=== PATIENT | male | born 1965 | race Caucasian/White ===

== ENCOUNTER 2017-11-06 13:24 | Emergency (ER) | payer MEDICARE, OTHER, MEDICAID ==
[~2017-11-06] VITALS: Ht 188 cm; Wt 89.1 kg
[~2017-11-06 13:24] MED LIST: ALBU18HF2 IH; ALBU6.7H INH; ASPI-611 PO; BUDE10.22 INH; METH4TAB3 PO; TIOT18CA7 INH
[2017-11-06] MEDS ORDERED: midazolam 2 mg/2 ml injection ONE (13:34)
[2017-11-06] MEDS ORDERED: fentaNYL/PF 50MCG/1 ML 2ML syringe ONE (13:34)
[2017-11-06] MEDS ORDERED: iohexol 350MG/ML 100ml bottle IV ONE (13:34)
[2017-11-06] MEDS ORDERED: LIDOcaine 1% w/EPI 1:100,000 30ml vial (MDV) ONE (13:34)
[2017-11-06] MEDS ORDERED: heparin 10,000 units/1 ML INJ IV ONE (13:35)
[2017-11-06] MEDS ORDERED: nitroGLYCERIN 0.4mg SUBLingual tab SL PRN (13:35)
[2017-11-06] MEDS ORDERED: aspirin 81mg tab.chew PO ONE (13:35)
[2017-11-06] MEDS ORDERED: dexamethasone sod phosphate 10mg/ml inj IV STA (13:40)
[2017-11-06] MEDS ORDERED: ipratropium/albuterol 3ml nebule NEB ONE (13:40)
[2017-11-06 13:45] LABS: BASOPHILS # (AUTO) 0.1 X10'3 (0-0.2); BASOPHILS % (AUTO) 0.8 % (0-1); EOSINOPHILS # (AUTO) 0.2 X10'3 (0-0.9); HEMATOCRIT 42.5 % (42.0-52.0); HEMOGLOBIN 14.5 g/dl (14.0-17.9); LYMPHOCYTES # (AUTO) 2.3 X10'3 (1.1-4.8); LYMPHOCYTES % (AUTO) 29.3 % (21-51); MEAN CORPUSCULAR HEMOGLOBIN 33.1 PG (27.0-31.0); MEAN CORPUSCULAR HGB CONC 34.1 % (33.0-36.5); MONOCYTES # (AUTO) 0.9 X10'3 (0-0.9); NEUTROPHILS # (AUTO) 4.5 X10'3 (1.8-7.7); NEUTROPHILS % (AUTO) 56.9 % (42-75); PLATELET COUNT 525 X10'3 (140-440); RED BLOOD COUNT 4.38 X10'6 (4.70-6.10); RED CELL DISTRIBUTION WIDTH 14.9 % (11.5-14.5); WHITE BLOOD COUNT 7.8 X10'3 (4.5-11.0)
[2017-11-06 13:54] LABS: PARTIAL THROMBOPLASTIN TIME 27 SECONDS (22-32); PROTHROMBIN TIME 10.2 SECONDS (9.0-12.0)
[2017-11-06 13:59] LABS: ALANINE AMINOTRANSFERASE 28 U/L (12-78); ALBUMIN 3.8 G/DL (3.4-5.0); ALBUMIN/GLOBULIN RATIO 1.2 (1.1-1.5); ALKALINE PHOSPHATASE 67 IU/L (46-116); ANION GAP 9 (8-16); ASPARTATE AMINO TRANSFERASE 18 U/L (10-37); BILIRUBIN,TOTAL 0.4 MG/DL (0.1-1.0); BLOOD UREA NITROGEN 12 MG/DL (7-18); BUN/CREATININE RATIO 15.2 (5.4-32.0); CALCIUM 8.5 MG/DL (8.5-10.1); CHLORIDE 103 MMOL/L (99-107); CREATININE 0.79 MG/DL (0.60-1.10); GLUCOSE 101 MG/DL (70-104); POTASSIUM 4.4 MMOL/L (3.5-5.1); SODIUM 139 MMOL/L (135-145); TOTAL CARBON DIOXIDE 26.9 MMOL/L (24-32); eGFR > 90 ML/MIN
[2017-11-06] MEDS ORDERED: ALBU8HFA PO (15:14)
[2017-11-06] MEDS ORDERED: PRED5TAB PO (15:14)
[2017-11-06] MEDS ORDERED: DOXY100C43 PO (15:14)
[2017-11-06 15:43] VITALS: BP 146/76
== END 2017-11-06 15:43 | disposition home or self-care (01) ==
LOC: EDBD 13:24 → EDUNIT# 13:24 → ER 13:27
DX: J20.9 Acute bronchitis, unspecified (principal); J44.1 Chronic obstructive pulmonary disease with (acute) exacerbation; I25.10 Atherosclerotic heart disease of native coronary artery without angina pectoris; I25.2 Old myocardial infarction; Z79.82 Long term (current) use of aspirin; Z86.73 Personal history of transient ischemic attack (TIA), and cerebral infarction without residual deficits; Z60.2 Problems related to living alone; Z98.890 Other specified postprocedural states; Z79.899 Other long term (current) drug therapy
CPT/HCPCS: 36415; 71045; 80053; 84484; 85025; 85610; 85730; 93005; 94640; 94760; 96374; 99285; J1100; J1644; J3490; Q9967; J2250; J3010

== ENCOUNTER 2018-01-14 12:04 | Emergency (ER) | payer OTHER, MEDICAID ==
[~2018-01-14] VITALS: Ht 188 cm; Wt 89.1 kg
[~2018-01-14 12:04] MED LIST changes: +ALB0.5UD IH; +LEVO750T21 PO; +PRED20TA PO; +PRED5TAB PO
[2018-01-14] MEDS ORDERED: normal saline 1000ML IV soln IVB ONE (12:10)
[2018-01-14] MEDS ORDERED: ipratropium/albuterol 3ml nebule NEB ONE (12:10)
[2018-01-14] MEDS ORDERED: albuterol 2.5 MG/3 ML nebule NEB ONE (12:10)
[2018-01-14 12:32] LABS: BASOPHILS # (AUTO) 0.1 X10'3 (0-0.2); BASOPHILS % (AUTO) 0.5 % (0-1); EOSINOPHILS # (AUTO) 0.1 X10'3 (0-0.9); EOSINOPHILS % (AUTO) 1.3 % (0-6); HEMATOCRIT 41.9 % (42.0-52.0); HEMOGLOBIN 13.9 g/dl (14.0-17.9); LYMPHOCYTES # (AUTO) 3.8 X10'3 (1.1-4.8); LYMPHOCYTES % (AUTO) 37.5 % (21-51); MEAN CORPUSCULAR HEMOGLOBIN 32.3 PG (27.0-31.0); MEAN CORPUSCULAR HGB CONC 33.2 % (33.0-36.5); MEAN CORPUSCULAR VOLUME 97.4 FL (78-98); MEAN PLATELET VOLUME 6.9 FL (7.4-10.4); MONOCYTES # (AUTO) 0.8 X10'3 (0-0.9); MONOCYTES % (AUTO) 7.6 % (2-12); NEUTROPHILS # (AUTO) 5.2 X10'3 (1.8-7.7); NEUTROPHILS % (AUTO) 53.1 % (42-75); PLATELET COUNT 541 X10'3 (140-440); RED CELL DISTRIBUTION WIDTH 13.7 % (11.5-14.5)
[2018-01-14 12:41] LABS: PARTIAL THROMBOPLASTIN TIME 26 SECONDS (22-32); PROTHROMBIN TIME 10.4 SECONDS (9.0-12.0)
[2018-01-14 12:49] LABS: ALANINE AMINOTRANSFERASE 24 U/L (12-78); ALBUMIN 3.5 G/DL (3.4-5.0); ALBUMIN/GLOBULIN RATIO 1.3 (1.1-1.5); ALKALINE PHOSPHATASE 57 IU/L (46-116); ANION GAP 10 (8-16); ASPARTATE AMINO TRANSFERASE 30 U/L (10-37); BILIRUBIN,TOTAL 0.6 MG/DL (0.1-1.0); BLOOD UREA NITROGEN 11 MG/DL (7-18); BUN/CREATININE RATIO 15.3 (5.4-32.0); CALCIUM 8.7 MG/DL (8.5-10.1); CHLORIDE 101 MMOL/L (99-107); CREATININE 0.72 MG/DL (0.60-1.10); GLUCOSE 94 MG/DL (70-104); POTASSIUM 3.5 MMOL/L (3.5-5.1); SODIUM 137 MMOL/L (135-145); TOTAL CARBON DIOXIDE 26.4 MMOL/L (24-32); TOTAL PROTEIN 6.3 G/DL (6.4-8.2); eGFR > 90 ML/MIN
[2018-01-14] MEDS ORDERED: ALB0.5UD IH (13:09)
[2018-01-14] MEDS ORDERED: ALBU18HF2 INH (13:09)
[2018-01-14] MEDS ORDERED: TIOT18CA3 INH (13:11)
[2018-01-14] MEDS ORDERED: BUDE10.22 INH (13:11)
[2018-01-14 13:30] VITALS: BP 105/74
== END 2018-01-14 13:18 | disposition home or self-care (01) ==
LOC: EDUNIT# 12:04 → EDBD 12:05 → ER 12:05
DX: J44.1 Chronic obstructive pulmonary disease with (acute) exacerbation (principal); I25.10 Atherosclerotic heart disease of native coronary artery without angina pectoris; I25.2 Old myocardial infarction; G89.29 Other chronic pain; Z95.5 Presence of coronary angioplasty implant and graft; Z98.890 Other specified postprocedural states; Z86.73 Personal history of transient ischemic attack (TIA), and cerebral infarction without residual deficits; Z79.899 Other long term (current) drug therapy; Z79.82 Long term (current) use of aspirin
CPT/HCPCS: 36415; 71045; 80053; 83880; 84484; 85025; 85610; 85730; 93005; 94640; 94760; 99285; J7030

== ENCOUNTER 2018-01-25 19:23 | Emergency (ER) | payer OTHER, MEDICAID ==
[~2018-01-25] VITALS: Ht 188 cm; Wt 89.1 kg
[~2018-01-25 19:23] MED LIST changes: +ALBU18HF2 INH; -LEVO750T21 PO; -PRED20TA PO; +TIOT18CA3 INH
[2018-01-25 19:50] LABS: BASOPHILS # (AUTO) 0.1 X10'3 (0-0.2); BASOPHILS % (AUTO) 0.8 % (0-1); EOSINOPHILS # (AUTO) 0.1 X10'3 (0-0.9); EOSINOPHILS % (AUTO) 1.4 % (0-6); HEMATOCRIT 45.6 % (42.0-52.0); HEMOGLOBIN 15.5 g/dl (14.0-17.9); LYMPHOCYTES # (AUTO) 2.4 X10'3 (1.1-4.8); LYMPHOCYTES % (AUTO) 27.4 % (21-51); MEAN CORPUSCULAR HEMOGLOBIN 32.7 PG (27.0-31.0); MEAN CORPUSCULAR VOLUME 96.2 FL (78-98); MEAN PLATELET VOLUME 6.7 FL (7.4-10.4); MONOCYTES % (AUTO) 11.9 % (2-12); NEUTROPHILS # (AUTO) 5.1 X10'3 (1.8-7.7); NEUTROPHILS % (AUTO) 58.5 % (42-75); PLATELET COUNT 497 X10'3 (140-440); RED BLOOD COUNT 4.74 X10'6 (4.70-6.10); RED CELL DISTRIBUTION WIDTH 14.3 % (11.5-14.5); WHITE BLOOD COUNT 8.7 X10'3 (4.5-11.0)
[2018-01-25 20:00] LABS: PARTIAL THROMBOPLASTIN TIME 27 SECONDS (22-32); PROTHROMBIN TIME 10.4 SECONDS (9.0-12.0)
[2018-01-25 20:05] LABS: ALANINE AMINOTRANSFERASE 22 U/L (12-78); ALBUMIN 3.9 G/DL (3.4-5.0); ALBUMIN/GLOBULIN RATIO 1.2 (1.1-1.5); ALKALINE PHOSPHATASE 79 IU/L (46-116); ANION GAP 8 (8-16); ASPARTATE AMINO TRANSFERASE 21 U/L (10-37); BILIRUBIN,TOTAL 0.6 MG/DL (0.1-1.0); BLOOD UREA NITROGEN 8 MG/DL (7-18); BUN/CREATININE RATIO 9.4 (5.4-32.0); CALCIUM 9.1 MG/DL (8.5-10.1); CHLORIDE 98 MMOL/L (99-107); CREATININE 0.85 MG/DL (0.60-1.10); GLUCOSE 87 MG/DL (70-104); POTASSIUM 4.2 MMOL/L (3.5-5.1); SODIUM 134 MMOL/L (135-145); TOTAL CARBON DIOXIDE 27.9 MMOL/L (24-32); TOTAL PROTEIN 7.1 G/DL (6.4-8.2); eGFR > 90 ML/MIN
[2018-01-25 20:34] VITALS: BP 118/84
== END 2018-01-25 20:35 | disposition home or self-care (01) ==
LOC: ER 19:23
DX: R61 Generalized hyperhidrosis (principal); F17.210 Nicotine dependence, cigarettes, uncomplicated; I25.10 Atherosclerotic heart disease of native coronary artery without angina pectoris; I25.2 Old myocardial infarction; J44.9 Chronic obstructive pulmonary disease, unspecified; G89.29 Other chronic pain; Z86.73 Personal history of transient ischemic attack (TIA), and cerebral infarction without residual deficits; Z95.5 Presence of coronary angioplasty implant and graft; Z98.890 Other specified postprocedural states; Z79.82 Long term (current) use of aspirin; Z79.899 Other long term (current) drug therapy
CPT/HCPCS: 36415; 71045; 80053; 84484; 85025; 85610; 85730; 93005; 99285

== ENCOUNTER 2018-02-10 18:49 | Inpatient (IN) | payer MEDICARE, MEDICAID ==
[~2018-02-10] VITALS: Ht 172.7 cm; Wt 89.1 kg
[~2018-02-10 18:49] MED LIST changes: +ALBU8HFA PO; +ATR0.5NEB IH; +DOXY100C43 PO
[2018-02-10] MEDS ORDERED: doxycycline hyclate 100mg tablet.DR PO ONE (19:15)
[2018-02-10] MEDS ORDERED: triamcinolone acetonide 40mg/ml inj IM ONE (19:15)
[2018-02-10] MEDS ORDERED: ipratropium/albuterol 3ml nebule NEB ONE (19:15)
[2018-02-10] MEDS ORDERED: DOXYCYCLINE 100MG CAPSULE PO ONE (19:25)
[2018-02-10 19:43] LABS: BASOPHILS # (AUTO) 0.1 X10'3 (0-0.2); BASOPHILS % (AUTO) 0.9 % (0-1); EOSINOPHILS # (AUTO) 0.1 X10'3 (0-0.9); EOSINOPHILS % (AUTO) 1.2 % (0-6); HEMATOCRIT 45.1 % (42.0-52.0); HEMOGLOBIN 15.4 g/dl (14.0-17.9); LYMPHOCYTES % (AUTO) 21.1 % (21-51); MEAN CORPUSCULAR HGB CONC 34.2 % (33.0-36.5); MEAN CORPUSCULAR VOLUME 96.4 FL (78-98); MEAN PLATELET VOLUME 6.6 FL (7.4-10.4); MONOCYTES # (AUTO) 0.7 X10'3 (0-0.9); MONOCYTES % (AUTO) 7.6 % (2-12); NEUTROPHILS # (AUTO) 6.7 X10'3 (1.8-7.7); NEUTROPHILS % (AUTO) 69.2 % (42-75); PLATELET COUNT 577 X10'3 (140-440); RED BLOOD COUNT 4.68 X10'6 (4.70-6.10); RED CELL DISTRIBUTION WIDTH 14.5 % (11.5-14.5); WHITE BLOOD COUNT 9.7 X10'3 (4.5-11.0)
[2018-02-10 20:03] LABS: PARTIAL THROMBOPLASTIN TIME 26 SECONDS (22-32); PROTHROMBIN TIME 10.4 SECONDS (9.0-12.0)
[2018-02-10 20:18] LABS: ALANINE AMINOTRANSFERASE 25 U/L (12-78); ALBUMIN 4.1 G/DL (3.4-5.0); ALBUMIN/GLOBULIN RATIO 1.4 (1.1-1.5); ALKALINE PHOSPHATASE 66 IU/L (46-116); ANION GAP 8 (8-16); ASPARTATE AMINO TRANSFERASE 15 U/L (10-37); BILIRUBIN,TOTAL 0.7 MG/DL (0.1-1.0); BLOOD UREA NITROGEN 15 MG/DL (7-18); BUN/CREATININE RATIO 15.2 (5.4-32.0); CALCIUM 9.4 MG/DL (8.5-10.1); CHLORIDE 98 MMOL/L (99-107); CREATININE 0.99 MG/DL (0.60-1.10); GLUCOSE 97 MG/DL (70-104); SODIUM 135 MMOL/L (135-145); TOTAL CARBON DIOXIDE 29.3 MMOL/L (24-32); TOTAL PROTEIN 7.1 G/DL (6.4-8.2); eGFR 79 ML/MIN
[2018-02-10] MEDS ORDERED: diphenhydrAMINE 50 mg/ml inj IV PRN (20:50)
[2018-02-10] MEDS ORDERED: acetaminophen 325mg tablet PO PRN ×2 (20:50)
[2018-02-10] MEDS ORDERED: morphine 2 MG/ML inj. syringe IV PRN ×2 (20:50)
[2018-02-10] MEDS ORDERED: bisacodyl 10mg suppository rectal RC PRN (20:50)
[2018-02-10] MEDS ORDERED: metoclopramide 5 mg/ml inj IV PRN (20:50)
[2018-02-10] MEDS ORDERED: HYDROmorphone inj. 0.5 MG/0.5 ML DISP.SYRIN IV PRN ×2 (20:50)
[2018-02-10] MEDS ORDERED: diphenhydrAMINE 25mg capsule PO PRN (20:50)
[2018-02-10] MEDS ORDERED: albuterol 2.5 mg/0.5ml nebule NEB PRN (20:50)
[2018-02-10] MEDS ORDERED: acetaminophen 650mg rectal suppository RC PRN (20:50)
[2018-02-10] MEDS ORDERED: ondansetron/PF 4mg/2ml inj IV PRN (20:50)
[2018-02-10] MEDS ORDERED: HYDROcodone/acetaminophen 10/325mg tab PO PRN (20:50)
[2018-02-10] MEDS ORDERED: mag hydrox/Alum hydrox/simeth 30ml oral suspension PO PRN (20:50)
[2018-02-10] MEDS ORDERED: magnesium hydroxide 30ml (MOM) UD suspension PO PRN (20:50)
[2018-02-10] MEDS ORDERED: HYDROcodone/acetaminophen 5mg/325mg tablet PO PRN (20:50)
[2018-02-10] MEDS ORDERED: temazepam 15mg capsule PO PRN (21:00)
[2018-02-10] MEDS ORDERED: iohexol 350MG/ML 100ml bottle IV ONE (21:02)
[2018-02-10] MEDS: dextrose 5%-1/2 normal saline 1,000 ML IV SCH (21:24)
[2018-02-10 21:25] LABS: MAGNESIUM 2.4 MG/DL (1.5-2.4)
[2018-02-11] MEDS: ipratropium 0.5 MG/2.5ML nebule IH SCH ×2 (01:34→08:32)
[2018-02-11 05:32] VITALS: BP 125/79
[2018-02-11] MEDS ORDERED: famotidine 20mg tablet PO SCH (08:00)
[2018-02-11] MEDS ORDERED: methylPREDNISolone sod succ 125mg/2ml vial IV SCH (08:00)
[2018-02-11] MEDS ORDERED: heparin, porcine 5000 units/ml vial SQ SCH (08:00)
[2018-02-11] MEDS ORDERED: docusate sod 100mg capsule PO SCH (08:00)
[2018-02-11] MEDS ORDERED: aspirin 81mg tablet.DR PO SCH (08:00)
[2018-02-11] MEDS ORDERED: lactobacillus rhamnosus 10,000 MMU CELLS/CAPSULE PO SCH (08:00)
[2018-02-11] MEDS ORDERED: DOXYCYCLINE 100MG CAPSULE PO SCH (08:00)
[2018-02-11 08:13] LABS: BASOPHILS # (AUTO) 0.1 X10'3 (0-0.2); BASOPHILS % (AUTO) 0.7 % (0-1); EOSINOPHILS # (AUTO) 0.1 X10'3 (0-0.9); EOSINOPHILS % (AUTO) 1.2 % (0-6); HEMATOCRIT 45.3 % (42.0-52.0); HEMOGLOBIN 15.4 g/dl (14.0-17.9); LYMPHOCYTES # (AUTO) 1.9 X10'3 (1.1-4.8); MEAN CORPUSCULAR HEMOGLOBIN 32.8 PG (27.0-31.0); MEAN CORPUSCULAR VOLUME 96.4 FL (78-98); MEAN PLATELET VOLUME 6.7 FL (7.4-10.4); MONOCYTES # (AUTO) 0.8 X10'3 (0-0.9); MONOCYTES % (AUTO) 8.9 % (2-12); NEUTROPHILS % (AUTO) 68.2 % (42-75); PLATELET COUNT 607 X10'3 (140-440); RED BLOOD COUNT 4.69 X10'6 (4.70-6.10); RED CELL DISTRIBUTION WIDTH 14.3 % (11.5-14.5); WHITE BLOOD COUNT 8.8 X10'3 (4.5-11.0)
[2018-02-11] MEDS: dextrose 5%-1/2 normal saline 1,000 ML IV SCH (08:37)
[2018-02-11] MEDS: nicotine 21mg patch - 24 hr TD SCH (08:41)
[2018-02-11 08:43] LABS: URINE AMPHETAMINE SCREEN NEGATIVE (Neg); URINE BARBITUATE SCREEN NEGATIVE (Neg); URINE BENZODIAZEPINES SCREEN NEGATIVE (Neg); URINE CANNABINOID SCREEN NEGATIVE (Neg); URINE COCAINE SCREEN NEGATIVE (Neg); URINE METHADONE SCREEN NEGATIVE (Neg); URINE OPIATE SCREEN NEGATIVE (Neg); URINE PHENCYCLIDINE SCREEN NEGATIVE (Neg)
[2018-02-11 09:13] LABS: ALANINE AMINOTRANSFERASE 24 U/L (12-78); ALBUMIN/GLOBULIN RATIO 1.3 (1.1-1.5); ALKALINE PHOSPHATASE 66 IU/L (46-116); ANION GAP 7 (8-16); ASPARTATE AMINO TRANSFERASE 14 U/L (10-37); BILIRUBIN,TOTAL 0.6 MG/DL (0.1-1.0); BLOOD UREA NITROGEN 13 MG/DL (7-18); BUN/CREATININE RATIO 12.3 (5.4-32.0); CALCIUM 9.2 MG/DL (8.5-10.1); CHLORIDE 99 MMOL/L (99-107); CREATININE 1.06 MG/DL (0.60-1.10); GLUCOSE 111 MG/DL (70-104); POTASSIUM 3.8 MMOL/L (3.5-5.1); SODIUM 136 MMOL/L (135-145); TOTAL CARBON DIOXIDE 30.4 MMOL/L (24-32); eGFR 73 ML/MIN
[2018-02-11] MEDS ORDERED: ipratropium 0.5 MG/2.5ML nebule IH PRN (09:30)
[2018-02-11] MEDS ORDERED: ALBU8.5H8 INH (11:56)
[2018-02-11] MEDS ORDERED: LACT1CAP26 PO (11:56)
[2018-02-11] MEDS ORDERED: NICO-687 TD (11:56)
[2018-02-11] MEDS ORDERED: LEVO500T89 PO (11:56)
[2018-02-11] MEDS ORDERED: BUDE10.22 INH (11:56)
[2018-02-11] MEDS ORDERED: FAMO20TA8 PO (11:56)
[2018-02-11] MEDS ORDERED: PRED10TA23 PO (11:56)
[2018-02-11] MEDS ORDERED: NO HOME MEDS (23:16)
== END 2018-02-11 15:57 | disposition left against medical advice (07) | DRG 192 ==
LOC: ER 18:52 → ED HOLD 20:49 → CANBEDREQ 02-11 11:26
PROVIDERS: ADMIT Family Medicine; ATTEND Family Medicine
PROC: B32T1ZZ Computerized Tomography (CT Scan) of Left Pulmonary Artery using Low Osmolar Contrast (ICD-10-PCS; principal; 2018-02-10)
PROC: B3201ZZ Computerized Tomography (CT Scan) of Thoracic Aorta using Low Osmolar Contrast (ICD-10-PCS; 2018-02-10)
PROC: B32S1ZZ Computerized Tomography (CT Scan) of Right Pulmonary Artery using Low Osmolar Contrast (ICD-10-PCS; 2018-02-10)
DX: J44.1 Chronic obstructive pulmonary disease with (acute) exacerbation (principal); Z53.21 Procedure and treatment not carried out due to patient leaving prior to being seen by health care provider; F17.210 Nicotine dependence, cigarettes, uncomplicated; Z60.2 Problems related to living alone; I25.10 Atherosclerotic heart disease of native coronary artery without angina pectoris; G89.29 Other chronic pain; M54.9 Dorsalgia, unspecified; I25.2 Old myocardial infarction; Z79.899 Other long term (current) drug therapy; Z79.82 Long term (current) use of aspirin; Z91.010 Allergy to peanuts; Z86.73 Personal history of transient ischemic attack (TIA), and cerebral infarction without residual deficits
CPT/HCPCS: 36415; 71045; 71275; 80053; 80305; 83735; 83880; 84100; 85025; 85610; 85730; 94640; 94760; 96372; 99285; J1170; J1644; J2930; J3301; J7030; Q9967

== ENCOUNTER 2018-02-11 22:07 | Inpatient (IN) | payer MEDICARE, MEDICAID ==
[~2018-02-11] VITALS: Ht 188 cm; Wt 89.0 kg
[~2018-02-11 22:07] MED LIST changes: +ALBU8.5H8 INH; +FAMO20TA8 PO; +LACT1CAP26 PO; +LEVO500T89 PO; +NICO-687 TD; +PRED10TA23 PO; +temazepam 15mg capsule PO PRN
[2018-02-11] MEDS ORDERED: albuterol 2.5 MG/3 ML nebule CONTNEB PRN ×2 (22:10→23:10)
[2018-02-11] MEDS ORDERED: dexamethasone 4mg tablet PO ONE (22:10)
[2018-02-11] MEDS ORDERED: doxycycline hyclate 100mg tablet.DR PO ONE (23:15)
[2018-02-11] MEDS ORDERED: NO HOME MEDS (23:16)
[2018-02-11] MEDS ORDERED: acetaminophen 650mg rectal suppository RC PRN (23:25)
[2018-02-11] MEDS ORDERED: ondansetron/PF 4mg/2ml inj IV PRN (23:25)
[2018-02-11] MEDS ORDERED: HYDROmorphone 1 mg/ml syringe IV PRN ×2 (23:25)
[2018-02-11] MEDS ORDERED: diphenhydrAMINE 25mg capsule PO PRN (23:25)
[2018-02-11] MEDS ORDERED: mag hydrox/Alum hydrox/simeth 30ml oral suspension PO PRN (23:25)
[2018-02-11] MEDS ORDERED: HYDROcodone/acetaminophen 5mg/325mg tablet PO PRN (23:25)
[2018-02-11] MEDS ORDERED: magnesium hydroxide 30ml (MOM) UD suspension PO PRN (23:25)
[2018-02-11] MEDS ORDERED: metoclopramide 5 mg/ml inj IV PRN (23:25)
[2018-02-11] MEDS ORDERED: HYDROcodone/acetaminophen 10/325mg tab PO PRN (23:25)
[2018-02-11] MEDS ORDERED: morphine 2 MG/ML inj. syringe IV PRN ×2 (23:25)
[2018-02-11] MEDS ORDERED: bisacodyl 10mg suppository rectal RC PRN (23:25)
[2018-02-11] MEDS ORDERED: acetaminophen 325mg tablet PO PRN ×2 (23:25)
[2018-02-11] MEDS ORDERED: diphenhydrAMINE 50 mg/ml inj IV PRN (23:25)
[2018-02-12 00:14] LABS: BASOPHILS # (AUTO) 0.1 X10'3 (0-0.2); BASOPHILS % (AUTO) 0.9 % (0-1); EOSINOPHILS % (AUTO) 0 % (0-6); HEMATOCRIT 44.7 % (42.0-52.0); HEMOGLOBIN 15.1 g/dl (14.0-17.9); LYMPHOCYTES # (AUTO) 1.4 X10'3 (1.1-4.8); LYMPHOCYTES % (AUTO) 15.1 % (21-51); MEAN CORPUSCULAR HEMOGLOBIN 32.7 PG (27.0-31.0); MEAN CORPUSCULAR HGB CONC 33.8 % (33.0-36.5); MEAN CORPUSCULAR VOLUME 96.7 FL (78-98); MEAN PLATELET VOLUME 7.1 FL (7.4-10.4); MONOCYTES # (AUTO) 0.7 X10'3 (0-0.9); MONOCYTES % (AUTO) 7.2 % (2-12); NEUTROPHILS % (AUTO) 76.8 % (42-75); PLATELET COUNT 594 X10'3 (140-440); RED BLOOD COUNT 4.62 X10'6 (4.70-6.10); RED CELL DISTRIBUTION WIDTH 14.4 % (11.5-14.5); WHITE BLOOD COUNT 9.1 X10'3 (4.5-11.0)
[2018-02-12 01:43] LABS: ALBUMIN 3.9 G/DL (3.4-5.0); BILIRUBIN,TOTAL 0.5 MG/DL (0.1-1.0); BLOOD UREA NITROGEN 15 MG/DL (7-18); BUN/CREATININE RATIO 15.6 (5.4-32.0); CREATININE 0.96 MG/DL (0.60-1.10); eGFR 82 ML/MIN
[2018-02-12 01:58] LABS: ALANINE AMINOTRANSFERASE 18 U/L (12-78); ALBUMIN/GLOBULIN RATIO 1.4 (1.1-1.5); ALKALINE PHOSPHATASE 56 IU/L (46-116); ANION GAP 11 (8-16); ASPARTATE AMINO TRANSFERASE 18 U/L (10-37); CALCIUM 9.6 MG/DL (8.5-10.1); CHLORIDE 98 MMOL/L (99-107); GLUCOSE 121 MG/DL (70-104); POTASSIUM 3.6 MMOL/L (3.5-5.1); SODIUM 136 MMOL/L (135-145); TOTAL CARBON DIOXIDE 26.6 MMOL/L (24-32); TOTAL PROTEIN 6.7 G/DL (6.4-8.2)
[2018-02-12] MEDS: docusate sod 100mg capsule PO SCH ×2 (08:00→20:09)
[2018-02-12] MEDS: nicotine 21mg patch - 24 hr TD SCH (08:00)
[2018-02-12] MEDS ORDERED: methylPREDNISolone sod succ 125mg/2ml vial IV SCH (08:00)
[2018-02-12] MEDS ORDERED: CefTRIAXone/D5W-Rocephin 1gm 50 ML IV SCH (08:00)
[2018-02-12] MEDS: ipratropium/albuterol 3ml nebule NEB PRN ×3 (08:39→22:33)
[2018-02-12] MEDS: aspirin 81mg tab.chew PO SCH (09:31)
[2018-02-12] MEDS: pantoprazole 40mg Tablet.DR PO SCH (09:31)
[2018-02-12] MEDS: azithromycin 250mg tablet PO SCH (09:32)
[2018-02-12] MEDS: heparin, porcine 5000 units/ml vial SQ SCH ×2 (09:33→20:11)
[2018-02-12 11:19] VITALS: BP 114/78
[2018-02-12] MEDS: methylPREDNISolone sod succ 125mg/2ml vial IV SCH ×2 (17:05→23:46)
[2018-02-12 19:00] VITALS: BP 109/67
[2018-02-13] VITALS: BP 119/75
[2018-02-13] MEDS: ipratropium/albuterol 3ml nebule NEB PRN ×2 (05:33→11:17)
[2018-02-13 05:49] LABS: BASOPHILS % (AUTO) 0 % (0-1); EOSINOPHILS % (AUTO) 0 % (0-6); HEMATOCRIT 38.6 % (42.0-52.0); HEMOGLOBIN 13.2 g/dl (14.0-17.9); LYMPHOCYTES # (AUTO) 3.5 X10'3 (1.1-4.8); LYMPHOCYTES % (AUTO) 22.5 % (21-51); MEAN CORPUSCULAR HEMOGLOBIN 32.9 PG (27.0-31.0); MEAN CORPUSCULAR HGB CONC 34.2 % (33.0-36.5); MEAN CORPUSCULAR VOLUME 96.2 FL (78-98); MEAN PLATELET VOLUME 7.4 FL (7.4-10.4); MONOCYTES # (AUTO) 1.2 X10'3 (0-0.9); MONOCYTES % (AUTO) 7.7 % (2-12); NEUTROPHILS # (AUTO) 10.7 X10'3 (1.8-7.7); NEUTROPHILS % (AUTO) 69.8 % (42-75); PLATELET COUNT 499 X10'3 (140-440); RED BLOOD COUNT 4.02 X10'6 (4.70-6.10); RED CELL DISTRIBUTION WIDTH 14.7 % (11.5-14.5); WHITE BLOOD COUNT 15.4 X10'3 (4.5-11.0)
[2018-02-13 06:05] LABS: ALANINE AMINOTRANSFERASE 18 U/L (12-78); ALBUMIN 3.1 G/DL (3.4-5.0); ALBUMIN/GLOBULIN RATIO 1.2 (1.1-1.5); ALKALINE PHOSPHATASE 66 IU/L (46-116); ANION GAP 6 (8-16); ASPARTATE AMINO TRANSFERASE 16 U/L (10-37); BILIRUBIN,TOTAL 0.2 MG/DL (0.1-1.0); BLOOD UREA NITROGEN 15 MG/DL (7-18); BUN/CREATININE RATIO 16.1 (5.4-32.0); CALCIUM 8.6 MG/DL (8.5-10.1); CHLORIDE 100 MMOL/L (99-107); CREATININE 0.93 MG/DL (0.60-1.10); GLUCOSE 131 MG/DL (70-104); POTASSIUM 3.6 MMOL/L (3.5-5.1); SODIUM 134 MMOL/L (135-145); TOTAL CARBON DIOXIDE 27.6 MMOL/L (24-32); TOTAL PROTEIN 5.6 G/DL (6.4-8.2); eGFR 85 ML/MIN
[2018-02-13 07:00] VITALS: BP 94/47
[2018-02-13] MEDS: nicotine 21mg patch - 24 hr TD SCH (08:00)
[2018-02-13] MEDS ORDERED: CefTRIAXone/D5W-Rocephin 1gm 50 ML IV SCH (08:00)
[2018-02-13] MEDS: aspirin 81mg tab.chew PO SCH (08:39)
[2018-02-13] MEDS: docusate sod 100mg capsule PO SCH (08:39)
[2018-02-13] MEDS: azithromycin 250mg tablet PO SCH (08:43)
[2018-02-13] MEDS: pantoprazole 40mg Tablet.DR PO SCH (08:43)
[2018-02-13] MEDS: heparin, porcine 5000 units/ml vial SQ SCH (08:44)
[2018-02-13] MEDS: methylPREDNISolone sod succ 125mg/2ml vial IV SCH (08:45)
[2018-02-13] MEDS ORDERED: ALBU8.5H8 INH (09:36)
[2018-02-13] MEDS ORDERED: ALBU0.63 NEB (09:36)
[2018-02-13] MEDS ORDERED: TIOT18CA3 IH (09:36)
[2018-02-13] MEDS ORDERED: PRED10TA23 PO (09:39)
[2018-02-13] MEDS ORDERED: BUDE10.2 INH (09:39)
== END 2018-02-13 13:00 | disposition home or self-care (01) | DRG 918 ==
LOC: ER 22:08 → ED HOLD 23:24 → SUR 3N 02-12 08:22
PROVIDERS: ADMIT Family Medicine; ATTEND Internal Medicine
DX: T59.811A Toxic effect of smoke, accidental (unintentional), initial encounter (principal); J44.1 Chronic obstructive pulmonary disease with (acute) exacerbation; I25.10 Atherosclerotic heart disease of native coronary artery without angina pectoris; G89.29 Other chronic pain; M54.9 Dorsalgia, unspecified; J70.5 Respiratory conditions due to smoke inhalation; F17.210 Nicotine dependence, cigarettes, uncomplicated; Z60.2 Problems related to living alone; X08.8XXA Exposure to other specified smoke, fire and flames, initial encounter; I25.2 Old myocardial infarction; Z91.010 Allergy to peanuts; Z79.899 Other long term (current) drug therapy; Z86.73 Personal history of transient ischemic attack (TIA), and cerebral infarction without residual deficits; Z57.31 Occupational exposure to environmental tobacco smoke; Y92.89 Other specified places as the place of occurrence of the external cause; Y93.89 Activity, other specified; Y99.8 Other external cause status
CPT/HCPCS: 36415; 80053; 85025; 87070; 94640; 94667; 94760; 99291; J0696; J1644; J2405; J2930; J8540

== ENCOUNTER 2018-03-04 22:54 | Emergency (ER) | payer MEDICARE, MEDICAID ==
[~2018-03-04] VITALS: Ht 188 cm; Wt 89.1 kg
[~2018-03-04 22:54] MED LIST changes: -ALB0.5UD IH; +ALBU0.63 NEB; -ALBU18HF2 IH; -ALBU18HF2 INH; -ALBU6.7H INH; -ASPI-611 PO; -ATR0.5NEB IH; +BUDE10.2 INH; -BUDE10.22 INH; -DOXY100C43 PO; -FAMO20TA8 PO; +IBUP-1986 PO; -LACT1CAP26 PO; -LEVO500T89 PO; +LIDO700A32 TOP; -METH4TAB3 PO; -NICO-687 TD; +NO HOME MEDS; -PRED5TAB PO; +TIOT18CA3 IH; -TIOT18CA3 INH; -TIOT18CA7 INH; -temazepam 15mg capsule PO PRN
[2018-03-04] MEDS ORDERED: albuterol 2.5 MG/3 ML nebule NEB ONE (23:40)
[2018-03-04] MEDS ORDERED: predniSONE 20 mg tablet PO ONE (23:40)
[2018-03-05] MEDS ORDERED: TIOT18CA3 INH (01:36)
[2018-03-05] MEDS ORDERED: BUDE10.22 INH (01:36)
[2018-03-05] MEDS ORDERED: ALBU8HFA PO (01:36)
[2018-03-05 01:41] VITALS: BP 116/62
[2018-03-05] MEDS ORDERED: ALBU18HF2 INH (20:27)
== END 2018-03-05 01:43 | disposition home or self-care (01) ==
LOC: ER 22:55
DX: J44.1 Chronic obstructive pulmonary disease with (acute) exacerbation (principal); F10.129 Alcohol abuse with intoxication, unspecified; I25.10 Atherosclerotic heart disease of native coronary artery without angina pectoris; I25.2 Old myocardial infarction; G89.29 Other chronic pain; Z86.73 Personal history of transient ischemic attack (TIA), and cerebral infarction without residual deficits; Z98.61 Coronary angioplasty status; Z79.899 Other long term (current) drug therapy; Y90.9 Presence of alcohol in blood, level not specified; Z60.2 Problems related to living alone
CPT/HCPCS: 71045; 93005; 94640; 94760; 99284; J7512

== ENCOUNTER 2018-03-05 19:24 | Emergency (ER) | payer MEDICARE, MEDICAID ==
[~2018-03-05] VITALS: Ht 185.4 cm; Wt 89.0 kg
[~2018-03-05 19:24] MED LIST changes: +BUDE10.22 INH; -LIDO700A32 TOP; -PRED10TA23 PO; +TIOT18CA3 INH
[2018-03-05 20:16] VITALS: BP 118/73
[2018-03-05] MEDS ORDERED: ALBU18HF2 INH (20:27)
[2018-03-05] MEDS ORDERED: dexamethasone sod phosphate 10mg/ml inj IM STA (20:50)
== END 2018-03-05 20:50 | disposition home or self-care (01) ==
LOC: ER 19:24
DX: J44.1 Chronic obstructive pulmonary disease with (acute) exacerbation (principal); Z76.0 Encounter for issue of repeat prescription; I25.10 Atherosclerotic heart disease of native coronary artery without angina pectoris; I25.2 Old myocardial infarction; G89.29 Other chronic pain; Z86.73 Personal history of transient ischemic attack (TIA), and cerebral infarction without residual deficits; F17.210 Nicotine dependence, cigarettes, uncomplicated; Z98.61 Coronary angioplasty status; Z79.899 Other long term (current) drug therapy; Z60.2 Problems related to living alone
CPT/HCPCS: 71045; 93005; 99284

== ENCOUNTER 2018-03-06 22:53 | Emergency (ER) | payer MEDICARE, MEDICAID ==
[~2018-03-06] VITALS: Ht 188 cm; Wt 89.0 kg
[~2018-03-06 22:53] MED LIST changes: +ALBU18HF2 INH
[2018-03-07] MEDS ORDERED: BUDE10.2 INH (00:01)
[2018-03-07] MEDS ORDERED: TIOT4MIS5 INH (00:01)
[2018-03-07] MEDS ORDERED: ALBU8.5H8 INH (00:01)
[2018-03-07 00:10] VITALS: BP 126/87
== END 2018-03-07 00:11 | disposition home or self-care (01) ==
LOC: ER 22:53
DX: J44.1 Chronic obstructive pulmonary disease with (acute) exacerbation (principal); I25.10 Atherosclerotic heart disease of native coronary artery without angina pectoris; I25.2 Old myocardial infarction; G89.29 Other chronic pain; F17.200 Nicotine dependence, unspecified, uncomplicated; Z86.73 Personal history of transient ischemic attack (TIA), and cerebral infarction without residual deficits; Z95.5 Presence of coronary angioplasty implant and graft; Z98.890 Other specified postprocedural states; Z79.899 Other long term (current) drug therapy
CPT/HCPCS: 93005; 99284

== ENCOUNTER 2018-03-25 10:46 | Emergency (ER) | payer MEDICARE, MEDICAID ==
[~2018-03-25] VITALS: Ht 188 cm; Wt 76.6 kg
[~2018-03-25 10:46] MED LIST changes: +TIOT4MIS5 INH
[2018-03-25] MEDS ORDERED: LORazepam 2 mg/ml vial IV ONE (10:50)
[2018-03-25] MEDS ORDERED: ipratropium/albuterol 3ml nebule NEB ONE ×2 (10:55)
[2018-03-25] MEDS ORDERED: normal saline 1000ML IV soln IVB ONE (10:55)
[2018-03-25] MEDS ORDERED: levoFLOXACIN-Levaquin 750MG/D5 150 ML IV ONE (10:55)
[2018-03-25] MEDS ORDERED: methylPREDNISolone sod succ 125mg/2ml vial IV ONE (10:55)
[2018-03-25 11:41] LABS: ALANINE AMINOTRANSFERASE 81 U/L (12-78); ALBUMIN/GLOBULIN RATIO 1.1 (1.1-1.5); ALKALINE PHOSPHATASE 56 IU/L (46-116); ANION GAP 4 (8-16); ASPARTATE AMINO TRANSFERASE 42 U/L (10-37); BILIRUBIN,TOTAL 0.4 MG/DL (0.1-1.0); BLOOD UREA NITROGEN 4 MG/DL (7-18); BUN/CREATININE RATIO 6.8 (5.4-32.0); CALCIUM 7.8 MG/DL (8.5-10.1); CHLORIDE 102 MMOL/L (99-107); CREATININE 0.59 MG/DL (0.60-1.10); GLUCOSE 98 MG/DL (70-104); POTASSIUM 3.7 MMOL/L (3.5-5.1); SODIUM 136 MMOL/L (135-145); TOTAL CARBON DIOXIDE 30.1 MMOL/L (24-32); TOTAL PROTEIN 5.7 G/DL (6.4-8.2); eGFR > 90 ML/MIN
[2018-03-25 11:46] LABS: ISTAT ANION GAP 12 (8-12); ISTAT BUN < 3 mg/dL (6-19); ISTAT CL 99 mmol/L (99-107); ISTAT CREATININE 0.4 mg/dL (0.8-1.3); ISTAT GLUCOSE 109 mg/dL (70-104); ISTAT HGB 13.6 g/dl (14.0-18.0); ISTAT Hct 40 %PCV (42-52); ISTAT IONIZED CALCIUM 1.09 mmol/L (1.03-1.32); ISTAT K 3.7 mmol/L (3.5-5.1); ISTAT NA 136 mmol/L (135-145); ISTAT TOTAL CO2 25 mmol/L (24-32); ISTAT eGFR > 90 ML/MIN; POC BUN/CREATININE RATIO 7.5 (5.4-32.0)
[2018-03-25 11:48] LABS: MAGNESIUM 2.1 MG/DL (1.5-2.4)
[2018-03-25] MEDS: magnesium 1gm/100ml D5W IVPB 100 ML IV SCH ×2 (12:01→12:07)
[2018-03-25 12:26] LABS: BASOPHILS # (AUTO) 0.1 X10'3 (0-0.2); BASOPHILS % (AUTO) 0.7 % (0-1); EOSINOPHILS # (AUTO) 0.1 X10'3 (0-0.9); EOSINOPHILS % (AUTO) 0.9 % (0-6); HEMOGLOBIN 13.4 g/dl (14.0-17.9); LYMPHOCYTES # (AUTO) 1.8 X10'3 (1.1-4.8); LYMPHOCYTES % (AUTO) 23.4 % (21-51); MEAN CORPUSCULAR HGB CONC 33.4 % (33.0-36.5); MEAN PLATELET VOLUME 7.3 FL (7.4-10.4); MONOCYTES # (AUTO) 0.8 X10'3 (0-0.9); MONOCYTES % (AUTO) 10.9 % (2-12); NEUTROPHILS # (AUTO) 4.9 X10'3 (1.8-7.7); NEUTROPHILS % (AUTO) 64.1 % (42-75); PLATELET COUNT 509 X10'3 (140-440); RED BLOOD COUNT 4.04 X10'6 (4.70-6.10); RED CELL DISTRIBUTION WIDTH 15.9 % (11.5-14.5); WHITE BLOOD COUNT 7.6 X10'3 (4.5-11.0)
[2018-03-25] MEDS ORDERED: PRED20TA PO (13:37)
[2018-03-25] MEDS ORDERED: LEVO500T2 PO (13:37)
[2018-03-25] MEDS ORDERED: LORazepam 1 MG tablet PO ONE (13:45)
[2018-03-25 13:51] LABS: CLARITY,URINE CLEAR (Clear); COLOR,URINE YELLOW (Yellow); GLUCOSE, URINE NEGATIVE (Neg); KETONES,URINE NEGATIVE (Neg); LEUKOCYTE ESTERASE ,URINE NEGATIVE (Neg); NITRITES, URINE NEGATIVE (Neg); OCCULT BLOOD,URINE NEGATIVE (Neg); PROTEIN,URINE NEGATIVE (Neg); UROBILINOGEN,URINE 0.2 E.U/dL (0.2-1.0)
[2018-03-25 13:52] LABS: UA COLLECTION TYPE VOIDED
[2018-03-25 13:55] VITALS: BP 122/81
== END 2018-03-25 14:03 | disposition home or self-care (01) ==
LOC: ER 10:46
DX: J44.1 Chronic obstructive pulmonary disease with (acute) exacerbation (principal); I25.10 Atherosclerotic heart disease of native coronary artery without angina pectoris; I25.2 Old myocardial infarction; G89.29 Other chronic pain; F17.210 Nicotine dependence, cigarettes, uncomplicated; F10.20 Alcohol dependence, uncomplicated; Z98.61 Coronary angioplasty status; Z98.890 Other specified postprocedural states; Z79.899 Other long term (current) drug therapy; Y90.9 Presence of alcohol in blood, level not specified
CPT/HCPCS: 36415; 71045; 80047; 80053; 81003; 83735; 83880; 84484; 85025; 85610; 93005; 94640; 94760; 96365; 96366; 96368; 96375; 99285; J1956; J2060; J2930

== ENCOUNTER 2018-04-29 07:24 | Emergency (ER) | payer MEDICARE, MEDICAID ==
[~2018-04-29] VITALS: Ht 188 cm; Wt 87.0 kg
[~2018-04-29 07:24] MED LIST changes: -ALBU8HFA PO
[2018-04-29 07:28] VITALS: BP 125/48
[2018-04-29] MEDS ORDERED: ipratropium/albuterol 3ml nebule NEB ONE (07:35)
[2018-04-29] MEDS ORDERED: methylPREDNISolone sod succ 125mg/2ml vial IV ONE (07:35)
[2018-04-29 08:51] LABS: BASOPHILS # (AUTO) 0.1 X10'3 (0-0.2); BASOPHILS % (AUTO) 0.5 % (0-1); EOSINOPHILS # (AUTO) 0.1 X10'3 (0-0.9); HEMATOCRIT 46.8 % (42.0-52.0); HEMOGLOBIN 15.9 g/dl (14.0-17.9); LYMPHOCYTES # (AUTO) 1.8 X10'3 (1.1-4.8); LYMPHOCYTES % (AUTO) 18.2 % (21-51); MEAN CORPUSCULAR HEMOGLOBIN 33.3 PG (27.0-31.0); MEAN CORPUSCULAR HGB CONC 33.9 % (33.0-36.5); MEAN CORPUSCULAR VOLUME 98.3 FL (78-98); MONOCYTES # (AUTO) 0.8 X10'3 (0-0.9); MONOCYTES % (AUTO) 7.5 % (2-12); NEUTROPHILS # (AUTO) 7.3 X10'3 (1.8-7.7); NEUTROPHILS % (AUTO) 72.8 % (42-75); PLATELET COUNT 555 X10'3 (140-440); RED BLOOD COUNT 4.77 X10'6 (4.70-6.10); RED CELL DISTRIBUTION WIDTH 15.1 % (11.5-14.5); WHITE BLOOD COUNT 10.1 X10'3 (4.5-11.0)
[2018-04-29 09:07] LABS: ALANINE AMINOTRANSFERASE 21 U/L (12-78); ALBUMIN 4.1 G/DL (3.4-5.0); ALBUMIN/GLOBULIN RATIO 1.3 (1.1-1.5); ALKALINE PHOSPHATASE 60 IU/L (46-116); ANION GAP 13 (8-16); ASPARTATE AMINO TRANSFERASE 18 U/L (10-37); BILIRUBIN,TOTAL 0.5 MG/DL (0.1-1.0); BLOOD UREA NITROGEN 8 MG/DL (7-18); BUN/CREATININE RATIO 10.8 (5.4-32.0); CHLORIDE 98 MMOL/L (99-107); CREATININE 0.74 MG/DL (0.60-1.10); GLUCOSE 60 MG/DL (70-104); PARTIAL THROMBOPLASTIN TIME 28 SECONDS (22-32); POTASSIUM 3.9 MMOL/L (3.5-5.1); PROTHROMBIN TIME 9.9 SECONDS (9.0-12.0); SODIUM 134 MMOL/L (135-145); TOTAL CARBON DIOXIDE 23.1 MMOL/L (24-32); TOTAL PROTEIN 7.2 G/DL (6.4-8.2); eGFR > 90 ML/MIN
[2018-04-29] MEDS ORDERED: PRED20TA PO (09:18)
[2018-04-29] MEDS ORDERED: ALBU2.5V12 NEB (09:18)
== END 2018-04-29 09:29 | disposition home or self-care (01) ==
LOC: ER 07:24
DX: J44.1 Chronic obstructive pulmonary disease with (acute) exacerbation (principal); I25.10 Atherosclerotic heart disease of native coronary artery without angina pectoris; I25.2 Old myocardial infarction; G89.29 Other chronic pain; F10.20 Alcohol dependence, uncomplicated; Z86.73 Personal history of transient ischemic attack (TIA), and cerebral infarction without residual deficits; Z98.61 Coronary angioplasty status; Z98.890 Other specified postprocedural states; Z79.899 Other long term (current) drug therapy; Y90.9 Presence of alcohol in blood, level not specified
CPT/HCPCS: 36415; 71045; 80053; 83880; 84484; 85025; 85610; 85730; 93005; 94640; 94760; 96374; 99284; J2930

== ENCOUNTER 2018-05-12 13:58 | Emergency (ER) | payer MEDICARE, MEDICAID ==
[~2018-05-12] VITALS: Ht 188 cm; Wt 74.5 kg
[~2018-05-12 13:58] MED LIST changes: +ALBU2.5V12 NEB; +PRED20TA PO
[2018-05-12] MEDS ORDERED: ipratropium/albuterol 3ml nebule NEB ONE (14:10)
[2018-05-12] MEDS ORDERED: albuterol 2.5 MG/3 ML nebule NEB ONE (14:10)
[2018-05-12] MEDS ORDERED: normal saline 1000ML IV soln IVB ONE (14:10)
[2018-05-12] MEDS ORDERED: methylPREDNISolone sod succ 125mg/2ml vial IV ONE (14:10)
[2018-05-12 14:35] LABS: BASOPHILS # (AUTO) 0.1 X10'3 (0-0.2); BASOPHILS % (AUTO) 1.8 % (0-1); EOSINOPHILS # (AUTO) 0.1 X10'3 (0-0.9); EOSINOPHILS % (AUTO) 1.2 % (0-6); HEMATOCRIT 47.5 % (42.0-52.0); HEMOGLOBIN 15.7 g/dl (14.0-17.9); LYMPHOCYTES # (AUTO) 2.4 X10'3 (1.1-4.8); LYMPHOCYTES % (AUTO) 32.1 % (21-51); MEAN CORPUSCULAR VOLUME 99.9 FL (78-98); MEAN PLATELET VOLUME 6.4 FL (7.4-10.4); MONOCYTES # (AUTO) 0.8 X10'3 (0-0.9); MONOCYTES % (AUTO) 10.9 % (2-12); NEUTROPHILS # (AUTO) 4.1 X10'3 (1.8-7.7); PLATELET COUNT 594 X10'3 (140-440); RED BLOOD COUNT 4.75 X10'6 (4.70-6.10); RED CELL DISTRIBUTION WIDTH 14.3 % (11.5-14.5); WHITE BLOOD COUNT 7.5 X10'3 (4.5-11.0)
[2018-05-12 15:15] LABS: ALANINE AMINOTRANSFERASE 36 U/L (12-78); ALBUMIN 3.9 G/DL (3.4-5.0); ALBUMIN/GLOBULIN RATIO 1.3 (1.1-1.5); ALKALINE PHOSPHATASE 57 IU/L (46-116); ANION GAP 10 (8-16); ASPARTATE AMINO TRANSFERASE 20 U/L (10-37); BILIRUBIN,TOTAL 0.6 MG/DL (0.1-1.0); BLOOD UREA NITROGEN 6 MG/DL (7-18); BUN/CREATININE RATIO 7.1 (5.4-32.0); CALCIUM 8.9 MG/DL (8.5-10.1); CHLORIDE 98 MMOL/L (99-107); CREATININE 0.85 MG/DL (0.60-1.10); GLUCOSE 83 MG/DL (70-104); POTASSIUM 3.8 MMOL/L (3.5-5.1); SODIUM 137 MMOL/L (135-145); TOTAL CARBON DIOXIDE 28.9 MMOL/L (24-32); TOTAL PROTEIN 6.8 G/DL (6.4-8.2); eGFR > 90 ML/MIN
[2018-05-12] MEDS ORDERED: TIOT18CA3 PO (15:55)
[2018-05-12] MEDS ORDERED: ALBU8HFA PO (15:55)
[2018-05-12] MEDS ORDERED: BUDE10.22 INH (15:55)
[2018-05-12 16:03] VITALS: BP 130/79
== END 2018-05-12 16:11 | disposition home or self-care (01) ==
LOC: ER 13:58
DX: J44.1 Chronic obstructive pulmonary disease with (acute) exacerbation (principal); J80 Acute respiratory distress syndrome; I25.10 Atherosclerotic heart disease of native coronary artery without angina pectoris; I25.2 Old myocardial infarction; J44.9 Chronic obstructive pulmonary disease, unspecified; F17.210 Nicotine dependence, cigarettes, uncomplicated; Z91.010 Allergy to peanuts; Z79.899 Other long term (current) drug therapy; Z86.73 Personal history of transient ischemic attack (TIA), and cerebral infarction without residual deficits; Z98.890 Other specified postprocedural states; Z98.61 Coronary angioplasty status
CPT/HCPCS: 36415; 71045; 80053; 83880; 85025; 93005; 94640; 94760; 96374; 99284; J2930; J7030

== ENCOUNTER 2018-05-13 16:59 | Emergency (ER) | payer MEDICARE, MEDICAID ==
[~2018-05-13] VITALS: Ht 188 cm; Wt 77.0 kg
[~2018-05-13 16:59] MED LIST changes: +ALBU8HFA PO; +TIOT18CA3 PO
[2018-05-13] MEDS ORDERED: dexamethasone sod phosphate 10mg/ml inj IV STA (17:02)
[2018-05-13] MEDS ORDERED: albuterol 2.5 MG/3 ML nebule CONTNEB PRN (17:05)
[2018-05-13 17:27] LABS: BASOPHILS # (AUTO) 0.1 X10'3 (0-0.2); BASOPHILS % (AUTO) 1.4 % (0-1); EOSINOPHILS # (AUTO) 0.1 X10'3 (0-0.9); EOSINOPHILS % (AUTO) 0.8 % (0-6); HEMATOCRIT 45.7 % (42.0-52.0); HEMOGLOBIN 15.3 g/dl (14.0-17.9); LYMPHOCYTES # (AUTO) 2.7 X10'3 (1.1-4.8); MEAN CORPUSCULAR HEMOGLOBIN 33.1 PG (27.0-31.0); MEAN CORPUSCULAR HGB CONC 33.5 % (33.0-36.5); MEAN CORPUSCULAR VOLUME 98.8 FL (78-98); MEAN PLATELET VOLUME 6.6 FL (7.4-10.4); MONOCYTES # (AUTO) 0.9 X10'3 (0-0.9); MONOCYTES % (AUTO) 10.9 % (2-12); NEUTROPHILS # (AUTO) 4.6 X10'3 (1.8-7.7); NEUTROPHILS % (AUTO) 54.9 % (42-75); PLATELET COUNT 577 X10'3 (140-440); RED BLOOD COUNT 4.62 X10'6 (4.70-6.10); RED CELL DISTRIBUTION WIDTH 14.4 % (11.5-14.5); WHITE BLOOD COUNT 8.3 X10'3 (4.5-11.0)
[2018-05-13 17:31] LABS: ABG BASE EXCESS 3.5 mmol/L (-2.0-3.0); ABG HCO3 22.8 mmol/L (22.0-26.0); ABG OXYGEN SATURATION 99.1 % (95-98); ABG PH (T) 7.615 (7.350-7.450); ABG PO2 (T) 166.8 mmHg (83-108); FCOHb 1.7 % (0.5-1.5); FLOW 8 L/min; FMetHb 0.1 % (0.3-1.12); FO2Hb 97.3 % (94-100); RESPIRATORY RATE (OBSERVED) 24 b/min; TOTAL HEMOGLOBIN 15.3 G/dl (14.0-18.0)
[2018-05-13 17:39] LABS: ALANINE AMINOTRANSFERASE 28 U/L (12-78); ALBUMIN 3.7 G/DL (3.4-5.0); ALBUMIN/GLOBULIN RATIO 1.4 (1.1-1.5); ALKALINE PHOSPHATASE 58 IU/L (46-116); ANION GAP 9 (8-16); ASPARTATE AMINO TRANSFERASE 19 U/L (10-37); BILIRUBIN,TOTAL 0.6 MG/DL (0.1-1.0); BLOOD UREA NITROGEN 7 MG/DL (7-18); BUN/CREATININE RATIO 10.1 (5.4-32.0); CHLORIDE 97 MMOL/L (99-107); CREATININE 0.69 MG/DL (0.60-1.10); GLUCOSE 85 MG/DL (70-104); POTASSIUM 3.5 MMOL/L (3.5-5.1); SODIUM 133 MMOL/L (135-145); TOTAL CARBON DIOXIDE 26.8 MMOL/L (24-32); TOTAL PROTEIN 6.4 G/DL (6.4-8.2); eGFR > 90 ML/MIN
[2018-05-13 17:45] VITALS: BP 100/67
== END 2018-05-13 18:15 | disposition home or self-care (01) ==
LOC: ER 17:00
DX: J44.1 Chronic obstructive pulmonary disease with (acute) exacerbation (principal); J20.9 Acute bronchitis, unspecified; F17.210 Nicotine dependence, cigarettes, uncomplicated; I25.10 Atherosclerotic heart disease of native coronary artery without angina pectoris; I25.2 Old myocardial infarction; G89.29 Other chronic pain; Z95.5 Presence of coronary angioplasty implant and graft; Z98.890 Other specified postprocedural states; Z86.73 Personal history of transient ischemic attack (TIA), and cerebral infarction without residual deficits; Z79.899 Other long term (current) drug therapy
CPT/HCPCS: 36415; 36600; 80053; 82803; 83880; 84484; 85018; 85025; 93005; 94640; 94760; 96374; 99284; 99406; J1100

== ENCOUNTER 2018-05-20 02:34 | Emergency (ER) | payer MEDICARE, MEDICAID ==
[~2018-05-20] VITALS: Ht 188 cm; Wt 57.2 kg
[2018-05-20] MEDS ORDERED: ibuprofen tablet 400 MG TABLET PO ONE (03:00)
[2018-05-20] MEDS ORDERED: IBUP-1984 PO (03:15)
[2018-05-20 03:32] VITALS: BP 141/85
== END 2018-05-20 03:41 | disposition home or self-care (01) ==
LOC: ER 02:34
DX: R07.81 Pleurodynia (principal); R05 Cough; I25.2 Old myocardial infarction; I25.10 Atherosclerotic heart disease of native coronary artery without angina pectoris; J44.9 Chronic obstructive pulmonary disease, unspecified; G89.29 Other chronic pain; Z86.73 Personal history of transient ischemic attack (TIA), and cerebral infarction without residual deficits; F17.200 Nicotine dependence, unspecified, uncomplicated; Z98.890 Other specified postprocedural states; Z98.61 Coronary angioplasty status; Z79.899 Other long term (current) drug therapy
CPT/HCPCS: 71046; 99283

== ENCOUNTER 2018-06-02 07:10 | Emergency (ER) | payer MEDICARE, MEDICAID ==
[~2018-06-02] VITALS: Ht 188 cm; Wt 75.0 kg
[2018-06-02] MEDS ORDERED: methylPREDNISolone sod succ 125mg/2ml vial IV ONE (07:35)
[2018-06-02] MEDS ORDERED: albuterol 2.5 MG/3 ML nebule CONTNEB PRN (07:35)
[2018-06-02] MEDS ORDERED: levoFLOXACIN 750MG TABLET PO ONE (07:35)
[2018-06-02] MEDS ORDERED: normal saline 1000ML IV soln IVB ONE (07:35)
[2018-06-02] MEDS ORDERED: albuterol 2.5 mg/0.5ml nebule NEB ONE (07:40)
[2018-06-02] MEDS ORDERED: albuterol 2.5 MG/3 ML nebule NEB ONE (07:50)
[2018-06-02 08:03] LABS: BASOPHILS # (AUTO) 0.1 X10'3 (0-0.2); BASOPHILS % (AUTO) 1.5 % (0-1); EOSINOPHILS # (AUTO) 0.1 X10'3 (0-0.9); EOSINOPHILS % (AUTO) 1.6 % (0-6); HEMOGLOBIN 14.3 g/dl (14.0-17.9); LYMPHOCYTES # (AUTO) 1.4 X10'3 (1.1-4.8); LYMPHOCYTES % (AUTO) 36.5 % (21-51); MEAN CORPUSCULAR HGB CONC 32.5 % (33.0-36.5); MEAN CORPUSCULAR VOLUME 101.4 FL (78-98); MONOCYTES # (AUTO) 0.5 X10'3 (0-0.9); MONOCYTES % (AUTO) 13.2 % (2-12); NEUTROPHILS # (AUTO) 1.8 X10'3 (1.8-7.7); NEUTROPHILS % (AUTO) 47.2 % (42-75); PLATELET COUNT 666 X10'3 (140-440); RED BLOOD COUNT 4.34 X10'6 (4.70-6.10); WHITE BLOOD COUNT 3.9 X10'3 (4.5-11.0)
[2018-06-02 08:15] LABS: ALANINE AMINOTRANSFERASE 100 U/L (12-78); ALBUMIN 3.4 G/DL (3.4-5.0); ALBUMIN/GLOBULIN RATIO 1.1 (1.1-1.5); ALKALINE PHOSPHATASE 78 IU/L (46-116); ANION GAP 9 (8-16); ASPARTATE AMINO TRANSFERASE 38 U/L (10-37); BILIRUBIN,TOTAL 0.6 MG/DL (0.1-1.0); BLOOD UREA NITROGEN 9 MG/DL (7-18); BUN/CREATININE RATIO 11.8 (5.4-32.0); CALCIUM 9.1 MG/DL (8.5-10.1); CHLORIDE 102 MMOL/L (99-107); CREATININE 0.76 MG/DL (0.60-1.10); GLUCOSE 95 MG/DL (70-104); POTASSIUM 3.4 MMOL/L (3.5-5.1); SODIUM 141 MMOL/L (135-145); TOTAL CARBON DIOXIDE 29.6 MMOL/L (24-32); TOTAL PROTEIN 6.5 G/DL (6.4-8.2); eGFR > 90 ML/MIN
[2018-06-02 08:16] LABS: PARTIAL THROMBOPLASTIN TIME 26 SECONDS (22-32)
[2018-06-02] MEDS ORDERED: PRED20TA PO (09:09)
[2018-06-02] MEDS ORDERED: LEVO750T21 PO (09:09)
[2018-06-02] MEDS ORDERED: BUDE10.2 INH (09:20)
[2018-06-02] MEDS ORDERED: ALBU8.5H8 INH (09:20)
[2018-06-02 09:53] VITALS: BP 109/66
[2018-06-03] MEDS ORDERED: PRED10TA23 PO (04:53)
== END 2018-06-02 09:54 | disposition home or self-care (01) ==
LOC: ER 07:10
DX: J44.1 Chronic obstructive pulmonary disease with (acute) exacerbation (principal); I25.10 Atherosclerotic heart disease of native coronary artery without angina pectoris; I25.2 Old myocardial infarction; G89.29 Other chronic pain; Z86.73 Personal history of transient ischemic attack (TIA), and cerebral infarction without residual deficits; Z98.61 Coronary angioplasty status; Z79.899 Other long term (current) drug therapy; Z98.890 Other specified postprocedural states
CPT/HCPCS: 36415; 71045; 80053; 84484; 85025; 85610; 85730; 93005; 94644; 94760; 96374; 99285; J2930; J7030; 94640; J7611

== ENCOUNTER 2018-06-03 04:20 | Emergency (ER) | payer MEDICARE, MEDICAID ==
[~2018-06-03] VITALS: Ht 188 cm; Wt 73.0 kg
[~2018-06-03 04:20] MED LIST changes: +LEVO750T21 PO
[2018-06-03 04:28] VITALS: BP 146/86
[2018-06-03] MEDS ORDERED: ipratropium/albuterol 3ml nebule NEB ONE (04:30)
[2018-06-03] MEDS ORDERED: methylPREDNISolone sod succ 125mg/2ml vial IV ONE (04:30)
[2018-06-03] MEDS ORDERED: PRED10TA23 PO (04:53)
[2018-06-03] MEDS ORDERED: predniSONE 20 mg tablet PO ONE (04:55)
== END 2018-06-03 05:20 | disposition home or self-care (01) ==
LOC: ER 04:20
DX: J44.1 Chronic obstructive pulmonary disease with (acute) exacerbation (principal); I25.10 Atherosclerotic heart disease of native coronary artery without angina pectoris; I25.2 Old myocardial infarction; G89.29 Other chronic pain; Z86.73 Personal history of transient ischemic attack (TIA), and cerebral infarction without residual deficits; Z95.5 Presence of coronary angioplasty implant and graft; Z98.890 Other specified postprocedural states; Z79.899 Other long term (current) drug therapy
CPT/HCPCS: 71045; 94640; 94760; 99283; J7512

== ENCOUNTER 2018-06-03 23:51 | Emergency (ER) | payer MEDICARE, MEDICAID ==
[~2018-06-03] VITALS: Ht 188 cm; Wt 74.5 kg
[~2018-06-03 23:51] MED LIST changes: +PRED10TA23 PO
[2018-06-03 23:57] VITALS: BP 106/83
== END 2018-06-04 00:54 | disposition home or self-care (01) ==
LOC: ER 23:52
DX: J44.9 Chronic obstructive pulmonary disease, unspecified (principal); F17.200 Nicotine dependence, unspecified, uncomplicated; I25.10 Atherosclerotic heart disease of native coronary artery without angina pectoris; I25.2 Old myocardial infarction; G89.29 Other chronic pain; Z95.5 Presence of coronary angioplasty implant and graft; Z98.890 Other specified postprocedural states; Z86.73 Personal history of transient ischemic attack (TIA), and cerebral infarction without residual deficits; Z79.899 Other long term (current) drug therapy
CPT/HCPCS: 99283

== ENCOUNTER 2019-06-06 16:19 | Emergency (ER) | payer MEDICARE, MEDICAID ==
[~2019-06-06] VITALS: Ht 188 cm; Wt 70.0 kg
[~2019-06-06 16:19] MED LIST changes: -ALBU8HFA PO; -LEVO750T21 PO; -PRED10TA23 PO; -PRED20TA PO
[2019-06-06 16:43] VITALS: BP 115/67
[2019-06-06] MEDS ORDERED: HYDROcodone/acetaminophen 10/325mg tab PO ONE (17:15)
[2019-06-06] MEDS ORDERED: HYDR-3965 PO (17:21)
== END 2019-06-06 18:24 | disposition home or self-care (01) ==
LOC: ER 16:19
DX: K40.91 Unilateral inguinal hernia, without obstruction or gangrene, recurrent (principal); I25.10 Atherosclerotic heart disease of native coronary artery without angina pectoris; I25.2 Old myocardial infarction; J44.9 Chronic obstructive pulmonary disease, unspecified; G89.29 Other chronic pain; Z86.73 Personal history of transient ischemic attack (TIA), and cerebral infarction without residual deficits; Z95.5 Presence of coronary angioplasty implant and graft; Z98.890 Other specified postprocedural states; Z79.899 Other long term (current) drug therapy
CPT/HCPCS: 99283

== ENCOUNTER 2019-06-08 19:09 | Emergency (ER) | payer MEDICARE, MEDICAID ==
[~2019-06-08] VITALS: Ht 188 cm; Wt 75.0 kg
[~2019-06-08 19:09] MED LIST changes: +HYDR-3965 PO
[2019-06-08 20:20] LABS: CLARITY,URINE SLIGHTLY CLOUDY (Clear); COLOR,URINE YELLOW (Yellow); GLUCOSE, URINE NEGATIVE (Neg); KETONES,URINE NEGATIVE (Neg); LEUKOCYTE ESTERASE ,URINE TRACE (Neg); NITRITES, URINE NEGATIVE (Neg); OCCULT BLOOD,URINE NEGATIVE (Neg); PH,URINE 6.5 (4.8-8.0); PROTEIN,URINE NEGATIVE (Neg); UROBILINOGEN,URINE 0.2 E.U/dL (0.2-1.0)
[2019-06-08] MEDS ORDERED: traMADol 50MG tablet PO ONE (20:20)
[2019-06-08 20:21] LABS: UA COLLECTION TYPE CLN CATCH MIDSTREAM
[2019-06-08 20:28] LABS: BACTERIA,URINE 3+ /HPF (Neg); MUCUS STRANDS NONE SEEN /LPF (Neg); RBC,URINE 0-2 /HPF (0-2); SQUAMOUS EPITHELIAL CELL,UR NONE SEEN /LPF (FEW); WBC,URINE 0-4 /HPF (0-4)
[2019-06-08 20:29] VITALS: BP 129/79
--- NOTE | 2019-06-12 09:00 | NUR ---
PT. STATES THAT HE GETS HIS RX'S FILLED AT [facility] ON [address]. I WILL CALL IN RX FOR MACROBID 100MG PO BID X 7 DAYS FOR A #[id number]
--- NOTE | 2019-06-12 09:07 | NUR ---
CALLED AND LEFT A MESSAGE ON [facility] FOR THE BACTRIM RX.
== END 2019-06-08 20:46 | disposition home or self-care (01) ==
LOC: ER 19:10
DX: K40.90 Unilateral inguinal hernia, without obstruction or gangrene, not specified as recurrent (principal); I25.10 Atherosclerotic heart disease of native coronary artery without angina pectoris; I25.2 Old myocardial infarction; J44.9 Chronic obstructive pulmonary disease, unspecified; G89.29 Other chronic pain; F15.90 Other stimulant use, unspecified, uncomplicated; F17.200 Nicotine dependence, unspecified, uncomplicated; Z86.73 Personal history of transient ischemic attack (TIA), and cerebral infarction without residual deficits; Z59.0 Homelessness; Z95.5 Presence of coronary angioplasty implant and graft; Z98.890 Other specified postprocedural states; Z79.899 Other long term (current) drug therapy
CPT/HCPCS: 81001; 87077; 87088; 87186; 99284

== ENCOUNTER 2021-11-06 18:25 | Emergency (ER) | payer MEDICARE, MEDICAID ==
[~2021-11-06] VITALS: Ht 188 cm; Wt 75.0 kg
[~2021-11-06 18:25] MED LIST changes: +ALBU8.5H17 INH; -ALBU8.5H8 INH; -HYDR-3965 PO
[2021-11-06] MEDS ORDERED: albuterol 2.5 MG/3 ML nebule CONTNEB PRN (18:55)
[2021-11-06] MEDS ORDERED: methylPREDNISolone sod succ 125mg/2ml vial IV ONE (19:20)
[2021-11-06] MEDS ORDERED: PRED20TA PO (21:06)
--- NOTE | 2021-11-06 21:45 | NUR ---
PCT Izaiah assisted pt to restroom. Pt ambulated with 5 L NC and no assistance from room to restroom. Pt respirations increased while ambulating, but was not in distress.
[2021-11-06] MEDS ORDERED: albuterol 2.5 MG/3 ML nebule NEB ONE (22:15)
[2021-11-06 23:24] VITALS: BP 109/70
== END 2021-11-06 23:27 | disposition home or self-care (01) ==
LOC: ER 18:25
DX: J44.1 Chronic obstructive pulmonary disease with (acute) exacerbation (principal); F17.200 Nicotine dependence, unspecified, uncomplicated; I25.10 Atherosclerotic heart disease of native coronary artery without angina pectoris; I25.2 Old myocardial infarction; G89.29 Other chronic pain; F15.90 Other stimulant use, unspecified, uncomplicated; Z72.89 Other problems related to lifestyle; Z86.73 Personal history of transient ischemic attack (TIA), and cerebral infarction without residual deficits; Z95.5 Presence of coronary angioplasty implant and graft; Z59.00 Homelessness unspecified; Z79.899 Other long term (current) drug therapy
CPT/HCPCS: 94644; 99285; J2930; 94640; 94760; A7015

== ENCOUNTER 2022-03-06 22:34 | Emergency (ER) | payer MEDICARE, MEDICAID ==
[~2022-03-06] VITALS: Ht 188 cm; Wt 70.5 kg
[~2022-03-06 22:34] MED LIST changes: +ALB0.5UD IH; -ALBU0.63 NEB; -ALBU18HF2 INH; +ALBU1POW2 IH; -ALBU2.5V12 NEB; -ALBU8.5H17 INH; +ASPI-611 PO; +ATOR20TA66 PO; +ATR0.5NEB IH; -BUDE10.2 INH; -BUDE10.22 INH; +CEFD300C3 PO; +CLOP75TA34 PO; +FAMO20TA8 PO; +FLUT1BLS4; -IBUP-1986 PO; +IPRA3AMP31 NEB; +METO-395 PO; -NO HOME MEDS; +PRED10TA23 PO; -TIOT18CA3 IH; -TIOT18CA3 INH; -TIOT18CA3 PO; -TIOT4MIS5 INH
[2022-03-06 23:07] LABS: BASOPHILS # (AUTO) 0.1 X10'3 (0-0.2); EOSINOPHILS # (AUTO) 0.1 X10'3 (0-0.9); HEMOGLOBIN 14.1 g/dl (14.0-17.9); MEAN CORPUSCULAR VOLUME 98.8 FL (78-98); MONOCYTES # (AUTO) 1.8 X10'3 (0-0.9)
[2022-03-06 23:08] LABS: BASOPHILS % (AUTO) 0.4 % (0-1); LYMPHOCYTES # (AUTO) 1.9 X10'3 (1.1-4.8); LYMPHOCYTES % (AUTO) 14.1 % (21-51); MEAN CORPUSCULAR HEMOGLOBIN 33.2 PG (27.0-31.0); MEAN CORPUSCULAR HGB CONC 33.6 g/dL (33.0-36.5); MEAN PLATELET VOLUME 6.5 FL (7.4-10.4); MONOCYTES % (AUTO) 12.9 % (2-12); NEUTROPHILS # (AUTO) 9.8 X10'3 (1.8-7.7); NEUTROPHILS % (AUTO) 71.6 % (42-75); PLATELET COUNT 733 X10'3 (140-440); RED BLOOD COUNT 4.26 X10'6 (4.70-6.10); RED CELL DISTRIBUTION WIDTH 15.3 % (11.5-14.5); WHITE BLOOD COUNT 13.7 X10'3 (4.5-11.0)
[2022-03-06 23:19] LABS: ALANINE AMINOTRANSFERASE 25 U/L (12-78); ALBUMIN 3.6 G/DL (3.4-5.0); ALBUMIN/GLOBULIN RATIO 1.1 (1.1-1.5); ALKALINE PHOSPHATASE 66 IU/L (46-116); ANION GAP 3 (8-16); ASPARTATE AMINO TRANSFERASE 17 U/L (10-37); BILIRUBIN,TOTAL 0.4 MG/DL (0.1-1.0); BLOOD UREA NITROGEN 13 MG/DL (7-18); CHLORIDE 98 MMOL/L (99-107); GLUCOSE 97 MG/DL (70-104); POTASSIUM 4.3 MMOL/L (3.5-5.1); SODIUM 136 MMOL/L (135-145); TOTAL CARBON DIOXIDE 35.1 MMOL/L (24-32); TOTAL PROTEIN 6.9 G/DL (6.4-8.2); eGFR > 90 ML/MIN
[2022-03-06 23:25] LABS: PLATELET ESTIMATE INCREASED
[2022-03-06 23:46] LABS: GIANT PLATELET FEW
[2022-03-07] MEDS ORDERED: albuterol 2.5 MG/3 ML nebule NEB ONE (00:15)
--- NOTE | 2022-03-07 00:41 | NUR ---
Please do a breathing treatment for pt at your earliest convenience. Severe SOB. TY! Marian
[2022-03-07] MEDS ORDERED: albuterol 2.5 MG/3 ML nebule NEB STA (02:51)
[2022-03-07 03:27] VITALS: BP 118/69
== END 2022-03-07 04:49 | disposition home or self-care (01) ==
LOC: ER 22:35
DX: R07.89 Other chest pain (principal); R06.02 Shortness of breath; I25.10 Atherosclerotic heart disease of native coronary artery without angina pectoris; I25.2 Old myocardial infarction; J45.909 Unspecified asthma, uncomplicated; G89.29 Other chronic pain; F15.90 Other stimulant use, unspecified, uncomplicated; Z86.73 Personal history of transient ischemic attack (TIA), and cerebral infarction without residual deficits; Z98.890 Other specified postprocedural states; Z72.89 Other problems related to lifestyle; Z59.00 Homelessness unspecified; Z79.82 Long term (current) use of aspirin; Z79.899 Other long term (current) drug therapy
CPT/HCPCS: 36415; 71045; 80053; 83880; 84484; 85008; 85025; 93005; 94640; 94760; 99285

== ENCOUNTER 2022-03-21 10:38 | Emergency (ER) | payer MEDICARE, MEDICAID ==
[~2022-03-21] VITALS: Ht 188 cm; Wt 84.1 kg
[2022-03-21 11:25] LABS: BASOPHILS # (AUTO) 0.1 X10'3 (0-0.2); BASOPHILS % (AUTO) 0.9 % (0-1); EOSINOPHILS # (AUTO) 0.1 X10'3 (0-0.9); EOSINOPHILS % (AUTO) 1.9 % (0-6); HEMATOCRIT 41.3 % (42.0-52.0); HEMOGLOBIN 13.8 g/dl (14.0-17.9); LYMPHOCYTES # (AUTO) 1.5 X10'3 (1.1-4.8); LYMPHOCYTES % (AUTO) 19.7 % (21-51); MEAN CORPUSCULAR HGB CONC 33.5 g/dL (33.0-36.5); MEAN CORPUSCULAR VOLUME 98.4 FL (78-98); MEAN PLATELET VOLUME 6.6 FL (7.4-10.4); MONOCYTES # (AUTO) 0.9 X10'3 (0-0.9); MONOCYTES % (AUTO) 11.3 % (2-12); NEUTROPHILS # (AUTO) 5.1 X10'3 (1.8-7.7); NEUTROPHILS % (AUTO) 66.2 % (42-75); PLATELET COUNT 444 X10'3 (140-440); RED CELL DISTRIBUTION WIDTH 14.9 % (11.5-14.5); WHITE BLOOD COUNT 7.7 X10'3 (4.5-11.0)
[2022-03-21] MEDS ORDERED: albuterol 2.5 MG/3 ML nebule CONTNEB PRN (11:45)
[2022-03-21] MEDS ORDERED: triamcinolone acetonide 40mg/ml inj IM ONE (11:45)
[2022-03-21 11:46] LABS: ALANINE AMINOTRANSFERASE 25 U/L (12-78); ALBUMIN 3.6 G/DL (3.4-5.0); ALBUMIN/GLOBULIN RATIO 1.1 (1.1-1.5); ALKALINE PHOSPHATASE 73 IU/L (46-116); ANION GAP 5 (8-16); ASPARTATE AMINO TRANSFERASE 20 U/L (10-37); BILIRUBIN,TOTAL 0.6 MG/DL (0.1-1.0); BLOOD UREA NITROGEN 6 MG/DL (7-18); CALCIUM 9.1 MG/DL (8.5-10.1); CHLORIDE 100 MMOL/L (99-107); CREATININE 0.43 MG/DL (0.60-1.10); GLUCOSE 107 MG/DL (70-104); POTASSIUM 4.1 MMOL/L (3.5-5.1); SODIUM 138 MMOL/L (135-145); eGFR > 90 ML/MIN
[2022-03-21 14:18] VITALS: BP 130/83
== END 2022-03-21 15:30 | disposition home or self-care (01) ==
LOC: ER 10:38
DX: J44.9 Chronic obstructive pulmonary disease, unspecified (principal); R06.02 Shortness of breath; I25.10 Atherosclerotic heart disease of native coronary artery without angina pectoris; I25.2 Old myocardial infarction; G89.29 Other chronic pain; F15.90 Other stimulant use, unspecified, uncomplicated; Z86.73 Personal history of transient ischemic attack (TIA), and cerebral infarction without residual deficits; Z98.890 Other specified postprocedural states; Z72.89 Other problems related to lifestyle; Z59.00 Homelessness unspecified; Z88.8 Allergy status to other drugs, medicaments and biological substances; Z79.82 Long term (current) use of aspirin; Z79.2 Long term (current) use of antibiotics; Z79.899 Other long term (current) drug therapy
CPT/HCPCS: 36415; 71045; 80053; 83880; 84484; 85025; 93005; 94640; 96372; 99285; J3301; 94760; A4615

== ENCOUNTER 2022-03-21 18:51 | Emergency (ER) | payer MEDICARE, MEDICAID ==
[~2022-03-21] VITALS: Ht 188 cm; Wt 73.0 kg
--- NOTE | 2022-03-21 19:47 | NUR ---
> REC 57 YO/M PT FROM HOME FOR SOB VIA EMS 99% ON 5LNC , USES O2 AT HOME , ST ELEVATION ON 12LEKG, ED AWARE, DENIES CXPAIN, DUONEB GIVEN ENROUTE
[2022-03-21 19:48] LABS: BASOPHILS # (AUTO) 0.1 X10'3 (0-0.2); BASOPHILS % (AUTO) 1.2 % (0-1); EOSINOPHILS # (AUTO) 0.1 X10'3 (0-0.9); EOSINOPHILS % (AUTO) 1.5 % (0-6); HEMATOCRIT 41.4 % (42.0-52.0); HEMOGLOBIN 13.6 g/dl (14.0-17.9); LYMPHOCYTES # (AUTO) 1.4 X10'3 (1.1-4.8); MEAN CORPUSCULAR HEMOGLOBIN 32.6 PG (27.0-31.0); MEAN CORPUSCULAR HGB CONC 32.9 g/dL (33.0-36.5); MEAN CORPUSCULAR VOLUME 99.2 FL (78-98); MEAN PLATELET VOLUME 6.8 FL (7.4-10.4); MONOCYTES # (AUTO) 0.8 X10'3 (0-0.9); MONOCYTES % (AUTO) 10.7 % (2-12); NEUTROPHILS # (AUTO) 4.8 X10'3 (1.8-7.7); NEUTROPHILS % (AUTO) 67.6 % (42-75); PLATELET COUNT 453 X10'3 (140-440); RED BLOOD COUNT 4.17 X10'6 (4.70-6.10); RED CELL DISTRIBUTION WIDTH 14.9 % (11.5-14.5); WHITE BLOOD COUNT 7.1 X10'3 (4.5-11.0)
--- NOTE | 2022-03-21 19:50 | NUR ---
> REPORT RECEIVED FROM PRIMARY RN GOING FOR BREAK , PT HAS IV ACCESS
[2022-03-21 20:02] LABS: ALANINE AMINOTRANSFERASE 23 U/L (12-78); ALBUMIN 3.6 G/DL (3.4-5.0); ALKALINE PHOSPHATASE 70 IU/L (46-116); ANION GAP 6 (8-16); ASPARTATE AMINO TRANSFERASE 21 U/L (10-37); BILIRUBIN,TOTAL 0.6 MG/DL (0.1-1.0); BLOOD UREA NITROGEN 6 MG/DL (7-18); BUN/CREATININE RATIO 11.8 (5.4-32.0); CHLORIDE 99 MMOL/L (99-107); CREATININE 0.51 MG/DL (0.60-1.10); GLUCOSE 91 MG/DL (70-104); SODIUM 138 MMOL/L (135-145); TOTAL CARBON DIOXIDE 33.2 MMOL/L (24-32); TOTAL PROTEIN 7.1 G/DL (6.4-8.2); eGFR > 90 ML/MIN
[2022-03-21] MEDS ORDERED: methylPREDNISolone sod succ 125mg/2ml vial IV ONE (20:25)
[2022-03-21] MEDS ORDERED: CefTRIAXone 2gm/D5W 50ml BAG 50 ML IV ONE (20:30)
[2022-03-21] MEDS ORDERED: albuterol 2.5 MG/3 ML nebule NEB ONE ×2 (21:25→21:45)
[2022-03-21 22:55] VITALS: BP 104/80
== END 2022-03-21 22:57 | disposition home or self-care (01) ==
LOC: ER 18:52
DX: J44.9 Chronic obstructive pulmonary disease, unspecified (principal); I25.2 Old myocardial infarction; F15.90 Other stimulant use, unspecified, uncomplicated; I25.10 Atherosclerotic heart disease of native coronary artery without angina pectoris; Z86.73 Personal history of transient ischemic attack (TIA), and cerebral infarction without residual deficits; Z98.61 Coronary angioplasty status; Z59.00 Homelessness unspecified
CPT/HCPCS: 36415; 80053; 83880; 84484; 85025; 93005; 94640; 94760; 96365; 96375; 99284; J0696; J2930; 96374

== ENCOUNTER 2022-03-26 07:32 | Inpatient (IN) | payer MEDICARE, MEDICAID ==
[~2022-03-26] VITALS: Ht 188 cm; Wt 72.7 kg
[2022-03-26] MEDS ORDERED: dexamethasone sod phosphate 10mg/ml inj PO STA (08:58)
[2022-03-26] MEDS ORDERED: albuterol 2.5 MG/3 ML nebule NEB ONE (09:00)
[2022-03-26] MEDS ORDERED: albuterol 2.5 MG/3 ML nebule CONTNEB PRN ×2 (09:00→12:40)
[2022-03-26] MEDS ORDERED: albuterol 2.5 MG/3 ML nebule ONE (09:06)
[2022-03-26 09:36] LABS: ABG BASE EXCESS 3.2 mmol/L (-2.0-2.0); ABG HCO3 31.1 mmol/L (22.0-26.0); ABG OXYGEN SATURATION 97.6 % (94-97); ABG PCO2 (T) 61.2 mmHg (35.0-48.0); ABG PO2 (T) 108.3 mmHg (75.0-100.0); ALLEN'S TEST POSITIVE; FCOHb 3.3 % (0.0-3.9); FLOW 5 L/min; FMetHb 0.4 % (0.0-1.5); PATIENT TEMPERATURE 37.3; TOTAL HEMOGLOBIN 15.5 G/dl (14.0-17.9)
[2022-03-26 10:00] LABS: BASOPHILS % (AUTO) 0.7 % (0-1); EOSINOPHILS # (AUTO) 0.1 X10'3 (0-0.9); EOSINOPHILS % (AUTO) 1.3 % (0-6); HEMATOCRIT 44.6 % (42.0-52.0); HEMOGLOBIN 14.7 g/dl (14.0-17.9); LYMPHOCYTES # (AUTO) 1.2 X10'3 (1.1-4.8); LYMPHOCYTES % (AUTO) 17.8 % (21-51); MEAN CORPUSCULAR HEMOGLOBIN 32.5 PG (27.0-31.0); MEAN CORPUSCULAR VOLUME 98.5 FL (78-98); MEAN PLATELET VOLUME 6.5 FL (7.4-10.4); MONOCYTES % (AUTO) 15.2 % (2-12); NEUTROPHILS # (AUTO) 4.5 X10'3 (1.8-7.7); PLATELET COUNT 503 X10'3 (140-440); RED BLOOD COUNT 4.53 X10'6 (4.70-6.10); RED CELL DISTRIBUTION WIDTH 15.5 % (11.5-14.5); WHITE BLOOD COUNT 6.9 X10'3 (4.5-11.0)
[2022-03-26 10:14] LABS: ALANINE AMINOTRANSFERASE 29 U/L (12-78); ALBUMIN 3.9 G/DL (3.4-5.0); ALBUMIN/GLOBULIN RATIO 1.1 (1.1-1.5); ALKALINE PHOSPHATASE 79 IU/L (46-116); ANION GAP 8 (8-16); ASPARTATE AMINO TRANSFERASE 25 U/L (10-37); BILIRUBIN,TOTAL 0.1 MG/DL (0.1-1.0); BLOOD UREA NITROGEN 4 MG/DL (7-18); BUN/CREATININE RATIO 9.1 (5.4-32.0); CALCIUM 8.8 MG/DL (8.5-10.1); CHLORIDE 100 MMOL/L (99-107); CREATININE 0.44 MG/DL (0.60-1.10); GLUCOSE 99 MG/DL (70-104); POTASSIUM 4.4 MMOL/L (3.5-5.1); SODIUM 138 MMOL/L (135-145); TOTAL CARBON DIOXIDE 30.4 MMOL/L (24-32); TOTAL PROTEIN 7.6 G/DL (6.4-8.2); eGFR > 90 ML/MIN
--- NOTE | 2022-03-26 11:10 | NUR ---
Upon assessment this AM, pt with wheezing upon auscultation, SpO2 96% on 6L O2 via NC. Dr. Chinchilla at bedside, requested RT breathing treatment. RN paged RT. RT provided neb treatment. At 1100, pt again reporting SOB, RT paged and currently providing neb treatment.
--- NOTE | 2022-03-26 11:41 | NUR ---
PCO2 61.2 (elevated), processed at 0930. RN notified Dr. Chinchilla. aware. No new orders at this time.
--- NOTE | 2022-03-26 12:22 | NUR ---
Pt requesting another neb treatment. AYANA paged RT @ 1123.
--- NOTE | 2022-03-26 12:39 | NUR ---
Pt's L FA IV infiltrated with vibramycin infusing. RN stopped antibiotic infusion and removed IV. L forearm is swollen, tender, however it is pink, warm and skin integrity is not broken. RN will monitor and elevate. RN notified Dr. Magaña. Per MD RN to attempt another IV insertion and may apply warm compress to site.
[2022-03-26] MEDS ORDERED: ipratropium/albuterol 3ml nebule NEB PRN ×2 (12:40→12:55)
[2022-03-26] MEDS ORDERED: ipratropium 0.5 MG/2.5ML nebule IH ONE (12:40)
[2022-03-26 12:46] LABS: ANISOCYTOSIS 1+; PLATELET ESTIMATE INCREASED; TOTAL CELLS COUNTED 100; TOXIC GRANULATION 1+
[2022-03-26] MEDS ORDERED: magnesium hydroxide 30ml (MOM) UD suspension PO PRN (12:55)
[2022-03-26] MEDS ORDERED: methylPREDNISolone sod succ 125mg/2ml vial IV ONE (12:55)
[2022-03-26] MEDS ORDERED: potassium Cl 40MEQ/1/2NS 520ml 520 ML IV PRN (12:55)
[2022-03-26] MEDS ORDERED: PERFLUTREN PROTEIN-A MICROSPHR (Optison) 0.22 MG/ML 3ML VIAL IV PRN (12:55)
[2022-03-26] MEDS ORDERED: potassium Cl 20 mEq SR tablet PO PRN ×2 (12:55)
[2022-03-26] MEDS ORDERED: magnesium Cl slow-release 64mg tablet PO PRN (12:55)
[2022-03-26] MEDS ORDERED: HYDROcodone/acetaminophen 5mg/325mg tablet PO PRN (12:55)
[2022-03-26] MEDS ORDERED: bisacodyl 10mg suppository rectal RC PRN (12:55)
[2022-03-26] MEDS ORDERED: morphine 2 MG/ML inj. syringe IV PRN (12:55)
[2022-03-26] MEDS ORDERED: acetaminophen 325mg tablet PO PRN ×2 (12:55)
[2022-03-26] MEDS: normal saline 1000ml 1,000 ML IV SCH (12:55)
[2022-03-26] MEDS ORDERED: mag hydrox/Alum hydrox/simeth 30ml oral suspension PO PRN (12:55)
[2022-03-26] MEDS ORDERED: dextrose 50%-water 50ml dispensing syringe IV PRN (12:55)
[2022-03-26] MEDS ORDERED: diphenhydrAMINE 25mg capsule PO PRN (12:55)
[2022-03-26] MEDS ORDERED: magnesium 4gm in 100ml NS 100 ML IV PRN (12:55)
[2022-03-26] MEDS: folic acid 1mg/0.2ml inj IV SCH (13:10)
--- NOTE | 2022-03-26 13:39 | NUR ---
MD GUERRERO NOTIFIED OF PT COVID POSITIVE RESULT.
[2022-03-26] MEDS ORDERED: METO-395 PO (14:01)
[2022-03-26] MEDS ORDERED: ALBU2.5V12 NEB (14:01)
[2022-03-26] MEDS ORDERED: ATOR20TA66 PO (14:01)
[2022-03-26 14:15] LABS: HEMOGLOBIN A1C 5.6 % (4.5-6.2)
[2022-03-26] MEDS: ipratropium/albuterol 3ml nebule NEB SCH ×2 (15:01→19:30)
[2022-03-26] MEDS: CefTRIAXone/D5W-Rocephin 1gm 50 ML IV SCH (15:52)
[2022-03-26] MEDS: LORazepam 2 mg/ml vial IV PRN ×7 (15:53→23:26)
[2022-03-26] MEDS: azithromycin/NS 500mg/250ml 250 ML IV SCH (15:53)
[2022-03-26] MEDS ORDERED: REMDESIVIR INJ 200 MG in normal saline 100ml IV soln 100 ML IV ONE (16:35)
--- NOTE | 2022-03-26 16:45 | NUR ---
Found pt sitting on the commode. Very restless and shakey. Forceful, moist cough, 6L NC. While undressing pt pulled out his IV on the R.
[2022-03-26 16:54] LABS: C-REACTIVE PROTEIN 0.22 MG/DL (0.0-0.5)
[2022-03-26] MEDS: thiamine 100mg/ml 2ml inj. IV SCH ×2 (17:00→20:22)
--- NOTE | 2022-03-26 17:00 | NUR ---
While attempting to start another IV, the pt kept coughing in my direction. I asked respectfully, for him to cover his cough or at least turn his head away. He continued to cough in my direction.
[2022-03-26] MEDS: heparin, porcine 5000 units/ml vial SQ SCH ×2 (17:01→23:25)
--- NOTE | 2022-03-26 17:30 | NUR ---
Ict Account Manager, Ruben, at the bedside.
[2022-03-26] MEDS: haloperidol lactate 5mg/ml inj IM PRN ×2 (19:06→23:25)
--- NOTE | 2022-03-26 19:32 | NUR ---
Paged Dr Hines to notify of pt continued tachypnea of 40-52/min, everytime pt takes NC off he desaturates to the 70's. Pt expressed his wishes are to not be intubated
--- NOTE | 2022-03-26 19:39 | NUR ---
Dr Hines returned paged and is awaare of pt continued tachypnea 42-52/min and tachycardia, restlessness resolving with ativan for ETOH withdrawl. Dr Hines will place orders, RT at bedside providing Neb tx and obtaining ABG
[2022-03-26] MEDS: docusate sod 100mg capsule PO SCH (20:00)
[2022-03-26] MEDS ORDERED: heparin, porcine 5000 units/ml vial SQ SCH (20:00)
[2022-03-26] MEDS ORDERED: doxycycline inj 100 MG in normal saline 100ml IV soln 100 ML IV ONE (20:00)
[2022-03-26 20:07] LABS: ABG BASE EXCESS 4.3 mmol/L (-2.0-2.0); ABG HCO3 33.7 mmol/L (22.0-26.0); ABG OXYGEN SATURATION 97.8 % (94-97); ABG PCO2 (T) 74.3 mmHg (35.0-48.0); ABG PO2 (T) 121.1 mmHg (75.0-100.0); ALLEN'S TEST POSITIVE; FCOHb 0.9 % (0.0-3.9); FLOW 4 L/min; FMetHb 0.4 % (0.0-1.5); FO2Hb 96.5 % (94-97); PATIENT TEMPERATURE 37.2; TOTAL HEMOGLOBIN 14.6 G/dl (14.0-17.9)
[2022-03-26] MEDS: methylPREDNISolone sod succ 125mg/2ml vial IV SCH (20:22)
[2022-03-26] MEDS: K and/or MAG REPLACEMENT MC SCH (20:25)
[2022-03-26] MEDS: morphine 2 MG/ML inj. syringe IV PRN (21:03)
[2022-03-26] MEDS: ondansetron/PF 4mg/2ml inj IV PRN (21:04)
[2022-03-26 21:53] LABS: CLARITY,URINE CLEAR (Clear); COLOR,URINE YELLOW (Yellow); GLUCOSE, URINE NEGATIVE (Neg); KETONES,URINE NEGATIVE (Neg); LEUKOCYTE ESTERASE ,URINE NEGATIVE (Neg); NITRITES, URINE NEGATIVE (Neg); OCCULT BLOOD,URINE NEGATIVE (Neg); PROTEIN,URINE NEGATIVE (Neg); UROBILINOGEN,URINE 0.2 E.U/dL (0.2-1.0)
[2022-03-26 21:57] LABS: UA COLLECTION TYPE FOLEY CATH
[2022-03-26 22:04] LABS: D-DIMER 0.58 MG/L FEU (0-0.50)
[2022-03-27] MEDS: levalbuterol 0.63mg/3ml nebule IH SCH ×7 (00:04→22:50)
[2022-03-27] MEDS: LORazepam 2 mg/ml vial IV PRN ×9 (02:02→19:15)
[2022-03-27] MEDS: methylPREDNISolone sod succ 125mg/2ml vial IV SCH ×4 (02:02→19:15)
[2022-03-27] MEDS: morphine 2 MG/ML inj. syringe IV PRN ×2 (02:21→11:47)
[2022-03-27 03:08] LABS: BASOPHILS % (AUTO) 0.3 % (0-1); EOSINOPHILS % (AUTO) 0.1 % (0-6); HEMATOCRIT 40.6 % (42.0-52.0); HEMOGLOBIN 13.9 g/dl (14.0-17.9); LYMPHOCYTES # (AUTO) 0.4 X10'3 (1.1-4.8); LYMPHOCYTES % (AUTO) 9.7 % (21-51); MEAN CORPUSCULAR HEMOGLOBIN 33.5 PG (27.0-31.0); MEAN CORPUSCULAR HGB CONC 34.3 g/dL (33.0-36.5); MEAN CORPUSCULAR VOLUME 97.7 FL (78-98); MEAN PLATELET VOLUME 6.9 FL (7.4-10.4); MONOCYTES # (AUTO) 0.2 X10'3 (0-0.9); MONOCYTES % (AUTO) 3.3 % (2-12); NEUTROPHILS # (AUTO) 3.9 X10'3 (1.8-7.7); NEUTROPHILS % (AUTO) 86.6 % (42-75); PLATELET COUNT 476 X10'3 (140-440); RED BLOOD COUNT 4.16 X10'6 (4.70-6.10); RED CELL DISTRIBUTION WIDTH 15.1 % (11.5-14.5); WHITE BLOOD COUNT 4.5 X10'3 (4.5-11.0)
[2022-03-27 03:23] LABS: D-DIMER 0.47 MG/L FEU (0-0.50)
[2022-03-27 04:41] LABS: ABG BASE EXCESS 5.7 mmol/L (-2.0-2.0); ABG HCO3 32.2 mmol/L (22.0-26.0); ABG OXYGEN SATURATION 94.8 % (94-97); ABG PCO2 (T) 55.1 mmHg (35.0-48.0); ABG PO2 (T) 77.8 mmHg (75.0-100.0); ALLEN'S TEST POSITIVE; FCOHb 0.5 % (0.0-3.9); FMetHb 0.2 % (0.0-1.5); FO2Hb 94.1 % (94-97); PATIENT TEMPERATURE 37.2; RESPIRATORY RATE 12 b/min; TOTAL HEMOGLOBIN 14.1 G/dl (14.0-17.9)
--- NOTE | 2022-03-27 07:12 | NUR ---
700 Patient sitting up in bed, cyanotic, rr 45, states he needs a breathing treatment. BIpap off patient on bedside. Bipap replaced, with air leak >117, spo2 80%, RT taviad, shira placed on non rebreather 15L spo2 99%. 0712 RT at bedside to adjust bipap machine.
[2022-03-27] MEDS: levalbuterol 0.63mg/3ml nebule IH PRN (07:43)
[2022-03-27] MEDS: K and/or MAG REPLACEMENT MC SCH ×2 (08:00→20:00)
[2022-03-27] MEDS: docusate sod 100mg capsule PO SCH ×2 (08:00→19:15)
[2022-03-27] MEDS: heparin, porcine 5000 units/ml vial SQ SCH ×2 (08:00→16:26)
[2022-03-27] MEDS: CefTRIAXone/D5W-Rocephin 1gm 50 ML IV SCH (08:54)
[2022-03-27] MEDS: thiamine 100mg/ml 2ml inj. IV SCH ×3 (08:54→21:29)
[2022-03-27] MEDS: atenolol 50mg tablet PO SCH (08:55)
[2022-03-27] MEDS: normal saline 1000ml 1,000 ML IV SCH (08:55)
[2022-03-27] MEDS: azithromycin/NS 500mg/250ml 250 ML IV SCH (09:34)
[2022-03-27 09:43] LABS: ALANINE AMINOTRANSFERASE 27 U/L (12-78); ALBUMIN 3.3 G/DL (3.4-5.0); ALKALINE PHOSPHATASE 69 IU/L (46-116); ANION GAP 6 (8-16); ASPARTATE AMINO TRANSFERASE 21 U/L (10-37); BILIRUBIN,TOTAL 0.2 MG/DL (0.1-1.0); BLOOD UREA NITROGEN 14 MG/DL (7-18); BUN/CREATININE RATIO 27.5 (5.4-32.0); C-REACTIVE PROTEIN 0.28 MG/DL (0.0-0.5); CALCIUM 8.5 MG/DL (8.5-10.1); CHLORIDE 101 MMOL/L (99-107); CHOL/HDL RATIO 1.4 (0.00-4.99); CHOLESTEROL 200 MG/DL (0-200); CREATININE 0.51 MG/DL (0.60-1.10); GLUCOSE 132 MG/DL (70-104); HDL CHOLESTEROL 142 MG/DL (35-60); LACTATE DEHYDROGENASE 132 U/L (85-227); LDL CHOLESTEROL 46 MG/DL (50-100); MAGNESIUM 2.2 MG/DL (1.5-2.4); PHOSPHORUS 4.3 MG/DL (2.3-4.5); POTASSIUM 4.4 MMOL/L (3.5-5.1); SODIUM 141 MMOL/L (135-145); TOTAL PROTEIN 6.6 G/DL (6.4-8.2); TRIGLYCERIDES 32 MG/DL (20-135); eGFR > 90 ML/MIN
[2022-03-27] MEDS: folic acid 1mg/0.2ml inj IV SCH (09:55)
[2022-03-27] MEDS: REMDESIVIR INJ 100 MG in normal saline 100ml IV soln 100 ML IV SCH (09:55)
[2022-03-27] MEDS: haloperidol 5mg tablet PO PRN ×2 (10:04→16:48)
--- NOTE | 2022-03-27 15:59 | NUR ---
RT at bedside to administer breathing treatment (see EMAR), audible upper airway wheeze noted, RR 35, labored.
[2022-03-27 16:24] LABS: ABG BASE EXCESS 7.9 mmol/L (-2.0-2.0); ABG HCO3 38.2 mmol/L (22.0-26.0); ABG OXYGEN SATURATION 96.7 % (94-97); ABG PCO2 (T) 85.2 mmHg (35.0-48.0); ABG PO2 (T) 98.7 mmHg (75.0-100.0); ALLEN'S TEST POSITIVE; FCOHb 0.5 % (0.0-3.9); FLOW 5 L/min; FMetHb 0.4 % (0.0-1.5); FO2Hb 95.8 % (94-97); TOTAL HEMOGLOBIN 14.1 G/dl (14.0-17.9)
[2022-03-27] MEDS: haloperidol lactate 5mg/ml inj IM PRN (19:41)
[2022-03-28] MEDS: heparin, porcine 5000 units/ml vial SQ SCH ×3 (00:21→16:04)
[2022-03-28] MEDS: LORazepam 2 mg/ml vial IV PRN ×4 (02:56→12:35)
[2022-03-28] MEDS: haloperidol lactate 5mg/ml inj IM PRN ×2 (02:58→13:13)
[2022-03-28] MEDS: methylPREDNISolone sod succ 125mg/2ml vial IV SCH ×4 (03:08→20:48)
[2022-03-28] MEDS: levalbuterol 0.63mg/3ml nebule IH SCH ×6 (03:10→22:39)
[2022-03-28] MEDS: levalbuterol 0.63mg/3ml nebule IH PRN (04:29)
[2022-03-28] MEDS: normal saline 1000ml 1,000 ML IV SCH (04:55)
[2022-03-28 05:52] LABS: D-DIMER 0.99 MG/L FEU (0-0.50)
--- NOTE | 2022-03-28 06:08 | NUR ---
pts work of breathing visibly increasing . notified. RT to page
[2022-03-28 07:21] LABS: BASOPHILS % (AUTO) 0.1 % (0-1); EOSINOPHILS % (AUTO) 0 % (0-6); HEMATOCRIT 40.6 % (42.0-52.0); HEMOGLOBIN 13.3 g/dl (14.0-17.9); LYMPHOCYTES # (AUTO) 0.5 X10'3 (1.1-4.8); LYMPHOCYTES % (AUTO) 4.3 % (21-51); MEAN CORPUSCULAR HEMOGLOBIN 32.3 PG (27.0-31.0); MEAN CORPUSCULAR HGB CONC 32.7 g/dL (33.0-36.5); MEAN CORPUSCULAR VOLUME 98.8 FL (78-98); MEAN PLATELET VOLUME 6.9 FL (7.4-10.4); MONOCYTES % (AUTO) 9.3 % (2-12); NEUTROPHILS # (AUTO) 9.5 X10'3 (1.8-7.7); NEUTROPHILS % (AUTO) 86.3 % (42-75); PLATELET COUNT 506 X10'3 (140-440); RED BLOOD COUNT 4.11 X10'6 (4.70-6.10); RED CELL DISTRIBUTION WIDTH 15.1 % (11.5-14.5)
[2022-03-28 07:34] LABS: ABG BASE EXCESS 8.1 mmol/L (-2.0-2.0); ABG HCO3 35.7 mmol/L (22.0-26.0); ABG OXYGEN SATURATION 94.9 % (94-97); ABG PCO2 (T) 63.4 mmHg (35.0-48.0); ABG PO2 (T) 77.9 mmHg (75.0-100.0); ALLEN'S TEST Modified; FCOHb 0.2 % (0.0-3.9); FMetHb 0.3 % (0.0-1.5); FO2Hb 94.4 % (94-97); RESPIRATORY RATE 12 b/min; TOTAL HEMOGLOBIN 13.8 G/dl (14.0-17.9)
[2022-03-28 07:35] LABS: ALANINE AMINOTRANSFERASE 29 U/L (12-78); ALBUMIN 3.4 G/DL (3.4-5.0); ALKALINE PHOSPHATASE 64 IU/L (46-116); ANION GAP 7 (8-16); ASPARTATE AMINO TRANSFERASE 24 U/L (10-37); BILIRUBIN,TOTAL 0.3 MG/DL (0.1-1.0); BLOOD UREA NITROGEN 17 MG/DL (7-18); BUN/CREATININE RATIO 27.9 (5.4-32.0); C-REACTIVE PROTEIN 0.19 MG/DL (0.0-0.5); CALCIUM 8.5 MG/DL (8.5-10.1); CHLORIDE 102 MMOL/L (99-107); CREATININE 0.61 MG/DL (0.60-1.10); GLUCOSE 115 MG/DL (70-104); LACTATE DEHYDROGENASE 301 U/L (85-227); MAGNESIUM 2.4 MG/DL (1.5-2.4); PHOSPHORUS 3.8 MG/DL (2.3-4.5); POTASSIUM 4.3 MMOL/L (3.5-5.1); SODIUM 142 MMOL/L (135-145); TOTAL CARBON DIOXIDE 32.7 MMOL/L (24-32); TOTAL PROTEIN 6.7 G/DL (6.4-8.2); eGFR > 90 ML/MIN
[2022-03-28] MEDS: thiamine 100mg/ml 2ml inj. IV SCH ×3 (09:09→22:14)
[2022-03-28] MEDS: docusate sod 100mg capsule PO SCH ×2 (09:11→20:00)
[2022-03-28] MEDS: atenolol 50mg tablet PO SCH (09:11)
[2022-03-28] MEDS: azithromycin/NS 500mg/250ml 250 ML IV SCH (09:12)
[2022-03-28] MEDS: K and/or MAG REPLACEMENT MC SCH ×2 (09:12→20:00)
[2022-03-28] MEDS: CefTRIAXone/D5W-Rocephin 1gm 50 ML IV SCH (09:13)
[2022-03-28] MEDS: folic acid 1mg/0.2ml inj IV SCH (10:13)
[2022-03-28] MEDS: REMDESIVIR INJ 100 MG in normal saline 100ml IV soln 100 ML IV SCH (11:00)
[2022-03-28] MEDS: morphine 2 MG/ML inj. syringe IV PRN ×2 (12:36→23:47)
[2022-03-28] MEDS ORDERED: LORazepam 1 MG tablet PO PRN (12:55)
[2022-03-28] MEDS ORDERED: famotidine 20mg tablet PO PRN (18:15)
[2022-03-28] MEDS: clopidogrel 75mg tablet PO SCH (18:58)
[2022-03-28] MEDS: haloperidol 5mg tablet PO PRN (18:59)
[2022-03-28] MEDS: metoprolol succinate 25mg (24-HOUR) SR. Tablet PO SCH (18:59)
[2022-03-28] MEDS: enoxaparin 30mg/0.3ml syringe SUBCUT SCH (20:48)
[2022-03-28 21:00] VITALS: BP 140/91
--- NOTE | 2022-03-28 22:42 | NUR ---
: Pt SIDDHARTHA CHANG RM 3008 WHO WAS ADMITTED FOR RESPIRATORY FAILURE WITH COVID HAS O2 sat of 88 and labored respiration between the 40s and 50s.No RT notification. pato u [id number] .New order for RT eval and treat by MD Reddy.
[2022-03-29] MEDS: LORazepam 2 mg/ml vial IV PRN ×2 (01:41→05:47)
[2022-03-29 02:00] VITALS: BP 136/90
[2022-03-29] MEDS: levalbuterol 0.63mg/3ml nebule IH SCH ×6 (02:35→23:14)
[2022-03-29] MEDS: haloperidol lactate 5mg/ml inj IM PRN ×3 (03:43→09:33)
[2022-03-29] MEDS: methylPREDNISolone sod succ 125mg/2ml vial IV SCH ×4 (03:49→21:52)
--- NOTE | 2022-03-29 04:41 | NUR ---
pt is weak,restless and in severe respiratory distress.unable to complete admission assessment during the shift.
[2022-03-29 06:00] VITALS: BP 139/93
--- NOTE | 2022-03-29 06:53 | NUR ---
Problems reprioritized. Patient report given, questions answered & plan of care reviewed with STEVE PIÑA.
[2022-03-29] MEDS: metoprolol succinate 25mg (24-HOUR) SR. Tablet PO SCH (07:27)
[2022-03-29] MEDS: folic acid 1mg tablet PO SCH (07:28)
[2022-03-29] MEDS: docusate sod 100mg capsule PO SCH ×2 (07:29→20:00)
[2022-03-29] MEDS: aspirin 81mg, enteric-coated 1 TAB TABLET.DR PO SCH (07:29)
[2022-03-29] MEDS: clopidogrel 75mg tablet PO SCH (07:29)
[2022-03-29] MEDS: atorvastatin 20mg tablet PO SCH (07:29)
[2022-03-29] MEDS: thiamine 100mg/ml 2ml inj. IV SCH (07:30)
[2022-03-29] MEDS: CefTRIAXone/D5W-Rocephin 1gm 50 ML IV SCH (07:31)
[2022-03-29 07:50] LABS: BASOPHILS # (AUTO) 0.1 X10'3 (0-0.2); BASOPHILS % (AUTO) 0.6 % (0-1); EOSINOPHILS % (AUTO) 0 % (0-6); HEMATOCRIT 40.2 % (42.0-52.0); HEMOGLOBIN 13.8 g/dl (14.0-17.9); LYMPHOCYTES # (AUTO) 0.3 X10'3 (1.1-4.8); LYMPHOCYTES % (AUTO) 3.6 % (21-51); MEAN CORPUSCULAR HEMOGLOBIN 33.6 PG (27.0-31.0); MEAN CORPUSCULAR HGB CONC 34.2 g/dL (33.0-36.5); MEAN CORPUSCULAR VOLUME 98.1 FL (78-98); MEAN PLATELET VOLUME 7.1 FL (7.4-10.4); MONOCYTES # (AUTO) 0.6 X10'3 (0-0.9); MONOCYTES % (AUTO) 6.5 % (2-12); NEUTROPHILS # (AUTO) 8.4 X10'3 (1.8-7.7); NEUTROPHILS % (AUTO) 89.3 % (42-75); PLATELET COUNT 519 X10'3 (140-440); RED CELL DISTRIBUTION WIDTH 15.1 % (11.5-14.5); WHITE BLOOD COUNT 9.4 X10'3 (4.5-11.0)
[2022-03-29 07:52] LABS: ALANINE AMINOTRANSFERASE 32 U/L (12-78); ALBUMIN 3.5 G/DL (3.4-5.0); ALBUMIN/GLOBULIN RATIO 1.1 (1.1-1.5); ALKALINE PHOSPHATASE 65 IU/L (46-116); ANION GAP 10 (8-16); ASPARTATE AMINO TRANSFERASE 30 U/L (10-37); BILIRUBIN,TOTAL 0.3 MG/DL (0.1-1.0); BLOOD UREA NITROGEN 20 MG/DL (7-18); BUN/CREATININE RATIO 40.8 (5.4-32.0); C-REACTIVE PROTEIN 0.43 MG/DL (0.0-0.5); CALCIUM 8.5 MG/DL (8.5-10.1); CHLORIDE 101 MMOL/L (99-107); CREATININE 0.49 MG/DL (0.60-1.10); GLUCOSE 113 MG/DL (70-104); LACTATE DEHYDROGENASE 224 U/L (85-227); MAGNESIUM 2.5 MG/DL (1.5-2.4); PHOSPHORUS 3.6 MG/DL (2.3-4.5); POTASSIUM 4.2 MMOL/L (3.5-5.1); SODIUM 144 MMOL/L (135-145); TOTAL PROTEIN 6.6 G/DL (6.4-8.2); eGFR > 90 ML/MIN
[2022-03-29] MEDS: enoxaparin 30mg/0.3ml syringe SUBCUT SCH (08:00)
[2022-03-29] MEDS: K and/or MAG REPLACEMENT MC SCH ×2 (08:00→20:00)
[2022-03-29 08:23] LABS: D-DIMER 0.56 MG/L FEU (0-0.50)
[2022-03-29] MEDS: REMDESIVIR INJ 100 MG in normal saline 100ml IV soln 100 ML IV SCH (11:52)
[2022-03-29 15:58] VITALS: BP 152/87
[2022-03-29 18:00] VITALS: BP 155/101
[2022-03-29] MEDS ORDERED: morphine 2 MG/ML inj. syringe IV PRN (18:23)
--- NOTE | 2022-03-29 18:50 | NUR ---
Dr. Magaña at bedside and updated on Pt status. No changes requested to increase frequency of morphine. Dr. Magaña Ok'd to increase frequency of morphine for respiratory distress. Will continue to monitor.
[2022-03-29] MEDS: morphine 2 MG/ML inj. syringe IV PRN ×2 (19:42→22:21)
[2022-03-29] MEDS ORDERED: enoxaparin 40mg/0.4ml syringe SUBCUT SCH (21:32)
[2022-03-29] MEDS: enoxaparin 40mg/0.4ml syringe SUBCUT SCH (21:57)
[2022-03-29 22:00] VITALS: BP 151/98
[2022-03-30 02:00] VITALS: BP 140/101
[2022-03-30] MEDS: methylPREDNISolone sod succ 125mg/2ml vial IV SCH ×4 (02:05→20:16)
[2022-03-30] MEDS: morphine 2 MG/ML inj. syringe IV PRN ×3 (03:36→20:15)
[2022-03-30] MEDS: levalbuterol 0.63mg/3ml nebule IH SCH ×6 (03:45→23:12)
--- NOTE | 2022-03-30 06:43 | NUR ---
Problems reprioritized. Patient report given, questions answered & plan of care reviewed with STEVE PIÑA.
[2022-03-30 07:00] VITALS: BP 173/107
[2022-03-30 07:35] LABS: BASOPHILS % (AUTO) 0.1 % (0-1); EOSINOPHILS % (AUTO) 0 % (0-6); HEMATOCRIT 43.4 % (42.0-52.0); HEMOGLOBIN 14.7 g/dl (14.0-17.9); LYMPHOCYTES # (AUTO) 0.5 X10'3 (1.1-4.8); LYMPHOCYTES % (AUTO) 5.3 % (21-51); MEAN CORPUSCULAR HEMOGLOBIN 33.4 PG (27.0-31.0); MEAN CORPUSCULAR HGB CONC 33.8 g/dL (33.0-36.5); MEAN CORPUSCULAR VOLUME 98.7 FL (78-98); MEAN PLATELET VOLUME 6.9 FL (7.4-10.4); MONOCYTES # (AUTO) 0.6 X10'3 (0-0.9); MONOCYTES % (AUTO) 6.9 % (2-12); NEUTROPHILS # (AUTO) 7.9 X10'3 (1.8-7.7); NEUTROPHILS % (AUTO) 87.7 % (42-75); PLATELET COUNT 569 X10'3 (140-440); RED BLOOD COUNT 4.39 X10'6 (4.70-6.10); RED CELL DISTRIBUTION WIDTH 14.9 % (11.5-14.5); WHITE BLOOD COUNT 9.1 X10'3 (4.5-11.0)
[2022-03-30 07:49] LABS: ALANINE AMINOTRANSFERASE 32 U/L (12-78); ALBUMIN 3.7 G/DL (3.4-5.0); ALBUMIN/GLOBULIN RATIO 1.1 (1.1-1.5); ALKALINE PHOSPHATASE 66 IU/L (46-116); ANION GAP 8 (8-16); ASPARTATE AMINO TRANSFERASE 39 U/L (10-37); BILIRUBIN,TOTAL 0.4 MG/DL (0.1-1.0); BLOOD UREA NITROGEN 20 MG/DL (7-18); BUN/CREATININE RATIO 34.5 (5.4-32.0); C-REACTIVE PROTEIN 0.31 MG/DL (0.0-0.5); CALCIUM 8.7 MG/DL (8.5-10.1); CHLORIDE 101 MMOL/L (99-107); CREATININE 0.58 MG/DL (0.60-1.10); GLUCOSE 121 MG/DL (70-104); LACTATE DEHYDROGENASE 215 U/L (85-227); MAGNESIUM 2.5 MG/DL (1.5-2.4); PHOSPHORUS 3.7 MG/DL (2.3-4.5); POTASSIUM 4.4 MMOL/L (3.5-5.1); SODIUM 146 MMOL/L (135-145); eGFR > 90 ML/MIN
[2022-03-30] MEDS: K and/or MAG REPLACEMENT MC SCH ×2 (08:00→20:00)
[2022-03-30 08:38] LABS: D-DIMER 0.56 MG/L FEU (0-0.50)
--- NOTE | 2022-03-30 08:51 | NUR ---
Initial: pt admitted w/ COPD exacerbation and Covid PNA per EMR, requiring BiPAP. Currently on Heart Healthy diet w/ 0% intake of first 3 meals, documented as A&O x 1 and confused. Discussed w/ RN who feels that the pt can consume liquids better, Will recommend Ensure Enlive TID, though if PO of meals does not improve pt may benefit from supplemental TF. LBM 03/28. Will continue to monitor. Recs: 1. Liberalize to Regular diet 2. Ensure Enlive TID; pending MD verification 3. If unable to tolerated PO, NGTF if within POC 4. Bowel care per rx 5. Routine thiamine, folic acid for EtOH hx 6. Scaled wts Addendum: 03/30/22 at [address] Amended: Links added.
[2022-03-30] MEDS: REMDESIVIR INJ 100 MG in normal saline 100ml IV soln 100 ML IV SCH (09:35)
[2022-03-30] MEDS: CefTRIAXone/D5W-Rocephin 1gm 50 ML IV SCH (09:35)
[2022-03-30] MEDS: docusate sod 100mg capsule PO SCH ×2 (09:36→20:23)
[2022-03-30] MEDS: atorvastatin 20mg tablet PO SCH (09:37)
[2022-03-30] MEDS: folic acid 1mg tablet PO SCH (09:37)
[2022-03-30] MEDS: thiamine 100mg tablet PO SCH (09:37)
[2022-03-30] MEDS: aspirin 81mg, enteric-coated 1 TAB TABLET.DR PO SCH (09:37)
[2022-03-30] MEDS: clopidogrel 75mg tablet PO SCH (09:37)
[2022-03-30] MEDS: enoxaparin 40mg/0.4ml syringe SUBCUT SCH ×2 (09:41→20:16)
--- NOTE | 2022-03-30 09:42 | NUR ---
Sent pharmacy message about missing metoprolol.
[2022-03-30 11:00] VITALS: BP 156/87
[2022-03-30] MEDS ORDERED: LORazepam 2 mg/ml vial IV PRN (12:55)
[2022-03-30] MEDS ORDERED: LORazepam 1 MG tablet PO PRN (12:55)
[2022-03-30 14:00] VITALS: BP 158/72
[2022-03-30] MEDS: metoprolol succinate 25mg (24-HOUR) SR. Tablet PO SCH (14:28)
--- NOTE | 2022-03-30 14:32 | NUR ---
Notified respiratory RS Patient states he needs his bi pap turned down so he can lay down.
[2022-03-30 15:38] LABS: ABG BASE EXCESS 10.1 mmol/L (-2.0-2.0); ABG HCO3 37.9 mmol/L (22.0-26.0); ABG OXYGEN SATURATION 96.5 % (94-97); ABG PCO2 (T) 63.3 mmHg (35.0-48.0); ABG PO2 (T) 86.9 mmHg (75.0-100.0); ALLEN'S TEST POSITIVE; FCOHb 0.1 % (0.0-3.9); FMetHb 0.3 % (0.0-1.5); FO2Hb 96.1 % (94-97); RESPIRATORY RATE 18 b/min; TOTAL HEMOGLOBIN 15.7 G/dl (14.0-17.9)
[2022-03-30 18:00] VITALS: BP 139/100
--- NOTE | 2022-03-30 19:13 | NUR ---
I reviewed and agree with documentation completed by Nuha Gtz LVN.
[2022-03-30 22:00] VITALS: BP 174/103
--- NOTE | 2022-03-31 | NUR ---
Patient in room PCU 3008. I have received report from obi and had the opportunity to ask questions and assume patient care.
[2022-03-31] MEDS: morphine 2 MG/ML inj. syringe IV PRN ×6 (00:06→23:46)
[2022-03-31] MEDS: methylPREDNISolone sod succ 125mg/2ml vial IV SCH ×4 (01:49→20:49)
[2022-03-31] MEDS: LORazepam 2 mg/ml vial IV PRN ×4 (01:49→20:48)
[2022-03-31 02:00] VITALS: BP 160/108
[2022-03-31] MEDS: levalbuterol 0.63mg/3ml nebule IH SCH ×6 (04:11→23:34)
[2022-03-31 06:00] VITALS: BP 167/110
[2022-03-31 06:31] LABS: D-DIMER 0.32 MG/L FEU (0-0.50)
[2022-03-31 06:32] LABS: BASOPHILS % (AUTO) 0.2 % (0-1); EOSINOPHILS % (AUTO) 0 % (0-6); HEMATOCRIT 41.3 % (42.0-52.0); HEMOGLOBIN 14.3 g/dl (14.0-17.9); LYMPHOCYTES # (AUTO) 0.6 X10'3 (1.1-4.8); LYMPHOCYTES % (AUTO) 6.2 % (21-51); MEAN CORPUSCULAR HEMOGLOBIN 33.9 PG (27.0-31.0); MEAN CORPUSCULAR HGB CONC 34.6 g/dL (33.0-36.5); MEAN CORPUSCULAR VOLUME 97.9 FL (78-98); MEAN PLATELET VOLUME 6.7 FL (7.4-10.4); MONOCYTES # (AUTO) 0.7 X10'3 (0-0.9); MONOCYTES % (AUTO) 6.9 % (2-12); NEUTROPHILS # (AUTO) 8.3 X10'3 (1.8-7.7); NEUTROPHILS % (AUTO) 86.7 % (42-75); PLATELET COUNT 546 X10'3 (140-440); RED BLOOD COUNT 4.22 X10'6 (4.70-6.10); RED CELL DISTRIBUTION WIDTH 15.2 % (11.5-14.5); WHITE BLOOD COUNT 9.5 X10'3 (4.5-11.0)
--- NOTE | 2022-03-31 06:43 | NUR ---
Problems reprioritized. Patient report given, questions answered & plan of care reviewed with
[2022-03-31 07:08] LABS: ALANINE AMINOTRANSFERASE 33 U/L (12-78); ALBUMIN 3.3 G/DL (3.4-5.0); ALBUMIN/GLOBULIN RATIO 1.1 (1.1-1.5); ALKALINE PHOSPHATASE 59 IU/L (46-116); ANION GAP 4 (8-16); ASPARTATE AMINO TRANSFERASE 42 U/L (10-37); BILIRUBIN,TOTAL 0.4 MG/DL (0.1-1.0); BLOOD UREA NITROGEN 20 MG/DL (7-18); BUN/CREATININE RATIO 47.6 (5.4-32.0); C-REACTIVE PROTEIN 0.19 MG/DL (0.0-0.5); CALCIUM 8.6 MG/DL (8.5-10.1); CHLORIDE 99 MMOL/L (99-107); CREATININE 0.42 MG/DL (0.60-1.10); GLUCOSE 137 MG/DL (70-104); LACTATE DEHYDROGENASE 220 U/L (85-227); MAGNESIUM 2.4 MG/DL (1.5-2.4); PHOSPHORUS 3.9 MG/DL (2.3-4.5); POTASSIUM 4.1 MMOL/L (3.5-5.1); SODIUM 140 MMOL/L (135-145); TOTAL CARBON DIOXIDE 36.9 MMOL/L (24-32); TOTAL PROTEIN 6.4 G/DL (6.4-8.2); eGFR > 90 ML/MIN
[2022-03-31 07:56] LABS: TOTAL CELLS COUNTED 100
[2022-03-31 07:58] LABS: PLATELET ESTIMATE INCREASED
[2022-03-31] MEDS: K and/or MAG REPLACEMENT MC SCH ×2 (08:00→20:00)
[2022-03-31] MEDS: CefTRIAXone/D5W-Rocephin 1gm 50 ML IV SCH (08:09)
[2022-03-31] MEDS: aspirin 81mg, enteric-coated 1 TAB TABLET.DR PO SCH (09:20)
[2022-03-31] MEDS: atorvastatin 20mg tablet PO SCH (09:20)
[2022-03-31] MEDS: thiamine 100mg tablet PO SCH (09:21)
[2022-03-31] MEDS: clopidogrel 75mg tablet PO SCH (09:21)
[2022-03-31] MEDS: docusate sod 100mg capsule PO SCH ×2 (09:21→21:03)
[2022-03-31] MEDS: folic acid 1mg tablet PO SCH (09:21)
[2022-03-31] MEDS: metoprolol succinate 25mg (24-HOUR) SR. Tablet PO SCH (09:21)
[2022-03-31] MEDS: enoxaparin 40mg/0.4ml syringe SUBCUT SCH ×2 (09:22→21:04)
[2022-03-31 15:00] VITALS: BP 147/103
--- NOTE | 2022-03-31 17:36 | NUR ---
WEEKEND CAREGIVER documentation: I have reviewed and agree with all interventions, assessments performed and documented by Marian Youngblood LVN.
[2022-03-31 18:00] VITALS: BP 155/98
--- NOTE | 2022-03-31 18:05 | NUR ---
Patient in room PCU 3008. I have received report from Asa PIÑA and had the opportunity to ask questions and assume patient care.
[2022-04-01] MEDS: methylPREDNISolone sod succ 125mg/2ml vial IV SCH ×4 (01:58→19:23)
[2022-04-01] MEDS: LORazepam 2 mg/ml vial IV PRN ×3 (01:59→19:24)
[2022-04-01] MEDS: levalbuterol 0.63mg/3ml nebule IH SCH ×6 (03:50→23:21)
--- NOTE | 2022-04-01 04:09 | NUR ---
Agree with Marija MEJIA assessment except where I added my assesment.
--- NOTE | 2022-04-01 06:30 | NUR ---
Problems reprioritized. Patient report given, questions answered & plan of care reviewed with
[2022-04-01] MEDS: morphine 2 MG/ML inj. syringe IV PRN ×2 (07:34→19:24)
[2022-04-01] MEDS: CefTRIAXone/D5W-Rocephin 1gm 50 ML IV SCH (07:34)
[2022-04-01] MEDS: K and/or MAG REPLACEMENT MC SCH ×2 (08:00→20:00)
[2022-04-01] MEDS: docusate sod 100mg capsule PO SCH ×2 (08:49→19:23)
[2022-04-01] MEDS: thiamine 100mg tablet PO SCH (08:49)
[2022-04-01] MEDS: aspirin 81mg, enteric-coated 1 TAB TABLET.DR PO SCH (08:49)
[2022-04-01] MEDS: clopidogrel 75mg tablet PO SCH (08:50)
[2022-04-01] MEDS: folic acid 1mg tablet PO SCH (08:50)
[2022-04-01] MEDS: metoprolol succinate 25mg (24-HOUR) SR. Tablet PO SCH (08:50)
[2022-04-01] MEDS: atorvastatin 20mg tablet PO SCH (08:50)
[2022-04-01] MEDS: enoxaparin 40mg/0.4ml syringe SUBCUT SCH ×2 (08:50→19:23)
[2022-04-01 09:37] VITALS: BP 144/96
[2022-04-01 12:12] VITALS: BP 136/92
[2022-04-01 14:36] VITALS: BP 142/93
--- NOTE | 2022-04-01 16:06 | NUR ---
NUCLEAR PHYSICS TEACHER documentation: I have reviewed and agree with all interventions, assessments performed and documented by Arlette Land LVN.
--- NOTE | 2022-04-01 18:15 | NUR ---
Patient in room PCU 3008. I have received report from Asa PIÑA and had the opportunity to ask questions and assume patient care.
[2022-04-01 19:00] VITALS: BP 127/91
--- NOTE | 2022-04-01 20:00 | NUR ---
Patient used his call light to notify staff that he fell onto the floor. When we arrived he was on his knees on the floor with his oxygen on and the f/c was intact. He verbalized that he tried to get from the bed to the chair on his own and wasn't strong enough to do this. He had a sitter previously but the sitter was weaned off at end of day shift. He will now have the sitter back in the room due to the fall. No sign of injury noted at this time. He was assisted back to bed with assist of 2 staff members and he was able to stand on his feet and get to the chair.
[2022-04-01 20:10] VITALS: BP 125/57
--- NOTE | 2022-04-01 20:42 | NUR ---
Notified Dr. Guzman of patient falling onto the floor, no obvious signs of injury noted. Sitter will be back in the room. Vitals are stable. Will notify nursing pbx supervisor.
--- NOTE | 2022-04-01 23:00 | NUR ---
Agree with INTERN ARCHITECT physical assessment except where I documented my findings.
[2022-04-02] MEDS: methylPREDNISolone sod succ 125mg/2ml vial IV SCH ×3 (02:00→14:20)
[2022-04-02] MEDS: levalbuterol 0.63mg/3ml nebule IH SCH ×6 (03:06→22:20)
--- NOTE | 2022-04-02 05:22 | NUR ---
occurence report [id number]
[2022-04-02 06:00] VITALS: BP 121/87
--- NOTE | 2022-04-02 06:48 | NUR ---
Problems reprioritized. Patient report given, questions answered & plan of care reviewed with La PIÑA.
--- NOTE | 2022-04-02 06:56 | NUR ---
Patient in room PCU 3008. I have received report from Marija and had the opportunity to ask questions and assume patient care.
[2022-04-02] MEDS: K and/or MAG REPLACEMENT MC SCH ×2 (07:37→20:00)
[2022-04-02] MEDS: metoprolol succinate 25mg (24-HOUR) SR. Tablet PO SCH (09:17)
[2022-04-02] MEDS: folic acid 1mg tablet PO SCH (09:17)
[2022-04-02] MEDS: CefTRIAXone/D5W-Rocephin 1gm 50 ML IV SCH (09:17)
[2022-04-02] MEDS: aspirin 81mg, enteric-coated 1 TAB TABLET.DR PO SCH (09:17)
[2022-04-02] MEDS: thiamine 100mg tablet PO SCH (09:17)
[2022-04-02] MEDS: atorvastatin 20mg tablet PO SCH (09:18)
[2022-04-02] MEDS: docusate sod 100mg capsule PO SCH ×2 (09:18→19:29)
[2022-04-02] MEDS: clopidogrel 75mg tablet PO SCH (09:18)
[2022-04-02] MEDS: enoxaparin 40mg/0.4ml syringe SUBCUT SCH ×2 (09:19→19:31)
--- NOTE | 2022-04-02 10:30 | NUR ---
F/u 04/02: Pt PO improving initially 0% most meals now consistently 50% avg past 1.5 days still not meeting estimated needs. Noted down to 3L NC at this time per EMR. Ensure Enlive TID pending physician verification in EMR; NEAL paged MD regarding ONS verification to assist meeting nutrient needs. Remains on thiamine, folic acid for etoh hx. LBM 03/31 receiving routine colace per EMR. Will continue to monitor. Recs: 1. Liberalize to Regular diet given PO trends 2. Ensure Enlive TID; pending MD verification 3. routine bowel care 4. Routine thiamine, folic acid for EtOH hx 5. Scaled wt this admit; subsequent weekly wts Addendum: 04/02/22 at [address] Amended: Links added.
[2022-04-02 11:00] VITALS: BP 119/78
[2022-04-02 15:00] VITALS: BP 158/86
[2022-04-02 18:00] VITALS: BP 134/88
--- NOTE | 2022-04-02 18:50 | NUR ---
CHARLENE CARL [phone] requesting breathing TX. Thank you -Page to RT
--- NOTE | 2022-04-02 19:16 | NUR ---
Patient in room U 3008. I have received report from Teri PIÑA and had the opportunity to ask questions and assume patient care. Pt is sitting up on side of bed eating dinner. Pt requeting breathing Tx and Pain meds. Please see interventions. Pt on 3L NC. No s/s of distress. BLL, call light withni reach, frequently used items in reach, frequent rounding, info analyst socks on, will continue to monitor.
[2022-04-02] MEDS: HYDROcodone/acetaminophen 10/325mg tab PO PRN (19:30)
[2022-04-02 22:00] VITALS: BP 117/71
--- NOTE | 2022-04-02 22:06 | NUR ---
Didier CARL [phone] asking for breathing Tx. Thank you -Page to RT
[2022-04-02] MEDS: morphine 2 MG/ML inj. syringe IV PRN (23:03)
[2022-04-03 02:00] VITALS: BP 121/74
--- NOTE | 2022-04-03 02:26 | NUR ---
Aishwarya Hu [phone] asking for a breathing TX. Please and thank you. -Page to RT
[2022-04-03] MEDS: HYDROcodone/acetaminophen 10/325mg tab PO PRN ×4 (02:33→16:32)
[2022-04-03] MEDS: levalbuterol 0.63mg/3ml nebule IH SCH ×6 (02:56→22:50)
[2022-04-03 06:00] VITALS: BP 119/84
--- NOTE | 2022-04-03 06:15 | NUR ---
Problems reprioritized. Patient report given, questions answered & plan of care reviewed with Megan PIÑA.
[2022-04-03 06:38] LABS: BASOPHILS # (AUTO) 0.1 X10'3 (0-0.2); BASOPHILS % (AUTO) 0.6 % (0-1); EOSINOPHILS % (AUTO) 0 % (0-6); LYMPHOCYTES # (AUTO) 0.9 X10'3 (1.1-4.8); LYMPHOCYTES % (AUTO) 5.6 % (21-51); MEAN CORPUSCULAR HEMOGLOBIN 33.3 PG (27.0-31.0); MEAN CORPUSCULAR HGB CONC 34.1 g/dL (33.0-36.5); MEAN CORPUSCULAR VOLUME 97.8 FL (78-98); MONOCYTES # (AUTO) 1.7 X10'3 (0-0.9); MONOCYTES % (AUTO) 10.6 % (2-12); NEUTROPHILS # (AUTO) 13.1 X10'3 (1.8-7.7); NEUTROPHILS % (AUTO) 83.2 % (42-75); PLATELET COUNT 497 X10'3 (140-440); RED CELL DISTRIBUTION WIDTH 14.8 % (11.5-14.5); WHITE BLOOD COUNT 15.8 X10'3 (4.5-11.0)
[2022-04-03 06:49] LABS: D-DIMER 0.42 MG/L FEU (0-0.50)
[2022-04-03 07:24] LABS: ALANINE AMINOTRANSFERASE 32 U/L (12-78); ALKALINE PHOSPHATASE 55 IU/L (46-116); ANION GAP 3 (8-16); ASPARTATE AMINO TRANSFERASE 20 U/L (10-37); BILIRUBIN,TOTAL 0.4 MG/DL (0.1-1.0); BLOOD UREA NITROGEN 29 MG/DL (7-18); CALCIUM 8.3 MG/DL (8.5-10.1); CHLORIDE 95 MMOL/L (99-107); CREATININE 0.46 MG/DL (0.60-1.10); GLUCOSE 154 MG/DL (70-104); LACTATE DEHYDROGENASE 253 U/L (85-227); MAGNESIUM 2.7 MG/DL (1.5-2.4); PHOSPHORUS 3.8 MG/DL (2.3-4.5); POTASSIUM 4.8 MMOL/L (3.5-5.1); SODIUM 138 MMOL/L (135-145); TOTAL CARBON DIOXIDE 39.8 MMOL/L (24-32); TOTAL PROTEIN 5.9 G/DL (6.4-8.2); eGFR > 90 ML/MIN
[2022-04-03] MEDS: atorvastatin 20mg tablet PO SCH (07:34)
[2022-04-03] MEDS: folic acid 1mg tablet PO SCH (07:34)
[2022-04-03] MEDS: docusate sod 100mg capsule PO SCH ×2 (07:34→21:36)
[2022-04-03] MEDS: aspirin 81mg, enteric-coated 1 TAB TABLET.DR PO SCH (07:35)
[2022-04-03] MEDS: metoprolol succinate 25mg (24-HOUR) SR. Tablet PO SCH (07:35)
[2022-04-03] MEDS: clopidogrel 75mg tablet PO SCH (07:35)
[2022-04-03] MEDS: thiamine 100mg tablet PO SCH (07:35)
[2022-04-03] MEDS: enoxaparin 40mg/0.4ml syringe SUBCUT SCH ×2 (07:36→21:37)
[2022-04-03] MEDS: methylPREDNISolone sod succ 125mg/2ml vial IV SCH ×3 (07:36→16:32)
[2022-04-03] MEDS: CefTRIAXone/D5W-Rocephin 1gm 50 ML IV SCH (07:37)
[2022-04-03] MEDS: K and/or MAG REPLACEMENT MC SCH ×2 (07:37→20:00)
[2022-04-03 07:47] LABS: C-REACTIVE PROTEIN < 0.05 MG/DL (0.0-0.5)
[2022-04-03 11:50] VITALS: BP 112/82
[2022-04-03 15:00] VITALS: BP 130/84
[2022-04-03 18:00] VITALS: BP 127/77
[2022-04-03] MEDS: ondansetron/PF 4mg/2ml inj IV PRN (18:06)
--- NOTE | 2022-04-03 18:41 | NUR ---
Problems reprioritized. Patient report given, questions answered & plan of care reviewed with Barbara PIÑA.
[2022-04-03 22:00] VITALS: BP 101/74
[2022-04-04] MEDS: levalbuterol 0.63mg/3ml nebule IH PRN (01:28)
[2022-04-04 02:00] VITALS: BP 110/72
[2022-04-04] MEDS: levalbuterol 0.63mg/3ml nebule IH SCH ×6 (04:31→22:29)
[2022-04-04 06:00] VITALS: BP 135/89
[2022-04-04 06:12] LABS: BASOPHILS % (AUTO) 0.3 % (0-1); EOSINOPHILS % (AUTO) 0.1 % (0-6); HEMATOCRIT 38.6 % (42.0-52.0); HEMOGLOBIN 12.9 g/dl (14.0-17.9); LYMPHOCYTES % (AUTO) 6.5 % (21-51); MEAN CORPUSCULAR HEMOGLOBIN 32.6 PG (27.0-31.0); MEAN CORPUSCULAR HGB CONC 33.4 g/dL (33.0-36.5); MEAN CORPUSCULAR VOLUME 97.7 FL (78-98); MEAN PLATELET VOLUME 6.9 FL (7.4-10.4); MONOCYTES # (AUTO) 1.4 X10'3 (0-0.9); MONOCYTES % (AUTO) 8.7 % (2-12); NEUTROPHILS # (AUTO) 13.5 X10'3 (1.8-7.7); NEUTROPHILS % (AUTO) 84.4 % (42-75); PLATELET COUNT 525 X10'3 (140-440); RED BLOOD COUNT 3.95 X10'6 (4.70-6.10); RED CELL DISTRIBUTION WIDTH 14.7 % (11.5-14.5)
[2022-04-04 06:20] LABS: D-DIMER 0.32 MG/L FEU (0-0.50)
[2022-04-04 06:36] LABS: ALANINE AMINOTRANSFERASE 30 U/L (12-78); ALBUMIN 2.9 G/DL (3.4-5.0); ALKALINE PHOSPHATASE 50 IU/L (46-116); ANION GAP -1 (8-16); ASPARTATE AMINO TRANSFERASE 20 U/L (10-37); BILIRUBIN,TOTAL 0.4 MG/DL (0.1-1.0); BLOOD UREA NITROGEN 28 MG/DL (7-18); BUN/CREATININE RATIO 62.2 (5.4-32.0); CALCIUM 8.5 MG/DL (8.5-10.1); CHLORIDE 97 MMOL/L (99-107); CREATININE 0.45 MG/DL (0.60-1.10); GLUCOSE 137 MG/DL (70-104); LACTATE DEHYDROGENASE 222 U/L (85-227); MAGNESIUM 2.6 MG/DL (1.5-2.4); PHOSPHORUS 4.1 MG/DL (2.3-4.5); SODIUM 139 MMOL/L (135-145); TOTAL PROTEIN 5.7 G/DL (6.4-8.2); eGFR > 90 ML/MIN
[2022-04-04 06:39] LABS: TOTAL CARBON DIOXIDE 42.9 MMOL/L (24-32)
--- NOTE | 2022-04-04 06:50 | NUR ---
Problems reprioritized. Patient report given, questions answered & plan of care reviewed with GLADIS PIÑA.
--- NOTE | 2022-04-04 06:54 | NUR ---
Patient in room PCU 3008. I have received report from Trinity PIÑA and had the opportunity to ask questions and assume patient care.
[2022-04-04 07:10] LABS: C-REACTIVE PROTEIN < 0.05 MG/DL (0.0-0.5)
--- NOTE | 2022-04-04 07:12 | NUR ---
PAGER ID: [phone] MESSAGE: [phone] Simart CO2 42.9 on 5 L O2 100% when sample was taken. Thank you Nuha MEJIA.
[2022-04-04 07:23] LABS: PLATELET ESTIMATE INCREASED; TOTAL CELLS COUNTED 100
[2022-04-04] MEDS: K and/or MAG REPLACEMENT MC SCH ×2 (08:00→19:21)
[2022-04-04] MEDS: atorvastatin 20mg tablet PO SCH (08:37)
[2022-04-04] MEDS: folic acid 1mg tablet PO SCH (08:37)
[2022-04-04] MEDS: HYDROcodone/acetaminophen 10/325mg tab PO PRN (08:37)
[2022-04-04] MEDS: clopidogrel 75mg tablet PO SCH (08:37)
[2022-04-04] MEDS: docusate sod 100mg capsule PO SCH (08:38)
[2022-04-04] MEDS: thiamine 100mg tablet PO SCH (08:38)
[2022-04-04] MEDS: aspirin 81mg, enteric-coated 1 TAB TABLET.DR PO SCH (08:39)
[2022-04-04] MEDS: metoprolol succinate 25mg (24-HOUR) SR. Tablet PO SCH (08:39)
[2022-04-04] MEDS: enoxaparin 40mg/0.4ml syringe SUBCUT SCH ×3 (08:40→21:41)
[2022-04-04] MEDS: CefTRIAXone/D5W-Rocephin 1gm 50 ML IV SCH (08:42)
[2022-04-04] MEDS: methylPREDNISolone sod succ 125mg/2ml vial IV SCH ×5 (08:43→21:40)
--- NOTE | 2022-04-04 08:54 | NUR ---
Notified 1168 Simart complaint of chest pain 01/12 VS WNL. Patient given [place] 10. Will order EKG.
[2022-04-04 11:54] VITALS: BP 130/84
[2022-04-04 14:37] VITALS: BP 83/57
[2022-04-04 18:00] VITALS: BP 103/81
--- NOTE | 2022-04-04 18:16 | NUR ---
Problems reprioritized. Patient report given Gustavo RN, questions answered & plan of care reviewed with .
--- NOTE | 2022-04-04 21:43 | NUR ---
Pt refused Noxaparin 40 mg SQ x 3.
[2022-04-04 22:00] VITALS: BP 101/77
--- NOTE | 2022-04-05 00:56 | NUR ---
Pt no IV can be accessed, charge nurse try a couple times it is unsuccessful to get it, will notified
[2022-04-05] MEDS: levalbuterol 0.63mg/3ml nebule IH PRN (01:51)
[2022-04-05 02:00] VITALS: BP 97/73
[2022-04-05] MEDS: levalbuterol 0.63mg/3ml nebule IH SCH ×5 (03:00→22:37)
[2022-04-05] MEDS: LORazepam 1 MG tablet PO PRN (04:55)
--- NOTE | 2022-04-05 05:46 | NUR ---
Pt Turns call light on multiple times, wants to do breathing treatments and coffee, even this nurse told him it is not due time for breathing treatments per RT statements, ptient still turns office correspondent lights and repeated again and again, brought coffee to him multiple times, call MD got PRN Ativan PO order related IV Ativan is unable to give to him, patient no IV can be accessed, 0455 AM PRN Ativen 1 mg PO, SaO2 is 99 % on 2 LPM O2 at this moment.
[2022-04-05 06:00] VITALS: BP 150/91
[2022-04-05 07:00] LABS: D-DIMER 0.78 MG/L FEU (0-0.50)
[2022-04-05 07:01] LABS: BASOPHILS # (AUTO) 0.1 X10'3 (0-0.2); BASOPHILS % (AUTO) 0.3 % (0-1); EOSINOPHILS # (AUTO) 0.1 X10'3 (0-0.9); MONOCYTES # (AUTO) 3.2 X10'3 (0-0.9); MONOCYTES % (AUTO) 16.1 % (2-12); RED CELL DISTRIBUTION WIDTH 14.8 % (11.5-14.5)
[2022-04-05 07:03] LABS: EOSINOPHILS % (AUTO) 0.3 % (0-6); HEMOGLOBIN 12.2 g/dl (14.0-17.9); LYMPHOCYTES # (AUTO) 4.9 X10'3 (1.1-4.8); LYMPHOCYTES % (AUTO) 24.4 % (21-51); MEAN CORPUSCULAR HEMOGLOBIN 33.4 PG (27.0-31.0); MEAN CORPUSCULAR HGB CONC 33.9 g/dL (33.0-36.5); MEAN CORPUSCULAR VOLUME 98.6 FL (78-98); MEAN PLATELET VOLUME 7.6 FL (7.4-10.4); NEUTROPHILS # (AUTO) 11.8 X10'3 (1.8-7.7); NEUTROPHILS % (AUTO) 58.9 % (42-75); PLATELET COUNT 620 X10'3 (140-440); RED BLOOD COUNT 3.65 X10'6 (4.70-6.10)
[2022-04-05 07:28] LABS: ALANINE AMINOTRANSFERASE 32 U/L (12-78); ALBUMIN 3.1 G/DL (3.4-5.0); ALKALINE PHOSPHATASE 48 IU/L (46-116); ANION GAP 4 (8-16); BILIRUBIN,TOTAL 0.6 MG/DL (0.1-1.0); BLOOD UREA NITROGEN 30 MG/DL (7-18); BUN/CREATININE RATIO 65.2 (5.4-32.0); CALCIUM 8.6 MG/DL (8.5-10.1); CHLORIDE 97 MMOL/L (99-107); CREATININE 0.46 MG/DL (0.60-1.10); GLUCOSE 120 MG/DL (70-104); MAGNESIUM 2.5 MG/DL (1.5-2.4); SODIUM 140 MMOL/L (135-145); TOTAL CARBON DIOXIDE 39.3 MMOL/L (24-32); TOTAL PROTEIN 6.2 G/DL (6.4-8.2); eGFR > 90 ML/MIN
[2022-04-05 07:32] LABS: ASPARTATE AMINO TRANSFERASE 32 U/L (10-37); LACTATE DEHYDROGENASE 322 U/L (85-227); PHOSPHORUS 4.4 MG/DL (2.3-4.5); POTASSIUM 5.6 MMOL/L (3.5-5.1)
[2022-04-05] MEDS: K and/or MAG REPLACEMENT MC SCH ×2 (07:49→20:00)
[2022-04-05] MEDS: enoxaparin 40mg/0.4ml syringe SUBCUT SCH ×3 (08:00→21:29)
[2022-04-05] MEDS: methylPREDNISolone sod succ 125mg/2ml vial IV SCH (08:01)
[2022-04-05] MEDS: thiamine 100mg tablet PO SCH (08:01)
[2022-04-05] MEDS: HYDROcodone/acetaminophen 10/325mg tab PO PRN (08:01)
[2022-04-05] MEDS: metoprolol succinate 25mg (24-HOUR) SR. Tablet PO SCH (08:01)
[2022-04-05] MEDS: aspirin 81mg, enteric-coated 1 TAB TABLET.DR PO SCH (08:01)
[2022-04-05] MEDS: folic acid 1mg tablet PO SCH (08:01)
[2022-04-05] MEDS: clopidogrel 75mg tablet PO SCH (08:01)
[2022-04-05] MEDS: atorvastatin 20mg tablet PO SCH (08:02)
--- NOTE | 2022-04-05 08:59 | NUR ---
PAGER ID: [phone] MESSAGE: [phone] Sandeepconnie, K+ is 5.6 Thank you. Megan PIÑA
--- NOTE | 2022-04-05 10:06 | NUR ---
Donny MILES notified about K+ of 5.6. aware putting in orders and planning to discharge
[2022-04-05] MEDS ORDERED: sodium polystyrene sulfonate 15gm/60ml oral suspension PO ONE (10:44)
[2022-04-05 11:32] LABS: PLATELET ESTIMATE INCREASED; TOTAL CELLS COUNTED 100
[2022-04-05 11:51] VITALS: BP 97/63
[2022-04-05] MEDS: methylPREDNISolone sod succ/PF 40mg inj. IV SCH (12:40)
--- NOTE | 2022-04-05 12:51 | NUR ---
Pt. care given. Offered shower or bed bath. Pt. refused at this time. Room picked up, bed changed.
[2022-04-05 15:24] VITALS: BP 119/74
--- NOTE | 2022-04-05 15:26 | NUR ---
O2 Sat at rest on room air:_82__% If below 89%: Recovery O2 Sat at rest on _3__LPM:_94__%:___% via nasal cannula (mask/nasal cannula, etc..) No further documentation is necessary. If O2 Sat did not drop below 89% on room air,ambulate patient on room air. O2 Sat while ambulating on room air:___% Recovery O2 Sat while ambulating on ___LPM:___% No further documentation is necessary. If patient does not drop below 89% while ambulating, he/she does not qualify for home O2.
[2022-04-05 16:17] LABS: ABG BASE EXCESS 15.6 mmol/L (-2.0-2.0); ABG HCO3 43.5 mmol/L (22.0-26.0); ABG OXYGEN SATURATION 97.2 % (94-97); ABG PCO2 (T) 73.7 mmHg (35.0-48.0); ABG PO2 (T) 100.3 mmHg (75.0-100.0); ALLEN'S TEST POSITIVE; FCOHb 0.3 % (0.0-3.9); FLOW 3 L/min; FMetHb 0.3 % (0.0-1.5); FO2Hb 96.6 % (94-97); TOTAL HEMOGLOBIN 11.2 G/dl (14.0-17.9)
--- NOTE | 2022-04-05 16:55 | NUR ---
RT notified RN of CO2 of 73.7. RT also notified Donny MILES. Donny MILES spoke with RN to wean pt. to 2 L O2. Plans for discharge are to be discussed with case management who RN attempted to call and no answer. Will read notes from CM. Pt. is homeless at the moment.
--- NOTE | 2022-04-05 17:16 | NUR ---
PAGER ID: [phone] MESSAGE: [phone] Aishwarya clinical social worker/CM working to find someone to help maintain pt. housing at [facility] pt. is ok to d/c there. Per note Thank you, Megan PIÑA
[2022-04-05 18:00] VITALS: BP 95/49
--- NOTE | 2022-04-05 18:30 | NUR ---
Problems reprioritized. Patient report given, questions answered & plan of care reviewed with Barbara PIÑA.
[2022-04-05] MEDS ORDERED: CefTRIAXone 2gm/D5W 50ml BAG 50 ML IV ONE (19:25)
[2022-04-05 22:00] VITALS: BP 103/67
--- NOTE | 2022-04-05 22:24 | NUR ---
pt refused his 20.00 40mg Lovenox syringe .He said it makes him nauseous. Addendum: 04/05/22 at 2248 by Barbara Ba RN MD [place] notified via page.no new order at this time.
[2022-04-06 02:00] VITALS: BP 144/69
[2022-04-06] MEDS: levalbuterol 0.63mg/3ml nebule IH SCH ×6 (02:08→22:59)
[2022-04-06] MEDS: HYDROcodone/acetaminophen 10/325mg tab PO PRN ×2 (05:35→10:38)
[2022-04-06 06:00] VITALS: BP 101/69
--- NOTE | 2022-04-06 06:48 | NUR ---
Problems reprioritized. Patient report given, questions answered & plan of care reviewed with KATHRYN PIÑA.
[2022-04-06 07:03] LABS: BASOPHILS # (AUTO) 0.1 X10'3 (0-0.2); BASOPHILS % (AUTO) 0.3 % (0-1); EOSINOPHILS # (AUTO) 0.1 X10'3 (0-0.9); EOSINOPHILS % (AUTO) 0.4 % (0-6); HEMATOCRIT 29.7 % (42.0-52.0); LYMPHOCYTES # (AUTO) 3.9 X10'3 (1.1-4.8); LYMPHOCYTES % (AUTO) 17.7 % (21-51); MEAN CORPUSCULAR HEMOGLOBIN 33.1 PG (27.0-31.0); MEAN CORPUSCULAR HGB CONC 33.8 g/dL (33.0-36.5); MEAN CORPUSCULAR VOLUME 97.9 FL (78-98); MEAN PLATELET VOLUME 7.6 FL (7.4-10.4); MONOCYTES # (AUTO) 2.9 X10'3 (0-0.9); MONOCYTES % (AUTO) 13.5 % (2-12); NEUTROPHILS # (AUTO) 14.9 X10'3 (1.8-7.7); NEUTROPHILS % (AUTO) 68.1 % (42-75); PLATELET COUNT 525 X10'3 (140-440); RED BLOOD COUNT 3.03 X10'6 (4.70-6.10); RED CELL DISTRIBUTION WIDTH 14.8 % (11.5-14.5); WHITE BLOOD COUNT 21.9 X10'3 (4.5-11.0)
[2022-04-06 07:09] LABS: D-DIMER 0.28 MG/L FEU (0-0.50)
[2022-04-06 07:25] LABS: ALANINE AMINOTRANSFERASE 38 U/L (12-78); ALBUMIN 2.7 G/DL (3.4-5.0); ALBUMIN/GLOBULIN RATIO 1.1 (1.1-1.5); ALKALINE PHOSPHATASE 44 IU/L (46-116); ANION GAP -1 (8-16); ASPARTATE AMINO TRANSFERASE 28 U/L (10-37); BILIRUBIN,TOTAL 0.3 MG/DL (0.1-1.0); BLOOD UREA NITROGEN 23 MG/DL (7-18); BUN/CREATININE RATIO 36.5 (5.4-32.0); CALCIUM 8.7 MG/DL (8.5-10.1); CHLORIDE 98 MMOL/L (99-107); CREATININE 0.63 MG/DL (0.60-1.10); GLUCOSE 130 MG/DL (70-104); LACTATE DEHYDROGENASE 208 U/L (85-227); MAGNESIUM 2.4 MG/DL (1.5-2.4); PHOSPHORUS 4.5 MG/DL (2.3-4.5); POTASSIUM 3.8 MMOL/L (3.5-5.1); SODIUM 140 MMOL/L (135-145); TOTAL PROTEIN 5.2 G/DL (6.4-8.2); eGFR > 90 ML/MIN
[2022-04-06 07:38] LABS: TOTAL CARBON DIOXIDE 42.9 MMOL/L (24-32)
--- NOTE | 2022-04-06 07:41 | NUR ---
messaged re: critical lab value: RM 3008: COPD + COVID pt had critical lab this am. CO2 42.9. Thanks
[2022-04-06] MEDS: K and/or MAG REPLACEMENT MC SCH ×2 (08:00→20:00)
--- NOTE | 2022-04-06 08:23 | NUR ---
Reassessment: Pt continues on Heart Healthy diet w/ avg intake 50% of meals partially meeting needs. ONS remains unverified in EMR though pt can still benefit from them. Pt at high risk for developing malnutrition given prolonged poor PO. LBM 04/04. No change to recommendations at this time, will continue to monitor. Recs: 1. Liberalize to Regular diet given PO trends 2. Ensure Enlive TID; pending MD verification 3. routine bowel care 4. Routine thiamine, folic acid for EtOH hx 5. Scaled wt this admit; subsequent weekly wts Addendum: 04/06/22 at [address] Amended: Links added.
--- NOTE | 2022-04-06 08:28 | NUR ---
Messaged regarding phone call from lab RM 3004: Lab called re CRP. Cannot run in house. Send out, results appx 3 days out. Per lab Caio. Thanks, Christine
[2022-04-06] MEDS ORDERED: FOLI1TAB27 PO (10:34)
[2022-04-06] MEDS ORDERED: thiamine tablet PO (10:34)
[2022-04-06] MEDS: thiamine 100mg tablet PO SCH (10:36)
[2022-04-06] MEDS: folic acid 1mg tablet PO SCH (10:36)
[2022-04-06] MEDS: methylPREDNISolone sod succ/PF 40mg inj. IV SCH (10:36)
[2022-04-06] MEDS: enoxaparin 40mg/0.4ml syringe SUBCUT SCH ×3 (10:36→22:05)
[2022-04-06] MEDS: metoprolol succinate 25mg (24-HOUR) SR. Tablet PO SCH (10:36)
[2022-04-06] MEDS: atorvastatin 20mg tablet PO SCH (10:36)
[2022-04-06] MEDS: aspirin 81mg, enteric-coated 1 TAB TABLET.DR PO SCH (10:36)
[2022-04-06] MEDS ORDERED: LEVO-65 PO ×2 (10:36)
[2022-04-06] MEDS: clopidogrel 75mg tablet PO SCH (10:38)
[2022-04-06 11:28] VITALS: BP 95/76
[2022-04-06 12:12] LABS: TOTAL CELLS COUNTED 100
[2022-04-06 12:13] LABS: PLATELET ESTIMATE INCREASED
[2022-04-06 18:00] VITALS: BP 112/82
--- NOTE | 2022-04-06 18:00 | NUR ---
Patient in room PCU 3008. I have received report from Rocio PIÑA and had the opportunity to ask questions and assume patient care.
--- NOTE | 2022-04-06 20:00 | NUR ---
PT REFUSED LOVENOX STATING HE FEELS NAUSEATED AND CANNOT EAT FOOD.
--- NOTE | 2022-04-06 21:00 | NUR ---
PT PULLED OUT THE IV AND DOES NOT WANT TO BE RESTARTED.
[2022-04-06 22:00] VITALS: BP 97/73
[2022-04-06] MEDS: haloperidol 5mg tablet PO PRN (22:04)
[2022-04-06] MEDS: morphine 2 MG/ML inj. syringe IV PRN ×2 (22:05→22:17)
[2022-04-07] MEDS: levalbuterol 0.63mg/3ml nebule IH SCH ×6 (03:18→23:41)
--- NOTE | 2022-04-07 06:39 | NUR ---
Patient in room PCU 3008. I have received report from Christine PIÑA and had the opportunity to ask questions and assume patient care.will follow care of Pt with Roni MEJIA Addendum: 04/07/22 at 0640 by Roseanna Jerry RN Amended: Links added.
--- NOTE | 2022-04-07 06:43 | NUR ---
Problems reprioritized. Patient report given, questions answered & plan of care reviewed with Roseanna PIÑA.
--- NOTE | 2022-04-07 06:47 | NUR ---
Problems reprioritized. Patient report given, questions answered & plan of care reviewed with Christine PIÑA. Pt lying in bed. No distress noted. COVID precautions observed. Bedside report with KATHI castañeda. Addendum: 04/07/22 at 0649 by Roni Carroll LVN Amended: Links added.
[2022-04-07 06:55] LABS: BASOPHILS # (AUTO) 0.1 X10'3 (0-0.2); BASOPHILS % (AUTO) 0.5 % (0-1); EOSINOPHILS # (AUTO) 0.1 X10'3 (0-0.9); EOSINOPHILS % (AUTO) 0.5 % (0-6); HEMATOCRIT 26.5 % (42.0-52.0); LYMPHOCYTES # (AUTO) 3.6 X10'3 (1.1-4.8); MEAN CORPUSCULAR HEMOGLOBIN 33.4 PG (27.0-31.0); MEAN CORPUSCULAR HGB CONC 33.9 g/dL (33.0-36.5); MEAN CORPUSCULAR VOLUME 98.5 FL (78-98); MEAN PLATELET VOLUME 7.3 FL (7.4-10.4); MONOCYTES # (AUTO) 1.9 X10'3 (0-0.9); MONOCYTES % (AUTO) 11.6 % (2-12); NEUTROPHILS # (AUTO) 10.8 X10'3 (1.8-7.7); NEUTROPHILS % (AUTO) 65.4 % (42-75); PLATELET COUNT 410 X10'3 (140-440); RED BLOOD COUNT 2.69 X10'6 (4.70-6.10); WHITE BLOOD COUNT 16.5 X10'3 (4.5-11.0)
[2022-04-07 07:00] VITALS: BP 90/52
[2022-04-07 07:09] LABS: ALANINE AMINOTRANSFERASE 36 U/L (12-78); ALBUMIN 2.8 G/DL (3.4-5.0); ALBUMIN/GLOBULIN RATIO 1.2 (1.1-1.5); ALKALINE PHOSPHATASE 45 IU/L (46-116); ANION GAP -2 (8-16); ASPARTATE AMINO TRANSFERASE 24 U/L (10-37); BILIRUBIN,TOTAL 0.3 MG/DL (0.1-1.0); BLOOD UREA NITROGEN 24 MG/DL (7-18); BUN/CREATININE RATIO 40.7 (5.4-32.0); C-REACTIVE PROTEIN 0.09 MG/DL (0.0-0.5); CALCIUM 8.8 MG/DL (8.5-10.1); CHLORIDE 99 MMOL/L (99-107); CREATININE 0.59 MG/DL (0.60-1.10); GLUCOSE 123 MG/DL (70-104); LACTATE DEHYDROGENASE 208 U/L (85-227); MAGNESIUM 2.4 MG/DL (1.5-2.4); PHOSPHORUS 5.2 MG/DL (2.3-4.5); SODIUM 139 MMOL/L (135-145); TOTAL PROTEIN 5.2 G/DL (6.4-8.2); eGFR > 90 ML/MIN
[2022-04-07 07:17] LABS: TOTAL CARBON DIOXIDE 42.4 MMOL/L (24-32)
--- NOTE | 2022-04-07 07:46 | NUR ---
3008-Simart pt CO2 42.4. PT O2 SAT was 100% @ 4LPM, I turned down to 2LPM Sat was 99%. Pt removed PIV, refused a new IV Start. PT has solumedrol scheduled 8am, unable to adminster. Roni MEJIA.
[2022-04-07] MEDS: enoxaparin 40mg/0.4ml syringe SUBCUT SCH ×2 (08:00→20:00)
[2022-04-07] MEDS: K and/or MAG REPLACEMENT MC SCH ×2 (08:00→19:56)
[2022-04-07] MEDS: methylPREDNISolone sod succ/PF 40mg inj. IV SCH (08:00)
[2022-04-07] MEDS: metoprolol succinate 25mg (24-HOUR) SR. Tablet PO SCH (08:00)
[2022-04-07] MEDS: folic acid 1mg tablet PO SCH (08:01)
[2022-04-07] MEDS: aspirin 81mg, enteric-coated 1 TAB TABLET.DR PO SCH (08:01)
[2022-04-07] MEDS: atorvastatin 20mg tablet PO SCH (08:01)
[2022-04-07] MEDS: clopidogrel 75mg tablet PO SCH (08:01)
[2022-04-07] MEDS: thiamine 100mg tablet PO SCH (08:02)
[2022-04-07 09:30] LABS: PLATELET ESTIMATE NORMAL; TOTAL CELLS COUNTED 100
[2022-04-07 09:31] LABS: TOXIC VACUOLATION 1+
[2022-04-07 11:49] VITALS: BP 94/63
[2022-04-07 16:00] VITALS: BP 108/58
--- NOTE | 2022-04-07 17:54 | NUR ---
I have reviewed and agree with all interventions, assessments performed and documented by SUSIE MEJIA. Addendum: 04/07/22 at 1755 by Roseanna Jerry RN Amended: Links added.
--- NOTE | 2022-04-07 18:00 | NUR ---
Patient in room PCU 3008. I have received report from Roseanna PIÑA and had the opportunity to ask questions and assume patient care.
--- NOTE | 2022-04-07 18:16 | NUR ---
Problems reprioritized. Patient report given, questions answered & plan of care reviewed with Christine MORGAN Pt bedside report. Addendum: 04/07/22 at 1819 by Roni Carroll LVN Amended: Links added.
[2022-04-07] MEDS: naltrexone 50mg tablet PO SCH (20:32)
[2022-04-07] MEDS: LORazepam 1 MG tablet PO PRN (20:32)
[2022-04-07] MEDS: HYDROcodone/acetaminophen 10/325mg tab PO PRN (20:32)
--- NOTE | 2022-04-07 21:00 | NUR ---
PT REFUSED TO TAKE LOVENOX. HE KEEPS INCREASING O2 LEVELS BY HIMSELF; I EXPLAINED TO THE PT NOT TO INCREASE AND SHOULD STAY ON 2L BUT HE GOT UPSET AND SAID THAT HE DOES THAT AT HOME ALL THE TIME AND HIS FAMILY PHYSICIAN TOLD HIM TO INCREASE WHENEVER HE WANTS. I EXPLAINED THE RISKS OF TOO MUCH O2 FOR A PERSON WITH COPD.
[2022-04-08] MEDS: levalbuterol 0.63mg/3ml nebule IH SCH ×5 (02:01→19:30)
--- NOTE | 2022-04-08 06:20 | NUR ---
Patient in room PCU 3008. I have received report from Christine PIÑA and had the opportunity to ask questions and assume patient care. Will follow care of pT Roni MEJIA. Addendum: 04/08/22 at 0622 by Roseanna Jerry RN Amended: Links added.
--- NOTE | 2022-04-08 06:22 | NUR ---
Problems reprioritized. Patient report given, questions answered & plan of care reviewed with Roseanna PIÑA.
--- NOTE | 2022-04-08 06:24 | NUR ---
Patient in room U 3008. I have received report from Christine PIÑA and had the opportunity to ask questions and assume patient care. Bed side report given Addendum: 04/08/22 at 0625 by Roni Carroll LVN Amended: Links added.
[2022-04-08] MEDS: K and/or MAG REPLACEMENT MC SCH ×2 (08:00→19:32)
[2022-04-08] MEDS: enoxaparin 40mg/0.4ml syringe SUBCUT SCH ×2 (08:00→20:00)
[2022-04-08] MEDS: metoprolol succinate 25mg (24-HOUR) SR. Tablet PO SCH (08:00)
[2022-04-08] MEDS: methylPREDNISolone sod succ/PF 40mg inj. IV SCH (08:00)
[2022-04-08] MEDS: folic acid 1mg tablet PO SCH (08:06)
[2022-04-08] MEDS: atorvastatin 20mg tablet PO SCH (08:06)
[2022-04-08] MEDS: clopidogrel 75mg tablet PO SCH (08:06)
[2022-04-08] MEDS: aspirin 81mg, enteric-coated 1 TAB TABLET.DR PO SCH (08:06)
[2022-04-08] MEDS: thiamine 100mg tablet PO SCH (08:07)
--- NOTE | 2022-04-08 08:46 | NUR ---
Nurse found oxygen concentration @ 4LPM. PT educated on oxygen order for 2 LPM. He verbalized understanding. Pt needs reinforcement.
[2022-04-08 09:33] LABS: BASOPHILS # (AUTO) 0.1 X10'3 (0-0.2); BASOPHILS % (AUTO) 0.3 % (0-1); EOSINOPHILS # (AUTO) 0.1 X10'3 (0-0.9); EOSINOPHILS % (AUTO) 0.5 % (0-6); HEMATOCRIT 24.8 % (42.0-52.0); HEMOGLOBIN 8.3 g/dl (14.0-17.9); LYMPHOCYTES % (AUTO) 18.5 % (21-51); MEAN CORPUSCULAR HEMOGLOBIN 32.6 PG (27.0-31.0); MEAN CORPUSCULAR HGB CONC 33.5 g/dL (33.0-36.5); MEAN CORPUSCULAR VOLUME 97.4 FL (78-98); MEAN PLATELET VOLUME 7.2 FL (7.4-10.4); MONOCYTES # (AUTO) 2.3 X10'3 (0-0.9); MONOCYTES % (AUTO) 14.1 % (2-12); NEUTROPHILS # (AUTO) 10.8 X10'3 (1.8-7.7); NEUTROPHILS % (AUTO) 66.6 % (42-75); PLATELET COUNT 586 X10'3 (140-440); RED BLOOD COUNT 2.55 X10'6 (4.70-6.10); WHITE BLOOD COUNT 16.3 X10'3 (4.5-11.0)
--- NOTE | 2022-04-08 09:41 | NUR ---
Pt was experiencing SOB with exertion on 2LPM via nasal cannula. Pt was ambulating from bed to bathroom. Crepe Box Tender provided SOB training. Pt verbalized understanding but refused to perform breathing techniques for SOB. Crepe Box Tender provided training on increase in oxygen demand with physical activity. He verbalized understanding. Pt right side lying with oxygen @ 2LPM via nasal cannula. call light within reach.
[2022-04-08 09:42] LABS: ALBUMIN 2.8 G/DL (3.4-5.0); ANION GAP -2 (8-16); BLOOD UREA NITROGEN 17 MG/DL (7-18); BUN/CREATININE RATIO 37.8 (5.4-32.0); CALCIUM 8.5 MG/DL (8.5-10.1); CHLORIDE 100 MMOL/L (99-107); CREATININE 0.45 MG/DL (0.60-1.10); GLUCOSE 100 MG/DL (70-104); SODIUM 140 MMOL/L (135-145); eGFR > 90 ML/MIN
[2022-04-08 09:47] LABS: TOTAL CARBON DIOXIDE 41.7 MMOL/L (24-32)
[2022-04-08] MEDS: naltrexone 50mg tablet PO SCH (10:17)
[2022-04-08 10:58] LABS: ANISOCYTOSIS 1+; PLATELET ESTIMATE INCREASED; TOTAL CELLS COUNTED 100
[2022-04-08 11:00] LABS: POLYCHROMASIA 1+
[2022-04-08 12:01] VITALS: BP 90/57
[2022-04-08 15:50] VITALS: BP 90/49
[2022-04-08 18:00] VITALS: BP 128/74
--- NOTE | 2022-04-08 18:00 | NUR ---
Patient in room PCU 3008. I have received report from Roseanna PIÑA and had the opportunity to ask questions and assume patient care.
--- NOTE | 2022-04-08 18:13 | NUR ---
Problems reprioritized. Patient report given, questions answered & plan of care reviewed with Christine PIÑA. I have reviewed and agree with all interventions, assessments performed and documented by Roni PIÑA. Addendum: 04/08/22 at 1815 by Roseanna Jerry RN Amended: Links added.
[2022-04-08] MEDS: haloperidol 5mg tablet PO PRN (21:25)
[2022-04-08] MEDS: LORazepam 1 MG tablet PO PRN (21:25)
[2022-04-08] MEDS: HYDROcodone/acetaminophen 10/325mg tab PO PRN (21:25)
[2022-04-08 22:00] VITALS: BP 117/78
[2022-04-09 02:00] VITALS: BP 121/75
[2022-04-09] MEDS: levalbuterol 0.63mg/3ml nebule IH SCH ×3 (02:36→14:26)
[2022-04-09] MEDS: HYDROcodone/acetaminophen 10/325mg tab PO PRN (05:19)
[2022-04-09] MEDS: haloperidol 5mg tablet PO PRN (05:19)
--- NOTE | 2022-04-09 06:34 | NUR ---
Patient in room PCU 3008. I have received report from Christine PIÑA and had the opportunity to ask questions and assume patient care. Will follow care of Pt with Roni PIÑA. Addendum: 04/09/22 at 0635 by Roseanna Jerry RN Amended: Links added.
--- NOTE | 2022-04-09 06:36 | NUR ---
Patient in room PCU 3008. I have received report from Christine PIÑA and had the opportunity to ask questions and assume patient care. Pt awake, breathing even and unlabored on O2 @ 2LPM via nasal cannula. Bed side report given. Chief Information Security Officer drawing labs. Call light within reach. bed in the lowest position. Addendum: 04/09/22 at 0639 by Roni Carroll LVN Amended: Links added.
[2022-04-09 06:50] LABS: BASOPHILS % (AUTO) 0.3 % (0-1); EOSINOPHILS # (AUTO) 0.1 X10'3 (0-0.9); EOSINOPHILS % (AUTO) 0.8 % (0-6); HEMATOCRIT 22.1 % (42.0-52.0); HEMOGLOBIN 7.5 g/dl (14.0-17.9); LYMPHOCYTES # (AUTO) 3.4 X10'3 (1.1-4.8); LYMPHOCYTES % (AUTO) 23.5 % (21-51); MEAN CORPUSCULAR HEMOGLOBIN 33.4 PG (27.0-31.0); MEAN CORPUSCULAR HGB CONC 33.8 g/dL (33.0-36.5); MEAN CORPUSCULAR VOLUME 98.9 FL (78-98); MONOCYTES # (AUTO) 1.8 X10'3 (0-0.9); MONOCYTES % (AUTO) 12.6 % (2-12); NEUTROPHILS # (AUTO) 9.2 X10'3 (1.8-7.7); NEUTROPHILS % (AUTO) 62.8 % (42-75); PLATELET COUNT 556 X10'3 (140-440); RED BLOOD COUNT 2.24 X10'6 (4.70-6.10); RED CELL DISTRIBUTION WIDTH 14.6 % (11.5-14.5); WHITE BLOOD COUNT 14.6 X10'3 (4.5-11.0)
--- NOTE | 2022-04-09 07:19 | NUR ---
Problems reprioritized. Patient report given, questions answered & plan of care reviewed with Roseanna PIÑA.
[2022-04-09 07:26] LABS: ALANINE AMINOTRANSFERASE 36 U/L (12-78); ALBUMIN 2.4 G/DL (3.4-5.0); ALKALINE PHOSPHATASE 43 IU/L (46-116); ANION GAP -1 (8-16); ASPARTATE AMINO TRANSFERASE 27 U/L (10-37); BILIRUBIN,TOTAL 0.2 MG/DL (0.1-1.0); BLOOD UREA NITROGEN 14 MG/DL (7-18); BUN/CREATININE RATIO 24.6 (5.4-32.0); CHLORIDE 101 MMOL/L (99-107); CREATININE 0.57 MG/DL (0.60-1.10); GLUCOSE 173 MG/DL (70-104); MAGNESIUM 2.3 MG/DL (1.5-2.4); PHOSPHORUS 3.7 MG/DL (2.3-4.5); POTASSIUM 3.8 MMOL/L (3.5-5.1); SODIUM 137 MMOL/L (135-145); TOTAL PROTEIN 4.8 G/DL (6.4-8.2); eGFR > 90 ML/MIN
[2022-04-09] MEDS: folic acid 1mg tablet PO SCH (07:29)
[2022-04-09] MEDS: clopidogrel 75mg tablet PO SCH (07:29)
[2022-04-09] MEDS: aspirin 81mg, enteric-coated 1 TAB TABLET.DR PO SCH (07:30)
[2022-04-09] MEDS: thiamine 100mg tablet PO SCH (07:30)
[2022-04-09] MEDS: naltrexone 50mg tablet PO SCH (07:30)
[2022-04-09] MEDS: atorvastatin 20mg tablet PO SCH (07:30)
[2022-04-09 07:35] LABS: PLATELET ESTIMATE INCREASED; POLYCHROMASIA FEW
[2022-04-09] MEDS: metoprolol succinate 25mg (24-HOUR) SR. Tablet PO SCH (07:41)
[2022-04-09] MEDS: enoxaparin 40mg/0.4ml syringe SUBCUT SCH (07:41)
[2022-04-09] MEDS: methylPREDNISolone sod succ/PF 40mg inj. IV SCH (07:42)
[2022-04-09] MEDS: K and/or MAG REPLACEMENT MC SCH (08:00)
[2022-04-09 08:02] VITALS: BP 103/49
--- NOTE | 2022-04-09 09:53 | NUR ---
F/u 04/09: Pt PO much improved mostly ~100% heart healthy meals meeting minimum estimated needs on 2L NC per EMR. Ensure Enlive ONS cancelled in EMR and no longer necessary. Pt continues on routine thiamine and folic acid for etoh hx. LBM 04/08. No further nutrition interventions at this time. Will continue to follow. Recs: 1. continue heart healthy diet 2. routine bowel care 3. Routine thiamine, folic acid for EtOH hx 4. Scaled wt this admit; subsequent weekly wts Addendum: 04/09/22 at [address] Amended: Links added.
--- NOTE | 2022-04-09 10:14 | NUR ---
Dr. Magaña notified. message: [phone] Simart- Pt H &H trending downward today's H&H .1. Roni Au Transaction number: [id number] Addendum: 04/09/22 at [address] LVN Dr. Magaña ordered a STAT H/H. Dr. Magaña reviewed results. Patient will be discharged.
[2022-04-09 11:23] VITALS: BP 104/86
[2022-04-09 11:51] LABS: HEMATOCRIT 23.8 % (42.0-52.0); MEAN CORPUSCULAR HEMOGLOBIN 33.1 PG (27.0-31.0); MEAN CORPUSCULAR HGB CONC 33.8 g/dL (33.0-36.5); MEAN CORPUSCULAR VOLUME 97.8 FL (78-98); MEAN PLATELET VOLUME 6.7 FL (7.4-10.4); PLATELET COUNT 585 X10'3 (140-440); RED BLOOD COUNT 2.43 X10'6 (4.70-6.10); RED CELL DISTRIBUTION WIDTH 15.3 % (11.5-14.5); WHITE BLOOD COUNT 13.8 X10'3 (4.5-11.0)
[2022-04-09] MEDS ORDERED: FOLI1TAB27 PO (15:37)
[2022-04-09] MEDS ORDERED: thiamine tablet PO (15:37)
[2022-04-09] MEDS ORDERED: FAMO20TA8 PO (15:37)
[2022-04-09] MEDS ORDERED: ALBU2.5V12 NEB (15:37)
[2022-04-09] MEDS ORDERED: IPRA3AMP31 NEB (15:37)
[2022-04-09] MEDS ORDERED: CLOP75TA34 PO (15:37)
[2022-04-09] MEDS ORDERED: ASPI-611 PO (15:37)
[2022-04-09] MEDS ORDERED: ATOR20TA66 PO (15:37)
[2022-04-09] MEDS ORDERED: FLUT1BLS4 INH (15:37)
[2022-04-09] MEDS ORDERED: METO-395 PO (15:37)
--- NOTE | 2022-04-09 17:24 | NUR ---
I have reviewed and agree with all interventions, assessments performed and documented by Roni MEJIA. Addendum: 04/09/22 at 1725 by Roseanna Jerry RN Amended: Links added.
--- NOTE | 2022-04-09 17:39 | NUR ---
All written and verbal orders given. All questions answered. Reviewed Stroke core measure. Pt left with his belongings. Pt left with DME from [facility] - Oxygen concentrator, nebulizer, E-tank x 5, oxygen regulator for e tank, supplied oxygen tubing. Patient left with .
--- NOTE | 2022-04-09 17:51 | NUR ---
all written and verbal discharge orders given. All questions answered. Pt left hospital via wheelchair with O2 equipment [facility] [employer] [facility] by [facility] Addendum: 04/09/22 at 1752 by Roni Carroll LVN Amended: Links added.
== END 2022-04-09 16:10 | disposition home or self-care (01) | DRG 177 ==
LOC: ER 07:32 → ED HOLD 13:05 → PCU 3S 03-28 21:00
PROVIDERS: ADMIT Family Medicine; ATTEND Family Medicine
PROC: XW033E5 Introduction of Remdesivir Anti-infective into Peripheral Vein, Percutaneous Approach, New Technology Group 5 (ICD-10-PCS; principal; 2022-03-26)
PROC: 5A09357 Assistance with Respiratory Ventilation, Less than 24 Consecutive Hours, Continuous Positive Airway Pressure (ICD-10-PCS; 2022-03-27)
PROC: 5A09457 Assistance with Respiratory Ventilation, 24-96 Consecutive Hours, Continuous Positive Airway Pressure (ICD-10-PCS; 2022-03-28)
PROC: 5A0935A Assistance with Respiratory Ventilation, Less than 24 Consecutive Hours, High Flow/Velocity Cannula (ICD-10-PCS; 2022-04-01)
PROC: 5A09357 Assistance with Respiratory Ventilation, Less than 24 Consecutive Hours, Continuous Positive Airway Pressure (ICD-10-PCS; 2022-04-02)
DX: U07.1 COVID-19 (principal); J12.82 Pneumonia due to coronavirus disease 2019; J96.00 Acute respiratory failure, unspecified whether with hypoxia or hypercapnia; E87.29 Other acidosis; J44.0 Chronic obstructive pulmonary disease with (acute) lower respiratory infection; J44.1 Chronic obstructive pulmonary disease with (acute) exacerbation; Z66 Do not resuscitate; K21.9 Gastro-esophageal reflux disease without esophagitis; E78.5 Hyperlipidemia, unspecified; E87.5 Hyperkalemia; F10.20 Alcohol dependence, uncomplicated; F15.90 Other stimulant use, unspecified, uncomplicated; G89.29 Other chronic pain; M54.9 Dorsalgia, unspecified; J20.9 Acute bronchitis, unspecified; F17.210 Nicotine dependence, cigarettes, uncomplicated; I10 Essential (primary) hypertension; I25.10 Atherosclerotic heart disease of native coronary artery without angina pectoris; I25.2 Old myocardial infarction; Z78.9 Other specified health status; Z79.02 Long term (current) use of antithrombotics/antiplatelets; Z79.82 Long term (current) use of aspirin; Z79.899 Other long term (current) drug therapy; Z86.73 Personal history of transient ischemic attack (TIA), and cerebral infarction without residual deficits; Z91.199 Patient's noncompliance with other medical treatment and regimen due to unspecified reason; Z59.00 Homelessness unspecified; Z91.010 Allergy to peanuts; Z71.6 Tobacco abuse counseling; T38.0X5A Adverse effect of glucocorticoids and synthetic analogues, initial encounter; Y92.230 Patient room in hospital as the place of occurrence of the external cause; D72.829 Elevated white blood cell count, unspecified
CPT/HCPCS: 36415; 36600; 71045; 72070; 72100; 80048; 80053; 80061; 81003; 82803; 82948; 83036; 83605; 83615; 83735; 83880; 84100; 84145; 84484; 85007; 85008; 85018; 85025; 85027; 85379; 86140; 87040; 87081; 87811; 93005; 93308; 94640; 94660; 94760; 96365; 96366; 97110; 97161; 97530; 99285; A4615; A4620; A4624; A4628; A5200; A7015; C1758; G0378; J0456; J0696; J1100; J1630; J1644; J1650; J2060; J2270; J2405; J2920; J2930; J3411; J3490; J7030; J7040; J7614

== ENCOUNTER 2022-06-02 00:39 | Emergency (ER) | payer MEDICARE, MEDICAID ==
[~2022-06-02] VITALS: Ht 188 cm; Wt 65.9 kg
[~2022-06-02 00:39] MED LIST changes: -ALB0.5UD IH; +ALBU18HF2 INH; -ALBU1POW2 IH; +ASPI-1475 PO; -ASPI-611 PO; -ATR0.5NEB IH; -CEFD300C3 PO; +CHLO25CA10 PO; +CLOP75TA33 PO; -CLOP75TA34 PO; -FAMO20TA8 PO; -FLUT1BLS4; +FLUT1BLS4 PO; +FOLI1TAB27 PO; +IPRA3AMP31 IH; -IPRA3AMP31 NEB; +PANT40SU2 PO; +PANT40TA54 PO; +THIA100T66 PO
[2022-06-02] MEDS: predniSONE 20 mg tablet PO ONE (01:20)
[2022-06-02] MEDS: albuterol 2.5 MG/3 ML nebule NEB ONE (01:21)
[2022-06-02 02:05] LABS: BASOPHILS # (AUTO) 0.1 X10'3 (0-0.2); BASOPHILS % (AUTO) 1.3 % (0-1); EOSINOPHILS # (AUTO) 0.3 X10'3 (0-0.9); EOSINOPHILS % (AUTO) 4.2 % (0-6); HEMATOCRIT 31.7 % (42.0-52.0); HEMOGLOBIN 9.7 g/dl (14.0-17.9); LYMPHOCYTES # (AUTO) 2.1 X10'3 (1.1-4.8); MEAN CORPUSCULAR HEMOGLOBIN 25.2 PG (27.0-31.0); MEAN CORPUSCULAR HGB CONC 30.5 g/dL (33.0-36.5); MEAN CORPUSCULAR VOLUME 82.6 FL (78-98); MEAN PLATELET VOLUME 6.8 FL (7.4-10.4); MONOCYTES # (AUTO) 1.3 X10'3 (0-0.9); MONOCYTES % (AUTO) 18.6 % (2-12); NEUTROPHILS # (AUTO) 3.2 X10'3 (1.8-7.7); NEUTROPHILS % (AUTO) 45.9 % (42-75); PLATELET COUNT 500 X10'3 (140-440); RED BLOOD COUNT 3.84 X10'6 (4.70-6.10); RED CELL DISTRIBUTION WIDTH 21.5 % (11.5-14.5); WHITE BLOOD COUNT 6.9 X10'3 (4.5-11.0)
[2022-06-02 02:20] LABS: ALANINE AMINOTRANSFERASE 20 U/L (12-78); ALBUMIN 3.4 G/DL (3.4-5.0); ALBUMIN/GLOBULIN RATIO 1.1 (1.1-1.5); ALKALINE PHOSPHATASE 55 IU/L (46-116); ANION GAP 2 (8-16); ASPARTATE AMINO TRANSFERASE 20 U/L (10-37); BILIRUBIN,TOTAL 0.2 MG/DL (0.1-1.0); BLOOD UREA NITROGEN 11 MG/DL (7-18); BUN/CREATININE RATIO 20.8 (5.4-32.0); CALCIUM 8.1 MG/DL (8.5-10.1); CHLORIDE 105 MMOL/L (99-107); CREATININE 0.53 MG/DL (0.60-1.10); GLUCOSE 107 MG/DL (70-104); SODIUM 139 MMOL/L (135-145); TOTAL CARBON DIOXIDE 31.7 MMOL/L (24-32); TOTAL PROTEIN 6.4 G/DL (6.4-8.2); eGFR > 90 ML/MIN
[2022-06-02] MEDS ORDERED: PRED20TA PO (02:36)
[2022-06-02] MEDS ORDERED: ALB0.5UD IH (02:36)
[2022-06-02 02:47] VITALS: BP 109/74
[2022-06-02 02:52] LABS: ANISOCYTOSIS 3+; HYPOCHROMASIA 1+; PLATELET ESTIMATE INCREASED; TOTAL CELLS COUNTED 100
[2022-06-02 02:53] LABS: BURR CELLS FEW; ELLIPTOCYTES FEW; STOMATOCYTES 1+
[2022-06-02 02:54] LABS: POLYCHROMASIA FEW
[2022-06-02] MEDS ORDERED: IPRA3AMP9 IH (02:57)
== END 2022-06-02 03:13 | disposition home or self-care (01) ==
LOC: ER 00:39
DX: J44.1 Chronic obstructive pulmonary disease with (acute) exacerbation (principal); R06.02 Shortness of breath; G89.29 Other chronic pain; M54.50 Low back pain, unspecified; F17.200 Nicotine dependence, unspecified, uncomplicated; F15.20 Other stimulant dependence, uncomplicated; Z59.00 Homelessness unspecified
CPT/HCPCS: 36415; 71045; 80053; 85007; 85025; 93005; 94640; 99285; J7512; 94760; A4615

== ENCOUNTER 2022-06-02 10:25 | Emergency (ER) | payer MEDICARE, MEDICAID ==
[~2022-06-02] VITALS: Ht 188 cm; Wt 65.0 kg
[~2022-06-02 10:25] MED LIST changes: +ALB0.5UD IH; +IPRA3AMP9 IH; +PRED20TA PO
[2022-06-02] MEDS: dexamethasone sod phosphate 10mg/ml inj IM STA (10:42)
[2022-06-02] MEDS: ipratropium/albuterol 3ml nebule NEB ONE (10:59)
[2022-06-02 11:59] VITALS: BP 116/71
== END 2022-06-02 12:19 | disposition home or self-care (01) ==
LOC: ER 10:25
DX: J44.1 Chronic obstructive pulmonary disease with (acute) exacerbation (principal); R06.02 Shortness of breath; I25.10 Atherosclerotic heart disease of native coronary artery without angina pectoris; I25.2 Old myocardial infarction; G89.29 Other chronic pain; F17.210 Nicotine dependence, cigarettes, uncomplicated; F15.90 Other stimulant use, unspecified, uncomplicated; Z87.01 Personal history of pneumonia (recurrent); Z86.73 Personal history of transient ischemic attack (TIA), and cerebral infarction without residual deficits; Z98.890 Other specified postprocedural states; Z72.89 Other problems related to lifestyle; Z59.00 Homelessness unspecified; Z88.8 Allergy status to other drugs, medicaments and biological substances; Z79.82 Long term (current) use of aspirin; Z79.899 Other long term (current) drug therapy
CPT/HCPCS: 94640; 96372; 99283; J1100; 94760

== ENCOUNTER 2022-06-06 13:37 | Emergency (ER) | payer MEDICARE, MEDICAID ==
[~2022-06-06] VITALS: Ht 185.4 cm; Wt 65.0 kg
[~2022-06-06 13:37] MED LIST changes: -ALB0.5UD IH; -IPRA3AMP31 IH; -PRED10TA23 PO
[2022-06-06] MEDS ORDERED: ipratropium/albuterol 3ml nebule NEB ONE (14:35)
[2022-06-06] MEDS ORDERED: albuterol 2.5 MG/3 ML nebule NEB ONE (15:30)
[2022-06-06] MEDS ORDERED: PRED10TA23 PO (15:32)
[2022-06-06 16:13] VITALS: BP 145/86
== END 2022-06-06 16:18 | disposition home or self-care (01) ==
LOC: ER 13:38
DX: J44.1 Chronic obstructive pulmonary disease with (acute) exacerbation (principal); I11.9 Hypertensive heart disease without heart failure; G89.29 Other chronic pain; M54.9 Dorsalgia, unspecified; F15.10 Other stimulant abuse, uncomplicated; Z79.899 Other long term (current) drug therapy; Z79.82 Long term (current) use of aspirin; Z79.1 Long term (current) use of non-steroidal anti-inflammatories (NSAID)
CPT/HCPCS: 94640; 94760; 99284

== ENCOUNTER 2022-06-19 22:36 | Emergency (ER) | payer MEDICARE, MEDICAID ==
[~2022-06-19] VITALS: Ht 188 cm; Wt 74.0 kg
[~2022-06-19 22:36] MED LIST changes: +PRED10TA23 PO; -PRED20TA PO
[2022-06-19] MEDS ORDERED: morphine 2 MG/ML inj. syringe IV ONE (23:05)
[2022-06-19 23:07] LABS: BASOPHILS # (AUTO) 0.2 X10'3 (0-0.2); EOSINOPHILS # (AUTO) 0.2 X10'3 (0-0.9); HEMOGLOBIN 10.9 g/dl (14.0-17.9); MEAN CORPUSCULAR HEMOGLOBIN 24.6 PG (27.0-31.0); MEAN PLATELET VOLUME 6.9 FL (7.4-10.4)
[2022-06-19 23:09] LABS: BASOPHILS % (AUTO) 2.5 % (0-1); EOSINOPHILS % (AUTO) 1.8 % (0-6); HEMATOCRIT 34.6 % (42.0-52.0); LYMPHOCYTES # (AUTO) 2.4 X10'3 (1.1-4.8); LYMPHOCYTES % (AUTO) 26.7 % (21-51); MEAN CORPUSCULAR HGB CONC 31.5 g/dL (33.0-36.5); MEAN CORPUSCULAR VOLUME 78.3 FL (78-98); MONOCYTES # (AUTO) 1.1 X10'3 (0-0.9); MONOCYTES % (AUTO) 12.3 % (2-12); NEUTROPHILS # (AUTO) 5.1 X10'3 (1.8-7.7); NEUTROPHILS % (AUTO) 56.7 % (42-75); PLATELET COUNT 784 X10'3 (140-440); RED BLOOD COUNT 4.43 X10'6 (4.70-6.10); RED CELL DISTRIBUTION WIDTH 22.1 % (11.5-14.5); WHITE BLOOD COUNT 9.1 X10'3 (4.5-11.0)
[2022-06-19 23:12] LABS: D-DIMER 0.38 MG/L FEU (0-0.50)
[2022-06-19] MEDS: normal saline 1000ml 1,000 ML IV SCH (23:15)
[2022-06-19 23:22] LABS: ALANINE AMINOTRANSFERASE 20 U/L (12-78); ALBUMIN/GLOBULIN RATIO 1.1 (1.1-1.5); ALKALINE PHOSPHATASE 70 IU/L (46-116); ANION GAP 7 (8-16); ASPARTATE AMINO TRANSFERASE 21 U/L (10-37); BILIRUBIN,TOTAL 0.4 MG/DL (0.1-1.0); BLOOD UREA NITROGEN 9 MG/DL (7-18); BUN/CREATININE RATIO 14.1 (5.4-32.0); CALCIUM 8.4 MG/DL (8.5-10.1); CHLORIDE 98 MMOL/L (99-107); CREATININE 0.64 MG/DL (0.60-1.10); GLUCOSE 95 MG/DL (70-104); POTASSIUM 4.5 MMOL/L (3.5-5.1); SODIUM 136 MMOL/L (135-145); TOTAL CARBON DIOXIDE 30.8 MMOL/L (24-32); TOTAL PROTEIN 7.5 G/DL (6.4-8.2); eGFR > 90 ML/MIN
[2022-06-19 23:23] LABS: ANISOCYTOSIS 3+; ELLIPTOCYTES FEW; HYPOCHROMASIA 1+; MICROCYTOSIS 1+; PLATELET ESTIMATE INCREASED
[2022-06-19 23:43] LABS: ABG BASE EXCESS -0.4 mmol/L (-2.0-2.0); ABG HCO3 23.9 mmol/L (22.0-26.0); ABG OXYGEN SATURATION 98.2 % (94-97); ABG PCO2 (T) 38.3 mmHg (35.0-48.0); ABG PO2 (T) 122.9 mmHg (75.0-100.0); ALLEN'S TEST POSITIVE; FCOHb 0.4 % (0.0-3.9); FLOW 4 L/min; FMetHb 0.4 % (0.0-1.5); FO2Hb 97.4 % (94-97); PATIENT TEMPERATURE 37.3; TOTAL HEMOGLOBIN 11.4 G/dl (14.0-17.9)
--- NOTE | 2022-06-20 00:18 | NUR ---
Provider notified of minimal improvement in pain, 8.5/10 to 7/. VS updated.
[2022-06-20] MEDS ORDERED: albuterol 2.5 MG/3 ML nebule NEB ONE ×2 (00:55→08:40)
--- NOTE | 2022-06-20 01:49 | NUR ---
Provider notified of ongoing 10 chest pain. 2nd troponin difficult to obtain, pending at this time.
[2022-06-20] MEDS ORDERED: morphine 2 MG/ML inj. syringe IV ONE (02:40)
[2022-06-20] MEDS ORDERED: mag hydrox/Alum hydrox/simeth 30ml oral suspension PO ONE (02:40)
[2022-06-20] MEDS ORDERED: LIDOcaine Viscous 15ml cup MM ONE (02:40)
[2022-06-20] MEDS ORDERED: normal saline 1000ml 1,000 ML IV ONE (04:10)
[2022-06-20] MEDS ORDERED: acetaminophen 325mg tablet PO ONE (04:10)
[2022-06-20] MEDS ORDERED: iohexol 300mg/ml 100ml inj. ONE (04:11)
[2022-06-20] MEDS ORDERED: ipratropium/albuterol 3ml nebule NEB STA (04:38)
[2022-06-20] MEDS: normal saline 1000ml 1,000 ML IV SCH (06:47)
--- NOTE | 2022-06-20 07:05 | NUR ---
ASSUMED CARE OF PT. PT SLEEPING ON GURNEY. PT AWAKENS TO VERBAL STIMULI. PT STATES IS STILL HAVING CHEST PAIN 12/12 BUT APPEARS COMFORTABLE. ATTEMPTING TO ARRANGE TRANSPORT BACK TO [facility] DUE TO PT BEING ON HOME OXYGEN AND OXYGEN TANK WASN'T BROUGHT FROM HOME.
[2022-06-20 11:08] VITALS: BP 109/66
== END 2022-06-20 11:10 | disposition home or self-care (01) ==
LOC: ER 22:36
DX: R07.9 Chest pain, unspecified (principal); R42 Dizziness and giddiness; I11.9 Hypertensive heart disease without heart failure; J44.9 Chronic obstructive pulmonary disease, unspecified; G89.29 Other chronic pain; M54.9 Dorsalgia, unspecified; F15.10 Other stimulant abuse, uncomplicated; Z79.899 Other long term (current) drug therapy; Z79.82 Long term (current) use of aspirin
CPT/HCPCS: 93005; 94640; 96361; 96374; 96376; 99285; J2270; J3490; J7030; Q9967; 36415; 36600; 71045; 71260; 74177; 80053; 82803; 83880; 84484; 85008; 85018; 85025; 85379; 94760

== ENCOUNTER 2022-06-21 03:55 | Inpatient (IN) | payer MEDICARE, MEDICAID ==
[~2022-06-21] VITALS: Ht 188 cm; Wt 72.7 kg
[2022-06-21] MEDS ORDERED: ipratropium/albuterol 3ml nebule NEB STA ×3 (03:58)
[2022-06-21] MEDS ORDERED: morphine 2 MG/ML inj. syringe IV ONE (04:00)
[2022-06-21 04:17] LABS: ABG BASE EXCESS 3.1 mmol/L (-2.0-2.0); ABG OXYGEN SATURATION 98.3 % (94-97); ABG PCO2 (T) 64.5 mmHg (35.0-48.0); ABG PO2 (T) 127.4 mmHg (75.0-100.0); ALLEN'S TEST POSITIVE; FCOHb 0.4 % (0.0-3.9); FLOW 3 L/min; FMetHb 0.3 % (0.0-1.5); FO2Hb 97.6 % (94-97); TOTAL HEMOGLOBIN 11.5 G/dl (14.0-17.9)
--- NOTE | 2022-06-21 04:24 | NUR ---
THIS NURSE APPROVES THE ASSESSMENT COMPLETED BY LEOLA MEJIA
--- NOTE | 2022-06-21 04:30 | NUR ---
notified Dr Crouch of t-wave elevation, ordered 2nd EKG. Pt continues to c/o mid sternal sharp with SOB 8/10, non-radiating. Constant tremors from ETOH, pt reports drinking 15 tall beer cans over a week when he gets paid on the and 15th of every month. Reports last alcoholic drink 5 days ago.
--- NOTE | 2022-06-21 04:35 | NUR ---
Dr zaira Hernandez Neb x3 for 1 SVN tx given in cont nebulizer via mask
[2022-06-21 04:51] LABS: BASOPHILS # (AUTO) 0.1 X10'3 (0-0.2); EOSINOPHILS # (AUTO) 0.1 X10'3 (0-0.9); HEMOGLOBIN 10.1 g/dl (14.0-17.9); LYMPHOCYTES # (AUTO) 1.8 X10'3 (1.1-4.8); WHITE BLOOD COUNT 7.5 X10'3 (4.5-11.0)
[2022-06-21 04:53] LABS: BASOPHILS % (AUTO) 1.3 % (0-1); EOSINOPHILS % (AUTO) 1.4 % (0-6); HEMATOCRIT 32.2 % (42.0-52.0); LYMPHOCYTES % (AUTO) 23.9 % (21-51); MEAN CORPUSCULAR HEMOGLOBIN 24.7 PG (27.0-31.0); MEAN CORPUSCULAR HGB CONC 31.4 g/dL (33.0-36.5); MEAN CORPUSCULAR VOLUME 78.7 FL (78-98); MEAN PLATELET VOLUME 6.7 FL (7.4-10.4); MONOCYTES % (AUTO) 13.8 % (2-12); NEUTROPHILS # (AUTO) 4.5 X10'3 (1.8-7.7); NEUTROPHILS % (AUTO) 59.6 % (42-75); PLATELET COUNT 691 X10'3 (140-440); RED CELL DISTRIBUTION WIDTH 22.5 % (11.5-14.5)
[2022-06-21] MEDS ORDERED: methylPREDNISolone sod succ 125mg/2ml vial IV ONE (05:05)
[2022-06-21 05:11] LABS: ALANINE AMINOTRANSFERASE 22 U/L (12-78); ALBUMIN 3.6 G/DL (3.4-5.0); ALBUMIN/GLOBULIN RATIO 1.1 (1.1-1.5); ALKALINE PHOSPHATASE 62 IU/L (46-116); ANION GAP 4 (8-16); ASPARTATE AMINO TRANSFERASE 19 U/L (10-37); BILIRUBIN,TOTAL 0.3 MG/DL (0.1-1.0); BLOOD UREA NITROGEN 10 MG/DL (7-18); BUN/CREATININE RATIO 18.2 (5.4-32.0); CALCIUM 8.6 MG/DL (8.5-10.1); CHLORIDE 99 MMOL/L (99-107); CREATININE 0.55 MG/DL (0.60-1.10); GLUCOSE 102 MG/DL (70-104); POTASSIUM 4.5 MMOL/L (3.5-5.1); SODIUM 136 MMOL/L (135-145); TOTAL CARBON DIOXIDE 32.8 MMOL/L (24-32); TOTAL PROTEIN 6.8 G/DL (6.4-8.2); eGFR > 90 ML/MIN
--- NOTE | 2022-06-21 05:21 | NUR ---
Patient Refused Bipap that the ER Matty Ordered. Notified RN of refusal.
--- NOTE | 2022-06-21 05:38 | NUR ---
DR GUZMAN AT BEDSIDE EVALUATING PT FOR IN-PATIENT ADMISSION. PT REFUSING BIPAP, DR GUZMAN AWARE.CONTINUES TO C/O INTERMITTENT STERNAL CP 12/12 SHARP IN NATURE.
[2022-06-21] MEDS ORDERED: mag hydrox/Alum hydrox/simeth 30ml oral suspension PO PRN (05:40)
[2022-06-21] MEDS ORDERED: PERFLUTREN PROTEIN-A MICROSPHR (Optison) 0.22 MG/ML 3ML VIAL IV ONE (05:40)
[2022-06-21] MEDS ORDERED: ondansetron/PF 4mg/2ml inj IV PRN (05:40)
[2022-06-21] MEDS ORDERED: magnesium 4gm in 100ml NS 100 ML IV PRN (05:40)
[2022-06-21] MEDS ORDERED: magnesium Cl slow-release 64mg tablet PO PRN (05:40)
[2022-06-21] MEDS ORDERED: morphine 2 MG/ML inj. syringe IV PRN (05:40)
[2022-06-21] MEDS ORDERED: acetaminophen 325mg tablet PO PRN (05:40)
[2022-06-21] MEDS ORDERED: potassium Cl 40MEQ/1/2NS 520ml 520 ML IV PRN (05:40)
[2022-06-21] MEDS ORDERED: potassium Cl 20 mEq SR tablet PO PRN ×2 (05:40)
[2022-06-21] MEDS ORDERED: magnesium hydroxide 30ml (MOM) UD suspension PO PRN (05:40)
[2022-06-21] MEDS ORDERED: albuterol 2.5 MG/3 ML nebule NEB PRN (05:45)
[2022-06-21 06:50] LABS: ANISOCYTOSIS 3+; MICROCYTOSIS 1+; PLATELET ESTIMATE INCREASED
[2022-06-21 06:51] LABS: ELLIPTOCYTES FEW; HYPOCHROMASIA 1+; TARGET CELLS FEW
[2022-06-21] MEDS ORDERED: methylPREDNISolone sod succ 125mg/2ml vial IV SCH ×2 (08:00→08:45)
[2022-06-21] MEDS: K and/or MAG REPLACEMENT MC SCH ×2 (08:00→18:56)
[2022-06-21] MEDS ORDERED: ipratropium/albuterol 3ml nebule NEB PRN (08:45)
[2022-06-21] MEDS: heparin, porcine 5000 units/ml vial SQ SCH ×2 (08:49→20:00)
[2022-06-21] MEDS: docusate sod 100mg capsule PO SCH ×2 (08:49→20:00)
[2022-06-21] MEDS: morphine 2 MG/ML inj. syringe IV PRN ×2 (09:35→15:01)
[2022-06-21 09:52] LABS: MAGNESIUM 2.2 MG/DL (1.5-2.4)
[2022-06-21 10:07] LABS: ETHANOL < 0.010 GM/DL (0.0-0.010)
[2022-06-21] MEDS: azithromycin 250mg tablet PO SCH (10:13)
[2022-06-21] MEDS: CefTRIAXone/D5W-Rocephin 1gm 50 ML IV SCH (10:14)
[2022-06-21] MEDS: ipratropium/albuterol 3ml nebule NEB SCH ×4 (12:43→23:51)
[2022-06-21] MEDS: methylPREDNISolone sod succ 125mg/2ml vial IV SCH ×2 (16:32→21:19)
[2022-06-21 19:07] LABS: CLARITY,URINE CLEAR (Clear); COLOR,URINE YELLOW (Yellow); GLUCOSE, URINE 100 mg/dl (Neg); KETONES,URINE TRACE mg/dl (Neg); LEUKOCYTE ESTERASE ,URINE NEGATIVE (Neg); NITRITES, URINE NEGATIVE (Neg); OCCULT BLOOD,URINE NEGATIVE (Neg); PROTEIN,URINE NEGATIVE (Neg); UROBILINOGEN,URINE 0.2 E.U/dL (0.2-1.0)
[2022-06-21 19:11] LABS: UA COLLECTION TYPE CLN CATCH MIDSTREAM
--- NOTE | 2022-06-21 19:30 | NUR ---
100% of dinner consumed.
[2022-06-21 19:35] LABS: URINE AMPHETAMINE SCREEN NEGATIVE (Neg); URINE BARBITUATE SCREEN NEGATIVE (Neg); URINE BENZODIAZEPINES SCREEN NEGATIVE (Neg); URINE CANNABINOID SCREEN NEGATIVE (Neg); URINE COCAINE SCREEN NEGATIVE (Neg); URINE METHADONE SCREEN NEGATIVE (Neg); URINE OPIATE SCREEN POSITIVE (Neg); URINE PHENCYCLIDINE SCREEN NEGATIVE (Neg)
--- NOTE | 2022-06-21 22:06 | NUR ---
Patient provided crackers and juice per request.
--- NOTE | 2022-06-21 23:00 | NUR ---
Patient in room JEAN PAUL 355. I have received report from AYANA Garcia and had the opportunity to ask questions and assume patient care.
--- NOTE | 2022-06-21 23:50 | NUR ---
pt arrived to floor via gurney. oriented to room and call light. pt settled in.
[2022-06-22 00:10] VITALS: BP 107/63
[2022-06-22] MEDS: ipratropium/albuterol 3ml nebule NEB SCH ×6 (02:56→23:09)
[2022-06-22] MEDS: methylPREDNISolone sod succ 125mg/2ml vial IV SCH ×4 (04:46→21:38)
[2022-06-22 06:00] VITALS: BP 102/55
--- NOTE | 2022-06-22 06:32 | NUR ---
Problems reprioritized. Patient report given, questions answered & plan of care reviewed with ROBERTO Fonseca.
[2022-06-22 07:25] LABS: MONOCYTES # (AUTO) 0.5 X10'3 (0-0.9); WHITE BLOOD COUNT 9.8 X10'3 (4.5-11.0)
[2022-06-22 07:27] LABS: BASOPHILS % (AUTO) 0.2 % (0-1); EOSINOPHILS % (AUTO) 0 % (0-6); LYMPHOCYTES # (AUTO) 0.8 X10'3 (1.1-4.8); LYMPHOCYTES % (AUTO) 7.7 % (21-51); MEAN PLATELET VOLUME 6.9 FL (7.4-10.4); MONOCYTES % (AUTO) 5.2 % (2-12); NEUTROPHILS # (AUTO) 8.5 X10'3 (1.8-7.7); NEUTROPHILS % (AUTO) 86.9 % (42-75); PLATELET COUNT 643 X10'3 (140-440); RED BLOOD COUNT 3.59 X10'6 (4.70-6.10)
[2022-06-22 07:46] LABS: ANION GAP 3 (8-16); BLOOD UREA NITROGEN 17 MG/DL (7-18); BUN/CREATININE RATIO 26.6 (5.4-32.0); CALCIUM 8.5 MG/DL (8.5-10.1); CHLORIDE 100 MMOL/L (99-107); CREATININE 0.64 MG/DL (0.60-1.10); GLUCOSE 143 MG/DL (70-104); PHOSPHORUS 3.4 MG/DL (2.3-4.5); POTASSIUM 4.5 MMOL/L (3.5-5.1); SODIUM 134 MMOL/L (135-145); TOTAL CARBON DIOXIDE 31.2 MMOL/L (24-32); eGFR > 90 ML/MIN
[2022-06-22 07:47] LABS: ALBUMIN 3.3 G/DL (3.4-5.0); ALBUMIN/GLOBULIN RATIO 1.1 (1.1-1.5); ALKALINE PHOSPHATASE 54 IU/L (46-116); ASPARTATE AMINO TRANSFERASE 20 U/L (10-37); BILIRUBIN,TOTAL 0.2 MG/DL (0.1-1.0); MAGNESIUM 2.3 MG/DL (1.5-2.4); TOTAL PROTEIN 6.3 G/DL (6.4-8.2)
[2022-06-22 07:58] LABS: ALANINE AMINOTRANSFERASE 21 U/L (12-78)
[2022-06-22] MEDS: heparin, porcine 5000 units/ml vial SQ SCH ×3 (08:00→20:40)
[2022-06-22] MEDS: docusate sod 100mg capsule PO SCH ×2 (08:00→20:39)
[2022-06-22] MEDS: azithromycin 250mg tablet PO SCH (08:00)
[2022-06-22] MEDS: K and/or MAG REPLACEMENT MC SCH ×2 (08:00→20:00)
[2022-06-22] MEDS: CefTRIAXone/D5W-Rocephin 1gm 50 ML IV SCH (09:16)
[2022-06-22 10:00] VITALS: BP 112/73
[2022-06-22] MEDS ORDERED: PRED10TA PO (10:52)
[2022-06-22] MEDS ORDERED: IPRA3AMP31 NEB (12:22)
[2022-06-22] MEDS: morphine 2 MG/ML inj. syringe IV PRN (14:26)
--- NOTE | 2022-06-22 15:44 | NUR ---
Reviewed Marian MEJIA's physical assessment charting. I agree with documentation as is
--- NOTE | 2022-06-22 16:00 | NUR ---
I have reviewed and agree with all interventions, assessments performed and documented by Marian Domingo LVN.
[2022-06-22 18:00] VITALS: BP 134/74
--- NOTE | 2022-06-22 19:03 | NUR ---
Patient in room JEAN PAUL 355. I have received report from ROBERTO Fonseca and had the opportunity to ask questions and assume patient care.
[2022-06-22 22:00] VITALS: BP 118/74
[2022-06-23] MEDS: ipratropium/albuterol 3ml nebule NEB SCH ×4 (02:25→15:25)
[2022-06-23] MEDS: methylPREDNISolone sod succ 125mg/2ml vial IV SCH ×3 (04:34→16:00)
[2022-06-23 06:20] LABS: BASOPHILS # (AUTO) 0.1 X10'3 (0-0.2); BASOPHILS % (AUTO) 0.4 % (0-1); EOSINOPHILS % (AUTO) 0 % (0-6); HEMOGLOBIN 8.9 g/dl (14.0-17.9); MEAN PLATELET VOLUME 7.2 FL (7.4-10.4); RED CELL DISTRIBUTION WIDTH 23.3 % (11.5-14.5)
[2022-06-23 06:22] LABS: HEMATOCRIT 28.7 % (42.0-52.0); LYMPHOCYTES % (AUTO) 7.3 % (21-51); MEAN CORPUSCULAR HEMOGLOBIN 24.3 PG (27.0-31.0); MEAN CORPUSCULAR HGB CONC 30.8 g/dL (33.0-36.5); MEAN CORPUSCULAR VOLUME 78.7 FL (78-98); MONOCYTES # (AUTO) 0.9 X10'3 (0-0.9); MONOCYTES % (AUTO) 6.4 % (2-12); NEUTROPHILS # (AUTO) 12.2 X10'3 (1.8-7.7); NEUTROPHILS % (AUTO) 85.9 % (42-75); PLATELET COUNT 619 X10'3 (140-440); RED BLOOD COUNT 3.65 X10'6 (4.70-6.10); WHITE BLOOD COUNT 14.2 X10'3 (4.5-11.0)
[2022-06-23 06:36] LABS: ALANINE AMINOTRANSFERASE 16 U/L (12-78); ALBUMIN 3.3 G/DL (3.4-5.0); ALBUMIN/GLOBULIN RATIO 1.1 (1.1-1.5); ALKALINE PHOSPHATASE 52 IU/L (46-116); ANION GAP 4 (8-16); ASPARTATE AMINO TRANSFERASE 16 U/L (10-37); BILIRUBIN,TOTAL 0.2 MG/DL (0.1-1.0); BLOOD UREA NITROGEN 16 MG/DL (7-18); BUN/CREATININE RATIO 23.2 (5.4-32.0); CALCIUM 8.4 MG/DL (8.5-10.1); CHLORIDE 101 MMOL/L (99-107); CREATININE 0.69 MG/DL (0.60-1.10); GLUCOSE 130 MG/DL (70-104); MAGNESIUM 2.6 MG/DL (1.5-2.4); PHOSPHORUS 3.9 MG/DL (2.3-4.5); POTASSIUM 4.1 MMOL/L (3.5-5.1); SODIUM 135 MMOL/L (135-145); TOTAL CARBON DIOXIDE 29.6 MMOL/L (24-32); TOTAL PROTEIN 6.3 G/DL (6.4-8.2); eGFR > 90 ML/MIN
--- NOTE | 2022-06-23 06:44 | NUR ---
Problems reprioritized. Patient report given, questions answered & plan of care reviewed with AYANA Bautista.
--- NOTE | 2022-06-23 06:51 | NUR ---
Patient in room JEAN PAUL 355. I have received report from AYANA Jaeger and had the opportunity to ask questions and assume patient care.
[2022-06-23 07:06] VITALS: BP 138/84
[2022-06-23] MEDS: azithromycin 250mg tablet PO SCH (07:26)
[2022-06-23] MEDS: CefTRIAXone/D5W-Rocephin 1gm 50 ML IV SCH (07:27)
[2022-06-23 07:38] LABS: PLATELET ESTIMATE INCREASED
[2022-06-23 07:39] LABS: LARGE PLATELETS FEW
[2022-06-23 07:40] LABS: ANISOCYTOSIS 3+; MICROCYTOSIS 1+
[2022-06-23] MEDS ORDERED: VILANTER PO SCH (08:00)
[2022-06-23] MEDS ORDERED: metoprolol succinate 25mg (24-HOUR) SR. Tablet PO SCH (08:00)
[2022-06-23] MEDS ORDERED: thiamine 100mg tablet PO SCH (08:00)
[2022-06-23] MEDS: K and/or MAG REPLACEMENT MC SCH (08:00)
[2022-06-23] MEDS ORDERED: pantoprazole 40mg Tablet.DR PO SCH (08:00)
[2022-06-23] MEDS ORDERED: FLUTICASONE PO SCH (08:00)
[2022-06-23] MEDS ORDERED: UMECLIDIN PO SCH (08:00)
[2022-06-23] MEDS: heparin, porcine 5000 units/ml vial SQ SCH (08:00)
[2022-06-23] MEDS ORDERED: aspirin 81mg, enteric-coated 1 TAB TABLET.DR PO SCH (08:00)
[2022-06-23] MEDS: docusate sod 100mg capsule PO SCH (08:00)
[2022-06-23] MEDS ORDERED: clopidogrel 75mg tablet PO SCH (08:00)
[2022-06-23 12:14] VITALS: BP 130/68
[2022-06-23] MEDS ORDERED: PRED10TA23 PO (13:57)
[2022-06-23] MEDS ORDERED: LACT1CAP26 PO (13:57)
[2022-06-23] MEDS ORDERED: CEFD300C3 PO (13:57)
--- NOTE | 2022-06-23 15:14 | NUR ---
Patient reported this morning that he has no desire to stop drinking alcohol and smoking when educated the importance to stop drinking and smoking. Patient states he's "heard it from everybody and nope, I'm not stopping. I'm going to get my check when I get out of here and start drinking again," as patient smiling. Patient then reported that he was told he was being discharged today and he reported that his "payee closes at 3 so there's no point if I go after then." Patient aware that due to him not having a portable o2 tank he would need to wait for O2 tank prior to dc as he had stated he is on continuous home o2. Addendum: 06/23/22 at 1524 by Lily Latham RN Patient repeatedly looking at clock as he is conveying his chest pain.
[2022-06-23 15:20] VITALS: BP 137/78
[2022-06-23] MEDS ORDERED: nitroGLYCERIN 0.4mg SUBLingual tab SL ONE (15:35)
[2022-06-23] MEDS ORDERED: morphine 2 MG/ML inj. syringe IV PRN (15:35)
[2022-06-23] MEDS: nitroGLYCERIN 0.4mg SUBLingual tab SL PRN ×2 (15:38→15:43)
[2022-06-23] MEDS ORDERED: iohexol 350MG/ML 100ml bottle IV ONE (15:41)
[2022-06-23] MEDS ORDERED: heparin 1,000 UNITS/NS 500ml 0 ML ONE (15:41)
[2022-06-23] MEDS ORDERED: LIDOcaine 1% 30ml preserv. free vial ONE (15:41)
[2022-06-23] MEDS ORDERED: heparin 1,000unit/ml 10ml vial 0 ML ONE (15:41)
--- NOTE | 2022-06-23 16:06 | NUR ---
EKG was completed which stated Acute HI. EKG was taken to ER MD to verify which ER MD verified positive STEMI. Dr Magaña was also notified. STEMI alert was called. STEMI team was at bedside. Toshia, dairy husbandman QUALITY CONTROL LEAD was at bedside. VSS. Nitro dur given to patient x2 times which he stated made no difference and continue to c/o chest pain 7/10 and no change. Toshia QUALITY CONTROL LEAD notified and on phone with Dr. Green. Toshia stated "not cardiac related" no more doses of nitro. Toshia QUALITY CONTROL LEAD was on phone with Dr. Green then stated to give patient morphine for chest pain as ordered. Went in to administer morphine patient seen smiling and watching tv as this RN entered room. Patient states chest pain better at 6/10 now. Morphine given as ordered. VSS. Will continue to monitor. No increase of SOB seen.
--- NOTE | 2022-06-23 16:41 | NUR ---
Dr. Green in to see patient and stated "not cardiac and does not need another troponin." Dr. Magaña notified and stated patient dc'd and needed to dc him now.
--- NOTE | 2022-06-23 17:23 | NUR ---
Patient portable O2 tank not working properly. 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
--- NOTE | 2022-06-23 17:30 | NUR ---
Dr. Magaña notified patient portable O2 tank not working properly and KEVYN Nguyen contacting [employer] company.
--- NOTE | 2022-06-23 17:44 | NUR ---
Per [employer] will be here to switch out portable o2 tank.
--- NOTE | 2022-06-23 18:09 | NUR ---
Problems reprioritized. Patient report given, questions answered & plan of care reviewed with AYANA Jaeger.
--- NOTE | 2022-06-23 18:42 | NUR ---
Resource RN Gio discussed with patient discharge instructions and new prescriptions. IV dc'd. Patient portable o2 was exchanged by o2 company and working properly. Patient dc'd with all personal belongings via cab.
== END 2022-06-23 18:30 | disposition home or self-care (01) | DRG 189 ==
LOC: ER 03:56 → ED HOLD 05:40 → SUR 3N 23:54
PROVIDERS: ADMIT Internal Medicine; ATTEND Internal Medicine
DX: J96.22 Acute and chronic respiratory failure with hypercapnia (principal); J44.1 Chronic obstructive pulmonary disease with (acute) exacerbation; E87.20 Acidosis, unspecified; J44.0 Chronic obstructive pulmonary disease with (acute) lower respiratory infection; J20.9 Acute bronchitis, unspecified; E78.5 Hyperlipidemia, unspecified; F10.20 Alcohol dependence, uncomplicated; F17.210 Nicotine dependence, cigarettes, uncomplicated; G89.4 Chronic pain syndrome; I10 Essential (primary) hypertension; I25.10 Atherosclerotic heart disease of native coronary artery without angina pectoris; F15.10 Other stimulant abuse, uncomplicated; Z66 Do not resuscitate; Z86.16 Personal history of COVID-19; Z86.73 Personal history of transient ischemic attack (TIA), and cerebral infarction without residual deficits; I25.2 Old myocardial infarction; Z87.01 Personal history of pneumonia (recurrent); Z91.199 Patient's noncompliance with other medical treatment and regimen due to unspecified reason; Z95.5 Presence of coronary angioplasty implant and graft; Z59.00 Homelessness unspecified
CPT/HCPCS: 36415; 36600; 71045; 71260; 74177; 80053; 80305; 80320; 81003; 82803; 83605; 83735; 83880; 84100; 84145; 84443; 84484; 85008; 85018; 85025; 85379; 87040; 87081; 87502; 87503; 87635; 93005; 93308; 94640; 94760; 99285; A6258; G0378; J0696; J1644; J2270; J2405; J2930; J3490; Q9967

== ENCOUNTER 2022-07-20 00:05 | Emergency (ER) | payer MEDICARE, MEDICAID ==
[~2022-07-20] VITALS: Ht 188 cm; Wt 75.0 kg
[~2022-07-20 00:05] MED LIST changes: +ATOR-2 PO; -ATOR20TA66 PO; +AZIT-83 PO; -CHLO25CA10 PO; +IPRA3AMP31 NEB; -IPRA3AMP9 IH; -PANT40SU2 PO; -PRED10TA23 PO; +PRED20TA PO; -THIA100T66 PO; +thiamine tablet PO
[2022-07-20 00:39] LABS: BASOPHILS # (AUTO) 0.1 X10'3 (0-0.2); BASOPHILS % (AUTO) 0.6 % (0-1); EOSINOPHILS # (AUTO) 0.2 X10'3 (0-0.9); EOSINOPHILS % (AUTO) 1.6 % (0-6); HEMATOCRIT 36.5 % (42.0-52.0); HEMOGLOBIN 11.6 g/dl (14.0-17.9); LYMPHOCYTES # (AUTO) 2.4 X10'3 (1.1-4.8); LYMPHOCYTES % (AUTO) 19.5 % (21-51); MEAN CORPUSCULAR HEMOGLOBIN 25.9 PG (27.0-31.0); MEAN CORPUSCULAR HGB CONC 31.8 g/dL (33.0-36.5); MEAN CORPUSCULAR VOLUME 81.5 FL (78-98); MEAN PLATELET VOLUME 6.7 FL (7.4-10.4); MONOCYTES # (AUTO) 1.9 X10'3 (0-0.9); MONOCYTES % (AUTO) 15.5 % (2-12); NEUTROPHILS # (AUTO) 7.9 X10'3 (1.8-7.7); NEUTROPHILS % (AUTO) 62.8 % (42-75); PLATELET COUNT 559 X10'3 (140-440); RED BLOOD COUNT 4.47 X10'6 (4.70-6.10); RED CELL DISTRIBUTION WIDTH 29.1 % (11.5-14.5); WHITE BLOOD COUNT 12.5 X10'3 (4.5-11.0)
[2022-07-20] MEDS ORDERED: albuterol 2.5 MG/3 ML nebule NEB ONE ×2 (00:55→01:45)
[2022-07-20 00:59] LABS: ALANINE AMINOTRANSFERASE 32 U/L (12-78); ALBUMIN 3.1 G/DL (3.4-5.0); ALBUMIN/GLOBULIN RATIO 0.9 (1.1-1.5); ALKALINE PHOSPHATASE 65 IU/L (46-116); ANION GAP 7 (8-16); ASPARTATE AMINO TRANSFERASE 17 U/L (10-37); BILIRUBIN,TOTAL 0.2 MG/DL (0.1-1.0); BLOOD UREA NITROGEN 24 MG/DL (7-18); BUN/CREATININE RATIO 40.7 (5.4-32.0); CALCIUM 8.6 MG/DL (8.5-10.1); CHLORIDE 104 MMOL/L (99-107); CREATININE 0.59 MG/DL (0.60-1.10); GLUCOSE 119 MG/DL (70-104); POTASSIUM 4.6 MMOL/L (3.5-5.1); SODIUM 139 MMOL/L (135-145); TOTAL CARBON DIOXIDE 28.4 MMOL/L (24-32); TOTAL PROTEIN 6.6 G/DL (6.4-8.2); eGFR > 90 ML/MIN
[2022-07-20 01:21] LABS: ANISOCYTOSIS 3+; PLATELET ESTIMATE INCREASED; TOTAL CELLS COUNTED 100
[2022-07-20 01:22] LABS: MICROCYTOSIS 1+
[2022-07-20 01:23] LABS: POLYCHROMASIA 1+
[2022-07-20 01:24] LABS: BURR CELLS FEW; ELLIPTOCYTES FEW
[2022-07-20] MEDS ORDERED: aspirin 325mg tablet, delayed-release (Ecotrin) PO ONE (01:45)
[2022-07-20] MEDS ORDERED: dexamethasone 4mg tablet PO ONE (01:45)
[2022-07-20] MEDS ORDERED: azithromycin 250mg tablet PO ONE (01:45)
[2022-07-20] MEDS ORDERED: DEC4T PO (01:52)
[2022-07-20] MEDS ORDERED: AZIT250T2 PO (01:52)
[2022-07-20 02:37] VITALS: BP 117/78
== END 2022-07-20 02:44 | disposition home or self-care (01) ==
LOC: ER 00:06
DX: J44.1 Chronic obstructive pulmonary disease with (acute) exacerbation (principal); R06.2 Wheezing; R07.89 Other chest pain; G89.29 Other chronic pain; M54.50 Low back pain, unspecified
CPT/HCPCS: 36415; 71045; 80053; 83880; 84484; 85007; 85025; 93005; 94640; 94760; 99285

== ENCOUNTER 2022-08-04 03:08 | Emergency (ER) | payer MEDICARE, MEDICAID ==
[~2022-08-04] VITALS: Ht 188 cm; Wt 72.7 kg
[~2022-08-04 03:08] MED LIST changes: +normal saline 1000ML IV soln ONE
[2022-08-04] MEDS ORDERED: ipratropium/albuterol 3ml nebule NEB ONE (03:25)
[2022-08-04] MEDS ORDERED: methylPREDNISolone sod succ 125mg/2ml vial IV ONE (03:25)
[2022-08-04 03:34] LABS: BASOPHILS # (AUTO) 0.2 X10'3 (0-0.2); EOSINOPHILS # (AUTO) 0.1 X10'3 (0-0.9); HEMOGLOBIN 13.2 g/dl (14.0-17.9); LYMPHOCYTES # (AUTO) 2.8 X10'3 (1.1-4.8); MEAN CORPUSCULAR HGB CONC 31.9 g/dL (33.0-36.5); MEAN PLATELET VOLUME 6.5 FL (7.4-10.4); NEUTROPHILS # (AUTO) 2.9 X10'3 (1.8-7.7)
[2022-08-04 03:35] LABS: BASOPHILS % (AUTO) 2.3 % (0-1); EOSINOPHILS % (AUTO) 1.3 % (0-6); HEMATOCRIT 41.4 % (42.0-52.0); LYMPHOCYTES % (AUTO) 41.1 % (21-51); MEAN CORPUSCULAR HEMOGLOBIN 26.4 PG (27.0-31.0); MEAN CORPUSCULAR VOLUME 82.7 FL (78-98); MONOCYTES # (AUTO) 0.9 X10'3 (0-0.9); MONOCYTES % (AUTO) 12.9 % (2-12); NEUTROPHILS % (AUTO) 42.4 % (42-75); PLATELET COUNT 552 X10'3 (140-440); RED BLOOD COUNT 5.01 X10'6 (4.70-6.10); RED CELL DISTRIBUTION WIDTH 28.7 % (11.5-14.5); WHITE BLOOD COUNT 6.8 X10'3 (4.5-11.0)
[2022-08-04] MEDS: albuterol 2.5 MG/3 ML nebule CONTNEB PRN ×2 (03:42→07:09)
[2022-08-04 03:46] LABS: ALANINE AMINOTRANSFERASE 30 U/L (12-78); ALBUMIN 3.4 G/DL (3.4-5.0); ALBUMIN/GLOBULIN RATIO 0.9 (1.1-1.5); ALKALINE PHOSPHATASE 66 IU/L (46-116); ANION GAP 4 (8-16); BILIRUBIN,TOTAL 0.2 MG/DL (0.1-1.0); BLOOD UREA NITROGEN 7 MG/DL (7-18); BUN/CREATININE RATIO 15.2 (5.4-32.0); CALCIUM 8.8 MG/DL (8.5-10.1); CHLORIDE 103 MMOL/L (99-107); CREATININE 0.46 MG/DL (0.60-1.10); GLUCOSE 97 MG/DL (70-104); SODIUM 141 MMOL/L (135-145); TOTAL CARBON DIOXIDE 33.8 MMOL/L (24-32); eGFR > 90 ML/MIN
[2022-08-04 03:54] LABS: ETHANOL 0.052 GM/DL (0.0-0.010); MAGNESIUM 2.3 MG/DL (1.5-2.4)
[2022-08-04 03:57] LABS: ASPARTATE AMINO TRANSFERASE 28 U/L (10-37); POTASSIUM 4.5 MMOL/L (3.5-5.1)
[2022-08-04 04:26] LABS: TOTAL CELLS COUNTED 100
[2022-08-04 04:27] LABS: PLATELET ESTIMATE INCREASED
[2022-08-04 04:28] LABS: ELLIPTOCYTES FEW; HYPOCHROMASIA 1+
[2022-08-04] MEDS ORDERED: PRED20TA PO (05:31)
--- NOTE | 2022-08-04 06:22 | NUR ---
Received report from ROBERTO Rucker
[2022-08-04 08:20] VITALS: BP 125/83
== END 2022-08-04 08:25 | disposition home or self-care (01) ==
LOC: ER 03:08
DX: J44.1 Chronic obstructive pulmonary disease with (acute) exacerbation (principal); I11.9 Hypertensive heart disease without heart failure; Z79.899 Other long term (current) drug therapy; Z79.1 Long term (current) use of non-steroidal anti-inflammatories (NSAID)
CPT/HCPCS: 36415; 71045; 80053; 80320; 83735; 83880; 84484; 85007; 85025; 85610; 94640; 94644; 94760; 99285; A7015; J2930; J7030

== ENCOUNTER 2022-08-05 00:31 | Emergency (ER) | payer MEDICARE, MEDICAID ==
[~2022-08-05] VITALS: Ht 188 cm; Wt 85.0 kg
[~2022-08-05 00:31] MED LIST changes: -AZIT-83 PO; -normal saline 1000ML IV soln ONE
[2022-08-05] MEDS ORDERED: ipratropium/albuterol 3ml nebule NEB ONE ×2 (00:55→04:30)
[2022-08-05] MEDS ORDERED: methylPREDNISolone sod succ 125mg/2ml vial IV ONE (00:55)
[2022-08-05 01:44] LABS: BASOPHILS # (AUTO) 0.1 X10'3 (0-0.2); MEAN PLATELET VOLUME 6.4 FL (7.4-10.4)
[2022-08-05 01:46] LABS: BASOPHILS % (AUTO) 0.8 % (0-1); EOSINOPHILS % (AUTO) 0.5 % (0-6); HEMATOCRIT 38.1 % (42.0-52.0); LYMPHOCYTES # (AUTO) 1.6 X10'3 (1.1-4.8); LYMPHOCYTES % (AUTO) 24.4 % (21-51); MEAN CORPUSCULAR HEMOGLOBIN 26.5 PG (27.0-31.0); MEAN CORPUSCULAR HGB CONC 31.5 g/dL (33.0-36.5); MEAN CORPUSCULAR VOLUME 84.1 FL (78-98); MONOCYTES # (AUTO) 0.9 X10'3 (0-0.9); MONOCYTES % (AUTO) 14.5 % (2-12); NEUTROPHILS # (AUTO) 3.9 X10'3 (1.8-7.7); NEUTROPHILS % (AUTO) 59.8 % (42-75); PLATELET COUNT 528 X10'3 (140-440); RED BLOOD COUNT 4.53 X10'6 (4.70-6.10); RED CELL DISTRIBUTION WIDTH 28.9 % (11.5-14.5); WHITE BLOOD COUNT 6.4 X10'3 (4.5-11.0)
[2022-08-05 01:58] LABS: ALANINE AMINOTRANSFERASE 25 U/L (12-78); ALBUMIN 3.5 G/DL (3.4-5.0); ALKALINE PHOSPHATASE 66 IU/L (46-116); ANION GAP 5 (8-16); ASPARTATE AMINO TRANSFERASE 33 U/L (10-37); BILIRUBIN,TOTAL 0.3 MG/DL (0.1-1.0); BLOOD UREA NITROGEN 7 MG/DL (7-18); BUN/CREATININE RATIO 21.2 (5.4-32.0); CALCIUM 8.8 MG/DL (8.5-10.1); CHLORIDE 100 MMOL/L (99-107); CREATININE 0.33 MG/DL (0.60-1.10); GLUCOSE 108 MG/DL (70-104); SODIUM 137 MMOL/L (135-145); TOTAL CARBON DIOXIDE 32.4 MMOL/L (24-32); eGFR > 90 ML/MIN
[2022-08-05 03:23] LABS: ANISOCYTOSIS 3+; HYPOCHROMASIA 1+; PLATELET ESTIMATE INCREASED
[2022-08-05 03:24] LABS: BURR CELLS FEW; ELLIPTOCYTES FEW
[2022-08-05 04:58] VITALS: BP 113/74
== END 2022-08-05 05:09 | disposition home or self-care (01) ==
LOC: ER 00:32
DX: J44.1 Chronic obstructive pulmonary disease with (acute) exacerbation (principal); I11.9 Hypertensive heart disease without heart failure; G89.29 Other chronic pain; M54.9 Dorsalgia, unspecified; Z79.899 Other long term (current) drug therapy; Z79.1 Long term (current) use of non-steroidal anti-inflammatories (NSAID); Z79.82 Long term (current) use of aspirin
CPT/HCPCS: 36415; 71045; 80053; 83880; 84484; 85008; 85025; 93005; 94640; 96374; 99285; J2930

== ENCOUNTER 2022-08-05 16:38 | Inpatient (IN) | payer MEDICARE, MEDICAID ==
[~2022-08-05] VITALS: Ht 188 cm; Wt 81.8 kg
[~2022-08-05 16:38] MED LIST changes: +AZIT-83 PO
[2022-08-05] MEDS ORDERED: dexamethasone sod phosphate 10mg/ml inj IM STA (18:08)
[2022-08-05] MEDS ORDERED: ipratropium 0.5 MG/2.5ML nebule IH ONE (18:10)
[2022-08-05] MEDS ORDERED: albuterol 2.5 MG/3 ML nebule CONTNEB PRN (18:10)
[2022-08-05] MEDS ORDERED: potassium Cl 20 mEq SR tablet PO PRN ×2 (19:25)
[2022-08-05] MEDS ORDERED: acetaminophen 325mg tablet PO PRN (19:25)
[2022-08-05] MEDS ORDERED: potassium Cl 40MEQ/1/2NS 520ml 520 ML IV PRN (19:25)
[2022-08-05] MEDS ORDERED: magnesium 4gm in 100ml NS 100 ML IV PRN (19:25)
[2022-08-05] MEDS ORDERED: magnesium Cl slow-release 64mg tablet PO PRN (19:25)
[2022-08-05] MEDS ORDERED: ondansetron/PF 4mg/2ml inj IV PRN (19:25)
[2022-08-05] MEDS ORDERED: methylPREDNISolone sod succ 125mg/2ml vial IV SCH (20:00)
[2022-08-05] MEDS: K and/or MAG REPLACEMENT MC SCH (20:08)
--- NOTE | 2022-08-05 20:23 | NUR ---
Patient reports sudden onset midsternal CP described as sharp in nature. EKG completed and signed by ED provider. Admitting provider paged for additional orders/consideration of new development.
--- NOTE | 2022-08-05 20:25 | NUR ---
Discussed with pharmacy new solumedrol due at this time, d/t previous admin of decadron creative writer was advised to hold this dose solumedrol.
[2022-08-05] MEDS: morphine 4 MG/ML inj SYRINge IV PRN ×2 (20:59→23:07)
--- NOTE | 2022-08-05 21:43 | NUR ---
Patient asleep at this time, I woke the patient, he reports his pain is "fine".
--- NOTE | 2022-08-05 21:51 | NUR ---
Report called to [facility] on PCU who kindly accepts report at this time, patient cleared for transport to receiving unit.
[2022-08-05 22:00] VITALS: BP 114/75
[2022-08-05] MEDS: ipratropium/albuterol 3ml nebule NEB SCH (22:35)
--- NOTE | 2022-08-05 22:55 | NUR ---
skin assessment limited. Patient refused to remove pants, socks or shoes.
[2022-08-06] MEDS ORDERED: guaiFENesin/codeine phos 10ml UD oral syrup PO PRN (01:45)
[2022-08-06 02:00] VITALS: BP 134/78
[2022-08-06] MEDS: ipratropium/albuterol 3ml nebule NEB SCH ×6 (03:02→23:19)
[2022-08-06 06:00] VITALS: BP 142/82
[2022-08-06 06:59] LABS: ALBUMIN 3.2 G/DL (3.4-5.0); ANION GAP 3 (8-16); BLOOD UREA NITROGEN 17 MG/DL (7-18); BUN/CREATININE RATIO 33.3 (5.4-32.0); CALCIUM 9.4 MG/DL (8.5-10.1); CHLORIDE 101 MMOL/L (99-107); CREATININE 0.51 MG/DL (0.60-1.10); GLUCOSE 130 MG/DL (70-104); MAGNESIUM 2.4 MG/DL (1.5-2.4); POTASSIUM 4.3 MMOL/L (3.5-5.1); SODIUM 140 MMOL/L (135-145); TOTAL CARBON DIOXIDE 36.3 MMOL/L (24-32); eGFR > 90 ML/MIN
[2022-08-06] MEDS: K and/or MAG REPLACEMENT MC SCH ×2 (08:00→18:38)
[2022-08-06 08:02] LABS: BASOPHILS % (AUTO) 0.3 % (0-1); EOSINOPHILS % (AUTO) 0 % (0-6); HEMATOCRIT 33.9 % (42.0-52.0); HEMOGLOBIN 10.9 g/dl (14.0-17.9); LYMPHOCYTES % (AUTO) 13.5 % (21-51); MEAN CORPUSCULAR HEMOGLOBIN 26.4 PG (27.0-31.0); MEAN CORPUSCULAR HGB CONC 32.2 g/dL (33.0-36.5); MEAN PLATELET VOLUME 6.5 FL (7.4-10.4); MONOCYTES # (AUTO) 1.2 X10'3 (0-0.9); MONOCYTES % (AUTO) 16.1 % (2-12); NEUTROPHILS # (AUTO) 5.2 X10'3 (1.8-7.7); NEUTROPHILS % (AUTO) 70.1 % (42-75); PLATELET COUNT 540 X10'3 (140-440); RED BLOOD COUNT 4.13 X10'6 (4.70-6.10); RED CELL DISTRIBUTION WIDTH 29.2 % (11.5-14.5); WHITE BLOOD COUNT 7.4 X10'3 (4.5-11.0)
[2022-08-06] MEDS: cefepime 1GM/NS ADD-VANTAGE 100 ML IV SCH ×2 (09:28→15:40)
[2022-08-06] MEDS: methylPREDNISolone sod succ/PF 40mg inj. IV SCH ×2 (09:28→20:10)
[2022-08-06] MEDS ORDERED: nitroGLYCERIN 0.4mg SUBLingual tab SL ONE (09:42)
[2022-08-06] MEDS ORDERED: LORazepam 1 MG tablet PO PRN (10:05)
[2022-08-06] MEDS ORDERED: LORazepam 2 mg/ml vial IV PRN (10:05)
[2022-08-06] MEDS ORDERED: pantoprazole 40mg Tablet.DR PO ONE (10:05)
--- NOTE | 2022-08-06 10:57 | NUR ---
Patient complained of chest pain 02/12. EKG was done per protocol and Dr. Hines was notified. The provider came and assessed the patient. She looked at the EKG and compared it with the previous EKG and noted no acute changes in the EKG. The provider did not feel it was necessary to call a STEMI alert.
[2022-08-06 11:00] VITALS: BP 114/78
[2022-08-06] MEDS: morphine 4 MG/ML inj SYRINge IV PRN (14:56)
[2022-08-06 15:00] VITALS: BP 133/70
[2022-08-06 18:00] VITALS: BP 144/87
--- NOTE | 2022-08-06 18:08 | NUR ---
Problems reprioritized. Patient report given, questions answered & plan of care reviewed with AYANA Gunter.
[2022-08-06] MEDS ORDERED: ipratropium/albuterol 3ml nebule NEB PRN (18:15)
[2022-08-06] MEDS ORDERED: albuterol 2.5 MG/3 ML nebule NEB PRN (20:00)
[2022-08-06] MEDS: pantoprazole 40mg Tablet.DR PO SCH (20:00)
[2022-08-06] MEDS ORDERED: famotidine 20mg tablet PO SCH (21:00)
[2022-08-07 02:00] VITALS: BP 104/57
[2022-08-07] MEDS: ipratropium/albuterol 3ml nebule NEB SCH ×4 (03:16→13:57)
[2022-08-07 06:00] VITALS: BP 108/57
--- NOTE | 2022-08-07 06:46 | NUR ---
Patient in room PCU 3014. I have received report from AYANA Gunter and had the opportunity to ask questions and assume patient care.
[2022-08-07 07:07] LABS: BASOPHILS # (AUTO) 0.1 X10'3 (0-0.2); BASOPHILS % (AUTO) 0.7 % (0-1); EOSINOPHILS % (AUTO) 0.1 % (0-6); HEMOGLOBIN 10.9 g/dl (14.0-17.9); LYMPHOCYTES % (AUTO) 9.3 % (21-51); MEAN CORPUSCULAR HEMOGLOBIN 25.9 PG (27.0-31.0); MEAN CORPUSCULAR HGB CONC 31.1 g/dL (33.0-36.5); MEAN CORPUSCULAR VOLUME 83.1 FL (78-98); MONOCYTES # (AUTO) 1.5 X10'3 (0-0.9); MONOCYTES % (AUTO) 13.7 % (2-12); NEUTROPHILS # (AUTO) 8.1 X10'3 (1.8-7.7); NEUTROPHILS % (AUTO) 76.2 % (42-75); PLATELET COUNT 555 X10'3 (140-440); RED BLOOD COUNT 4.21 X10'6 (4.70-6.10); RED CELL DISTRIBUTION WIDTH 29.5 % (11.5-14.5); WHITE BLOOD COUNT 10.6 X10'3 (4.5-11.0)
[2022-08-07 07:20] LABS: ANION GAP 2 (8-16); BLOOD UREA NITROGEN 16 MG/DL (7-18); CALCIUM 8.7 MG/DL (8.5-10.1); CHLORIDE 101 MMOL/L (99-107); GLUCOSE 137 MG/DL (70-104); LIPASE 99 U/L (73-393); MAGNESIUM 2.2 MG/DL (1.5-2.4); POTASSIUM 4.1 MMOL/L (3.5-5.1); SODIUM 138 MMOL/L (135-145); eGFR > 90 ML/MIN
[2022-08-07] MEDS: methylPREDNISolone sod succ/PF 40mg inj. IV SCH (07:33)
[2022-08-07] MEDS: cefepime 1GM/NS ADD-VANTAGE 100 ML IV SCH ×2 (07:35)
[2022-08-07 07:59] LABS: PLATELET ESTIMATE INCREASED
[2022-08-07 08:00] LABS: ANISOCYTOSIS 3+; ELLIPTOCYTES FEW; HYPOCHROMASIA 1+; SCHISTOCYTES FEW; TARGET CELLS FEW
[2022-08-07] MEDS ORDERED: nicotine 14mg patch - 24hr TD SCH (08:00)
[2022-08-07] MEDS ORDERED: clopidogrel 75mg tablet PO SCH (08:00)
[2022-08-07] MEDS: K and/or MAG REPLACEMENT MC SCH (08:00)
[2022-08-07] MEDS ORDERED: metoprolol succinate 25mg (24-HOUR) SR. Tablet PO SCH (08:00)
[2022-08-07] MEDS ORDERED: aspirin 81mg, enteric-coated 1 TAB TABLET.DR PO SCH (08:00)
[2022-08-07] MEDS ORDERED: Fluticasone/Umeclidin/Vilanter (Trelegy Ellipta 100-62.5-25) PO SCH (08:00)
[2022-08-07] MEDS ORDERED: atorvastatin 20mg tablet PO SCH (08:00)
[2022-08-07] MEDS ORDERED: multivitamins, therapeutics tablet PO SCH (08:00)
[2022-08-07] MEDS: pantoprazole 40mg Tablet.DR PO SCH (08:06)
[2022-08-07] MEDS ORDERED: ALBU18HF2 INH (10:50)
[2022-08-07] MEDS ORDERED: IPRA3AMP31 NEB (10:50)
[2022-08-07] MEDS ORDERED: ASPI-1475 PO (10:50)
[2022-08-07] MEDS ORDERED: PRED10TA23 PO (10:50)
[2022-08-07] MEDS ORDERED: FLUT1BLS4 PO (10:50)
[2022-08-07] MEDS ORDERED: PANT40TA54 PO (10:50)
[2022-08-07] MEDS ORDERED: METO-395 PO (10:50)
[2022-08-07] MEDS ORDERED: ATOR-2 PO (10:50)
[2022-08-07] MEDS ORDERED: CLOP75TA33 PO (10:50)
[2022-08-07] MEDS ORDERED: LEVO750T68 PO (10:50)
--- NOTE | 2022-08-07 15:04 | NUR ---
Patient discharge home. Discharge information was provided and review with patient, whom verbalize understanding. Peripheral IV was removed from left wrist. Patient stated he did not have transport home, cab was called for patient with approval from nursing cardroom supervisor. Staff assisted patient to cab with call belongings.
[2022-08-11] MEDS ORDERED: folic acid 1mg tablet PO SCH (08:00)
[2022-08-11] MEDS ORDERED: thiamine 100mg tablet PO SCH (08:00)
== END 2022-08-07 14:22 | disposition home or self-care (01) | DRG 191 ==
LOC: ER 16:38 → ED HOLD 19:28 → PCU 3S 22:00
PROVIDERS: ADMIT Internal Medicine; ATTEND Internal Medicine
DX: J44.1 Chronic obstructive pulmonary disease with (acute) exacerbation (principal); J96.11 Chronic respiratory failure with hypoxia; L03.114 Cellulitis of left upper limb; L03.113 Cellulitis of right upper limb; E78.5 Hyperlipidemia, unspecified; F17.210 Nicotine dependence, cigarettes, uncomplicated; I10 Essential (primary) hypertension; G89.29 Other chronic pain; M54.9 Dorsalgia, unspecified; F10.90 Alcohol use, unspecified, uncomplicated; R25.1 Tremor, unspecified; I25.10 Atherosclerotic heart disease of native coronary artery without angina pectoris; I25.2 Old myocardial infarction; Z59.00 Homelessness unspecified; Z79.899 Other long term (current) drug therapy; Z80.3 Family history of malignant neoplasm of breast; Z86.73 Personal history of transient ischemic attack (TIA), and cerebral infarction without residual deficits; Z91.14 Patient's other noncompliance with medication regimen; Z91.018 Allergy to other foods; Z71.6 Tobacco abuse counseling; Z71.41 Alcohol abuse counseling and surveillance of alcoholic
CPT/HCPCS: 36415; 71045; 80048; 80053; 80320; 83690; 83735; 83880; 84484; 85007; 85008; 85025; 85610; 87081; 93005; 94640; 94644; 94760; 96372; 96374; 99285; A4615; A7015; G0378; J0692; J1100; J2270; J2920; J2930; J7030

== ENCOUNTER 2022-08-16 15:20 | Emergency (ER) | payer MEDICARE, MEDICAID ==
[~2022-08-16] VITALS: Ht 188 cm; Wt 75.0 kg
[~2022-08-16 15:20] MED LIST changes: -AZIT-83 PO; +PRED10TA23 PO; -PRED20TA PO; -thiamine tablet PO
[2022-08-16] MEDS ORDERED: LIDOCAINE 2%/EPI 1:100,000 inj. Multi-dose 20 ML VIAL IJ ONE (15:35)
[2022-08-16 16:29] LABS: BASOPHILS % (AUTO) 0.2 % (0-1); EOSINOPHILS % (AUTO) 0.4 % (0-6); HEMATOCRIT 43.7 % (42.0-52.0); HEMOGLOBIN 13.9 g/dl (14.0-17.9); LYMPHOCYTES # (AUTO) 2.1 X10'3 (1.1-4.8); LYMPHOCYTES % (AUTO) 24.3 % (21-51); MEAN CORPUSCULAR HEMOGLOBIN 27.1 PG (27.0-31.0); MEAN CORPUSCULAR HGB CONC 31.8 g/dL (33.0-36.5); MEAN CORPUSCULAR VOLUME 85.1 FL (78-98); MEAN PLATELET VOLUME 6.6 FL (7.4-10.4); MONOCYTES # (AUTO) 0.8 X10'3 (0-0.9); MONOCYTES % (AUTO) 9.5 % (2-12); NEUTROPHILS # (AUTO) 5.7 X10'3 (1.8-7.7); NEUTROPHILS % (AUTO) 65.6 % (42-75); PLATELET COUNT 567 X10'3 (140-440); RED BLOOD COUNT 5.13 X10'6 (4.70-6.10); RED CELL DISTRIBUTION WIDTH 29.1 % (11.5-14.5); WHITE BLOOD COUNT 8.7 X10'3 (4.5-11.0)
[2022-08-16 16:55] LABS: ALANINE AMINOTRANSFERASE 29 U/L (12-78); ALBUMIN 3.5 G/DL (3.4-5.0); ALKALINE PHOSPHATASE 98 IU/L (46-116); ANION GAP 4 (8-16); ASPARTATE AMINO TRANSFERASE 19 U/L (10-37); BILIRUBIN,TOTAL 0.2 MG/DL (0.1-1.0); BLOOD UREA NITROGEN 9 MG/DL (7-18); BUN/CREATININE RATIO 23.1 (5.4-32.0); CALCIUM 8.9 MG/DL (8.5-10.1); CHLORIDE 100 MMOL/L (99-107); CREATININE 0.39 MG/DL (0.60-1.10); ETHANOL 0.175 GM/DL (0.0-0.010); GLUCOSE 92 MG/DL (70-104); POTASSIUM 4.8 MMOL/L (3.5-5.1); SODIUM 141 MMOL/L (135-145); TOTAL CARBON DIOXIDE 37.4 MMOL/L (24-32); TOTAL PROTEIN 7.1 G/DL (6.4-8.2); eGFR > 90 ML/MIN
[2022-08-16 17:03] LABS: ANISOCYTOSIS 3+; ELLIPTOCYTES FEW; HYPOCHROMASIA 1+; PLATELET ESTIMATE INCREASED; SCHISTOCYTES FEW
[2022-08-16] MEDS ORDERED: albuterol 2.5 MG/3 ML nebule CONTNEB PRN (17:15)
[2022-08-16] MEDS ORDERED: methylPREDNISolone sod succ 125mg/2ml vial IV ONE (17:15)
[2022-08-16] MEDS ORDERED: albuterol 2.5 MG/3 ML nebule ONE (17:18)
[2022-08-16] MEDS ORDERED: normal saline 1000ML IV soln IVB ONE (17:20)
[2022-08-16 18:49] VITALS: BP 100/71
== END 2022-08-16 19:54 | disposition home or self-care (01) ==
LOC: ER 15:21
DX: S01.81XA Laceration without foreign body of other part of head, initial encounter (principal); F10.929 Alcohol use, unspecified with intoxication, unspecified; J45.901 Unspecified asthma with (acute) exacerbation; I11.0 Hypertensive heart disease with heart failure; Z79.899 Other long term (current) drug therapy; Z79.1 Long term (current) use of non-steroidal anti-inflammatories (NSAID); W19.XXXA Unspecified fall, initial encounter; Y93.89 Activity, other specified; Y92.89 Other specified places as the place of occurrence of the external cause; Y99.8 Other external cause status
CPT/HCPCS: 12001; 36415; 70450; 70486; 71045; 72125; 80053; 80320; 85008; 85025; 94640; 96374; 96375; 99285; J2930; J7030; A6449; A7015

== ENCOUNTER 2022-08-17 10:09 | Emergency (ER) | payer MEDICARE, MEDICAID ==
[~2022-08-17] VITALS: Ht 188 cm; Wt 77.3 kg
[2022-08-17 10:25] VITALS: BP 155/105
[2022-08-17] MEDS ORDERED: ipratropium/albuterol 3ml nebule NEB ONE (10:25)
--- NOTE | 2022-08-17 10:34 | NUR ---
RN PAGED RT TO GIVE RESP TX.
--- NOTE | 2022-08-17 10:45 | NUR ---
RT AT BEDSIDE.
[2022-08-18] MEDS ORDERED: PRED10TA23 PO (04:28)
[2022-08-18] MEDS ORDERED: DOXY100T2 PO (04:28)
[2022-08-18] MEDS ORDERED: ALBU6.7H14 INH (04:28)
[2022-08-18] MEDS ORDERED: IPRA3AMP31 IH (22:57)
== END 2022-08-17 11:31 | disposition home or self-care (01) ==
LOC: ER 10:10
DX: R07.89 Other chest pain (principal); J44.9 Chronic obstructive pulmonary disease, unspecified; F10.129 Alcohol abuse with intoxication, unspecified; G89.29 Other chronic pain; M54.50 Low back pain, unspecified; Y90.9 Presence of alcohol in blood, level not specified
CPT/HCPCS: 71045; 94640; 94760; 99283

== ENCOUNTER 2022-08-17 19:12 | Emergency (ER) | payer MEDICARE, MEDICAID ==
[~2022-08-17] VITALS: Ht 188 cm; Wt 75.0 kg
[2022-08-18] MEDS ORDERED: ipratropium/albuterol 3ml nebule NEB STA (01:25)
[2022-08-18] MEDS ORDERED: methylPREDNISolone sod succ 125mg/2ml vial IV STA (01:27)
[2022-08-18 02:24] LABS: ABG BASE EXCESS 4.2 mmol/L (-2.0-2.0); ABG HCO3 30.1 mmol/L (22.0-26.0); ABG OXYGEN SATURATION 96.3 % (94-97); ABG PCO2 (T) 49.9 mmHg (35.0-48.0); ABG PO2 (T) 85.5 mmHg (75.0-100.0); ALLEN'S TEST POSITIVE; FCOHb 0.9 % (0.0-3.9); FLOW 4 L/min; FMetHb 0.3 % (0.0-1.5); FO2Hb 95.1 % (94-97); PATIENT TEMPERATURE 36.8; TOTAL HEMOGLOBIN 13.9 G/dl (14.0-17.9)
[2022-08-18] MEDS ORDERED: PRED10TA23 PO (04:28)
[2022-08-18] MEDS ORDERED: ALBU6.7H14 INH (04:28)
[2022-08-18] MEDS ORDERED: DOXY100T2 PO (04:28)
[2022-08-18 04:36] VITALS: BP 153/92
[2022-08-18] MEDS ORDERED: IPRA3AMP31 IH (22:57)
== END 2022-08-18 05:03 | disposition home or self-care (01) ==
LOC: ER 19:14
DX: J44.1 Chronic obstructive pulmonary disease with (acute) exacerbation (principal); I11.9 Hypertensive heart disease without heart failure; G89.29 Other chronic pain; M54.9 Dorsalgia, unspecified
CPT/HCPCS: 36600; 71045; 82803; 85018; 94640; 96374; 99283; J2930; 94760

== ENCOUNTER 2022-08-18 21:43 | Emergency (ER) | payer MEDICARE, MEDICAID ==
[~2022-08-18] VITALS: Ht 188 cm; Wt 75.0 kg
[~2022-08-18 21:43] MED LIST changes: +ALBU6.7H14 INH; +DOXY100T2 PO
[2022-08-18 22:44] VITALS: BP 138/100
[2022-08-18] MEDS ORDERED: IPRA3AMP31 IH (22:57)
[2022-08-18] MEDS ORDERED: ipratropium/albuterol 3ml nebule NEB ONE (23:00)
[2022-08-18] MEDS ORDERED: predniSONE 20 mg tablet PO ONE (23:00)
[2022-08-18] MEDS ORDERED: DOXYCYCLINE 100MG CAPSULE PO STA (23:41)
--- NOTE | 2022-08-18 23:57 | NUR ---
Here very often, sometimes more than once per day. He states he is SOB and needs a neb tx. He doesn't get his meds filled, drinks alcohol all day long and calls EMS.
[2022-08-19] MEDS ORDERED: doxycycline inj 100 MG in normal saline 100ml IV soln 100 ML IV SCH (23:01)
== END 2022-08-19 00:06 | disposition home or self-care (01) ==
LOC: ER 21:44
DX: J44.9 Chronic obstructive pulmonary disease, unspecified (principal); G89.29 Other chronic pain; M54.50 Low back pain, unspecified; F17.200 Nicotine dependence, unspecified, uncomplicated; Z91.018 Allergy to other foods
CPT/HCPCS: 94640; 99283; J7512; 94760

== ENCOUNTER 2022-09-17 20:23 | Emergency (ER) | payer MEDICARE, MEDICAID ==
[~2022-09-17] VITALS: Ht 188 cm; Wt 75.0 kg
[~2022-09-17 20:23] MED LIST changes: +ALBU17AE26 IH; -ALBU18HF2 INH; -ALBU6.7H14 INH; +ASPI-1071 PO; -ASPI-1475 PO; -CLOP75TA33 PO; +CLOP75TA34 PO; -DOXY100T2 PO; +FERR325T7 PO; +FLUT1BLS4 INH; -FLUT1BLS4 PO; +FURO20TA4 PO
[2022-09-17] MEDS ORDERED: ipratropium/albuterol 3ml nebule NEB ONE (20:30)
[2022-09-17] MEDS ORDERED: dexamethasone sod phosphate 10mg/ml inj PO STA (20:32)
[2022-09-17 20:51] LABS: BASOPHILS % (AUTO) 0.4 % (0-1); EOSINOPHILS # (AUTO) 0.1 X10'3 (0-0.9); EOSINOPHILS % (AUTO) 1.1 % (0-6); HEMATOCRIT 40.1 % (42.0-52.0); HEMOGLOBIN 12.9 g/dl (14.0-17.9); LYMPHOCYTES # (AUTO) 1.9 X10'3 (1.1-4.8); MEAN CORPUSCULAR HEMOGLOBIN 29.3 PG (27.0-31.0); MEAN CORPUSCULAR HGB CONC 32.1 g/dL (33.0-36.5); MEAN CORPUSCULAR VOLUME 91.3 FL (78-98); MEAN PLATELET VOLUME 6.6 FL (7.4-10.4); MONOCYTES # (AUTO) 0.7 X10'3 (0-0.9); MONOCYTES % (AUTO) 10.5 % (2-12); NEUTROPHILS # (AUTO) 4.3 X10'3 (1.8-7.7); PLATELET COUNT 495 X10'3 (140-440); RED BLOOD COUNT 4.39 X10'6 (4.70-6.10); RED CELL DISTRIBUTION WIDTH 25.7 % (11.5-14.5)
[2022-09-17 21:09] LABS: ALANINE AMINOTRANSFERASE 25 U/L (12-78); ALBUMIN 3.5 G/DL (3.4-5.0); ALBUMIN/GLOBULIN RATIO 1.1 (1.1-1.5); ALKALINE PHOSPHATASE 110 IU/L (46-116); ANION GAP 7 (8-16); ASPARTATE AMINO TRANSFERASE 20 U/L (10-37); BILIRUBIN,TOTAL 0.2 MG/DL (0.1-1.0); BLOOD UREA NITROGEN 6 MG/DL (7-18); BUN/CREATININE RATIO 11.5 (10.0-20.0); CALCIUM 8.6 MG/DL (8.5-10.1); CHLORIDE 98 MMOL/L (99-107); CREATININE 0.52 MG/DL (0.60-1.10); GLUCOSE 89 MG/DL (70-104); POTASSIUM 4.9 MMOL/L (3.5-5.1); SODIUM 137 MMOL/L (135-145); TOTAL CARBON DIOXIDE 31.8 MMOL/L (24-32); TOTAL PROTEIN 6.7 G/DL (6.4-8.2); eGFR > 90 ML/MIN
[2022-09-17 22:09] LABS: ANISOCYTOSIS 3+; ELLIPTOCYTES FEW; HYPOCHROMASIA 1+; PLATELET ESTIMATE INCREASED
[2022-09-17] MEDS ORDERED: DOXYCYCLINE 100MG CAPSULE PO STA (23:02)
[2022-09-17] MEDS ORDERED: DOXY-1 PO (23:11)
[2022-09-17] MEDS ORDERED: ALBU8HFA PO (23:11)
[2022-09-18 00:24] VITALS: BP 125/76
== END 2022-09-17 21:05 | disposition home or self-care (01) ==
LOC: ER 20:24
DX: J18.9 Pneumonia, unspecified organism (principal); Z20.822 Contact with and (suspected) exposure to COVID-19; I11.9 Hypertensive heart disease without heart failure; J44.9 Chronic obstructive pulmonary disease, unspecified; G89.29 Other chronic pain; M54.9 Dorsalgia, unspecified; Z88.8 Allergy status to other drugs, medicaments and biological substances; Z79.899 Other long term (current) drug therapy; Z79.1 Long term (current) use of non-steroidal anti-inflammatories (NSAID); Z79.2 Long term (current) use of antibiotics
CPT/HCPCS: 36415; 71046; 80053; 80320; 83880; 84484; 85008; 85025; 87811; 93005; 94640; 99285; J1100; 94760

== ENCOUNTER 2022-09-28 00:41 | Emergency (ER) | payer MEDICARE, MEDICAID ==
[~2022-09-28] VITALS: Ht 188 cm; Wt 75.0 kg
[~2022-09-28 00:41] MED LIST changes: +ALBU8HFA PO
[2022-09-28 00:47] VITALS: BP 101/80
[2022-09-28 01:17] LABS: ALANINE AMINOTRANSFERASE 25 U/L (12-78); ALBUMIN 3.3 G/DL (3.4-5.0); ALKALINE PHOSPHATASE 97 IU/L (46-116); ANION GAP 4 (8-16); ASPARTATE AMINO TRANSFERASE 17 U/L (10-37); BILIRUBIN,TOTAL 0.2 MG/DL (0.1-1.0); BLOOD UREA NITROGEN 13 MG/DL (7-18); BUN/CREATININE RATIO 21.3 (10.0-20.0); CALCIUM 8.6 MG/DL (8.5-10.1); CHLORIDE 100 MMOL/L (99-107); CREATININE 0.61 MG/DL (0.60-1.10); GLUCOSE 126 MG/DL (70-104); POTASSIUM 3.8 MMOL/L (3.5-5.1); SODIUM 140 MMOL/L (135-145); TOTAL CARBON DIOXIDE 35.6 MMOL/L (24-32); TOTAL PROTEIN 6.6 G/DL (6.4-8.2); eGFR > 90 ML/MIN
[2022-09-28 01:25] LABS: MAGNESIUM 2.2 MG/DL (1.5-2.4)
[2022-09-28 01:27] LABS: BASOPHILS # (AUTO) 0.1 X10'3 (0-0.2); BASOPHILS % (AUTO) 1.1 % (0-1); EOSINOPHILS # (AUTO) 0.1 X10'3 (0-0.9); EOSINOPHILS % (AUTO) 0.7 % (0-6); HEMOGLOBIN 13.2 g/dl (14.0-17.9); LYMPHOCYTES # (AUTO) 2.2 X10'3 (1.1-4.8); LYMPHOCYTES % (AUTO) 23.2 % (21-51); MEAN CORPUSCULAR HGB CONC 33.8 g/dL (33.0-36.5); MEAN CORPUSCULAR VOLUME 91.7 FL (78-98); MEAN PLATELET VOLUME 7.1 FL (7.4-10.4); MONOCYTES # (AUTO) 1.8 X10'3 (0-0.9); MONOCYTES % (AUTO) 19.6 % (2-12); NEUTROPHILS # (AUTO) 5.2 X10'3 (1.8-7.7); NEUTROPHILS % (AUTO) 55.4 % (42-75); PLATELET COUNT 561 X10'3 (140-440); RED BLOOD COUNT 4.25 X10'6 (4.70-6.10); RED CELL DISTRIBUTION WIDTH 22.6 % (11.5-14.5); WHITE BLOOD COUNT 9.4 X10'3 (4.5-11.0)
[2022-09-28 02:16] LABS: ANISOCYTOSIS 3+; PLATELET ESTIMATE INCREASED; TOTAL CELLS COUNTED 100
[2022-09-28] MEDS ORDERED: ALBU18HF2 PO (02:16)
[2022-09-28 02:18] LABS: ELLIPTOCYTES FEW
[2022-09-28] MEDS ORDERED: FURO-150 PO (02:23)
[2022-09-28] MEDS ORDERED: PRED10TA23 PO (02:26)
[2022-10-01] MEDS ORDERED: LEVO-65 PO (09:17)
[2022-10-01] MEDS ORDERED: PRED20TA PO (09:17)
== END 2022-09-28 03:42 | disposition home or self-care (01) ==
LOC: ER 00:42
DX: R07.89 Other chest pain (principal); I25.10 Atherosclerotic heart disease of native coronary artery without angina pectoris; I25.2 Old myocardial infarction; J44.9 Chronic obstructive pulmonary disease, unspecified; G89.29 Other chronic pain; F17.200 Nicotine dependence, unspecified, uncomplicated; Z72.89 Other problems related to lifestyle; Z79.82 Long term (current) use of aspirin; Z79.899 Other long term (current) drug therapy
CPT/HCPCS: 36415; 71045; 80053; 83605; 83735; 83880; 84145; 84484; 85007; 85025; 87040; 93005; 99285

== ENCOUNTER 2022-10-08 23:13 | Emergency (ER) | payer MEDICARE, MEDICAID ==
[~2022-10-08] VITALS: Ht 188 cm; Wt 79.5 kg
[~2022-10-08 23:13] MED LIST changes: -ALBU17AE26 IH; +ALBU18HF2 PO; -ALBU8HFA PO; +FURO-150 PO; -FURO20TA4 PO; +LEVO-65 PO; -PRED10TA23 PO
[2022-10-08] MEDS ORDERED: methylPREDNISolone sod succ 125mg/2ml vial IV ONE (23:40)
[2022-10-08] MEDS ORDERED: ipratropium/albuterol 3ml nebule NEB ONE (23:40)
[2022-10-08 23:57] LABS: BASOPHILS # (AUTO) 0.1 X10'3 (0-0.2); EOSINOPHILS # (AUTO) 0.1 X10'3 (0-0.9); HEMOGLOBIN 14.4 g/dl (14.0-17.9); MEAN PLATELET VOLUME 6.7 FL (7.4-10.4)
[2022-10-08 23:58] LABS: BASOPHILS % (AUTO) 1.2 % (0-1); EOSINOPHILS % (AUTO) 1.4 % (0-6); HEMATOCRIT 43.4 % (42.0-52.0); LYMPHOCYTES # (AUTO) 2.2 X10'3 (1.1-4.8); MEAN CORPUSCULAR HEMOGLOBIN 30.6 PG (27.0-31.0); MEAN CORPUSCULAR HGB CONC 33.1 g/dL (33.0-36.5); MEAN CORPUSCULAR VOLUME 92.4 FL (78-98); MONOCYTES # (AUTO) 1.2 X10'3 (0-0.9); MONOCYTES % (AUTO) 15.7 % (2-12); NEUTROPHILS # (AUTO) 4.2 X10'3 (1.8-7.7); NEUTROPHILS % (AUTO) 53.7 % (42-75); PLATELET COUNT 639 X10'3 (140-440); RED BLOOD COUNT 4.69 X10'6 (4.70-6.10); RED CELL DISTRIBUTION WIDTH 19.5 % (11.5-14.5); WHITE BLOOD COUNT 7.8 X10'3 (4.5-11.0)
[2022-10-09 00:07] LABS: ALANINE AMINOTRANSFERASE 25 U/L (12-78); ALBUMIN 3.8 G/DL (3.4-5.0); ALBUMIN/GLOBULIN RATIO 1.1 (1.1-1.5); ALKALINE PHOSPHATASE 112 IU/L (46-116); ANION GAP 0 (8-16); ASPARTATE AMINO TRANSFERASE 19 U/L (10-37); BILIRUBIN,TOTAL 0.4 MG/DL (0.1-1.0); BLOOD UREA NITROGEN 6 MG/DL (7-18); BUN/CREATININE RATIO 13.6 (10.0-20.0); CHLORIDE 100 MMOL/L (99-107); CREATININE 0.44 MG/DL (0.60-1.10); GLUCOSE 89 MG/DL (70-104); POTASSIUM 4.1 MMOL/L (3.5-5.1); SODIUM 135 MMOL/L (135-145); TOTAL CARBON DIOXIDE 35.2 MMOL/L (24-32); TOTAL PROTEIN 7.2 G/DL (6.4-8.2); eGFR > 90 ML/MIN
[2022-10-09 02:12] LABS: ABG BASE EXCESS 4.4 mmol/L (-2.0-2.0); ABG OXYGEN SATURATION 92.4 % (94-97); ABG PCO2 (T) 48.3 mmHg (35.0-48.0); ABG PO2 (T) 65.1 mmHg (75.0-100.0); ALLEN'S TEST POSITIVE; FCOHb 2.8 % (0.0-3.9); FLOW 2 L/min; FMetHb 0.3 % (0.0-1.5); FO2Hb 89.5 % (94-97); TOTAL HEMOGLOBIN 14.5 G/dl (14.0-17.9)
[2022-10-09 02:21] VITALS: BP 109/75
[2022-10-09] MEDS ORDERED: ipratropium/albuterol 3ml nebule NEB ONE (03:00)
[2022-10-09 03:01] LABS: TOTAL CELLS COUNTED 100
[2022-10-09 03:02] LABS: ANISOCYTOSIS 2+; PLATELET ESTIMATE INCREASED
[2022-10-09 03:04] LABS: POIKILOCYTOSIS FEW
[2022-10-09] MEDS ORDERED: aspirin 325mg tablet PO ONE (03:30)
== END 2022-10-09 05:11 | disposition home or self-care (01) ==
LOC: ER 23:14
DX: R07.9 Chest pain, unspecified (principal); J44.9 Chronic obstructive pulmonary disease, unspecified; Z79.899 Other long term (current) drug therapy
CPT/HCPCS: 36415; 36600; 71046; 80053; 82803; 83605; 83880; 84484; 85007; 85018; 85025; 87040; 93005; 94640; 96374; 99285; J2930; 94760

== ENCOUNTER 2022-10-09 20:09 | Emergency (ER) | payer MEDICARE, MEDICAID ==
[~2022-10-09] VITALS: Ht 188 cm; Wt 77.3 kg
[2022-10-09] MEDS ORDERED: methylPREDNISolone sod succ 125mg/2ml vial IV ONE (20:25)
[2022-10-09] MEDS ORDERED: ketorolac trometh. 30mg/ml inj. IV ONE (20:25)
[2022-10-09] MEDS ORDERED: LORazepam 2 mg/ml vial IV ONE (20:25)
[2022-10-09 20:37] LABS: LYMPHOCYTES # (AUTO) 0.6 X10'3 (1.1-4.8); MEAN CORPUSCULAR HEMOGLOBIN 30.4 PG (27.0-31.0); MONOCYTES # (AUTO) 0.3 X10'3 (0-0.9); MONOCYTES % (AUTO) 3.7 % (2-12); NEUTROPHILS # (AUTO) 7.2 X10'3 (1.8-7.7); NEUTROPHILS % (AUTO) 87.7 % (42-75); WHITE BLOOD COUNT 8.2 X10'3 (4.5-11.0)
[2022-10-09 20:39] LABS: BASOPHILS % (AUTO) 0.6 % (0-1); EOSINOPHILS % (AUTO) 0.2 % (0-6); HEMATOCRIT 41.7 % (42.0-52.0); HEMOGLOBIN 13.7 g/dl (14.0-17.9); LYMPHOCYTES % (AUTO) 7.8 % (21-51); MEAN CORPUSCULAR HGB CONC 32.9 g/dL (33.0-36.5); MEAN CORPUSCULAR VOLUME 92.6 FL (78-98); PLATELET COUNT 646 X10'3 (140-440); RED BLOOD COUNT 4.51 X10'6 (4.70-6.10); RED CELL DISTRIBUTION WIDTH 19.5 % (11.5-14.5)
[2022-10-09 20:49] LABS: ALANINE AMINOTRANSFERASE 24 U/L (12-78); ALBUMIN 3.5 G/DL (3.4-5.0); ALKALINE PHOSPHATASE 98 IU/L (46-116); ANION GAP 6 (8-16); ASPARTATE AMINO TRANSFERASE 17 U/L (10-37); BILIRUBIN,TOTAL 0.4 MG/DL (0.1-1.0); BLOOD UREA NITROGEN 17 MG/DL (7-18); BUN/CREATININE RATIO 19.8 (10.0-20.0); CALCIUM 8.9 MG/DL (8.5-10.1); CHLORIDE 97 MMOL/L (99-107); CREATININE 0.86 MG/DL (0.60-1.10); GLUCOSE 104 MG/DL (70-104); POTASSIUM 4.8 MMOL/L (3.5-5.1); SODIUM 135 MMOL/L (135-145); TOTAL CARBON DIOXIDE 32.3 MMOL/L (24-32); TOTAL PROTEIN 7.1 G/DL (6.4-8.2); eGFR > 90 ML/MIN
[2022-10-09 22:23] LABS: ANISOCYTOSIS 2+; PLATELET ESTIMATE INCREASED; TOTAL CELLS COUNTED 100
[2022-10-09 22:24] LABS: ACANTHOCYTES FEW; BURR CELLS FEW; ELLIPTOCYTES FEW; SMUDGE CELLS FEW; TOXIC GRANULATION 1+; TOXIC VACUOLATION FEW
[2022-10-09] MEDS ORDERED: ipratropium/albuterol 3ml nebule NEB STA (22:35)
[2022-10-10 00:50] VITALS: BP 121/86
== END 2022-10-10 00:52 | disposition home or self-care (01) ==
LOC: ER 20:10
DX: J45.901 Unspecified asthma with (acute) exacerbation (principal); R07.9 Chest pain, unspecified; F17.200 Nicotine dependence, unspecified, uncomplicated; Z79.899 Other long term (current) drug therapy; Z79.1 Long term (current) use of non-steroidal anti-inflammatories (NSAID); Z79.2 Long term (current) use of antibiotics
CPT/HCPCS: 36415; 71045; 80053; 83880; 84484; 85007; 85025; 93005; 94640; 96374; 96375; 99285; J1885; J2060; J2930; 94760

== ENCOUNTER 2022-10-26 20:51 | Emergency (ER) | payer MEDICARE, MEDICAID ==
[~2022-10-26] VITALS: Ht 188 cm; Wt 74.5 kg
[~2022-10-26 20:51] MED LIST changes: -ATOR-2 PO; +BENZ-111 PO; +CEFD300C3 PO; -FURO-150 PO; +LACT1CAP55 PO; -LEVO-65 PO; +PRED10TA23 PO; +THIA50TA10 PO
[2022-10-26 21:34] LABS: BASOPHILS # (AUTO) 0.1 X10'3 (0-0.2); EOSINOPHILS % (AUTO) 1.3 % (0-6); MEAN PLATELET VOLUME 6.5 FL (7.4-10.4); MONOCYTES # (AUTO) 1.7 X10'3 (0-0.9); WHITE BLOOD COUNT 11.6 X10'3 (4.5-11.0)
[2022-10-26 21:36] LABS: BASOPHILS % (AUTO) 0.6 % (0-1); EOSINOPHILS # (AUTO) 0.2 X10'3 (0-0.9); HEMATOCRIT 37.8 % (42.0-52.0); HEMOGLOBIN 12.7 g/dl (14.0-17.9); MEAN CORPUSCULAR HEMOGLOBIN 31.7 PG (27.0-31.0); MEAN CORPUSCULAR HGB CONC 33.5 g/dL (33.0-36.5); MEAN CORPUSCULAR VOLUME 94.8 FL (78-98); MONOCYTES % (AUTO) 14.6 % (2-12); NEUTROPHILS # (AUTO) 6.7 X10'3 (1.8-7.7); NEUTROPHILS % (AUTO) 57.5 % (42-75); PLATELET COUNT 653 X10'3 (140-440); RED BLOOD COUNT 3.99 X10'6 (4.70-6.10); RED CELL DISTRIBUTION WIDTH 17.3 % (11.5-14.5)
[2022-10-26 21:46] LABS: ALANINE AMINOTRANSFERASE 43 U/L (12-78); ALBUMIN 3.6 G/DL (3.4-5.0); ALBUMIN/GLOBULIN RATIO 1.1 (1.1-1.5); ALKALINE PHOSPHATASE 102 IU/L (46-116); ANION GAP 6 (8-16); ASPARTATE AMINO TRANSFERASE 17 U/L (10-37); BILIRUBIN,TOTAL 0.2 MG/DL (0.1-1.0); BLOOD UREA NITROGEN 17 MG/DL (7-18); BUN/CREATININE RATIO 23.9 (10.0-20.0); CALCIUM 8.7 MG/DL (8.5-10.1); CHLORIDE 98 MMOL/L (99-107); CREATININE 0.71 MG/DL (0.60-1.10); GLUCOSE 106 MG/DL (70-104); POTASSIUM 3.6 MMOL/L (3.5-5.1); SODIUM 133 MMOL/L (135-145); TOTAL CARBON DIOXIDE 28.8 MMOL/L (24-32); TOTAL PROTEIN 6.9 G/DL (6.4-8.2); eGFR > 90 ML/MIN
[2022-10-26 22:33] LABS: TOTAL CELLS COUNTED 100
[2022-10-26 22:37] LABS: ANISOCYTOSIS 1+; PLATELET ESTIMATE INCREASED
[2022-10-26 22:39] LABS: ELLIPTOCYTES FEW; POIKILOCYTOSIS FEW; SMUDGE CELLS FEW
--- NOTE | 2022-10-27 00:14 | NUR ---
pt requested a cab a bit ago and one was called and there is an extended wait of over an hour. He is loud and boustrous in the lobby so security was notified to give him a talk to.
--- NOTE | 2022-10-27 02:13 | NUR ---
PATIENT ARRIVED TO ROOM
[2022-10-27] MEDS ORDERED: ipratropium/albuterol 3ml nebule NEB ONE (03:00)
[2022-10-27] MEDS ORDERED: azithromycin/NS 500mg/250ml 250 ML IV ONE (03:00)
[2022-10-27] MEDS ORDERED: normal saline 500ml IV soln 500 ML IV ONE (03:00)
[2022-10-27] MEDS ORDERED: albuterol 2.5 MG/3 ML nebule NEB ONE (05:10)
[2022-10-27 06:00] VITALS: BP 112/79
== END 2022-10-27 06:01 | disposition home or self-care (01) ==
LOC: ER 20:51
DX: J44.1 Chronic obstructive pulmonary disease with (acute) exacerbation (principal); I51.9 Heart disease, unspecified; J45.909 Unspecified asthma, uncomplicated; G89.29 Other chronic pain; M54.9 Dorsalgia, unspecified; Z91.040 Latex allergy status
CPT/HCPCS: 36415; 71045; 80053; 83605; 83880; 84484; 85007; 85025; 87040; 93005; 94640; 96365; 99285; J0456; J7030; J7040; 94760

== ENCOUNTER 2022-10-29 02:29 | Emergency (ER) | payer MEDICARE, MEDICAID ==
[~2022-10-29] VITALS: Ht 188 cm; Wt 120.5 kg
[2022-10-29] MEDS ORDERED: ipratropium/albuterol 3ml nebule NEB ONE (03:40)
--- NOTE | 2022-10-29 03:49 | NUR ---
pt is very beligerant right now. He wants his c collar off. Visited with him about why that is not a good idea and pt said he don't care. He is moving around in the bed despite being told to please dont that it is for his own good just in case, until that report comes back.
--- NOTE | 2022-10-29 03:53 | NUR ---
Dr Mcdowell's stated C Collar can be removed, C spine clear. So done, pt very happy.
[2022-10-29 04:15] LABS: BASOPHILS # (AUTO) 0.1 X10'3 (0-0.2); BASOPHILS % (AUTO) 0.5 % (0-1); EOSINOPHILS # (AUTO) 0.1 X10'3 (0-0.9); HEMOGLOBIN 12.2 g/dl (14.0-17.9); MEAN PLATELET VOLUME 6.4 FL (7.4-10.4); WHITE BLOOD COUNT 10.4 X10'3 (4.5-11.0)
[2022-10-29 04:17] LABS: HEMATOCRIT 37.4 % (42.0-52.0); LYMPHOCYTES % (AUTO) 38.2 % (21-51); MEAN CORPUSCULAR HEMOGLOBIN 31.4 PG (27.0-31.0); MEAN CORPUSCULAR HGB CONC 32.7 g/dL (33.0-36.5); MEAN CORPUSCULAR VOLUME 96.1 FL (78-98); MONOCYTES # (AUTO) 1.4 X10'3 (0-0.9); MONOCYTES % (AUTO) 13.1 % (2-12); NEUTROPHILS # (AUTO) 4.9 X10'3 (1.8-7.7); NEUTROPHILS % (AUTO) 47.2 % (42-75); PLATELET COUNT 628 X10'3 (140-440); RED CELL DISTRIBUTION WIDTH 16.9 % (11.5-14.5)
[2022-10-29 04:27] LABS: ALANINE AMINOTRANSFERASE 34 U/L (12-78); ALBUMIN 3.3 G/DL (3.4-5.0); ALBUMIN/GLOBULIN RATIO 1.2 (1.1-1.5); ALKALINE PHOSPHATASE 78 IU/L (46-116); ANION GAP 5 (8-16); ASPARTATE AMINO TRANSFERASE 16 U/L (10-37); BILIRUBIN,TOTAL 0.1 MG/DL (0.1-1.0); BLOOD UREA NITROGEN 9 MG/DL (7-18); BUN/CREATININE RATIO 23.7 (10.0-20.0); CHLORIDE 101 MMOL/L (99-107); CREATININE 0.38 MG/DL (0.60-1.10); ETHANOL 0.209 GM/DL (0.0-0.010); GLUCOSE 88 MG/DL (70-104); LIPASE 124 U/L (73-393); POTASSIUM 3.5 MMOL/L (3.5-5.1); SODIUM 137 MMOL/L (135-145); TOTAL CARBON DIOXIDE 31.4 MMOL/L (24-32); eGFR > 90 ML/MIN
[2022-10-29 04:46] LABS: ANISOCYTOSIS 1+; PLATELET ESTIMATE INCREASED; TOTAL CELLS COUNTED 100
[2022-10-29 04:49] LABS: ACANTHOCYTES FEW; ELLIPTOCYTES FEW; SMUDGE CELLS FEW
[2022-10-29] MEDS ORDERED: albuterol 2.5 MG/3 ML nebule NEB ONE (06:05)
[2022-10-29 08:12] VITALS: BP 104/59
== END 2022-10-29 08:15 | disposition home or self-care (01) ==
LOC: ER 02:30
DX: F10.120 Alcohol abuse with intoxication, uncomplicated (principal); R06.02 Shortness of breath; M54.2 Cervicalgia; G89.29 Other chronic pain; Z79.82 Long term (current) use of aspirin; Z79.899 Other long term (current) drug therapy; Z79.2 Long term (current) use of antibiotics; I25.10 Atherosclerotic heart disease of native coronary artery without angina pectoris; I25.2 Old myocardial infarction; J44.9 Chronic obstructive pulmonary disease, unspecified; Z72.89 Other problems related to lifestyle; W19.XXXA Unspecified fall, initial encounter; Y93.89 Activity, other specified; Y92.89 Other specified places as the place of occurrence of the external cause; Y99.8 Other external cause status; Y90.7 Blood alcohol level of 200-239 mg/100 ml
CPT/HCPCS: 36415; 70450; 71250; 72125; 80053; 80320; 83690; 84484; 85007; 85025; 85610; 93005; 94640; 94760; 99285

== ENCOUNTER 2022-10-30 19:12 | Emergency (ER) | payer MEDICARE, MEDICAID ==
[~2022-10-30] VITALS: Ht 188 cm; Wt 75.0 kg
[2022-10-30 19:51] LABS: BASOPHILS # (AUTO) 0.1 X10'3 (0-0.2); BASOPHILS % (AUTO) 0.9 % (0-1); EOSINOPHILS # (AUTO) 0.1 X10'3 (0-0.9); MEAN CORPUSCULAR VOLUME 96.1 FL (78-98); WHITE BLOOD COUNT 11.2 X10'3 (4.5-11.0)
[2022-10-30 19:53] LABS: EOSINOPHILS % (AUTO) 0.9 % (0-6); HEMOGLOBIN 12.2 g/dl (14.0-17.9); LYMPHOCYTES # (AUTO) 3.6 X10'3 (1.1-4.8); LYMPHOCYTES % (AUTO) 31.9 % (21-51); MEAN CORPUSCULAR HEMOGLOBIN 31.7 PG (27.0-31.0); MEAN CORPUSCULAR HGB CONC 32.9 g/dL (33.0-36.5); MEAN PLATELET VOLUME 6.8 FL (7.4-10.4); MONOCYTES # (AUTO) 1.8 X10'3 (0-0.9); MONOCYTES % (AUTO) 15.8 % (2-12); NEUTROPHILS # (AUTO) 5.6 X10'3 (1.8-7.7); NEUTROPHILS % (AUTO) 50.5 % (42-75); PLATELET COUNT 519 X10'3 (140-440); RED BLOOD COUNT 3.85 X10'6 (4.70-6.10); RED CELL DISTRIBUTION WIDTH 17.1 % (11.5-14.5)
[2022-10-30 19:55] LABS: ALANINE AMINOTRANSFERASE 29 U/L (12-78); ALBUMIN 3.4 G/DL (3.4-5.0); ALBUMIN/GLOBULIN RATIO 1.3 (1.1-1.5); ALKALINE PHOSPHATASE 80 IU/L (46-116); ANION GAP 2 (8-16); ASPARTATE AMINO TRANSFERASE 16 U/L (10-37); BILIRUBIN,TOTAL 0.2 MG/DL (0.1-1.0); BLOOD UREA NITROGEN 5 MG/DL (7-18); BUN/CREATININE RATIO 12.2 (10.0-20.0); CALCIUM 8.5 MG/DL (8.5-10.1); CHLORIDE 98 MMOL/L (99-107); CREATININE 0.41 MG/DL (0.60-1.10); GLUCOSE 97 MG/DL (70-104); POTASSIUM 4.3 MMOL/L (3.5-5.1); SODIUM 134 MMOL/L (135-145); TOTAL CARBON DIOXIDE 33.8 MMOL/L (24-32); TOTAL PROTEIN 6.1 G/DL (6.4-8.2); eGFR > 90 ML/MIN
[2022-10-30 21:17] LABS: TOTAL CELLS COUNTED 100
[2022-10-30 21:18] LABS: ANISOCYTOSIS 1+; PLATELET ESTIMATE INCREASED; SMUDGE CELLS FEW
[2022-10-30 21:19] LABS: ELLIPTOCYTES FEW
[2022-10-30 21:21] LABS: LARGE PLATELETS FEW; SCHISTOCYTES FEW
[2022-10-31] MEDS ORDERED: ipratropium/albuterol 3ml nebule NEB ONE (03:00)
--- NOTE | 2022-10-31 03:38 | NUR ---
RT at bedside for a breathing treatment
[2022-10-31 03:53] VITALS: BP 114/71
== END 2022-10-31 03:56 | disposition home or self-care (01) ==
LOC: ER 19:13
DX: R07.89 Other chest pain (principal); J44.9 Chronic obstructive pulmonary disease, unspecified; F17.200 Nicotine dependence, unspecified, uncomplicated
CPT/HCPCS: 36415; 71045; 80053; 83880; 84484; 85007; 85025; 93005; 94640; 94760; 99285

== ENCOUNTER 2022-12-02 20:42 | Emergency (ER) | payer MEDICARE, MEDICAID ==
[~2022-12-02] VITALS: Ht 188 cm; Wt 73.6 kg
[~2022-12-02 20:42] MED LIST changes: -CEFD300C3 PO; -PRED10TA23 PO
[2022-12-02 20:46] VITALS: BP 125/85
[2022-12-02 21:16] LABS: ALANINE AMINOTRANSFERASE 21 U/L (12-78); ALBUMIN 3.6 G/DL (3.4-5.0); ALKALINE PHOSPHATASE 67 IU/L (46-116); ANION GAP 10 (8-16); ASPARTATE AMINO TRANSFERASE 23 U/L (10-37); BILIRUBIN,TOTAL 0.2 MG/DL (0.1-1.0); BLOOD UREA NITROGEN 10 MG/DL (7-18); BUN/CREATININE RATIO 14.9 (10.0-20.0); CALCIUM 8.9 MG/DL (8.5-10.1); CHLORIDE 99 MMOL/L (99-107); CREATININE 0.67 MG/DL (0.60-1.10); GLUCOSE 102 MG/DL (70-104); POTASSIUM 3.9 MMOL/L (3.5-5.1); SODIUM 139 MMOL/L (135-145); TOTAL CARBON DIOXIDE 29.9 MMOL/L (24-32); TOTAL PROTEIN 7.2 G/DL (6.4-8.2); eGFR > 90 ML/MIN
[2022-12-02 21:32] LABS: BASOPHILS # (AUTO) 0.1 X10'3 (0-0.2); BASOPHILS % (AUTO) 0.9 % (0-1); EOSINOPHILS % (AUTO) 0.5 % (0-6); HEMATOCRIT 36.8 % (42.0-52.0); HEMOGLOBIN 12.2 g/dl (14.0-17.9); LYMPHOCYTES # (AUTO) 3.1 X10'3 (1.1-4.8); LYMPHOCYTES % (AUTO) 33.1 % (21-51); MEAN CORPUSCULAR HEMOGLOBIN 31.5 PG (27.0-31.0); MEAN CORPUSCULAR HGB CONC 33.1 g/dL (33.0-36.5); MEAN CORPUSCULAR VOLUME 95.1 FL (78-98); MEAN PLATELET VOLUME 6.8 FL (7.4-10.4); MONOCYTES # (AUTO) 1.1 X10'3 (0-0.9); NEUTROPHILS % (AUTO) 53.5 % (42-75); PLATELET COUNT 562 X10'3 (140-440); RED BLOOD COUNT 3.87 X10'6 (4.70-6.10); RED CELL DISTRIBUTION WIDTH 15.8 % (11.5-14.5); WHITE BLOOD COUNT 9.4 X10'3 (4.5-11.0)
[2022-12-02] MEDS ORDERED: albuterol 2.5 MG/3 ML nebule NEB ONE (21:45)
[2022-12-02] MEDS ORDERED: ipratropium/albuterol 3ml nebule NEB ONE (21:45)
[2022-12-02] MEDS ORDERED: methylPREDNISolone sod succ 125mg/2ml vial IV ONE (21:45)
[2022-12-02] MEDS ORDERED: predniSONE 20 mg tablet PO ONE (22:10)
[2022-12-02] MEDS ORDERED: AZIT250T PO (22:18)
[2022-12-02] MEDS ORDERED: ALBU2.5V7 INH (22:18)
[2022-12-02] MEDS ORDERED: PRED20TA PO (22:18)
== END 2022-12-02 22:50 | disposition left against medical advice (07) ==
LOC: ER 20:43
DX: J44.1 Chronic obstructive pulmonary disease with (acute) exacerbation (principal); I25.10 Atherosclerotic heart disease of native coronary artery without angina pectoris; I25.2 Old myocardial infarction; J45.909 Unspecified asthma, uncomplicated; G89.29 Other chronic pain; Z86.73 Personal history of transient ischemic attack (TIA), and cerebral infarction without residual deficits; Z85.3 Personal history of malignant neoplasm of breast; Z72.89 Other problems related to lifestyle; Z79.82 Long term (current) use of aspirin; Z79.899 Other long term (current) drug therapy
CPT/HCPCS: 36415; 71045; 80053; 83880; 84484; 85025; 93005; 94640; 99285; J7512; 94760

== ENCOUNTER 2022-12-31 12:51 | Observation (INO) | payer MEDICARE, MEDICAID ==
[~2022-12-31] VITALS: Ht 188 cm; Wt 77.3 kg
[~2022-12-31 12:51] MED LIST changes: +ALBU2.5V7 INH
[2022-12-31] MEDS ORDERED: methylPREDNISolone sod succ 125mg/2ml vial IV ONE (13:00)
[2022-12-31] MEDS ORDERED: albuterol 2.5 MG/3 ML nebule CONTNEB PRN (13:00)
--- NOTE | 2022-12-31 13:01 | NUR ---
PT ARRIVED BY EMS WEARING [employer] TX BLOWING AT 8 L.
--- NOTE | 2022-12-31 13:14 | NUR ---
RN NOTIFIED RT THAT PT WILL NEED CONT NEB TX. RT WILL RETURN AND ADMIN.
[2022-12-31 13:22] VITALS: PULSE 88; RESP 20; O2SAT 98
[2022-12-31 13:28] LABS: BASOPHILS # (AUTO) 0.1 X10'3 (0-0.2); BASOPHILS % (AUTO) 1.3 % (0-1); EOSINOPHILS # (AUTO) 0.1 X10'3 (0-0.9); EOSINOPHILS % (AUTO) 1.2 % (0-6); HEMATOCRIT 41.4 % (42.0-52.0); HEMOGLOBIN 13.6 g/dl (14.0-17.9); LYMPHOCYTES # (AUTO) 1.9 X10'3 (1.1-4.8); LYMPHOCYTES % (AUTO) 31.5 % (21-51); MEAN CORPUSCULAR HEMOGLOBIN 30.9 PG (27.0-31.0); MEAN CORPUSCULAR HGB CONC 32.8 g/dL (33.0-36.5); MEAN CORPUSCULAR VOLUME 94.2 FL (78-98); MEAN PLATELET VOLUME 6.7 FL (7.4-10.4); MONOCYTES # (AUTO) 0.5 X10'3 (0-0.9); MONOCYTES % (AUTO) 7.7 % (2-12); NEUTROPHILS # (AUTO) 3.5 X10'3 (1.8-7.7); NEUTROPHILS % (AUTO) 58.3 % (42-75); PLATELET COUNT 541 X10'3 (140-440); RED CELL DISTRIBUTION WIDTH 16.7 % (11.5-14.5)
--- NOTE | 2022-12-31 13:42 | NUR ---
ANA PIÑA OBTAINING IV BY US AT THIS TIME.
[2022-12-31 13:43] LABS: ALANINE AMINOTRANSFERASE 28 U/L (12-78); ALBUMIN 3.9 G/DL (3.4-5.0); ALBUMIN/GLOBULIN RATIO 1.1 (1.1-1.5); ALKALINE PHOSPHATASE 81 IU/L (46-116); ANION GAP 11 (8-16); ASPARTATE AMINO TRANSFERASE 27 U/L (10-37); BILIRUBIN,TOTAL 0.3 MG/DL (0.1-1.0); BLOOD UREA NITROGEN 4 MG/DL (7-18); BUN/CREATININE RATIO 9.1 (10.0-20.0); CHLORIDE 103 MMOL/L (99-107); CREATININE 0.44 MG/DL (0.60-1.10); GLUCOSE 78 MG/DL (70-104); POTASSIUM 4.3 MMOL/L (3.5-5.1); SODIUM 143 MMOL/L (135-145); TOTAL CARBON DIOXIDE 29.4 MMOL/L (24-32); TOTAL PROTEIN 7.3 G/DL (6.4-8.2); eGFR > 90 ML/MIN
[2022-12-31] MEDS ORDERED: magnesium 2GM in 50ml NS 50 ML IV PRN (14:00)
[2022-12-31] MEDS ORDERED: acetaminophen 650mg rectal suppository RC PRN (14:00)
[2022-12-31] MEDS ORDERED: ondansetron 4mg rapidly disintigrating tab PO PRN (14:00)
[2022-12-31] MEDS ORDERED: ondansetron/PF 4mg/2ml inj IV PRN (14:00)
[2022-12-31] MEDS ORDERED: methylPREDNISolone sod succ/PF 40mg inj. IV SCH (14:00)
[2022-12-31] MEDS ORDERED: magnesium 4gm in 100ml NS 100 ML IV PRN (14:00)
[2022-12-31] MEDS ORDERED: acetaminophen 325mg tablet PO PRN ×2 (14:00)
[2022-12-31] MEDS ORDERED: potassium Cl 20 mEq SR tablet PO PRN ×2 (14:00)
[2022-12-31] MEDS ORDERED: magnesium Cl slow-release 64mg tablet PO PRN (14:00)
[2022-12-31] MEDS ORDERED: magnesium hydroxide 30ml (MOM) UD suspension PO PRN (14:00)
[2022-12-31] MEDS ORDERED: potassium Cl 40MEQ/1/2NS 520ml 520 ML IV PRN (14:00)
[2022-12-31] MEDS ORDERED: mag hydrox/Alum hydrox/simeth 30ml oral suspension PO PRN (14:00)
[2022-12-31] MEDS ORDERED: HYDROcodone/acetaminophen 5mg/325mg tablet PO PRN (14:00)
[2022-12-31] MEDS ORDERED: bisacodyl 10mg suppository rectal RC PRN (14:00)
[2022-12-31 14:23] LABS: MAGNESIUM 2.2 MG/DL (1.5-2.4)
[2022-12-31] MEDS: normal saline 1000ml 1,000 ML IV SCH ×2 (14:23→23:42)
[2022-12-31 14:24] VITALS: PULSE 94; RESP 16; O2SAT 95
[2022-12-31] MEDS ORDERED: ipratropium/albuterol 3ml nebule NEB SCH (15:00)
[2022-12-31] MEDS ORDERED: PRED10TA PO (16:26)
[2022-12-31] MEDS ORDERED: ATOR-2 PO (16:27)
[2022-12-31] MEDS ORDERED: HYDR25TA5 PO (16:28)
[2022-12-31] MEDS ORDERED: THIA50TA10 PO (16:29)
[2022-12-31] MEDS ORDERED: haloperidol 5mg tablet PO PRN (17:15)
[2022-12-31] MEDS ORDERED: LORazepam 1 MG tablet PO PRN (17:15)
[2022-12-31] MEDS ORDERED: LORazepam 2 mg/ml vial IV PRN (17:15)
[2022-12-31] MEDS ORDERED: haloperidol lactate 5mg/ml inj IM PRN (17:15)
[2022-12-31] MEDS ORDERED: thiamine 100mg/ml 2ml inj. IV ONE (17:15)
[2022-12-31] MEDS ORDERED: nicotine 14mg patch - 24hr TD ONE (17:15)
--- NOTE | 2022-12-31 17:30 | NUR ---
RN PAGED RT FOR RT TX AND THEY ARE HELPING A PT IN THE ICU AND WILL PROVIDE TX ASHA.
[2022-12-31] MEDS: methylPREDNISolone sod succ/PF 40mg inj. IV SCH ×2 (18:03→23:42)
[2022-12-31] MEDS: folic acid 1mg tablet PO SCH (18:03)
--- NOTE | 2022-12-31 18:48 | NUR ---
assumed care from em mendosa
[2022-12-31] MEDS: budesonide 0.5mg/2ml UD nebule IH SCH (19:49)
[2022-12-31] MEDS: ipratropium/albuterol 3ml nebule NEB SCH ×2 (19:49→23:00)
[2022-12-31 19:50] VITALS: PULSE 103; RESP 16; O2SAT 98
[2022-12-31 19:56] VITALS: PULSE 106; RESP 16
[2022-12-31] MEDS: K and/or MAG REPLACEMENT MC SCH (20:00)
[2022-12-31] MEDS: docusate sod 100mg capsule PO SCH (20:00)
[2023-01-01] VITALS (14 sets, daily range): BP systolic 124; BP diastolic 70; PULSE 76–109; RESP 16–22; TEMP 98; O2SAT 95–99
--- NOTE | 2023-01-01 00:30 | NUR ---
pt requesting ativan for shakiness and anxiety. pt requesting IV over PO due to dyspnea.
[2023-01-01] MEDS: ipratropium/albuterol 3ml nebule NEB PRN ×2 (00:33→04:40)
[2023-01-01 02:49] LABS: BASOPHILS % (AUTO) 0.3 % (0-1); EOSINOPHILS % (AUTO) 0 % (0-6); HEMATOCRIT 36.8 % (42.0-52.0); HEMOGLOBIN 12.1 g/dl (14.0-17.9); LYMPHOCYTES # (AUTO) 0.4 X10'3 (1.1-4.8); LYMPHOCYTES % (AUTO) 9.5 % (21-51); MEAN CORPUSCULAR HEMOGLOBIN 30.8 PG (27.0-31.0); MEAN CORPUSCULAR HGB CONC 32.9 g/dL (33.0-36.5); MEAN CORPUSCULAR VOLUME 93.5 FL (78-98); MEAN PLATELET VOLUME 6.8 FL (7.4-10.4); MONOCYTES # (AUTO) 0.1 X10'3 (0-0.9); MONOCYTES % (AUTO) 2.3 % (2-12); NEUTROPHILS % (AUTO) 87.9 % (42-75); PLATELET COUNT 470 X10'3 (140-440); RED BLOOD COUNT 3.93 X10'6 (4.70-6.10); RED CELL DISTRIBUTION WIDTH 16.3 % (11.5-14.5); WHITE BLOOD COUNT 4.6 X10'3 (4.5-11.0)
[2023-01-01 02:55] LABS: ALANINE AMINOTRANSFERASE 26 U/L (12-78); ALBUMIN 3.5 G/DL (3.4-5.0); ALBUMIN/GLOBULIN RATIO 1.1 (1.1-1.5); ALKALINE PHOSPHATASE 74 IU/L (46-116); ANION GAP 7 (8-16); ASPARTATE AMINO TRANSFERASE 21 U/L (10-37); BILIRUBIN,TOTAL 0.3 MG/DL (0.1-1.0); BLOOD UREA NITROGEN 14 MG/DL (7-18); BUN/CREATININE RATIO 25.9 (10.0-20.0); CHLORIDE 103 MMOL/L (99-107); CREATININE 0.54 MG/DL (0.60-1.10); GLUCOSE 183 MG/DL (70-104); MAGNESIUM 2.3 MG/DL (1.5-2.4); POTASSIUM 4.7 MMOL/L (3.5-5.1); SODIUM 140 MMOL/L (135-145); TOTAL CARBON DIOXIDE 30.4 MMOL/L (24-32); TOTAL PROTEIN 6.7 G/DL (6.4-8.2); eGFR > 90 ML/MIN
[2023-01-01] MEDS: methylPREDNISolone sod succ/PF 40mg inj. IV SCH ×2 (04:29→11:46)
--- NOTE | 2023-01-01 04:38 | NUR ---
pt up to bsc with tech
--- NOTE | 2023-01-01 04:38 | NUR ---
pt requesting prn rt tx. rt paged.
[2023-01-01] MEDS: ipratropium/albuterol 3ml nebule NEB SCH ×4 (06:51→17:38)
[2023-01-01] MEDS: budesonide 0.5mg/2ml UD nebule IH SCH (06:55)
--- NOTE | 2023-01-01 07:05 | NUR ---
Received report from AYANA Rosales from ED. Patients has no acute distress, stable for baseline. On 3 L o2, NS running @ 100. No replacements, VS WNL. Patient to be transferred to room 4010 B.
[2023-01-01] MEDS ORDERED: nicotine 14mg patch - 24hr TD SCH (08:00)
[2023-01-01] MEDS ORDERED: clopidogrel 75mg tablet PO SCH (08:00)
[2023-01-01] MEDS ORDERED: atorvastatin 20mg tablet PO SCH (08:00)
[2023-01-01] MEDS: K and/or MAG REPLACEMENT MC SCH (08:00)
[2023-01-01] MEDS ORDERED: metoprolol tartrate 12.5mg (1/2 tablet) PO SCH (08:00)
[2023-01-01] MEDS ORDERED: thiamine 100mg tablet PO SCH (08:00)
[2023-01-01] MEDS ORDERED: multivitamins, therapeutics tablet PO SCH (08:00)
[2023-01-01] MEDS: normal saline 1000ml 1,000 ML IV SCH (08:39)
[2023-01-01] MEDS: docusate sod 100mg capsule PO SCH (08:39)
[2023-01-01] MEDS: folic acid 1mg tablet PO SCH (08:39)
[2023-01-01] MEDS ORDERED: FLUT1BLS4 INH (14:46)
[2023-01-01] MEDS ORDERED: MULT-25 PO (14:46)
[2023-01-01] MEDS ORDERED: PRED20TA PO (14:46)
[2023-01-01] MEDS ORDERED: IPRA3AMP31 NEB (14:46)
[2023-01-01] MEDS ORDERED: ALBU18HF2 PO (14:46)
--- NOTE | 2023-01-01 17:50 | NUR ---
Patient discharged w/ no acute distress. Stable for baseline, O2 tank with patients for transportation. Alert and oriented, had belongings that where with him upon admission. Medications at the pharmacy and pt has help to receive them, IV d/c'd from the Rt forearm, Cannula intact. Discharge instructions went over and reinforced w/ the pt. Transfered to his residence via cab.
== END 2023-01-01 18:01 | disposition home or self-care (01) ==
LOC: ER 12:52 → ED HOLD 14:03 → INTOOBSV 14:03 → EDBEDREQ 01-01 05:57 → ORTHO 4S 01-01 07:44
PROVIDERS: ADMIT Family Medicine; ATTEND Family Medicine
DX: J44.1 Chronic obstructive pulmonary disease with (acute) exacerbation (principal); J96.01 Acute respiratory failure with hypoxia; I25.10 Atherosclerotic heart disease of native coronary artery without angina pectoris; I10 Essential (primary) hypertension; K21.9 Gastro-esophageal reflux disease without esophagitis; F32.A Depression, unspecified; I25.2 Old myocardial infarction; F10.939 Alcohol use, unspecified with withdrawal, unspecified; F17.210 Nicotine dependence, cigarettes, uncomplicated; Z79.899 Other long term (current) drug therapy; Z86.73 Personal history of transient ischemic attack (TIA), and cerebral infarction without residual deficits; Z95.5 Presence of coronary angioplasty implant and graft; Z99.81 Dependence on supplemental oxygen
CPT/HCPCS: 36415; 71045; 80053; 83735; 83880; 84484; 85025; 87081; 93005; 94640; 94760; 96361; 96374; 96375; 96376; 99285; A6258; G0378; J2060; J2920; J2930; J3411; J7030; A7015

== ENCOUNTER 2023-01-02 14:27 | Emergency (ER) | payer MEDICARE, MEDICAID ==
[~2023-01-02] VITALS: Ht 188 cm; Wt 77.3 kg
[~2023-01-02 14:27] MED LIST changes: -ALBU2.5V7 INH; -ASPI-1071 PO; +ATOR-2 PO; -BENZ-111 PO; -FERR325T7 PO; +HYDR25TA5 PO; -LACT1CAP55 PO; +MULT-25 PO; -PANT40TA54 PO; +PRED20TA PO
[2023-01-02 14:44] VITALS: TEMP 97.9
--- NOTE | 2023-01-02 15:26 | NUR ---
EKG done showed "inferior infarct". Dr. Chaidez seen the EKG
[2023-01-02] MEDS ORDERED: methylPREDNISolone sod succ 125mg/2ml vial IV ONE (15:45)
[2023-01-02] MEDS ORDERED: ipratropium/albuterol 3ml nebule NEB ONE (15:45)
[2023-01-02] MEDS ORDERED: albuterol 2.5 MG/3 ML nebule NEB ONE ×2 (15:45→18:00)
[2023-01-02 15:54] VITALS: PULSE 93; RESP 16; O2SAT 96
[2023-01-02 15:59] LABS: BASOPHILS % (AUTO) 0.3 % (0-1); EOSINOPHILS % (AUTO) 0.1 % (0-6); HEMATOCRIT 35.8 % (42.0-52.0); HEMOGLOBIN 11.8 g/dl (14.0-17.9); LYMPHOCYTES # (AUTO) 1.1 X10'3 (1.1-4.8); LYMPHOCYTES % (AUTO) 13.1 % (21-51); MEAN CORPUSCULAR HEMOGLOBIN 30.9 PG (27.0-31.0); MEAN CORPUSCULAR HGB CONC 32.8 g/dL (33.0-36.5); MEAN CORPUSCULAR VOLUME 94.1 FL (78-98); MEAN PLATELET VOLUME 6.9 FL (7.4-10.4); MONOCYTES # (AUTO) 0.6 X10'3 (0-0.9); MONOCYTES % (AUTO) 7.3 % (2-12); NEUTROPHILS # (AUTO) 6.6 X10'3 (1.8-7.7); NEUTROPHILS % (AUTO) 79.2 % (42-75); PLATELET COUNT 471 X10'3 (140-440); RED BLOOD COUNT 3.81 X10'6 (4.70-6.10); RED CELL DISTRIBUTION WIDTH 16.5 % (11.5-14.5); WHITE BLOOD COUNT 8.3 X10'3 (4.5-11.0)
[2023-01-02 16:09] LABS: ALANINE AMINOTRANSFERASE 57 U/L (12-78); ALBUMIN 3.6 G/DL (3.4-5.0); ALBUMIN/GLOBULIN RATIO 1.3 (1.1-1.5); ALKALINE PHOSPHATASE 69 IU/L (46-116); ANION GAP 6 (8-16); ASPARTATE AMINO TRANSFERASE 48 U/L (10-37); BILIRUBIN,TOTAL 0.2 MG/DL (0.1-1.0); BLOOD UREA NITROGEN 8 MG/DL (7-18); CALCIUM 8.6 MG/DL (8.5-10.1); CHLORIDE 102 MMOL/L (99-107); CREATININE 0.57 MG/DL (0.60-1.10); GLUCOSE 111 MG/DL (70-104); POTASSIUM 4.2 MMOL/L (3.5-5.1); SODIUM 141 MMOL/L (135-145); TOTAL CARBON DIOXIDE 32.7 MMOL/L (24-32); TOTAL PROTEIN 6.4 G/DL (6.4-8.2); eGFR > 90 ML/MIN
[2023-01-02 16:21] VITALS: PULSE 89; RESP 22
--- NOTE | 2023-01-02 18:05 | NUR ---
SPOKE TO [employer] IN [employer] SERVICES ADMINISTRATOR, SHE SAID SHE WAS COMING AROUND [phone], ITS NOW 1805 AND I HAVE PAGED SEVERAL TIMES AND THERE IS NO RESPONSE AND SHE HASN'T SHOWED.
--- NOTE | 2023-01-02 18:11 | NUR ---
Paged RT to request breathing treatment for this patient. Per Dr. Chaidez, patient will be discharge after the breathing treatment
[2023-01-02 18:26] VITALS: PULSE 81; RESP 24; O2SAT 96
[2023-01-02 18:33] VITALS: PULSE 87; RESP 22
[2023-01-02] MEDS ORDERED: albuterol 60 PUFF/8GM Inhaler (90mcg/1 puff) IH ONE (18:58)
[2023-01-02 19:46] VITALS: BP 108/57; PULSE 82; RESP 16; O2SAT 96
== END 2023-01-02 20:22 | disposition home or self-care (01) ==
LOC: ER 14:28
DX: J44.1 Chronic obstructive pulmonary disease with (acute) exacerbation (principal); I10 Essential (primary) hypertension; J45.909 Unspecified asthma, uncomplicated; J44.9 Chronic obstructive pulmonary disease, unspecified; K21.9 Gastro-esophageal reflux disease without esophagitis; Z91.018 Allergy to other foods; Z79.899 Other long term (current) drug therapy
CPT/HCPCS: 36415; 71045; 80053; 83880; 84484; 85025; 93005; 94640; 96374; 99285; J2930; 94760

== ENCOUNTER 2023-04-29 02:52 | Emergency (ER) | payer MEDICARE, MEDICAID ==
[~2023-04-29] VITALS: Ht 188 cm; Wt 77.3 kg
[~2023-04-29 02:52] MED LIST changes: +ASPI-1265 PO; +FERR325T7 PO; -IPRA3AMP31 NEB; +IPRA3AMP9 NEB; +MULT-1085 PO; -MULT-25 PO; +NICO-687 TD; +PANT40TA54 PO; -PRED20TA PO
[2023-04-29 02:54] VITALS: TEMP 98.2
--- NOTE | 2023-04-29 02:54 | NUR ---
PER DR ADORNO DO NOT PLACE ACS PROTOCOL AT THIS TIME HE WILL REVIEW AND PLACE HIS OWN ORDERS NEEDED
[2023-04-29] MEDS ORDERED: aspirin 81mg tab.chew PO ONE (03:00)
--- NOTE | 2023-04-29 03:22 | NUR ---
PILLOW PROVIDED FOR PATIENT, DENIES FURTHER NEEDS AT THIS TIME. RESPIRATIONS EVEN AND UNLABORED, NO ACUTE DISTRESS NOTED. CALL LIGHT WITHIN REACH.
[2023-04-29 03:43] LABS: BASOPHILS # (AUTO) 0.1 X10'3 (0-0.2); BASOPHILS % (AUTO) 1.2 % (0-1); EOSINOPHILS # (AUTO) 0.1 X10'3 (0-0.9); EOSINOPHILS % (AUTO) 1.9 % (0-6); HEMATOCRIT 37.7 % (42.0-52.0); HEMOGLOBIN 12.4 g/dl (14.0-17.9); LYMPHOCYTES # (AUTO) 2.4 X10'3 (1.1-4.8); LYMPHOCYTES % (AUTO) 32.7 % (21-51); MEAN CORPUSCULAR HEMOGLOBIN 32.6 PG (27.0-31.0); MEAN CORPUSCULAR HGB CONC 32.9 g/dL (33.0-36.5); MEAN CORPUSCULAR VOLUME 98.8 FL (78-98); MONOCYTES # (AUTO) 0.9 X10'3 (0-0.9); MONOCYTES % (AUTO) 12.7 % (2-12); NEUTROPHILS # (AUTO) 3.7 X10'3 (1.8-7.7); NEUTROPHILS % (AUTO) 51.5 % (42-75); PLATELET COUNT 486 X10'3 (140-440); RED BLOOD COUNT 3.82 X10'6 (4.70-6.10); RED CELL DISTRIBUTION WIDTH 15.8 % (11.5-14.5); WHITE BLOOD COUNT 7.3 X10'3 (4.5-11.0)
[2023-04-29] MEDS ORDERED: albuterol 2.5 MG/3 ML nebule NEB ONE (03:55)
[2023-04-29 04:19] LABS: ALANINE AMINOTRANSFERASE 30 U/L (12-78); ALBUMIN 3.2 G/DL (3.4-5.0); ALBUMIN/GLOBULIN RATIO 1.1 (1.1-1.5); ALKALINE PHOSPHATASE 83 IU/L (46-116); ANION GAP 5 (8-16); ASPARTATE AMINO TRANSFERASE 21 U/L (10-37); BILIRUBIN,TOTAL 0.2 MG/DL (0.1-1.0); BLOOD UREA NITROGEN 10 MG/DL (7-18); BUN/CREATININE RATIO 20.4 (10.0-20.0); CALCIUM 8.5 MG/DL (8.5-10.1); CHLORIDE 102 MMOL/L (99-107); CREATININE 0.49 MG/DL (0.60-1.10); GLUCOSE 90 MG/DL (70-104); SODIUM 138 MMOL/L (135-145); TOTAL CARBON DIOXIDE 31.5 MMOL/L (24-32); TOTAL PROTEIN 6.2 G/DL (6.4-8.2); eCRCL 177 ML/MIN; eGFR > 90 ML/MIN
--- NOTE | 2023-04-29 04:20 | NUR ---
RT notified of breathing treatment.
--- NOTE | 2023-04-29 04:23 | NUR ---
Patient on oxygen for comfort. SPO2 stable on room air.
[2023-04-29 04:26] VITALS: PULSE 87; RESP 22
[2023-04-29 04:28] LABS: ETHANOL 37 MG/DL (<10); PRO BRAIN NATRIURETIC PEPTIDE 59 PG/ML (0-125)
[2023-04-29 04:33] VITALS: PULSE 87; RESP 20; O2SAT 98
[2023-04-29 04:34] LABS: INR < 0.9 INR
[2023-04-29 04:36] LABS: PROTHROMBIN TIME 9.8 SECONDS (9.0-12.0)
--- NOTE | 2023-04-29 04:52 | NUR ---
Patient resting in bed with eyes closed, respirations even and unlabored, no acute distress noted at this time, call light within reach.
--- NOTE | 2023-04-29 05:08 | NUR ---
Second Troponin drawn and sent to lab.
--- NOTE | 2023-04-29 05:09 | NUR ---
Patient angry that "You only have me on 2 LPM, I need to be on 4 LPM. This is ridiculous. The doctor needs to keep me in the hospital for 2 or 3 days because my chest is still hurting." Informed patient we are still doing tests and that is yet to be determined. Patient rolled over and went to sleep. Call light within reach, no distress noted at this time.
[2023-04-29 05:44] VITALS: BP 126/76; PULSE 75; RESP 19; O2SAT 98
== END 2023-04-29 06:04 | disposition home or self-care (01) ==
LOC: ER 02:53
DX: R07.9 Chest pain, unspecified (principal); I11.0 Hypertensive heart disease with heart failure; G89.29 Other chronic pain; M54.9 Dorsalgia, unspecified; F32.A Depression, unspecified
CPT/HCPCS: 36415; 71045; 80053; 80320; 83735; 83880; 84484; 85025; 85610; 93005; 94640; 94760; 99285

== ENCOUNTER 2023-05-12 13:57 | Emergency (ER) | payer MEDICARE, MEDICAID ==
[~2023-05-12] VITALS: Ht 188 cm; Wt 77.3 kg
[2023-05-12] MEDS ORDERED: albuterol 2.5 MG/3 ML nebule NEB ONE (14:10)
[2023-05-12 14:17] VITALS: BP 107/82; O2SAT 94
[2023-05-12 14:36] LABS: BASOPHILS # (AUTO) 0.1 X10'3 (0-0.2); BASOPHILS % (AUTO) 1.3 % (0-1); EOSINOPHILS # (AUTO) 0.2 X10'3 (0-0.9); EOSINOPHILS % (AUTO) 3.8 % (0-6); HEMATOCRIT 40.6 % (42.0-52.0); HEMOGLOBIN 13.5 g/dl (14.0-17.9); LYMPHOCYTES # (AUTO) 1.6 X10'3 (1.1-4.8); LYMPHOCYTES % (AUTO) 24.2 % (21-51); MEAN CORPUSCULAR HGB CONC 33.4 g/dL (33.0-36.5); MEAN CORPUSCULAR VOLUME 98.9 FL (78-98); MONOCYTES % (AUTO) 14.6 % (2-12); NEUTROPHILS # (AUTO) 3.7 X10'3 (1.8-7.7); NEUTROPHILS % (AUTO) 56.1 % (42-75); PLATELET COUNT 471 X10'3 (140-440); RED CELL DISTRIBUTION WIDTH 15.6 % (11.5-14.5); WHITE BLOOD COUNT 6.5 X10'3 (4.5-11.0)
[2023-05-12 14:46] LABS: ALANINE AMINOTRANSFERASE 28 U/L (12-78); ALBUMIN 3.8 G/DL (3.4-5.0); ALBUMIN/GLOBULIN RATIO 1.1 (1.1-1.5); ALKALINE PHOSPHATASE 106 IU/L (46-116); ANION GAP 5 (8-16); ASPARTATE AMINO TRANSFERASE 27 U/L (10-37); BILIRUBIN,TOTAL 0.3 MG/DL (0.1-1.0); BLOOD UREA NITROGEN 16 MG/DL (7-18); BUN/CREATININE RATIO 29.1 (10.0-20.0); CHLORIDE 101 MMOL/L (99-107); CREATININE 0.55 MG/DL (0.60-1.10); GLUCOSE 105 MG/DL (70-104); POTASSIUM 4.2 MMOL/L (3.5-5.1); SODIUM 141 MMOL/L (135-145); TOTAL CARBON DIOXIDE 34.9 MMOL/L (24-32); TOTAL PROTEIN 7.2 G/DL (6.4-8.2); eCRCL 158 ML/MIN; eGFR > 90 ML/MIN
[2023-05-12 14:55] LABS: PRO BRAIN NATRIURETIC PEPTIDE 116 PG/ML (0-125)
[2023-05-12] MEDS ORDERED: methylPREDNISolone sod succ 125mg/2ml vial IV ONE (15:00)
[2023-05-12 15:22] VITALS: PULSE 72; PULSE 79; RESP 15
[2023-05-12] MEDS ORDERED: IPRA3AMP31 NEB (15:56)
[2023-05-12] MEDS ORDERED: PRED50TA PO ×2 (15:56)
== END 2023-05-12 18:03 | disposition home or self-care (01) ==
LOC: ER 13:58
DX: J44.1 Chronic obstructive pulmonary disease with (acute) exacerbation (principal); Z20.822 Contact with and (suspected) exposure to COVID-19; I25.10 Atherosclerotic heart disease of native coronary artery without angina pectoris; I10 Essential (primary) hypertension; I25.2 Old myocardial infarction; J44.9 Chronic obstructive pulmonary disease, unspecified; G89.29 Other chronic pain; Z86.73 Personal history of transient ischemic attack (TIA), and cerebral infarction without residual deficits; Z72.89 Other problems related to lifestyle; Z79.899 Other long term (current) drug therapy; Z79.82 Long term (current) use of aspirin
CPT/HCPCS: 36415; 71045; 80053; 83880; 84484; 85025; 87502; 87503; 87811; 94640; 94760; 96374; 99285; J2930

== ENCOUNTER 2023-05-13 02:25 | Emergency (ER) | payer MEDICARE, MEDICAID ==
[~2023-05-13] VITALS: Ht 188 cm; Wt 77.3 kg
[~2023-05-13 02:25] MED LIST changes: +IPRA3AMP31 NEB; +PRED50TA PO
[2023-05-13] MEDS ORDERED: ipratropium/albuterol 3ml nebule NEB ONE (02:40)
[2023-05-13 02:46] VITALS: PULSE 81; RESP 20; O2SAT 98
[2023-05-13 02:52] VITALS: PULSE 81; RESP 16; O2SAT 98
[2023-05-13] MEDS ORDERED: triamcinolone acetonide 40mg/ml inj IM ONE (04:25)
[2023-05-13 05:37] VITALS: BP 103/69
[2023-05-13] MEDS ORDERED: albuterol 2.5 MG/3 ML nebule CONTNEB PRN (05:45)
[2023-05-13 05:58] VITALS: PULSE 69; RESP 20; O2SAT 99
[2023-05-13 07:03] VITALS: PULSE 90; O2SAT 99
== END 2023-05-13 07:51 | disposition home or self-care (01) ==
LOC: ER 02:26
DX: J44.1 Chronic obstructive pulmonary disease with (acute) exacerbation (principal); I25.10 Atherosclerotic heart disease of native coronary artery without angina pectoris; I10 Essential (primary) hypertension; I25.2 Old myocardial infarction; G89.29 Other chronic pain; Z86.73 Personal history of transient ischemic attack (TIA), and cerebral infarction without residual deficits; Z98.890 Other specified postprocedural states; Z79.82 Long term (current) use of aspirin; Z79.899 Other long term (current) drug therapy
CPT/HCPCS: 94640; 94644; 94760; 96372; 99285; A7015; J3301

== ENCOUNTER 2023-05-14 10:18 | Inpatient (IN) | payer MEDICARE, MEDICAID ==
[2023-05-14] VITALS (10 sets, daily range): BP systolic 124; BP diastolic 82; PULSE 73–86; RESP 16–26; TEMP 98.9; O2SAT 95–99
[~2023-05-14] VITALS: Ht 188 cm; Wt 77.5 kg
[2023-05-14] MEDS ORDERED: azithromycin/NS 500mg/250ml 250 ML IV ONE (10:30)
[2023-05-14] MEDS ORDERED: ipratropium 0.5 MG/2.5ML nebule IH ONE (10:30)
[2023-05-14] MEDS ORDERED: CefTRIAXone 2gm/D5W 50ml BAG 50 ML IV ONE ×2 (10:30→12:45)
[2023-05-14] MEDS ORDERED: normal saline 1000ML IV soln IVB ONE (10:30)
[2023-05-14] MEDS ORDERED: methylPREDNISolone sod succ 125mg/2ml vial IV ONE (10:30)
[2023-05-14] MEDS ORDERED: albuterol 2.5 MG/3 ML nebule CONTNEB ONE (10:35)
[2023-05-14 11:01] LABS: BASOPHILS % (AUTO) 0.6 % (0-1); EOSINOPHILS # (AUTO) 0.1 X10'3 (0-0.9); EOSINOPHILS % (AUTO) 1.9 % (0-6); HEMATOCRIT 40.9 % (42.0-52.0); HEMOGLOBIN 13.6 g/dl (14.0-17.9); LYMPHOCYTES # (AUTO) 1.6 X10'3 (1.1-4.8); LYMPHOCYTES % (AUTO) 20.9 % (21-51); MEAN CORPUSCULAR HEMOGLOBIN 32.9 PG (27.0-31.0); MEAN CORPUSCULAR HGB CONC 33.2 g/dL (33.0-36.5); MEAN CORPUSCULAR VOLUME 99.2 FL (78-98); MONOCYTES # (AUTO) 0.8 X10'3 (0-0.9); MONOCYTES % (AUTO) 10.2 % (2-12); NEUTROPHILS # (AUTO) 5.2 X10'3 (1.8-7.7); NEUTROPHILS % (AUTO) 66.4 % (42-75); PLATELET COUNT 518 X10'3 (140-440); RED BLOOD COUNT 4.12 X10'6 (4.70-6.10); RED CELL DISTRIBUTION WIDTH 15.2 % (11.5-14.5); WHITE BLOOD COUNT 7.9 X10'3 (4.5-11.0)
[2023-05-14 11:12] LABS: APTT 28 SECONDS (22-32); D-DIMER 0.23 MG/L FEU (0-0.50); PROTHROMBIN TIME 10.6 SECONDS (9.0-12.0)
[2023-05-14 11:16] LABS: ALANINE AMINOTRANSFERASE 26 U/L (12-78); ALBUMIN/GLOBULIN RATIO 1.1 (1.1-1.5); ALKALINE PHOSPHATASE 83 IU/L (46-116); ANION GAP 5 (8-16); ASPARTATE AMINO TRANSFERASE 24 U/L (10-37); BILIRUBIN,TOTAL 0.4 MG/DL (0.1-1.0); BLOOD UREA NITROGEN 13 MG/DL (7-18); CALCIUM 8.9 MG/DL (8.5-10.1); CHLORIDE 101 MMOL/L (99-107); GLUCOSE 106 MG/DL (70-104); POTASSIUM 3.8 MMOL/L (3.5-5.1); SODIUM 139 MMOL/L (135-145); TOTAL CARBON DIOXIDE 33.1 MMOL/L (24-32); TOTAL PROTEIN 7.5 G/DL (6.4-8.2); eCRCL 165 ML/MIN; eGFR > 90 ML/MIN
[2023-05-14 11:25] LABS: PRO BRAIN NATRIURETIC PEPTIDE 80 PG/ML (0-125)
[2023-05-14] MEDS ORDERED: HYDROcodone/acetaminophen 5mg/325mg tablet PO PRN (12:40)
[2023-05-14] MEDS ORDERED: magnesium Cl slow-release 64mg tablet PO PRN (12:40)
[2023-05-14] MEDS ORDERED: magnesium 2GM in 50ml NS 50 ML IV PRN (12:40)
[2023-05-14] MEDS ORDERED: magnesium 4gm in 100ml NS 100 ML IV PRN (12:40)
[2023-05-14] MEDS ORDERED: morphine 2 MG/ML inj. syringe IV PRN (12:40)
[2023-05-14] MEDS ORDERED: acetaminophen 325mg tablet PO PRN ×2 (12:40)
[2023-05-14] MEDS ORDERED: ondansetron/PF 4mg/2ml inj IV PRN (12:40)
[2023-05-14] MEDS ORDERED: potassium Cl 40MEQ/1/2NS 520ml 520 ML IV PRN (12:40)
[2023-05-14] MEDS ORDERED: potassium Cl 20 mEq SR tablet PO PRN ×2 (12:40)
[2023-05-14] MEDS: ipratropium/albuterol 3ml nebule NEB SCH ×3 (15:29→22:35)
[2023-05-14 15:51] LABS: ABG BASE EXCESS 3.2 mmol/L (-2.0-2.0); ABG HCO3 28.2 mmol/L (22.0-26.0); ABG OXYGEN SATURATION 97.2 % (94-97); ABG PCO2 (T) 44.4 mmHg (35.0-48.0); ALLEN'S TEST POSITIVE; FCOHb 0.2 % (0.0-3.9); FHHb 2.8 % (0.0-5.0); FLOW 4 L/min; FMetHb 0.4 % (0.0-1.5); FO2Hb 96.6 % (94-97); MODE NASAL CANNULA; PATIENT TEMPERATURE 36.8; TOTAL HEMOGLOBIN 13.1 G/dl (14.0-17.9)
[2023-05-14] MEDS: enoxaparin 40mg/0.4ml syringe SQ SCH (20:17)
[2023-05-14] MEDS: methylPREDNISolone sod succ 125mg/2ml vial IV SCH (20:18)
[2023-05-14] MEDS ORDERED: temazepam 15mg capsule PO PRN (21:00)
[2023-05-15] VITALS (18 sets, daily range): BP systolic 109–133; BP diastolic 55–89; PULSE 60–89; RESP 16–20; TEMP 97.2–98.2; O2SAT 96–100
[2023-05-15] MEDS: ipratropium/albuterol 3ml nebule NEB SCH ×6 (03:07→22:53)
[2023-05-15 06:34] LABS: BASOPHILS % (AUTO) 0.5 % (0-1); EOSINOPHILS # (AUTO) 0.1 X10'3 (0-0.9); EOSINOPHILS % (AUTO) 1.1 % (0-6); HEMATOCRIT 34.3 % (42.0-52.0); HEMOGLOBIN 11.7 g/dl (14.0-17.9); LYMPHOCYTES # (AUTO) 2.1 X10'3 (1.1-4.8); LYMPHOCYTES % (AUTO) 23.7 % (21-51); MEAN CORPUSCULAR HEMOGLOBIN 33.6 PG (27.0-31.0); MEAN CORPUSCULAR VOLUME 98.7 FL (78-98); MEAN PLATELET VOLUME 7.2 FL (7.4-10.4); MONOCYTES # (AUTO) 1.1 X10'3 (0-0.9); MONOCYTES % (AUTO) 13.1 % (2-12); NEUTROPHILS # (AUTO) 5.4 X10'3 (1.8-7.7); NEUTROPHILS % (AUTO) 61.6 % (42-75); PLATELET COUNT 446 X10'3 (140-440); RED BLOOD COUNT 3.47 X10'6 (4.70-6.10); RED CELL DISTRIBUTION WIDTH 15.2 % (11.5-14.5); WHITE BLOOD COUNT 8.8 X10'3 (4.5-11.0)
[2023-05-15 07:15] LABS: ALANINE AMINOTRANSFERASE 24 U/L (12-78); ALBUMIN 3.2 G/DL (3.4-5.0); ALBUMIN/GLOBULIN RATIO 1.1 (1.1-1.5); ALKALINE PHOSPHATASE 66 IU/L (46-116); ANION GAP 7 (8-16); ASPARTATE AMINO TRANSFERASE 19 U/L (10-37); BILIRUBIN,TOTAL 0.3 MG/DL (0.1-1.0); BLOOD UREA NITROGEN 20 MG/DL (7-18); BUN/CREATININE RATIO 35.7 (10.0-20.0); CALCIUM 8.8 MG/DL (8.5-10.1); CHLORIDE 101 MMOL/L (99-107); CREATININE 0.56 MG/DL (0.60-1.10); GLUCOSE 93 MG/DL (70-104); SODIUM 137 MMOL/L (135-145); TOTAL CARBON DIOXIDE 28.8 MMOL/L (24-32); TOTAL PROTEIN 6.1 G/DL (6.4-8.2); eCRCL 156 ML/MIN; eGFR > 90 ML/MIN
[2023-05-15] MEDS: methylPREDNISolone sod succ 125mg/2ml vial IV SCH ×2 (07:58→19:30)
[2023-05-15] MEDS: CefTRIAXone 2gm/D5W 50ml BAG 50 ML IV SCH (07:59)
[2023-05-15] MEDS: ferrous sulfate 325mg tablet PO SCH (19:30)
[2023-05-15] MEDS: enoxaparin 40mg/0.4ml syringe SQ SCH (19:30)
[2023-05-16] VITALS (8 sets, daily range): BP systolic 117–123; BP diastolic 52–75; PULSE 63–78; RESP 18–20; TEMP 97.2; O2SAT 97–99
[2023-05-16] MEDS: ipratropium/albuterol 3ml nebule NEB SCH ×3 (03:02→11:14)
[2023-05-16 06:19] LABS: BASOPHILS % (AUTO) 0.4 % (0-1); EOSINOPHILS % (AUTO) 0.1 % (0-6); HEMATOCRIT 36.1 % (42.0-52.0); HEMOGLOBIN 12.3 g/dl (14.0-17.9); LYMPHOCYTES # (AUTO) 1.5 X10'3 (1.1-4.8); LYMPHOCYTES % (AUTO) 17.6 % (21-51); MEAN CORPUSCULAR HEMOGLOBIN 33.3 PG (27.0-31.0); MEAN CORPUSCULAR VOLUME 97.9 FL (78-98); MEAN PLATELET VOLUME 7.2 FL (7.4-10.4); NEUTROPHILS # (AUTO) 6.2 X10'3 (1.8-7.7); NEUTROPHILS % (AUTO) 70.9 % (42-75); PLATELET COUNT 471 X10'3 (140-440); RED BLOOD COUNT 3.69 X10'6 (4.70-6.10); RED CELL DISTRIBUTION WIDTH 14.9 % (11.5-14.5); WHITE BLOOD COUNT 8.7 X10'3 (4.5-11.0)
[2023-05-16 06:34] LABS: ALANINE AMINOTRANSFERASE 24 U/L (12-78); ALBUMIN 3.3 G/DL (3.4-5.0); ALBUMIN/GLOBULIN RATIO 1.1 (1.1-1.5); ALKALINE PHOSPHATASE 65 IU/L (46-116); ANION GAP 5 (8-16); ASPARTATE AMINO TRANSFERASE 14 U/L (10-37); BILIRUBIN,TOTAL 0.2 MG/DL (0.1-1.0); BLOOD UREA NITROGEN 16 MG/DL (7-18); BUN/CREATININE RATIO 33.3 (10.0-20.0); CALCIUM 8.8 MG/DL (8.5-10.1); CHLORIDE 99 MMOL/L (99-107); CREATININE 0.48 MG/DL (0.60-1.10); GLUCOSE 108 MG/DL (70-104); POTASSIUM 4.2 MMOL/L (3.5-5.1); SODIUM 135 MMOL/L (135-145); TOTAL CARBON DIOXIDE 31.2 MMOL/L (24-32); TOTAL PROTEIN 6.3 G/DL (6.4-8.2); eCRCL 182 ML/MIN; eGFR > 90 ML/MIN
[2023-05-16] MEDS ORDERED: pantoprazole 40mg Tablet.DR PO SCH (07:30)
[2023-05-16] MEDS: CefTRIAXone 2gm/D5W 50ml BAG 50 ML IV SCH (08:00)
[2023-05-16] MEDS ORDERED: metoprolol succinate 25mg (24-HOUR) SR. Tablet PO SCH (08:00)
[2023-05-16] MEDS ORDERED: folic acid 1mg tablet PO SCH (08:00)
[2023-05-16] MEDS ORDERED: aspirin 81mg tab.chew PO SCH (08:00)
[2023-05-16] MEDS ORDERED: thiamine 100mg tablet PO SCH (08:00)
[2023-05-16] MEDS ORDERED: clopidogrel 75mg tablet PO SCH (08:00)
[2023-05-16] MEDS ORDERED: atorvastatin 20mg tablet PO SCH (08:00)
[2023-05-16] MEDS: methylPREDNISolone sod succ 125mg/2ml vial IV SCH (08:00)
[2023-05-16] MEDS: ferrous sulfate 325mg tablet PO SCH (08:50)
[2023-05-16] MEDS ORDERED: LEVO-65 PO (11:13)
== END 2023-05-16 14:18 | disposition home or self-care (01) | DRG 191 ==
LOC: ER 10:19 → ED HOLD 12:44 → PCU 3S 21:57
PROVIDERS: ADMIT Internal Medicine; ATTEND Internal Medicine
DX: J44.1 Chronic obstructive pulmonary disease with (acute) exacerbation (principal); J96.11 Chronic respiratory failure with hypoxia; F17.210 Nicotine dependence, cigarettes, uncomplicated; I10 Essential (primary) hypertension; Z20.822 Contact with and (suspected) exposure to COVID-19; I25.10 Atherosclerotic heart disease of native coronary artery without angina pectoris; I25.2 Old myocardial infarction; Z80.3 Family history of malignant neoplasm of breast; Z79.899 Other long term (current) drug therapy
CPT/HCPCS: 36415; 36600; 71045; 80053; 82803; 83605; 83880; 84484; 85018; 85025; 85379; 85610; 85730; 87040; 87081; 87502; 87503; 87811; 94640; 94644; 94760; 96372; 96374; 97161; 97530; 99285; A7015; G0378; J0456; J0696; J1650; J2930; J3301; J7030; J7040; J7512

== ENCOUNTER 2023-06-12 07:46 | Inpatient (IN) | payer MEDICARE, MEDICAID ==
[~2023-06-12] VITALS: Ht 188 cm; Wt 81.0 kg
[2023-06-12] VITALS (12 sets, daily range): BP systolic 134–145; BP diastolic 73–97; PULSE 83–112; RESP 14–24; TEMP 97.9–98.7; O2SAT 94–99
[~2023-06-12 07:46] MED LIST changes: -HYDR25TA5 PO; -IPRA3AMP9 NEB; -MULT-1085 PO; -NICO-687 TD; -PRED50TA PO
[2023-06-12] MEDS ORDERED: methylPREDNISolone sod succ 125mg/2ml vial IV ONE (10:20)
[2023-06-12] MEDS ORDERED: albuterol 2.5 MG/3 ML nebule CONTNEB PRN (10:20)
[2023-06-12 11:08] LABS: BASOPHILS # (AUTO) 0.1 X10'3 (0-0.2); BASOPHILS % (AUTO) 1.1 % (0-1); EOSINOPHILS # (AUTO) 0.1 X10'3 (0-0.9); EOSINOPHILS % (AUTO) 2.2 % (0-6); HEMATOCRIT 41.6 % (42.0-52.0); LYMPHOCYTES # (AUTO) 1.5 X10'3 (1.1-4.8); LYMPHOCYTES % (AUTO) 26.8 % (21-51); MEAN CORPUSCULAR HEMOGLOBIN 32.8 PG (27.0-31.0); MEAN CORPUSCULAR HGB CONC 33.7 g/dL (33.0-36.5); MEAN CORPUSCULAR VOLUME 97.3 FL (78-98); MEAN PLATELET VOLUME 6.7 FL (7.4-10.4); MONOCYTES # (AUTO) 0.4 X10'3 (0-0.9); MONOCYTES % (AUTO) 6.5 % (2-12); NEUTROPHILS # (AUTO) 3.6 X10'3 (1.8-7.7); NEUTROPHILS % (AUTO) 63.4 % (42-75); PLATELET COUNT 499 X10'3 (140-440); RED BLOOD COUNT 4.27 X10'6 (4.70-6.10); RED CELL DISTRIBUTION WIDTH 15.4 % (11.5-14.5); WHITE BLOOD COUNT 5.7 X10'3 (4.5-11.0)
[2023-06-12 11:19] LABS: ALANINE AMINOTRANSFERASE 24 U/L (12-78); ALBUMIN 3.8 G/DL (3.4-5.0); ALBUMIN/GLOBULIN RATIO 1.1 (1.1-1.5); ALKALINE PHOSPHATASE 69 IU/L (46-116); ANION GAP 9 (8-16); ASPARTATE AMINO TRANSFERASE 29 U/L (10-37); BILIRUBIN,TOTAL 0.2 MG/DL (0.1-1.0); BLOOD UREA NITROGEN 10 MG/DL (7-18); CALCIUM 8.8 MG/DL (8.5-10.1); CHLORIDE 101 MMOL/L (99-107); GLUCOSE 75 MG/DL (70-104); POTASSIUM 3.6 MMOL/L (3.5-5.1); SODIUM 141 MMOL/L (135-145); TOTAL CARBON DIOXIDE 30.6 MMOL/L (24-32); TOTAL PROTEIN 7.3 G/DL (6.4-8.2); eCRCL 228 ML/MIN; eGFR > 90 ML/MIN
[2023-06-12] MEDS ORDERED: albuterol 2.5 MG/3 ML nebule NEB ONE (13:05)
[2023-06-12] MEDS ORDERED: magnesium 4gm in 100ml NS 100 ML IV PRN (13:15)
[2023-06-12] MEDS ORDERED: magnesium 2GM in 50ml NS 50 ML IV PRN (13:15)
[2023-06-12] MEDS ORDERED: mag hydrox/Alum hydrox/simeth 30ml oral suspension PO PRN (13:15)
[2023-06-12] MEDS ORDERED: ondansetron/PF 4mg/2ml inj IV PRN (13:15)
[2023-06-12] MEDS ORDERED: potassium Cl 20 mEq SR tablet PO PRN (13:15)
[2023-06-12] MEDS ORDERED: magnesium hydroxide 30ml (MOM) UD suspension PO PRN (13:15)
[2023-06-12] MEDS ORDERED: acetaminophen 325mg tablet PO PRN ×2 (13:15)
[2023-06-12] MEDS ORDERED: potassium Cl 40MEQ/1/2NS 520ml 520 ML IV PRN (13:15)
[2023-06-12] MEDS ORDERED: LORazepam 2 mg/ml vial IV PRN (15:10)
[2023-06-12] MEDS ORDERED: haloperidol lactate 5mg/ml inj IM PRN (15:10)
[2023-06-12] MEDS ORDERED: haloperidol 5mg tablet PO PRN (15:10)
[2023-06-12] MEDS: ipratropium/albuterol 3ml nebule NEB PRN ×3 (15:50→23:51)
[2023-06-12] MEDS: K and/or MAG REPLACEMENT MC SCH (20:00)
[2023-06-12] MEDS: docusate sod 100mg capsule PO SCH ×2 (20:00→20:03)
[2023-06-12] MEDS: enoxaparin 40mg/0.4ml syringe SQ SCH (20:00)
[2023-06-12] MEDS: DOXYCYCLINE 100MG CAPSULE PO SCH (20:03)
[2023-06-12] MEDS: thiamine 100mg tablet PO SCH (20:03)
[2023-06-12] MEDS: methylPREDNISolone sod succ/PF 40mg inj. IV SCH (23:11)
[2023-06-13] VITALS (17 sets, daily range): BP systolic 110–124; BP diastolic 75–80; PULSE 60–98; RESP 16–22; TEMP 98–99.1; O2SAT 97–100
[2023-06-13 06:54] LABS: BASOPHILS % (AUTO) 0.3 % (0-1); EOSINOPHILS % (AUTO) 0.1 % (0-6); HEMATOCRIT 34.7 % (42.0-52.0); HEMOGLOBIN 11.8 g/dl (14.0-17.9); LYMPHOCYTES # (AUTO) 0.8 X10'3 (1.1-4.8); LYMPHOCYTES % (AUTO) 11.8 % (21-51); MEAN CORPUSCULAR HEMOGLOBIN 32.9 PG (27.0-31.0); MEAN CORPUSCULAR HGB CONC 33.9 g/dL (33.0-36.5); MEAN CORPUSCULAR VOLUME 97.1 FL (78-98); MEAN PLATELET VOLUME 6.7 FL (7.4-10.4); MONOCYTES # (AUTO) 0.3 X10'3 (0-0.9); MONOCYTES % (AUTO) 5.1 % (2-12); NEUTROPHILS # (AUTO) 5.4 X10'3 (1.8-7.7); NEUTROPHILS % (AUTO) 82.7 % (42-75); PLATELET COUNT 451 X10'3 (140-440); RED BLOOD COUNT 3.57 X10'6 (4.70-6.10); RED CELL DISTRIBUTION WIDTH 14.7 % (11.5-14.5); WHITE BLOOD COUNT 6.6 X10'3 (4.5-11.0)
[2023-06-13 07:03] LABS: INR 0.9 INR; PROTHROMBIN TIME 10.2 SECONDS (9.0-12.0)
[2023-06-13 07:07] LABS: ALANINE AMINOTRANSFERASE 16 U/L (12-78); ALBUMIN 2.9 G/DL (3.4-5.0); ALKALINE PHOSPHATASE 52 IU/L (46-116); ANION GAP 4 (8-16); ASPARTATE AMINO TRANSFERASE 25 U/L (10-37); BILIRUBIN,TOTAL 0.3 MG/DL (0.1-1.0); BLOOD UREA NITROGEN 18 MG/DL (7-18); BUN/CREATININE RATIO 30.5 (10.0-20.0); CALCIUM 8.6 MG/DL (8.5-10.1); CHLORIDE 100 MMOL/L (99-107); CREATININE 0.59 MG/DL (0.60-1.10); GLUCOSE 238 MG/DL (70-104); LIPASE 41 U/L (16-77); PHOSPHORUS 3.6 MG/DL (2.3-4.5); POTASSIUM 3.5 MMOL/L (3.5-5.1); SODIUM 137 MMOL/L (135-145); TOTAL CARBON DIOXIDE 33.2 MMOL/L (24-32); TOTAL PROTEIN 5.9 G/DL (6.4-8.2); eCRCL 154 ML/MIN; eGFR > 90 ML/MIN
[2023-06-13] MEDS: ipratropium/albuterol 3ml nebule NEB PRN ×3 (07:20→23:25)
[2023-06-13] MEDS: docusate sod 100mg capsule PO SCH ×2 (08:00→20:00)
[2023-06-13] MEDS: K and/or MAG REPLACEMENT MC SCH ×2 (08:00→20:00)
[2023-06-13] MEDS: multivitamins, therapeutics tablet PO SCH (08:53)
[2023-06-13] MEDS: thiamine 100mg tablet PO SCH ×2 (08:53→20:40)
[2023-06-13] MEDS: DOXYCYCLINE 100MG CAPSULE PO SCH ×2 (08:53→20:40)
[2023-06-13] MEDS: methylPREDNISolone sod succ/PF 40mg inj. IV SCH ×3 (09:59→20:41)
[2023-06-13] MEDS: albuterol 2.5 MG/3 ML nebule NEB PRN ×2 (11:18→18:09)
[2023-06-13] MEDS: enoxaparin 40mg/0.4ml syringe SQ SCH (20:00)
[2023-06-14] VITALS (15 sets, daily range): BP systolic 101–113; BP diastolic 52–75; PULSE 61–97; RESP 17–22; TEMP 97.1–98.7; O2SAT 97–100
[2023-06-14] MEDS: ipratropium/albuterol 3ml nebule NEB PRN ×2 (04:15→10:19)
[2023-06-14 07:17] LABS: BASOPHILS % (AUTO) 0.2 % (0-1); EOSINOPHILS % (AUTO) 0.5 % (0-6); HEMATOCRIT 32.7 % (42.0-52.0); LYMPHOCYTES # (AUTO) 1.8 X10'3 (1.1-4.8); LYMPHOCYTES % (AUTO) 21.6 % (21-51); MEAN CORPUSCULAR HEMOGLOBIN 33.1 PG (27.0-31.0); MEAN CORPUSCULAR HGB CONC 33.7 g/dL (33.0-36.5); MEAN CORPUSCULAR VOLUME 98.2 FL (78-98); MEAN PLATELET VOLUME 6.9 FL (7.4-10.4); MONOCYTES % (AUTO) 11.6 % (2-12); NEUTROPHILS # (AUTO) 5.6 X10'3 (1.8-7.7); NEUTROPHILS % (AUTO) 66.1 % (42-75); PLATELET COUNT 439 X10'3 (140-440); RED BLOOD COUNT 3.33 X10'6 (4.70-6.10); WHITE BLOOD COUNT 8.5 X10'3 (4.5-11.0)
[2023-06-14 07:22] LABS: INR 0.9 INR; PROTHROMBIN TIME 10.2 SECONDS (9.0-12.0)
[2023-06-14 07:28] LABS: ALANINE AMINOTRANSFERASE 17 U/L (12-78); ALBUMIN 2.8 G/DL (3.4-5.0); ALKALINE PHOSPHATASE 46 IU/L (46-116); ANION GAP 2 (8-16); ASPARTATE AMINO TRANSFERASE 22 U/L (10-37); BILIRUBIN,TOTAL 0.3 MG/DL (0.1-1.0); BLOOD UREA NITROGEN 16 MG/DL (7-18); CALCIUM 8.6 MG/DL (8.5-10.1); CHLORIDE 100 MMOL/L (99-107); GLUCOSE 107 MG/DL (70-104); LIPASE 56 U/L (16-77); MAGNESIUM 1.8 MG/DL (1.5-2.4); PHOSPHORUS 3.8 MG/DL (2.3-4.5); POTASSIUM 3.3 MMOL/L (3.5-5.1); SODIUM 138 MMOL/L (135-145); TOTAL CARBON DIOXIDE 36.3 MMOL/L (24-32); TOTAL PROTEIN 5.6 G/DL (6.4-8.2); eCRCL 182 ML/MIN; eGFR > 90 ML/MIN
[2023-06-14] MEDS: docusate sod 100mg capsule PO SCH ×2 (08:00→19:53)
[2023-06-14] MEDS: methylPREDNISolone sod succ/PF 40mg inj. IV SCH ×3 (08:22→20:03)
[2023-06-14] MEDS: DOXYCYCLINE 100MG CAPSULE PO SCH ×2 (08:53→20:02)
[2023-06-14] MEDS: multivitamins, therapeutics tablet PO SCH (08:54)
[2023-06-14] MEDS: thiamine 100mg tablet PO SCH ×2 (08:54→20:02)
[2023-06-14] MEDS: potassium Cl 20 mEq SR tablet PO PRN ×3 (08:54→20:03)
[2023-06-14] MEDS ORDERED: LORazepam 1 MG tablet PO PRN (15:10)
[2023-06-14] MEDS ORDERED: LORazepam 2 mg/ml vial IV PRN (15:10)
[2023-06-14] MEDS: albuterol 2.5 MG/3 ML nebule NEB SCH ×3 (15:15→23:42)
[2023-06-14] MEDS: enoxaparin 40mg/0.4ml syringe SQ SCH (19:53)
[2023-06-14] MEDS: K and/or MAG REPLACEMENT MC SCH (19:54)
[2023-06-15] VITALS (9 sets, daily range): BP systolic 93–103; BP diastolic 60; PULSE 63–84; RESP 15–20; TEMP 97.9–98.9; O2SAT 99–100
[2023-06-15] MEDS: albuterol 2.5 MG/3 ML nebule NEB SCH ×3 (04:07→11:31)
[2023-06-15 06:17] LABS: HEMOGLOBIN 11.5 g/dl (14.0-17.9); MEAN PLATELET VOLUME 6.9 FL (7.4-10.4)
[2023-06-15 06:20] LABS: BASOPHILS % (AUTO) 0.2 % (0-1); EOSINOPHILS % (AUTO) 0.3 % (0-6); HEMATOCRIT 34.2 % (42.0-52.0); LYMPHOCYTES # (AUTO) 1.8 X10'3 (1.1-4.8); LYMPHOCYTES % (AUTO) 20.2 % (21-51); MEAN CORPUSCULAR HEMOGLOBIN 32.4 PG (27.0-31.0); MEAN CORPUSCULAR HGB CONC 33.6 g/dL (33.0-36.5); MEAN CORPUSCULAR VOLUME 96.5 FL (78-98); MONOCYTES % (AUTO) 11.5 % (2-12); NEUTROPHILS # (AUTO) 6.2 X10'3 (1.8-7.7); NEUTROPHILS % (AUTO) 67.8 % (42-75); PLATELET COUNT 496 X10'3 (140-440); RED BLOOD COUNT 3.55 X10'6 (4.70-6.10); RED CELL DISTRIBUTION WIDTH 15.1 % (11.5-14.5); WHITE BLOOD COUNT 9.1 X10'3 (4.5-11.0)
[2023-06-15 06:25] LABS: PROTHROMBIN TIME 9.9 SECONDS (9.0-12.0)
[2023-06-15 06:43] LABS: INR 0.9 INR
[2023-06-15 06:50] LABS: ALANINE AMINOTRANSFERASE 19 U/L (12-78); ALBUMIN 2.9 G/DL (3.4-5.0); ALKALINE PHOSPHATASE 49 IU/L (46-116); ANION GAP 2 (8-16); ASPARTATE AMINO TRANSFERASE 23 U/L (10-37); BILIRUBIN,TOTAL 0.3 MG/DL (0.1-1.0); BLOOD UREA NITROGEN 15 MG/DL (7-18); BUN/CREATININE RATIO 31.3 (10.0-20.0); CALCIUM 8.9 MG/DL (8.5-10.1); CHLORIDE 99 MMOL/L (99-107); CREATININE 0.48 MG/DL (0.60-1.10); GLUCOSE 106 MG/DL (70-104); LIPASE 55 U/L (16-77); MAGNESIUM 1.9 MG/DL (1.5-2.4); PHOSPHORUS 4.5 MG/DL (2.3-4.5); SODIUM 135 MMOL/L (135-145); TOTAL CARBON DIOXIDE 34.2 MMOL/L (24-32); TOTAL PROTEIN 5.8 G/DL (6.4-8.2); eCRCL 190 ML/MIN; eGFR > 90 ML/MIN
[2023-06-15] MEDS: K and/or MAG REPLACEMENT MC SCH (08:00)
[2023-06-15] MEDS: docusate sod 100mg capsule PO SCH (08:00)
[2023-06-15] MEDS: methylPREDNISolone sod succ/PF 40mg inj. IV SCH (08:32)
[2023-06-15] MEDS: DOXYCYCLINE 100MG CAPSULE PO SCH (08:58)
[2023-06-15] MEDS: multivitamins, therapeutics tablet PO SCH (08:58)
[2023-06-15] MEDS: thiamine 100mg tablet PO SCH (08:59)
[2023-06-15] MEDS ORDERED: NICO-731 TOP (12:01)
[2023-06-16] MEDS ORDERED: LORazepam 1 MG tablet PO PRN (15:10)
[2023-06-16] MEDS ORDERED: LORazepam 2 mg/ml vial IV PRN (15:10)
[2023-06-17] MEDS ORDERED: folic acid 1mg tablet PO SCH (08:00)
== END 2023-06-15 12:35 | disposition home or self-care (01) | DRG 191 ==
LOC: ER 07:48 → ED HOLD 13:23 → ORTHO 4S 19:10
PROVIDERS: ADMIT Family Medicine; ATTEND Family Medicine
DX: J44.1 Chronic obstructive pulmonary disease with (acute) exacerbation (principal); F10.239 Alcohol dependence with withdrawal, unspecified; J96.10 Chronic respiratory failure, unspecified whether with hypoxia or hypercapnia; I10 Essential (primary) hypertension; F17.210 Nicotine dependence, cigarettes, uncomplicated; I25.10 Atherosclerotic heart disease of native coronary artery without angina pectoris; F32.A Depression, unspecified; Z20.822 Contact with and (suspected) exposure to COVID-19; G89.29 Other chronic pain; K21.9 Gastro-esophageal reflux disease without esophagitis; M54.9 Dorsalgia, unspecified; Z86.73 Personal history of transient ischemic attack (TIA), and cerebral infarction without residual deficits; I25.2 Old myocardial infarction; Z79.82 Long term (current) use of aspirin; Z79.899 Other long term (current) drug therapy; Z91.018 Allergy to other foods
CPT/HCPCS: 36415; 71045; 80053; 83690; 83735; 84100; 84484; 85025; 85610; 87081; 87502; 87503; 87811; 93005; 94640; 94760; 97110; 97116; 97161; 97530; 99285; A7015; G0378; J2060; J2920; J2930

== ENCOUNTER 2023-06-17 17:29 | Emergency (ER) | payer MEDICARE, MEDICAID ==
[2023-06-17] VITALS (7 sets, daily range): BP systolic 125; BP diastolic 91; PULSE 91–110; RESP 16–22; O2SAT 95–100
[~2023-06-17] VITALS: Ht 188 cm; Wt 83.0 kg
[~2023-06-17 17:29] MED LIST changes: +NICO-731 TOP
[2023-06-17 18:42] LABS: BASOPHILS # (AUTO) 0.1 X10'3 (0-0.2); BASOPHILS % (AUTO) 0.7 % (0-1); EOSINOPHILS # (AUTO) 0.2 X10'3 (0-0.9); EOSINOPHILS % (AUTO) 2.4 % (0-6); HEMATOCRIT 43.1 % (42.0-52.0); HEMOGLOBIN 14.5 g/dl (14.0-17.9); LYMPHOCYTES # (AUTO) 2.8 X10'3 (1.1-4.8); LYMPHOCYTES % (AUTO) 31.5 % (21-51); MEAN CORPUSCULAR HGB CONC 33.5 g/dL (33.0-36.5); MEAN CORPUSCULAR VOLUME 98.5 FL (78-98); MEAN PLATELET VOLUME 6.5 FL (7.4-10.4); MONOCYTES # (AUTO) 0.8 X10'3 (0-0.9); MONOCYTES % (AUTO) 9.4 % (2-12); PLATELET COUNT 596 X10'3 (140-440); RED BLOOD COUNT 4.38 X10'6 (4.70-6.10); WHITE BLOOD COUNT 8.9 X10'3 (4.5-11.0)
[2023-06-17] MEDS ORDERED: CefTRIAXone 2gm/D5W 50ml BAG 50 ML IV ONE (18:45)
[2023-06-17] MEDS ORDERED: methylPREDNISolone sod succ 125mg/2ml vial IV ONE (18:45)
[2023-06-17] MEDS ORDERED: azithromycin/NS 500mg/250ml 250 ML IV ONE (18:45)
[2023-06-17] MEDS ORDERED: normal saline 1000ML IV soln IVB ONE (18:45)
[2023-06-17] MEDS ORDERED: albuterol 2.5 MG/3 ML nebule CONTNEB PRN (18:45)
[2023-06-17 18:51] LABS: ALANINE AMINOTRANSFERASE 31 U/L (12-78); ALBUMIN 3.6 G/DL (3.4-5.0); ALKALINE PHOSPHATASE 89 IU/L (46-116); ANION GAP 8 (8-16); ASPARTATE AMINO TRANSFERASE 30 U/L (10-37); BILIRUBIN,TOTAL 0.1 MG/DL (0.1-1.0); BLOOD UREA NITROGEN 14 MG/DL (7-18); BUN/CREATININE RATIO 30.4 (10.0-20.0); CALCIUM 9.3 MG/DL (8.5-10.1); CHLORIDE 98 MMOL/L (99-107); CREATININE 0.46 MG/DL (0.60-1.10); GLUCOSE 91 MG/DL (70-104); POTASSIUM 4.1 MMOL/L (3.5-5.1); SODIUM 138 MMOL/L (135-145); TOTAL CARBON DIOXIDE 32.2 MMOL/L (24-32); TOTAL PROTEIN 7.3 G/DL (6.4-8.2); eCRCL 201 ML/MIN; eGFR > 90 ML/MIN
[2023-06-17 18:59] LABS: PRO BRAIN NATRIURETIC PEPTIDE 77 PG/ML (0-125)
[2023-06-17 19:34] LABS: D-DIMER 0.24 MG/L FEU (0-0.50)
[2023-06-17] MEDS ORDERED: ipratropium 0.5 MG/2.5ML nebule IH ONE (21:00)
[2023-06-17] MEDS ORDERED: azithromycin 250mg tablet PO ONE (21:40)
[2023-06-17 21:46] LABS: ELLIPTOCYTES FEW; PLATELET ESTIMATE INCREASED; TOTAL CELLS COUNTED 100
[2023-06-17 21:47] LABS: BURR CELLS FEW
[2023-06-17] MEDS ORDERED: ALBU8HFA PO (22:22)
[2023-06-17] MEDS ORDERED: PRED50TA PO (22:22)
[2023-06-17] MEDS ORDERED: AMOX-580 PO (22:22)
[2023-06-17] MEDS ORDERED: albuterol 2.5 MG/3 ML nebule NEB ONE (22:45)
[2023-06-18 00:11] VITALS: TEMP 98.2
== END 2023-06-18 00:14 | disposition home or self-care (01) ==
LOC: ER 17:29
DX: J44.1 Chronic obstructive pulmonary disease with (acute) exacerbation (principal); R05.8 Other specified cough; I25.10 Atherosclerotic heart disease of native coronary artery without angina pectoris; I11.0 Hypertensive heart disease with heart failure; I50.9 Heart failure, unspecified; I25.2 Old myocardial infarction; G89.29 Other chronic pain; Z98.890 Other specified postprocedural states; Z79.2 Long term (current) use of antibiotics; Z79.899 Other long term (current) drug therapy; Z79.82 Long term (current) use of aspirin
CPT/HCPCS: 36415; 71045; 80053; 83605; 83880; 84484; 85007; 85025; 85379; 87040; 87502; 87503; 93005; 94640; 94644; 96365; 96366; 96368; 99285; J0456; J0696; J2930; J7030; A7015

== ENCOUNTER 2023-07-03 14:14 | Inpatient (IN) | payer MEDICARE, MEDICAID ==
[~2023-07-03] VITALS: Ht 188 cm; Wt 75.0 kg
[~2023-07-03 14:14] MED LIST changes: +ALBU8HFA PO; +PRED50TA PO
[2023-07-03] MEDS ORDERED: ipratropium 0.5 MG/2.5ML nebule IH ONE (18:05)
[2023-07-03] MEDS ORDERED: CefTRIAXone/D5W-Rocephin 1gm 50 ML IV ONE (18:05)
[2023-07-03] MEDS ORDERED: azithromycin 250mg tablet PO ONE (18:05)
[2023-07-03] MEDS ORDERED: normal saline 1000ML IV soln IVB ONE (18:05)
[2023-07-03] MEDS ORDERED: guaiFENesin/DM 10ml UD oral syrup PO ONE (18:05)
[2023-07-03] MEDS ORDERED: acetaminophen 325mg tablet PO ONE (18:05)
[2023-07-03] MEDS ORDERED: methylPREDNISolone sod succ 125mg/2ml vial IV ONE (18:05)
[2023-07-03 18:22] LABS: BASOPHILS # (AUTO) 0.1 X10'3 (0-0.2); BASOPHILS % (AUTO) 0.9 % (0-1); EOSINOPHILS # (AUTO) 0.1 X10'3 (0-0.9); EOSINOPHILS % (AUTO) 1.9 % (0-6); HEMATOCRIT 38.6 % (42.0-52.0); HEMOGLOBIN 12.6 g/dl (14.0-17.9); LYMPHOCYTES # (AUTO) 1.5 X10'3 (1.1-4.8); LYMPHOCYTES % (AUTO) 20.1 % (21-51); MEAN CORPUSCULAR HEMOGLOBIN 32.6 PG (27.0-31.0); MEAN CORPUSCULAR HGB CONC 32.7 g/dL (33.0-36.5); MEAN CORPUSCULAR VOLUME 99.8 FL (78-98); MONOCYTES # (AUTO) 0.9 X10'3 (0-0.9); MONOCYTES % (AUTO) 12.2 % (2-12); NEUTROPHILS # (AUTO) 4.8 X10'3 (1.8-7.7); NEUTROPHILS % (AUTO) 64.9 % (42-75); PLATELET COUNT 445 X10'3 (140-440); RED BLOOD COUNT 3.87 X10'6 (4.70-6.10); RED CELL DISTRIBUTION WIDTH 15.6 % (11.5-14.5); WHITE BLOOD COUNT 7.3 X10'3 (4.5-11.0)
[2023-07-03] MEDS: albuterol 2.5 MG/3 ML nebule CONTNEB PRN (18:33)
[2023-07-03 18:34] VITALS: PULSE 95; RESP 18; O2SAT 97
[2023-07-03 18:40] LABS: ALANINE AMINOTRANSFERASE 151 U/L (12-78); ALBUMIN 3.5 G/DL (3.4-5.0); ALBUMIN/GLOBULIN RATIO 1.1 (1.1-1.5); ALKALINE PHOSPHATASE 74 IU/L (46-116); ANION GAP 15 (8-16); ASPARTATE AMINO TRANSFERASE 105 U/L (10-37); BILIRUBIN,TOTAL 0.8 MG/DL (0.1-1.0); BLOOD UREA NITROGEN 9 MG/DL (7-18); BUN/CREATININE RATIO 17.6 (10.0-20.0); CALCIUM 8.5 MG/DL (8.5-10.1); CHLORIDE 99 MMOL/L (99-107); CREATININE 0.51 MG/DL (0.60-1.10); GLUCOSE 70 MG/DL (70-104); POTASSIUM 3.7 MMOL/L (3.5-5.1); SODIUM 141 MMOL/L (135-145); TOTAL CARBON DIOXIDE 27.1 MMOL/L (24-32); TOTAL PROTEIN 6.6 G/DL (6.4-8.2); eCRCL 165 ML/MIN; eGFR > 90 ML/MIN
[2023-07-03 18:49] LABS: ETHANOL < 10 MG/DL (<10); PRO BRAIN NATRIURETIC PEPTIDE 107 PG/ML (0-125)
[2023-07-03 18:57] LABS: ABG BASE EXCESS 2.8 mmol/L (-2.0-2.0); ABG HCO3 27.1 mmol/L (22.0-26.0); ABG PCO2 (T) 40.1 mmHg (35.0-48.0); ABG PH (T) 7.446 (7.340-7.440); ABG PO2 (T) 108.5 mmHg (75.0-100.0); ALLEN'S TEST Modified; FCOHb 0.1 % (0.0-3.9); FLOW 5 L/min; FMetHb 0.3 % (0.0-1.5); FO2Hb 97.6 % (94-97); MODE NASAL CANNULA; PATIENT TEMPERATURE 36.7; TOTAL HEMOGLOBIN 12.8 G/dl (14.0-17.9)
[2023-07-03 19:29] LABS: APTT 29 SECONDS (22-32)
[2023-07-03 19:50] VITALS: PULSE 87; RESP 18; O2SAT 98
[2023-07-03] MEDS ORDERED: magnesium hydroxide 30ml (MOM) UD suspension PO PRN (20:00)
[2023-07-03] MEDS ORDERED: magnesium 2GM in 50ml NS 50 ML IV PRN (20:00)
[2023-07-03] MEDS ORDERED: potassium Cl 20 mEq SR tablet PO PRN ×2 (20:00)
[2023-07-03] MEDS ORDERED: ondansetron/PF 4mg/2ml inj IV PRN (20:00)
[2023-07-03] MEDS ORDERED: potassium Cl 40MEQ/1/2NS 520ml 520 ML IV PRN (20:00)
[2023-07-03] MEDS ORDERED: magnesium 4gm in 100ml NS 100 ML IV PRN (20:00)
[2023-07-03] MEDS ORDERED: mag hydrox/Alum hydrox/simeth 30ml oral suspension PO PRN (20:00)
[2023-07-03] MEDS ORDERED: magnesium Cl slow-release 64mg tablet PO PRN (20:00)
[2023-07-03] MEDS: K and/or MAG REPLACEMENT MC SCH (20:00)
[2023-07-03] MEDS ORDERED: ipratropium/albuterol 3ml nebule NEB PRN (20:05)
[2023-07-03] MEDS: enoxaparin 40mg/0.4ml syringe SQ SCH (20:26)
[2023-07-03 20:34] LABS: MAGNESIUM 1.8 MG/DL (1.5-2.4); PHOSPHORUS 2.7 MG/DL (2.3-4.5)
[2023-07-03] MEDS ORDERED: nicotine 14mg patch - 24hr TD ONE (21:00)
[2023-07-03 22:00] VITALS: BP 143/91; PULSE 67; RESP 24; TEMP 98.2; O2SAT 96
[2023-07-03] MEDS: methylPREDNISolone sod succ/PF 40mg inj. IV SCH (22:20)
[2023-07-03 23:59] VITALS: PULSE 81; RESP 18; O2SAT 97
[2023-07-03] MEDS: ipratropium/albuterol 3ml nebule NEB SCH (23:59)
[2023-07-04] VITALS (17 sets, daily range): BP systolic 113–142; BP diastolic 65–84; PULSE 68–83; RESP 16–24; TEMP 97.5–98.6; O2SAT 90–100
[2023-07-04] MEDS: acetaminophen 325mg tablet PO PRN ×2 (02:24→19:38)
[2023-07-04] MEDS: ipratropium/albuterol 3ml nebule NEB SCH ×7 (07:37→23:29)
[2023-07-04] MEDS: budesonide 0.5mg/2ml UD nebule IH SCH (07:37)
[2023-07-04] MEDS ORDERED: CefTRIAXone/D5W-Rocephin 1gm 50 ML IV SCH (08:00)
[2023-07-04] MEDS: K and/or MAG REPLACEMENT MC SCH ×2 (08:00→19:48)
[2023-07-04] MEDS ORDERED: azithromycin 250mg tablet PO SCH (08:00)
[2023-07-04 08:44] LABS: BASOPHILS % (AUTO) 0.2 % (0-1); EOSINOPHILS % (AUTO) 0.1 % (0-6); HEMATOCRIT 34.7 % (42.0-52.0); HEMOGLOBIN 11.8 g/dl (14.0-17.9); LYMPHOCYTES # (AUTO) 0.6 X10'3 (1.1-4.8); MEAN CORPUSCULAR HEMOGLOBIN 33.4 PG (27.0-31.0); MEAN CORPUSCULAR HGB CONC 33.9 g/dL (33.0-36.5); MEAN CORPUSCULAR VOLUME 98.4 FL (78-98); MONOCYTES # (AUTO) 0.7 X10'3 (0-0.9); MONOCYTES % (AUTO) 11.4 % (2-12); NEUTROPHILS # (AUTO) 4.6 X10'3 (1.8-7.7); NEUTROPHILS % (AUTO) 78.3 % (42-75); PLATELET COUNT 392 X10'3 (140-440); RED BLOOD COUNT 3.53 X10'6 (4.70-6.10); RED CELL DISTRIBUTION WIDTH 15.7 % (11.5-14.5); WHITE BLOOD COUNT 5.9 X10'3 (4.5-11.0)
[2023-07-04 08:57] LABS: ALANINE AMINOTRANSFERASE 120 U/L (12-78); ALBUMIN 3.1 G/DL (3.4-5.0); ALKALINE PHOSPHATASE 72 IU/L (46-116); ANION GAP 8 (8-16); ASPARTATE AMINO TRANSFERASE 66 U/L (10-37); BILIRUBIN,TOTAL 0.3 MG/DL (0.1-1.0); BLOOD UREA NITROGEN 13 MG/DL (7-18); BUN/CREATININE RATIO 27.1 (10.0-20.0); CALCIUM 8.7 MG/DL (8.5-10.1); CHLORIDE 102 MMOL/L (99-107); CREATININE 0.48 MG/DL (0.60-1.10); GLUCOSE 122 MG/DL (70-104); POTASSIUM 4.1 MMOL/L (3.5-5.1); SODIUM 140 MMOL/L (135-145); TOTAL CARBON DIOXIDE 29.6 MMOL/L (24-32); TOTAL PROTEIN 6.1 G/DL (6.4-8.2); eCRCL 176 ML/MIN; eGFR > 90 ML/MIN
[2023-07-04] MEDS: levoFLOXACIN 750MG TABLET PO SCH (10:11)
[2023-07-04] MEDS: methylPREDNISolone sod succ/PF 40mg inj. IV SCH ×3 (10:12→21:21)
[2023-07-04] MEDS: albuterol 2.5 MG/3 ML nebule CONTNEB PRN (11:45)
[2023-07-04] MEDS ORDERED: non-formulary drug (Albuterol Sulfate (Ventolin Hfa) 2 PUFFS) PO PRN (12:05)
[2023-07-04] MEDS ORDERED: ipratropium/albuterol 3ml nebule NEB SCH (16:00)
[2023-07-04] MEDS: furosemide 20 MG/2 ML vial IV SCH (19:12)
[2023-07-04] MEDS: ferrous sulfate 325mg tablet PO SCH (19:33)
[2023-07-04] MEDS: enoxaparin 40mg/0.4ml syringe SQ SCH (19:35)
[2023-07-05] VITALS (20 sets, daily range): BP systolic 87–124; BP diastolic 47–74; PULSE 55–93; RESP 16–24; TEMP 97.3–99.3; O2SAT 90–100
[2023-07-05] MEDS: ipratropium/albuterol 3ml nebule NEB SCH ×6 (04:59→22:44)
[2023-07-05 07:57] LABS: BASOPHILS % (AUTO) 0.4 % (0-1); EOSINOPHILS # (AUTO) 0.1 X10'3 (0-0.9); EOSINOPHILS % (AUTO) 0.7 % (0-6); HEMATOCRIT 36.6 % (42.0-52.0); HEMOGLOBIN 12.5 g/dl (14.0-17.9); LYMPHOCYTES # (AUTO) 1.5 X10'3 (1.1-4.8); LYMPHOCYTES % (AUTO) 15.2 % (21-51); MEAN CORPUSCULAR HEMOGLOBIN 33.6 PG (27.0-31.0); MEAN CORPUSCULAR HGB CONC 34.2 g/dL (33.0-36.5); MEAN CORPUSCULAR VOLUME 98.2 FL (78-98); MEAN PLATELET VOLUME 7.2 FL (7.4-10.4); MONOCYTES # (AUTO) 0.9 X10'3 (0-0.9); MONOCYTES % (AUTO) 8.9 % (2-12); NEUTROPHILS # (AUTO) 7.4 X10'3 (1.8-7.7); NEUTROPHILS % (AUTO) 74.8 % (42-75); PLATELET COUNT 405 X10'3 (140-440); RED BLOOD COUNT 3.72 X10'6 (4.70-6.10); RED CELL DISTRIBUTION WIDTH 15.3 % (11.5-14.5); WHITE BLOOD COUNT 9.9 X10'3 (4.5-11.0)
[2023-07-05 08:00] LABS: ANION GAP 6 (8-16); CHLORIDE 100 MMOL/L (99-107); GLUCOSE 127 MG/DL (70-104); POTASSIUM 3.6 MMOL/L (3.5-5.1); SODIUM 137 MMOL/L (135-145); TOTAL CARBON DIOXIDE 31.3 MMOL/L (24-32)
[2023-07-05] MEDS: K and/or MAG REPLACEMENT MC SCH ×2 (08:00→19:00)
[2023-07-05] MEDS: non-formulary drug (Fluticasone/Umeclidin/Vilanter (Trelegy Ellipta 100-62.5-25) 1 PUFFS) PO SCH (08:00)
[2023-07-05 08:01] LABS: ALANINE AMINOTRANSFERASE 98 U/L (12-78); ALBUMIN 3.3 G/DL (3.4-5.0); ALBUMIN/GLOBULIN RATIO 1.2 (1.1-1.5); ALKALINE PHOSPHATASE 64 IU/L (46-116); ASPARTATE AMINO TRANSFERASE 39 U/L (10-37); BILIRUBIN,TOTAL 0.3 MG/DL (0.1-1.0); BLOOD UREA NITROGEN 12 MG/DL (7-18); BUN/CREATININE RATIO 24.5 (10.0-20.0); CALCIUM 8.8 MG/DL (8.5-10.1); CREATININE 0.49 MG/DL (0.60-1.10); TOTAL PROTEIN 6.1 G/DL (6.4-8.2); eCRCL 172 ML/MIN; eGFR > 90 ML/MIN
[2023-07-05] MEDS: aspirin 81mg tab.chew PO SCH (08:20)
[2023-07-05] MEDS: folic acid 1mg tablet PO SCH (08:20)
[2023-07-05] MEDS: atorvastatin 20mg tablet PO SCH (08:20)
[2023-07-05] MEDS: ferrous sulfate 325mg tablet PO SCH ×2 (08:20→19:11)
[2023-07-05] MEDS: pantoprazole 40mg Tablet.DR PO SCH (08:21)
[2023-07-05] MEDS: metoprolol succinate 25mg (24-HOUR) SR. Tablet PO SCH (08:21)
[2023-07-05] MEDS: methylPREDNISolone sod succ/PF 40mg inj. IV SCH ×4 (08:21→20:04)
[2023-07-05] MEDS: thiamine 100mg tablet PO SCH (08:21)
[2023-07-05] MEDS: clopidogrel 75mg tablet PO SCH (08:21)
[2023-07-05] MEDS: furosemide 20 MG/2 ML vial IV SCH (08:24)
[2023-07-05] MEDS: budesonide 0.5mg/2ml UD nebule IH SCH (08:50)
[2023-07-05] MEDS: levoFLOXACIN 750MG TABLET PO SCH (10:58)
[2023-07-05] MEDS: guaiFENesin ER 600mg tablet PO SCH ×2 (12:20→19:11)
[2023-07-05 15:10] LABS: HBSAG SCREEN Negative (Negative); HEPATITIS C VIRUS ANTIBODY Non Reactive (Non Reactive)
[2023-07-05] MEDS: enoxaparin 40mg/0.4ml syringe SQ SCH ×2 (19:02→20:00)
[2023-07-05] MEDS: HYDROcodone/acetaminophen 5mg/325mg tablet PO PRN (19:12)
[2023-07-05] MEDS: guaiFENesin 200 MG/10 ML oral syrup UD cup PO PRN (22:53)
[2023-07-06] VITALS (10 sets, daily range): BP systolic 109–113; BP diastolic 70–80; PULSE 72–88; RESP 13–20; TEMP 97.8–97.9; O2SAT 97–100
[2023-07-06] MEDS: ipratropium/albuterol 3ml nebule NEB SCH ×4 (03:09→14:26)
[2023-07-06] MEDS: guaiFENesin 200 MG/10 ML oral syrup UD cup PO PRN (06:19)
[2023-07-06] MEDS: HYDROcodone/acetaminophen 5mg/325mg tablet PO PRN (06:20)
[2023-07-06] MEDS: budesonide 0.5mg/2ml UD nebule IH SCH (07:09)
[2023-07-06] MEDS: aspirin 81mg tab.chew PO SCH (07:45)
[2023-07-06] MEDS: pantoprazole 40mg Tablet.DR PO SCH (07:45)
[2023-07-06] MEDS: thiamine 100mg tablet PO SCH (07:46)
[2023-07-06] MEDS: guaiFENesin ER 600mg tablet PO SCH (07:46)
[2023-07-06] MEDS: ferrous sulfate 325mg tablet PO SCH (07:46)
[2023-07-06] MEDS: metoprolol succinate 25mg (24-HOUR) SR. Tablet PO SCH (07:46)
[2023-07-06] MEDS: clopidogrel 75mg tablet PO SCH (07:46)
[2023-07-06] MEDS: folic acid 1mg tablet PO SCH (07:49)
[2023-07-06] MEDS: atorvastatin 20mg tablet PO SCH (07:51)
[2023-07-06] MEDS: furosemide 20 MG/2 ML vial IV SCH (07:52)
[2023-07-06 07:53] LABS: BASOPHILS # (AUTO) 0.1 X10'3 (0-0.2); BASOPHILS % (AUTO) 0.9 % (0-1); EOSINOPHILS # (AUTO) 0.2 X10'3 (0-0.9); EOSINOPHILS % (AUTO) 2.3 % (0-6); HEMATOCRIT 38.1 % (42.0-52.0); HEMOGLOBIN 12.9 g/dl (14.0-17.9); LYMPHOCYTES # (AUTO) 2.7 X10'3 (1.1-4.8); LYMPHOCYTES % (AUTO) 31.4 % (21-51); MEAN CORPUSCULAR HEMOGLOBIN 33.5 PG (27.0-31.0); MEAN CORPUSCULAR VOLUME 98.6 FL (78-98); MEAN PLATELET VOLUME 6.8 FL (7.4-10.4); MONOCYTES # (AUTO) 0.9 X10'3 (0-0.9); MONOCYTES % (AUTO) 10.8 % (2-12); NEUTROPHILS # (AUTO) 4.7 X10'3 (1.8-7.7); NEUTROPHILS % (AUTO) 54.6 % (42-75); PLATELET COUNT 399 X10'3 (140-440); RED BLOOD COUNT 3.86 X10'6 (4.70-6.10); RED CELL DISTRIBUTION WIDTH 15.8 % (11.5-14.5); WHITE BLOOD COUNT 8.6 X10'3 (4.5-11.0)
[2023-07-06] MEDS: methylPREDNISolone sod succ/PF 40mg inj. IV SCH ×3 (07:53→13:00)
[2023-07-06] MEDS: K and/or MAG REPLACEMENT MC SCH (08:00)
[2023-07-06] MEDS: non-formulary drug (Fluticasone/Umeclidin/Vilanter (Trelegy Ellipta 100-62.5-25) 1 PUFFS) PO SCH (08:00)
[2023-07-06 08:13] LABS: ALANINE AMINOTRANSFERASE 85 U/L (12-78); ALBUMIN 3.1 G/DL (3.4-5.0); ALBUMIN/GLOBULIN RATIO 1.1 (1.1-1.5); ALKALINE PHOSPHATASE 60 IU/L (46-116); ANION GAP 6 (8-16); ASPARTATE AMINO TRANSFERASE 30 U/L (10-37); BILIRUBIN,TOTAL 0.2 MG/DL (0.1-1.0); BLOOD UREA NITROGEN 22 MG/DL (7-18); BUN/CREATININE RATIO 39.3 (10.0-20.0); CALCIUM 8.8 MG/DL (8.5-10.1); CHLORIDE 101 MMOL/L (99-107); CREATININE 0.56 MG/DL (0.60-1.10); GLUCOSE 109 MG/DL (70-104); SODIUM 139 MMOL/L (135-145); TOTAL CARBON DIOXIDE 31.8 MMOL/L (24-32); TOTAL PROTEIN 5.9 G/DL (6.4-8.2); eCRCL 151 ML/MIN; eGFR > 90 ML/MIN
[2023-07-06] MEDS: levoFLOXACIN 750MG TABLET PO SCH (14:13)
== END 2023-07-06 14:30 | DRG 189 ==
LOC: ER 14:15 → ED HOLD 20:04 → EDBEDREQ 22:26 → PCU 3S 22:50
PROVIDERS: ADMIT Family Medicine; ATTEND Internal Medicine
DX: J96.21 Acute and chronic respiratory failure with hypoxia (principal); J44.1 Chronic obstructive pulmonary disease with (acute) exacerbation; Z59.00 Homelessness unspecified; I25.10 Atherosclerotic heart disease of native coronary artery without angina pectoris; I27.81 Cor pulmonale (chronic); K76.1 Chronic passive congestion of liver; F10.90 Alcohol use, unspecified, uncomplicated; G25.0 Essential tremor; Y90.0 Blood alcohol level of less than 20 mg/100 ml; Z20.822 Contact with and (suspected) exposure to COVID-19; F17.210 Nicotine dependence, cigarettes, uncomplicated; I50.9 Heart failure, unspecified; Z86.73 Personal history of transient ischemic attack (TIA), and cerebral infarction without residual deficits; I25.2 Old myocardial infarction; Z95.5 Presence of coronary angioplasty implant and graft; Z91.018 Allergy to other foods; Z79.899 Other long term (current) drug therapy; Z79.82 Long term (current) use of aspirin; Z80.3 Family history of malignant neoplasm of breast; Z82.49 Family history of ischemic heart disease and other diseases of the circulatory system
CPT/HCPCS: 36415; 36600; 71045; 80053; 80320; 82803; 83605; 83735; 83880; 84100; 84484; 85018; 85025; 85610; 85730; 86803; 87040; 87081; 87340; 87502; 87503; 87522; 87811; 93005; 94640; 94760; 96365; 96375; 97116; 97161; 97530; 99285; A7015; G0378; J0696; J1650; J1940; J2920; J2930; J7030

== ENCOUNTER 2023-07-13 20:06 | Emergency (ER) | payer MEDICARE, MEDICAID ==
[~2023-07-13] VITALS: Ht 188 cm; Wt 77.3 kg
[2023-07-13 22:40] VITALS: TEMP 98
[2023-07-13] MEDS: aspirin 81mg tab.chew PO ONE (22:50)
[2023-07-13 23:31] LABS: BASOPHILS # (AUTO) 0.1 X10'3 (0-0.2); BASOPHILS % (AUTO) 1.3 % (0-1); EOSINOPHILS # (AUTO) 0.2 X10'3 (0-0.9); EOSINOPHILS % (AUTO) 2.7 % (0-6); HEMATOCRIT 42.3 % (42.0-52.0); HEMOGLOBIN 14.5 g/dl (14.0-17.9); LYMPHOCYTES # (AUTO) 1.9 X10'3 (1.1-4.8); LYMPHOCYTES % (AUTO) 23.4 % (21-51); MEAN CORPUSCULAR HGB CONC 34.2 g/dL (33.0-36.5); MEAN CORPUSCULAR VOLUME 99.2 FL (78-98); MEAN PLATELET VOLUME 6.8 FL (7.4-10.4); MONOCYTES # (AUTO) 1.4 X10'3 (0-0.9); MONOCYTES % (AUTO) 16.4 % (2-12); NEUTROPHILS # (AUTO) 4.6 X10'3 (1.8-7.7); NEUTROPHILS % (AUTO) 56.2 % (42-75); PLATELET COUNT 504 X10'3 (140-440); RED BLOOD COUNT 4.26 X10'6 (4.70-6.10); RED CELL DISTRIBUTION WIDTH 15.3 % (11.5-14.5); WHITE BLOOD COUNT 8.2 X10'3 (4.5-11.0)
[2023-07-13 23:36] LABS: ALBUMIN 3.8 G/DL (3.4-5.0); ANION GAP 7 (8-16); BLOOD UREA NITROGEN 19 MG/DL (7-18); BUN/CREATININE RATIO 33.9 (10.0-20.0); CALCIUM 8.4 MG/DL (8.5-10.1); CHLORIDE 101 MMOL/L (99-107); CREATININE 0.56 MG/DL (0.60-1.10); GLUCOSE 98 MG/DL (70-104); MAGNESIUM 2.2 MG/DL (1.5-2.4); POTASSIUM 4.2 MMOL/L (3.5-5.1); PRO BRAIN NATRIURETIC PEPTIDE 80 PG/ML (0-125); SODIUM 139 MMOL/L (135-145); TOTAL CARBON DIOXIDE 31.5 MMOL/L (24-32); eCRCL 155 ML/MIN; eGFR > 90 ML/MIN
[2023-07-14] MEDS: ipratropium/albuterol 3ml nebule NEB ONE (00:21)
[2023-07-14 00:24] VITALS: PULSE 96; RESP 24; O2SAT 100
[2023-07-14] MEDS: ipratropium/albuterol 3ml nebule NEB PRN (00:30)
[2023-07-14 00:38] VITALS: PULSE 101; RESP 24; O2SAT 100
[2023-07-14 01:16] VITALS: BP 142/78; PULSE 90; RESP 22; O2SAT 96
[2023-07-14 04:23] LABS: TOTAL CELLS COUNTED 100
[2023-07-14 04:24] LABS: PLATELET ESTIMATE INCREASED
== END 2023-07-14 02:52 | disposition home or self-care (01) ==
LOC: ER 20:07
DX: J44.1 Chronic obstructive pulmonary disease with (acute) exacerbation (principal); I11.0 Hypertensive heart disease with heart failure; I50.9 Heart failure, unspecified; K21.9 Gastro-esophageal reflux disease without esophagitis; Z91.018 Allergy to other foods; Z79.82 Long term (current) use of aspirin; Z79.899 Other long term (current) drug therapy
CPT/HCPCS: 36415; 71045; 80048; 83735; 83880; 84484; 85007; 85025; 93005; 94640; 94760; 99285

== ENCOUNTER 2023-07-16 08:38 | Emergency (ER) | payer MEDICARE, MEDICAID ==
[~2023-07-16] VITALS: Ht 188 cm; Wt 86.0 kg
[2023-07-16 09:32] VITALS: TEMP 98.4
[2023-07-16] MEDS ORDERED: dexamethasone sod phosphate 10mg/ml inj PO STA (09:34)
[2023-07-16] MEDS: ipratropium/albuterol 3ml nebule NEB ONE (10:04)
[2023-07-16 10:05] VITALS: PULSE 90; RESP 16; O2SAT 99
[2023-07-16 10:10] VITALS: PULSE 85; RESP 11; O2SAT 99
[2023-07-16] MEDS: dexamethasone 4mg tablet PO ONE (10:50)
[2023-07-16 10:54] LABS: BASOPHILS # (AUTO) 0.1 X10'3 (0-0.2); BASOPHILS % (AUTO) 1.1 % (0-1); EOSINOPHILS # (AUTO) 0.1 X10'3 (0-0.9); EOSINOPHILS % (AUTO) 1.9 % (0-6); HEMATOCRIT 39.1 % (42.0-52.0); HEMOGLOBIN 13.2 g/dl (14.0-17.9); LYMPHOCYTES # (AUTO) 1.4 X10'3 (1.1-4.8); LYMPHOCYTES % (AUTO) 18.8 % (21-51); MEAN CORPUSCULAR HEMOGLOBIN 33.4 PG (27.0-31.0); MEAN CORPUSCULAR HGB CONC 33.9 g/dL (33.0-36.5); MEAN CORPUSCULAR VOLUME 98.6 FL (78-98); MEAN PLATELET VOLUME 6.7 FL (7.4-10.4); MONOCYTES # (AUTO) 0.8 X10'3 (0-0.9); NEUTROPHILS # (AUTO) 4.9 X10'3 (1.8-7.7); NEUTROPHILS % (AUTO) 67.2 % (42-75); PLATELET COUNT 466 X10'3 (140-440); RED BLOOD COUNT 3.96 X10'6 (4.70-6.10); RED CELL DISTRIBUTION WIDTH 15.1 % (11.5-14.5); WHITE BLOOD COUNT 7.3 X10'3 (4.5-11.0)
[2023-07-16 11:09] LABS: PRO BRAIN NATRIURETIC PEPTIDE 81 PG/ML (0-125)
[2023-07-16 11:23] LABS: ALBUMIN 3.5 G/DL (3.4-5.0); ANION GAP 10 (8-16); BLOOD UREA NITROGEN 16 MG/DL (7-18); CALCIUM 8.7 MG/DL (8.5-10.1); CHLORIDE 106 MMOL/L (99-107); CREATININE 0.47 MG/DL (0.60-1.10); GLUCOSE 104 MG/DL (70-104); POTASSIUM 4.2 MMOL/L (3.5-5.1); SODIUM 144 MMOL/L (135-145); TOTAL CARBON DIOXIDE 27.9 MMOL/L (24-32); eCRCL 197 ML/MIN; eGFR > 90 ML/MIN
[2023-07-16 12:00] VITALS: BP 131/82; PULSE 74; RESP 22; O2SAT 98
[2023-07-17] MEDS ORDERED: PRED20TA PO (07:38)
[2023-07-17] MEDS ORDERED: FLUT1BLS4 INH (07:38)
[2023-07-17] MEDS ORDERED: ALBU18HF2 PO (07:38)
[2023-07-17] MEDS ORDERED: IPRA3AMP31 NEB (07:38)
== END 2023-07-16 12:21 | disposition home or self-care (01) ==
LOC: ER 08:39
DX: J44.1 Chronic obstructive pulmonary disease with (acute) exacerbation (principal); I11.0 Hypertensive heart disease with heart failure; I50.9 Heart failure, unspecified; J44.9 Chronic obstructive pulmonary disease, unspecified; K21.9 Gastro-esophageal reflux disease without esophagitis; F17.210 Nicotine dependence, cigarettes, uncomplicated; Z91.018 Allergy to other foods; Z79.82 Long term (current) use of aspirin; Z79.899 Other long term (current) drug therapy
CPT/HCPCS: 36415; 71045; 80048; 83880; 84145; 84484; 85025; 93005; 94640; 94760; 99285

== ENCOUNTER 2023-07-16 17:02 | Emergency (ER) | payer MEDICARE, MEDICAID ==
[~2023-07-16] VITALS: Ht 182.9 cm; Wt 76.4 kg
[2023-07-16 17:20] VITALS: BP 144/61
[2023-07-16 20:11] VITALS: PULSE 73; RESP 18; O2SAT 99
[2023-07-16] MEDS: ipratropium/albuterol 3ml nebule NEB PRN (20:15)
[2023-07-16 20:20] VITALS: PULSE 75; RESP 18; O2SAT 96
[2023-07-16] MEDS: predniSONE 20 mg tablet PO ONE (20:32)
[2023-07-17] MEDS ORDERED: FLUT1BLS4 INH (07:38)
[2023-07-17] MEDS ORDERED: PRED20TA PO (07:38)
[2023-07-17] MEDS ORDERED: ALBU18HF2 PO (07:38)
[2023-07-17] MEDS ORDERED: IPRA3AMP31 NEB (07:38)
== END 2023-07-16 20:37 | disposition home or self-care (01) ==
LOC: ER 17:02
DX: J44.1 Chronic obstructive pulmonary disease with (acute) exacerbation (principal); I11.0 Hypertensive heart disease with heart failure; I50.9 Heart failure, unspecified; K21.9 Gastro-esophageal reflux disease without esophagitis; F17.200 Nicotine dependence, unspecified, uncomplicated; Z91.018 Allergy to other foods; Z79.82 Long term (current) use of aspirin; Z79.899 Other long term (current) drug therapy
CPT/HCPCS: 94640; 99283; J7512

== ENCOUNTER 2023-07-17 04:49 | Emergency (ER) | payer MEDICARE, MEDICAID ==
[~2023-07-17] VITALS: Ht 182.9 cm; Wt 76.4 kg
[2023-07-17] MEDS: ipratropium 0.5 MG/2.5ML nebule IH ONE (05:14)
[2023-07-17] MEDS: albuterol 2.5 MG/3 ML nebule CONTNEB PRN (05:14)
[2023-07-17 05:18] VITALS: PULSE 95; RESP 20; O2SAT 99
[2023-07-17] MEDS: methylPREDNISolone sod succ 125mg/2ml vial IV ONE (05:35)
[2023-07-17] MEDS: normal saline 1000ML IV soln IVB ONE ×2 (05:37→05:38)
[2023-07-17 06:04] LABS: D-DIMER 0.22 MG/L FEU (0-0.50)
[2023-07-17 06:40] LABS: BASOPHILS % (AUTO) 0.6 % (0-1); EOSINOPHILS % (AUTO) 0.1 % (0-6); HEMATOCRIT 36.5 % (42.0-52.0); HEMOGLOBIN 12.2 g/dl (14.0-17.9); LYMPHOCYTES # (AUTO) 0.8 X10'3 (1.1-4.8); LYMPHOCYTES % (AUTO) 10.9 % (21-51); MEAN CORPUSCULAR HGB CONC 33.5 g/dL (33.0-36.5); MEAN CORPUSCULAR VOLUME 98.4 FL (78-98); MEAN PLATELET VOLUME 7.1 FL (7.4-10.4); MONOCYTES # (AUTO) 0.5 X10'3 (0-0.9); MONOCYTES % (AUTO) 6.3 % (2-12); NEUTROPHILS % (AUTO) 82.1 % (42-75); PLATELET COUNT 493 X10'3 (140-440); RED BLOOD COUNT 3.71 X10'6 (4.70-6.10); RED CELL DISTRIBUTION WIDTH 15.4 % (11.5-14.5); WHITE BLOOD COUNT 7.3 X10'3 (4.5-11.0)
[2023-07-17 06:53] LABS: ALBUMIN 3.3 G/DL (3.4-5.0); ANION GAP 12 (8-16); BLOOD UREA NITROGEN 12 MG/DL (7-18); BUN/CREATININE RATIO 27.9 (10.0-20.0); CALCIUM 8.4 MG/DL (8.5-10.1); CHLORIDE 102 MMOL/L (99-107); CREATININE 0.43 MG/DL (0.60-1.10); GLUCOSE 123 MG/DL (70-104); PRO BRAIN NATRIURETIC PEPTIDE 143 PG/ML (0-125); SODIUM 143 MMOL/L (135-145); eCRCL 200 ML/MIN; eGFR > 90 ML/MIN
[2023-07-17 06:55] VITALS: PULSE 82; RESP 19; O2SAT 98
[2023-07-17 07:17] VITALS: BP 117/53; PULSE 78; TEMP 97.3; O2SAT 97
[2023-07-17 07:20] VITALS: RESP 13
[2023-07-17] MEDS ORDERED: PRED20TA PO (07:38)
[2023-07-17] MEDS ORDERED: IPRA3AMP31 NEB (07:38)
[2023-07-17] MEDS ORDERED: ALBU18HF2 PO (07:38)
[2023-07-17] MEDS ORDERED: FLUT1BLS4 INH (07:38)
== END 2023-07-17 08:36 | disposition home or self-care (01) ==
LOC: ER 04:50
DX: J44.1 Chronic obstructive pulmonary disease with (acute) exacerbation (principal); R06.02 Shortness of breath; I11.0 Hypertensive heart disease with heart failure; I50.9 Heart failure, unspecified; K21.9 Gastro-esophageal reflux disease without esophagitis; F17.200 Nicotine dependence, unspecified, uncomplicated; Z91.018 Allergy to other foods; Z79.82 Long term (current) use of aspirin; Z79.899 Other long term (current) drug therapy
CPT/HCPCS: 36415; 71045; 80048; 83880; 84484; 85025; 85379; 93005; 94640; 94644; 96374; 99285; A7015; J2930; J7030; J7040

== ENCOUNTER 2023-07-18 16:13 | Observation (INO) | payer MEDICARE, MEDICAID ==
[~2023-07-18] VITALS: Ht 177.8 cm; Wt 79.2 kg
[~2023-07-18 16:13] MED LIST changes: +PRED20TA PO
[2023-07-18] MEDS: magnesium 2GM in 50ml NS 50 ML IV ONE (16:32)
[2023-07-18] MEDS: methylPREDNISolone sod succ 125mg/2ml vial IV ONE (16:33)
[2023-07-18] MEDS: albuterol 2.5 MG/3 ML nebule CONTNEB PRN (16:34)
[2023-07-18 16:38] VITALS: PULSE 83; RESP 24; O2SAT 99
[2023-07-18 16:44] LABS: BASOPHILS # (AUTO) 0.1 X10'3 (0-0.2); BASOPHILS % (AUTO) 0.9 % (0-1); EOSINOPHILS # (AUTO) 0.2 X10'3 (0-0.9); EOSINOPHILS % (AUTO) 2.1 % (0-6); HEMATOCRIT 41.7 % (42.0-52.0); HEMOGLOBIN 13.6 g/dl (14.0-17.9); LYMPHOCYTES # (AUTO) 2.5 X10'3 (1.1-4.8); LYMPHOCYTES % (AUTO) 29.4 % (21-51); MEAN CORPUSCULAR HEMOGLOBIN 32.5 PG (27.0-31.0); MEAN CORPUSCULAR HGB CONC 32.7 g/dL (33.0-36.5); MEAN CORPUSCULAR VOLUME 99.5 FL (78-98); MEAN PLATELET VOLUME 6.4 FL (7.4-10.4); MONOCYTES % (AUTO) 11.7 % (2-12); NEUTROPHILS # (AUTO) 4.7 X10'3 (1.8-7.7); NEUTROPHILS % (AUTO) 55.9 % (42-75); PLATELET COUNT 595 X10'3 (140-440); RED BLOOD COUNT 4.19 X10'6 (4.70-6.10); RED CELL DISTRIBUTION WIDTH 15.7 % (11.5-14.5); WHITE BLOOD COUNT 8.4 X10'3 (4.5-11.0)
[2023-07-18] MEDS: azithromycin/NS 500mg/250ml 250 ML IV ONE (17:12)
[2023-07-18] MEDS: CefTRIAXone 2gm/D5W 50ml BAG 50 ML IV ONE (17:12)
[2023-07-18 17:18] LABS: ALBUMIN 3.6 G/DL (3.4-5.0); ANION GAP 7 (8-16); BLOOD UREA NITROGEN 8 MG/DL (7-18); BUN/CREATININE RATIO 8.7 (10.0-20.0); CALCIUM 8.3 MG/DL (8.5-10.1); CHLORIDE 106 MMOL/L (99-107); CREATININE 0.92 MG/DL (0.60-1.10); GLUCOSE 91 MG/DL (70-104); POTASSIUM 3.5 MMOL/L (3.5-5.1); PRO BRAIN NATRIURETIC PEPTIDE 134 PG/ML (0-125); SODIUM 145 MMOL/L (135-145); TOTAL CARBON DIOXIDE 31.8 MMOL/L (24-32); eCRCL 89 ML/MIN; eGFR 84 ML/MIN
[2023-07-18 17:41] VITALS: PULSE 80; RESP 24
[2023-07-18] MEDS ORDERED: magnesium 4gm in 100ml NS 100 ML IV PRN (17:45)
[2023-07-18] MEDS ORDERED: magnesium Cl slow-release 64mg tablet PO PRN (17:45)
[2023-07-18] MEDS ORDERED: potassium Cl 40MEQ/1/2NS 520ml 520 ML IV PRN (17:45)
[2023-07-18] MEDS ORDERED: potassium Cl 20 mEq SR tablet PO PRN ×2 (17:45)
[2023-07-18] MEDS ORDERED: acetaminophen 325mg tablet PO PRN (17:45)
[2023-07-18] MEDS ORDERED: ondansetron/PF 4mg/2ml inj IV PRN (17:45)
[2023-07-18] MEDS ORDERED: magnesium 2GM in 50ml NS 50 ML IV PRN (17:45)
[2023-07-18 17:49] LABS: PLATELET ESTIMATE INCREASED; TOTAL CELLS COUNTED 100
[2023-07-18 17:59] LABS: ELLIPTOCYTES FEW; SCHISTOCYTES FEW
[2023-07-18 18:00] LABS: BURR CELLS FEW
[2023-07-18] MEDS: normal saline 1000ml 1,000 ML IV SCH (18:02)
[2023-07-18 18:16] LABS: C-REACTIVE PROTEIN 0.17 MG/DL (0.0-0.5)
[2023-07-18] MEDS ORDERED: iohexol 300mg/ml 100ml inj. ONE (18:17)
[2023-07-18] MEDS: albuterol 2.5 MG/3 ML nebule NEB SCH (19:44)
[2023-07-18 19:46] VITALS: PULSE 85; RESP 22; O2SAT 95
[2023-07-18 19:53] VITALS: PULSE 85; RESP 20
[2023-07-18] MEDS ORDERED: heparin, porcine 5000 units/ml vial SQ SCH (20:00)
[2023-07-18] MEDS: heparin, porcine 5000 units/ml vial SQ SCH (20:00)
[2023-07-18] MEDS: methylPREDNISolone sod succ 125mg/2ml vial IV SCH (20:05)
[2023-07-18] MEDS ORDERED: temazepam 15mg capsule PO PRN (21:00)
[2023-07-18 22:58] VITALS: PULSE 90; RESP 22; O2SAT 98
[2023-07-18 23:04] VITALS: PULSE 78; RESP 20
[2023-07-19] VITALS (12 sets, daily range): BP systolic 135–142; BP diastolic 70–90; PULSE 68–94; RESP 18–22; TEMP 97.9–98.2; O2SAT 97–100
[2023-07-19] MEDS: acetaminophen 325mg tablet PO SCH
[2023-07-19 06:36] LABS: BASOPHILS % (AUTO) 0.1 % (0-1); EOSINOPHILS % (AUTO) 0 % (0-6); HEMATOCRIT 36.4 % (42.0-52.0); LYMPHOCYTES # (AUTO) 0.7 X10'3 (1.1-4.8); LYMPHOCYTES % (AUTO) 6.7 % (21-51); MEAN CORPUSCULAR HEMOGLOBIN 32.7 PG (27.0-31.0); MEAN CORPUSCULAR HGB CONC 33.1 g/dL (33.0-36.5); MEAN CORPUSCULAR VOLUME 98.9 FL (78-98); MEAN PLATELET VOLUME 6.7 FL (7.4-10.4); MONOCYTES % (AUTO) 9.7 % (2-12); NEUTROPHILS # (AUTO) 8.3 X10'3 (1.8-7.7); NEUTROPHILS % (AUTO) 83.5 % (42-75); PLATELET COUNT 533 X10'3 (140-440); RED BLOOD COUNT 3.68 X10'6 (4.70-6.10); RED CELL DISTRIBUTION WIDTH 15.8 % (11.5-14.5); WHITE BLOOD COUNT 9.9 X10'3 (4.5-11.0)
[2023-07-19 06:51] LABS: ALANINE AMINOTRANSFERASE 29 U/L (12-78); ALBUMIN 3.1 G/DL (3.4-5.0); ALBUMIN/GLOBULIN RATIO 1.1 (1.1-1.5); ALKALINE PHOSPHATASE 53 IU/L (46-116); ANION GAP 5 (8-16); ASPARTATE AMINO TRANSFERASE 18 U/L (10-37); BILIRUBIN,TOTAL 0.2 MG/DL (0.1-1.0); BLOOD UREA NITROGEN 13 MG/DL (7-18); BUN/CREATININE RATIO 24.1 (10.0-20.0); CALCIUM 8.2 MG/DL (8.5-10.1); CHLORIDE 106 MMOL/L (99-107); CREATININE 0.54 MG/DL (0.60-1.10); GLUCOSE 135 MG/DL (70-104); POTASSIUM 4.3 MMOL/L (3.5-5.1); SODIUM 144 MMOL/L (135-145); TOTAL CARBON DIOXIDE 32.7 MMOL/L (24-32); eCRCL 152 ML/MIN; eGFR > 90 ML/MIN
[2023-07-19] MEDS: CefTRIAXone 2gm/D5W 50ml BAG 50 ML IV SCH (08:52)
[2023-07-19] MEDS: ipratropium/albuterol 3ml nebule NEB SCH (10:39)
[2023-07-19] MEDS ORDERED: LEVO-65 PO (13:50)
[2023-07-19] MEDS: azithromycin/NS 500mg/250ml 250 ML IV SCH (15:37)
== END 2023-07-19 16:50 | disposition home or self-care (01) ==
LOC: ER 16:14 → ED HOLD 17:53 → INTOOBSV 17:53 → EDBEDREQ 07-19 01:32 → ORTHO 4S 07-19 02:30
PROVIDERS: ADMIT Internal Medicine; ATTEND Internal Medicine
DX: J44.1 Chronic obstructive pulmonary disease with (acute) exacerbation (principal); Z20.822 Contact with and (suspected) exposure to COVID-19; J96.21 Acute and chronic respiratory failure with hypoxia; F17.200 Nicotine dependence, unspecified, uncomplicated; F10.20 Alcohol dependence, uncomplicated; I11.0 Hypertensive heart disease with heart failure; I50.9 Heart failure, unspecified; I25.10 Atherosclerotic heart disease of native coronary artery without angina pectoris; I25.2 Old myocardial infarction; Z79.899 Other long term (current) drug therapy
CPT/HCPCS: 36415; 71045; 71260; 80048; 80053; 83605; 83880; 84145; 84484; 85007; 85025; 85379; 85651; 86140; 87040; 87081; 87634; 87811; 93005; 94640; 94644; 94760; 96361; 96365; 96366; 96367; 96368; 96375; 96376; 97161; 97530; 99291; G0378; J0456; J0696; J2930; J3475; J3490; J7030; J7040; J7512; Q9967; 96374; 99283; 99285; A7015

== ENCOUNTER 2023-07-22 10:44 | Emergency (ER) | payer MEDICARE, MEDICAID ==
[~2023-07-22] VITALS: Ht 188 cm; Wt 76.4 kg
[~2023-07-22 10:44] MED LIST changes: -ALBU8HFA PO; +LEVO-65 PO; -PRED50TA PO
[2023-07-22] MEDS: methylPREDNISolone sod succ 125mg/2ml vial IV ONE (11:30)
[2023-07-22 12:20] VITALS: PULSE 86; RESP 21; O2SAT 98
[2023-07-22] MEDS: ipratropium/albuterol 3ml nebule NEB ONE (12:20)
[2023-07-22 12:28] VITALS: PULSE 84; RESP 20; O2SAT 98
[2023-07-22] MEDS: levoFLOXACIN 250mg tablet PO ONE (12:39)
[2023-07-22 12:53] VITALS: BP 131/94; PULSE 80; RESP 20; TEMP 98; O2SAT 99
== END 2023-07-22 12:56 | disposition home or self-care (01) ==
LOC: ER 10:44
DX: J44.1 Chronic obstructive pulmonary disease with (acute) exacerbation (principal); J18.9 Pneumonia, unspecified organism; F10.10 Alcohol abuse, uncomplicated; F17.218 Nicotine dependence, cigarettes, with other nicotine-induced disorders; I11.0 Hypertensive heart disease with heart failure; I50.9 Heart failure, unspecified; K21.9 Gastro-esophageal reflux disease without esophagitis; I25.2 Old myocardial infarction; I25.10 Atherosclerotic heart disease of native coronary artery without angina pectoris; Z72.89 Other problems related to lifestyle; Z86.73 Personal history of transient ischemic attack (TIA), and cerebral infarction without residual deficits; Y90.9 Presence of alcohol in blood, level not specified
CPT/HCPCS: 71045; 93005; 94640; 96374; 99284; J2930; 94760

== ENCOUNTER 2023-07-22 15:22 | Emergency (ER) | payer MEDICARE, MEDICAID ==
[~2023-07-22] VITALS: Ht 188 cm; Wt 76.4 kg
[2023-07-22 15:29] VITALS: BP 135/85; PULSE 62; RESP 20; TEMP 98.6; O2SAT 97
[2023-07-22 16:06] LABS: BASOPHILS % (AUTO) 0 % (0-1); EOSINOPHILS % (AUTO) 0.4 % (0-6); HEMATOCRIT 40.9 % (42.0-52.0); HEMOGLOBIN 13.6 g/dl (14.0-17.9); LYMPHOCYTES # (AUTO) 0.5 X10'3 (1.1-4.8); LYMPHOCYTES % (AUTO) 5.1 % (21-51); MEAN CORPUSCULAR HEMOGLOBIN 33.1 PG (27.0-31.0); MEAN CORPUSCULAR HGB CONC 33.3 g/dL (33.0-36.5); MEAN CORPUSCULAR VOLUME 99.3 FL (78-98); MEAN PLATELET VOLUME 6.6 FL (7.4-10.4); MONOCYTES # (AUTO) 0.1 X10'3 (0-0.9); NEUTROPHILS # (AUTO) 8.4 X10'3 (1.8-7.7); NEUTROPHILS % (AUTO) 93.5 % (42-75); PLATELET COUNT 541 X10'3 (140-440); RED BLOOD COUNT 4.11 X10'6 (4.70-6.10); RED CELL DISTRIBUTION WIDTH 15.7 % (11.5-14.5)
[2023-07-22 16:29] LABS: ALBUMIN 3.5 G/DL (3.4-5.0); ANION GAP 3 (8-16); BLOOD UREA NITROGEN 12 MG/DL (7-18); BUN/CREATININE RATIO 27.9 (10.0-20.0); CALCIUM 8.2 MG/DL (8.5-10.1); CHLORIDE 102 MMOL/L (99-107); CREATININE 0.43 MG/DL (0.60-1.10); GLUCOSE 221 MG/DL (70-104); POTASSIUM 4.3 MMOL/L (3.5-5.1); PRO BRAIN NATRIURETIC PEPTIDE 75 PG/ML (0-125); SODIUM 139 MMOL/L (135-145); eCRCL 200 ML/MIN; eGFR > 90 ML/MIN
[2023-07-22 17:00] LABS: PLATELET ESTIMATE INCREASED; TOTAL CELLS COUNTED 100
[2023-07-22 17:01] LABS: SCHISTOCYTES FEW
== END 2023-07-22 16:28 | disposition home or self-care (01) ==
LOC: ER 15:25
DX: J44.1 Chronic obstructive pulmonary disease with (acute) exacerbation (principal); J18.9 Pneumonia, unspecified organism; I11.0 Hypertensive heart disease with heart failure; I50.9 Heart failure, unspecified; K21.9 Gastro-esophageal reflux disease without esophagitis; J45.909 Unspecified asthma, uncomplicated; I25.10 Atherosclerotic heart disease of native coronary artery without angina pectoris; F32.A Depression, unspecified; Z86.73 Personal history of transient ischemic attack (TIA), and cerebral infarction without residual deficits; Z79.82 Long term (current) use of aspirin; Z79.899 Other long term (current) drug therapy
CPT/HCPCS: 36415; 80048; 83880; 84484; 85007; 85025; 93005; 99284

== ENCOUNTER 2023-07-22 16:42 | Emergency (ER) | payer MEDICARE, MEDICAID ==
[~2023-07-22] VITALS: Ht 188 cm; Wt 76.4 kg
[2023-07-22 16:45] VITALS: BP 170/90; TEMP 97.7
[2023-07-22] MEDS: ipratropium/albuterol 3ml nebule NEB ONE (17:15)
[2023-07-22 17:16] VITALS: PULSE 89; RESP 19; O2SAT 97
[2023-07-22 17:21] VITALS: PULSE 82; RESP 20; O2SAT 99
== END 2023-07-22 17:30 | disposition home or self-care (01) ==
LOC: ER 16:43
DX: J44.1 Chronic obstructive pulmonary disease with (acute) exacerbation (principal); I11.0 Hypertensive heart disease with heart failure; I50.9 Heart failure, unspecified; K21.9 Gastro-esophageal reflux disease without esophagitis; J45.909 Unspecified asthma, uncomplicated; I25.10 Atherosclerotic heart disease of native coronary artery without angina pectoris; I25.2 Old myocardial infarction; Z86.73 Personal history of transient ischemic attack (TIA), and cerebral infarction without residual deficits
CPT/HCPCS: 94640; 94760; 99283